=== PATIENT | female | born 2005 | race Caucasian/White ===

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

== ENCOUNTER 2023-03-14 16:24 | Emergency (ER) | payer OTHER ==
--- OUTSIDE RECORDS SUMMARY | 2023-03-14 16:28 | XMS REPORT | Continuity of Care Document ---
:2003 Author Organization [facility] t Address [address] [facility] [address] [place] [address] Care Team Providers Name Role Phone KARL ROMAN Primary Care Physician Unavailable Kelly Wakefield Attending Clinician Unavailable Susana Noel Attending Clinician Unavailable RADIOLOGY Attending Clinician Unavailable Radiology Attending Clinician Unavailable OLIVERIO ZAMRBANO Attending Clinician Unavailable Nurse, Adc Pob Immunization Attending Clinician Unavailable Oliverio Zambrano DO Attending Clinician Doctor Unassigned, [place] Attending Clinician Unavailable Pob1, Acute [facility] Attending Clinician Unavailable Karl Roman Attending Clinician Krystin France RN Attending Clinician Unavailable Caprice Santacruz Attending Clinician CAPRICE CURRY Attending Clinician Unavailable WEST, PATITO Admitting Clinician Unavailable Payers Payer Name Policy Type Policy Number Effective Date Expiration Date Rodrigue lockhart [place] [employer] [id number] 2023 STAR 00:00:00 [place] [id number] Common Sp martha HEALTH PLAN [facility] Problems Condition Condition Condition Status Onset Resolution Last Treating Co mments Source Name Details Category Date Date Treatment Clinician Date [id number] Problem Active [facility] No known No known Disease Unive rs active active ity of problems problems [facility] Allergies, Adverse Reactions, Alerts Allergy Allergy Status Severity Reaction(s) Onset Inactive Treating Comm ents Source Name Type Date Date Clinician NO KNOWN Drug Active Univers ALLERGIE Class ity of S [facility] Social History Social Habit Start Date Stop Date Quantity Comments Source Sexual orientation Univer sity [facility] Sex Assigned At Common Sp martha - [facility] History of Tobacco Common [facility] - Use [facility] Exposure to Not sure University SARS-CoV-2 (event) [facility] Gender identity Universit y [facility] Tobacco use and 2020-02-03 2020-02-03 Smokeless Universit y of exposure 00:00:00 00:00:00 tobacco non-user [facility] dical [place] History of Social 2020-02-03 2020-02-03 Univers ity of function 00:00:00 00:00:00 [facility] Smoking Status Start Date Stop Date Source Never Smoker [facility] Medications Ordered Filled Start Stop Current Ordering Indication Dosage Frequency Signature Comments Components Source Medication Medication Date Date Medication? Clinician (SIG) Name Name acetaminoph 2020- No [id number] 650mg Univers en 02-02 ity of (TYLENOL) 15:00: 14:05 [place] tablet 650 00 :00 Medical Branch acetaminoph 2019- No [id number] 650mg 650 mg, Univers en 02-02 Oral, ity of (TYLENOL) 15:00: 14:05 [place]CE, 1 [place] tablet 650 00 :00 dose, Tue Medi mary mg 02/03/20 at Branch 1000, Routine No known 2019- No Univers medications 02-02 ity of 09:18: [place] [address] Medical Branch maalox:diph 2019- 2020- No [id number] 10mL Take 10 mL Univers enhydrAMINE 02-02 by mouth ity of :lidocaine 00:00: 04:59 [place] needed [place] 2 % viscous 00 :00 (Swish and Me dical 1:1:1 spit) for Branch up to 5 days. maalox:diph 2020- No [id number] 10mL Take 10 mL Univers enhydrAMINE 02-02 by mouth ity of :lidocaine 00:00: 04:59 as needed [place] 2 % viscous 00 :00 (Swish and Me dical 1:1:1 spit) for Branch up to 5 days. maalox:diph 0 2020- No [id number] 10mL Take 10 mL Univers enhydrAMINE 02-02 by mouth ity of :lidocaine 00:00: 04:59 as needed [place] 2 % viscous 00 :00 (Swish and Me dical 1:1:1 spit) for Branch up to 5 days. Lessina Lessina Yes Susana 1 tablet Co mmon -17 [place] [facility] 00:00: - [facility] 00 [facility] Levonorgest Levonorgest Yes Susana TAKE 1 Common rel-Ethinyl rel-Ethinyl Mill[place] TABLET BY Spirit Estrad Estrad MOUTH - [facility] EVERY DAY [facility] No Known No Known No Common Medications Medications [facility] buPROPion buPROPion No 1{table QD HCl ER (SR) HCl ER (SR) t_in_th 150 MG 150 MG e_morni ng} Omeprazole Omeprazole No QD 20 MG 20 MG No known No Univers medications [facility] No known No Univers medications [facility] Vital Signs Vital Name Observation Time Observation Value Comments Source height 2021-07-11 13:00:00 64.5 [in_i] [facility] weight 2021-07-11 13:00:00 109 [lb_av] [facility] temperature 2021-07-11 13:00:00 98.0 [degF] [facility] bmi 2021-07-11 13:00:00 18.42 kg/m2 [facility] oximetry 2021-07-11 13:00:00 99 % [facility] respiratory rate 2021-07-11 13:00:00 18 /min Comm on [facility] blood pressure 2021-07-11 13:00:00 91 mm[Hg] [facility] blood pressure 2021-07-11 13:00:00 46 mm[Hg] Common [facility] - diastolic [facility] height 2020-07-08 13:20:00 64.5 [in_i] [facility] weight 2020-07-08 13:20:00 104.5 [lb_av] [facility] temperature 2020-07-08 13:20:00 97.9 [degF] Common [facility] bmi 2020-07-08 13:20:00 17.66 kg/m2 Common [facility] oximetry 2020-07-08 13:20:00 100 % [facility] respiratory rate 2020-07-08 13:20:00 18 /min Comm on [facility] blood pressure 2020-07-08 13:20:00 86 mm[Hg] Common [facility] - systolic [facility] blood pressure 2020-07-08 13:20:00 54 mm[Hg] Common [facility] - diastolic [facility] Systolic blood 2020-02-03 13:26:00 110 mm[Hg] Univer sity of [facility] Diastolic blood 2020-02-03 13:26:00 62 mm[Hg] Unive rsity of [facility] Heart rate 2020-02-03 13:26:00 109 /min [facility] Body temperature 2020-02-03 13:26:00 39.78 Melissa [facility] Respiratory rate 2020-02-03 13:26:00 18 /min [facility] Body height 2020-02-03 13:26:00 165 cm [facility] Body weight 2020-02-03 13:26:00 48.807 kg [facility] BMI 2020-02-03 13:26:00 17.93 kg/m2 [facility] Oxygen saturation in 2020-02-03 13:26:00 98 /min [facility] blood by [facility] Pulse oximetry Branch Procedures Procedure Date / Time Performing Clinician Source Performed CT ABDOMEN PELVIS WO 2023-02-20 13:41:00 Requisition, Paper Univ [facility] NO SHOW OR MISSED 2023-02-20 13:30:22 Doctor Unassigned, [facility] APPOINTMENT POLICY [place] [facility] ACKNOWLEDGEMENT [facility] PATIENT FINANCIAL 2023-02-20 13:30:06 Doctor Unassigned, [facility] POLICY [facility] NOTICE OF PRIVACY 2023-02-20 13:29:50 Doctor Unassigned, [facility] PRACTICES [facility] CONSENT/REFUSAL FOR 2023-02-20 13:29:33 Doctor Unassigned, [facility] DIAGNOSIS AND TREATMENT [facility] ASSIGNMENT OF BENEFITS 2023-02-20 13:29:18 [facility] SARS-COV-2 COVID-19 2021-02-23 16:40:59 Doctor Unassigned, [facility] VACCINE,0.3ML,IM (PFIZER) [place] VACCINATIONS - CONSENTS, 2021-02-02 05:01:00 Doctor Unadonavanigned, [facility] ELIGIBILITY, HISTORY [place] [facility] Encounters Start End Encounter Admission Attending Care Care Encounter Source Date/Time Date/Time Type Type Clinicians Facility Department ID 2022-07-11 Outpatient Gilbert, STLMLC [facility] [id number] Common 11:58:00 Kelly [facility] 2022-07-10 Outpatient Gilbert, STLMLC [facility] [id number] Common 08:08:00 Kelly [facility] 2021-07-20 Outpatient Gilbert, STLMLC [facility] [id number] Common 14:35:15 Kelly [facility] 2021-07-20 Outpatient Gilbert, STLMLC ST[facility] [id number] Common 12:21:17 Kelly [facility] 2021-07-20 Outpatient Gilbert, STLMLC STLC [id number] Common 12:20:10 Kelly [facility] 2021-07-20 Outpatient Millender, STLMLC [facility] [id number] Common 12:14:27 Susana Price17 [facility] 2021-07-20 Outpatient Millender, STLMLC [facility] [id number] Common 11:17:47 Susana 6[address] Spirit - [facility] 2023-02-20 2023-02-20 Outpatient R RADIOLOGY [facility] [id number] Univers 08:31:14 23:59:00 ity of [facility] 2023-02-20 2023-02-20 Hospital Radiology [facility] [id number] [id number] Univers 08:31:14 23:59:00 Encounter [place] [id number] ity [facility] [id number] [facility] [id number] [place] [address] Branch 2023-02-13 2023-02-13 Outpatient SFA SFA [id number] [place] 08:56:59 08:56:59 [id number] [place] 2023-02-05 2023-02-05 Outpatient SFA SFA [id number] Amol 14:45:10 14:45:10 [id number] [facility] 2022-11-30 2022-11-30 Outpatient SFA SFA [id number] Amol 17:40:38 17:40:38 [id number] [facility] 2022-09-13 2022-09-13 Outpatient SFA SFA Am[place] 10:01:30 10:01:30 [id number] [facility] 2022-09-08 2022-09-08 Outpatient SFA SFA [id number] [place] 08:31:55 08:31:55 [id number] [facility] 2022-08-30 2022-08-30 Outpatient SFA SFA [id number] Amol 08:02:19 08:02:19 [id number] [facility] 2022-08-10 2022-08-10 Outpatient SFA SFA [id number] Amol 11:56:47 11:56:47 [id number] [facility] 2022-03-31 2022-03-31 Outpatient SFA SFA [id number] Amol 14:57:16 14:57:16 [id number] [facility] 2021-07-11 2021-07-11 PREV VISIT STLMLC STLC [id number] Common 00:00:00 00:00:00 EST AGE Spirit 18-39 - [facility] 2021-02-23 2021-02-23 Outpatient Darnell ZAMBRANO [facility] [id number] Univers 11:50:00 11:50:00 OLIVERIO ity of [facility] 2021-02-23 2021-02-23 Imm/Inj Nurse, Adc Pob Immunization [facility] 1.2.840.114 [id number] Univers 11:38:41 11:39:24 Visit Oliverio Zambrano 350.1.13 .10 ity of [place]2.686 [place] Profess[place] [phone] Dc dical nal [address] Branch Building 2021-02-02 2021-02-02 Outpatient [facility] [id number] Univers 13:10:00 13:10:00 ity of [facility] 2021-02-02 2021-02-02 Orders Doctor RAMA 1.2.840.114 [id number] Univers 00:00:00 00:00:00 Only Unassigned, TRENA [id number] ity of [facility] 4.2.7.2.686 [place] as [id number] [facility] 009 Branch 2020-07-08 2020-07-08 PREV VISIT STLMLC STLMLC [id number] Common 00:00:00 00:00:00 EST AGE Spirit 12-17 - [facility] 2020-02-05 2020-02-05 Letter Pob1, Acute [facility] 1.2.840.114 [id number] Univers 00:00:00 00:00:00 (Out) [facility] [id number] ity of [place] 4.2.7.2.686 [place] as Professio [phone] Dc dical nal [address] Branch [address] One 2020-02-04 2020-02-04 Telephone RAMA Roman 1.2.840.114 [id number] Univers 00:00:00 00:00:00 Karl ALBRECHT [id number] it y of [facility] 4.2.7.2.686 [place] as [id number] [facility] 019 Branch 2020-02-04 2020-02-04 Letter RAMA [place] 1.2.840.114 [id number] Univers 00:00:00 00:00:00 (Out) Krystin ALBRECHT [id number] it y of [facility] 4.2.7.2.686 [place] as [phone] [facility] 019 Branch 2020-02-03 2020-02-03 Urgent Pob1, Acute Care Clinic [facility] 1. 2.840.114 [id number] Univers 08:16:19 08:36:19 Caprice Estrada [id number] ity [facility] [id number] [place] [phone] Dc dical [facility] 0[address] Branch [address] One 2020-02-03 2020-02-03 Outpatient Darnell CURRY [facility] [id number] Univers 08:00:00 08:00:00 CAPRICE rickey [facility] 2019-06-24 2019-06-24 Outpatient Maria L Guzman [id number] Common 11:00:00 11:00:00 [facility] [address] [facility] 2019-04-08 2019-04-08 Outpatient Maria L Guzman [id number] Common 10:20:00 10:20:00 [facility] [address] [facility] 2018-11-07 2018-11-07 Outpatient Maria L Lisat [id number] Common 15:20:00 15:20:00 [facility] [address] [facility] Results Test Description Test Time Test Comments Results Result Comments Source VITAMIN D, 25 OH 2023-02-06 07:56:44 Test Item Value Reference Range Interpretation Comme nts VITAMIN D, 25 OH (test 23 NG/ML SEE BELOW L E FFECTIVE 07/03/2022, PLEASE NOTE code = 4958) NEW METHODOLOGY IS ELECTROCHEMILUM INESCENCE BINDING ASSAY. NOTE: 25-HYDROX YVITAMIN D ASSAY INCLUDES 25-HYDROXYVITAM IN D2 AND D3. INTERPRETIVE RA NGES PEDIATRIC (<17 YEARS) . . . . . . . . . . . NG/ML 20-100ADULT: IN SUFFICIENT . . . . . . . . . . . . . . N G/ML <20 SUBOPTIMAL . . . . . . . . . . . . . . . NG/ML 20-29 OPTIMAL . . . . . . . . . . . . . . . . . NG/ML 30-100 TSH, THIRD [id number] 07:14:29 Test Item Value Reference Range Interpretation Comments TSH, THIRD GENERATION (test code 0.468 UIU/ML 0.400-4.100 = 2821) COMPREHENSIVE METABOLIC [id number] 03:52:33 Test Item Value Reference Range Interpretation Comments GLUCOSE (test code = 92 MG/DL 70-99 2216) BUN (test code = 12 MG/DL 6-20 2207) CREATININE (test 0.60 MG/DL 0.50-1.10 code = 2214) eGFR (2020 CKD-EPI) 133 >60 (test code = 34175) ML/MIN/1.73 CALC BUN/CREAT (test 20 RATIO 6-28 code = 2235) SODIUM (test code = 138 MEQ/L 722-423 4426) POTASSIUM (test code 3.9 MEQ/L 3.5-5.4 = 2227) CHLORIDE (test code 104 MEQ/L 95-107 = 2215) CARBON DIOXIDE (test 24 MEQ/L 19-31 code = 2206) CALCIUM (test code = 9.6 MG/DL 8.5-10.5 2208) PROTEIN, TOTAL (test 7.5 G/DL 6.1-8.3 code = 2229) ALBUMIN (test code = 5.0 G/DL 3.5-5.2 220) CALC GLOBULIN (test 2.5 G/DL 2.1-3.7 code = 2240) CALC A/G RATIO (test 2.0 RATIO 1.0-2.6 code = 2234) BILIRUBIN, TOTAL 0.6 MG/DL See_Comment [Automated message] (test code = 2207) The syste m which generated this result transmitted ref erence range: <=1.2. T he reference range was not used to int erpret this result as normal/abnormal . ALKALINE PHOSPHATASE 52 U/L 41-120 (test code = 2204) AST (test code = 12 U/L 9-40 2217) ALT (test code = 9 U/L 5-40 UNLESS OTH ERWISE 2218) INDICATED, ALL TESTING PERFORM ED AT CLINICAL PATH[facility] [employer] [place]. [address] [place] [address] LABORA NATALI DIRECTOR: Inocencio GOLDBERG MANAV NUMBER [id number] CAP ACCREDITATION N O. [id number] CBC W/AUTO DIFF WITH [id number] 03:31:33 Test Item Value Reference Range Interpretation Comments WBC (test code = 3.9 K/UL 3.5-11.0 1001) RBC (test code = 4.62 M/UL 3.80-5.40 1002) HEMOGLOBIN (test code 13.8 G/DL 11.5-15.5 = 1003) HEMATOCRIT (test code 40.3 % 34.0-45.0 = 1004) MCV (test code = 87.2 fL 80.0-99.0 1005) MCH (test code = 29.9 PG 25.0-33.0 1006) MCHC (test code = 34.2 G/DL 31.0-36.0 1007) RDW (test code = 12.4 % 11.5-15.0 1038) NEUTROPHILS (test 63.5 % code = 1008) LYMPHOCYTES (test 26.7 % code = 1010) MONOCYTES (test code 7.5 % = 1011) EOSINOPHILS (test 1.5 % code = 1012) BASOPHILS (test code 0.5 % = 1013) IMMATURE GRANULOCYTES 0.3 % (test code = 1036) NUCLEATED RBCS (test 0.0 /100 WBC'S See_Comment [Aut omated code = 1065) message] The sy stem which generated this result transmitted reference range : 0.0. The refere nce range was not u sed to interpret th is result as normal/abnormal . PLATELET COUNT (test 285 K/UL 130-400 code = 1015) ABSOLUTE NEUTROPHILS 2.47 K/UL 1.50-7.50 (test code = 1066) ABSOLUTE LYMPHOCYTES 1.04 K/UL 1.00-4.00 (test code = 1067) ABSOLUTE MONOCYTES 0.29 K/UL 0.20-1.00 (test code = 1068) ABSOLUTE EOSINOPHILS 0.06 K/UL 0.00-0.50 (test code = 1040) ABSOLUTE BASOPHILS 0.02 K/UL 0.00-0.20 (test code = 1069) ABS IMMATURE 0.01 K/UL 0.00-0.10 GRANULOCYTES (test code = 1020) ABS NUCLEATED RBCS 0.00 K/UL 0.00-0.11 (test code = 46348) CT/NG, NAAT, [id number] 00:06:35 Test Item Value Reference Range Interpretation Comments CHLAMYDIA, NAAT, NEGATIVE NEGATIVE Testing is performed with URINE (test code Manohar ROXANNE 6800/8800 = 15483) systems usingre al-time polymerase suzi n reaction (PCR) method. T esting is performed with Manohar ROXANNE 6800/8800 syste ms usingreal-time polymerase chain reaction (PCR) method. A negative resu lt does not exclude low lev el infection, specimensamplin g error, or collection erro r. GONORRHEA, NAAT, NEGATIVE NEGATIVE Testing is performed with URINE (test code Manohar ROXANNE 6800/8800 = 51594) systems usingre al-time polymerase suzi n reaction (PCR) method. T esting is performed with Manohar ROXANNE 6800/8800 syste ms usingreal-time polymerase chain reaction (PCR) method. A negative resu lt does not exclude low lev el infection, specimensamplin g error, or collection erro r. HIV 1/2 4TH GEN, RFLX [id number] 06:06:48 Test Item Value Reference Range Interpretation Comments HIV 1/2 4TH GEN, NON-REACTIVE NON-REACTIVE CPL hall s important RFLX CONF (test pathology st aff changes code = 3514) effective 08/23. New pathology s taff will provide uninter rupted, excellent patie nt care and clinical consultation. S ee URL: [email or web address]. UNLESS O THERWISE INDICATED, ALL TESTING PERFORMED AT [facility] [employer] [address] [place], [place] [address] [place] [address] DIRECTOR: Inocencio GOLDBERG MANAV NUMBER [id number] CAP ACCREDITATION N O. [id number] RPR REFLEX TO T. PALLIDUM - [id number] 05:38:25 Test Item Value Reference Range Interpretation Comments RPR (test code = 51275) NON-REACTIVE NON-REACTIVE RPR TITER (test code = 3500) NOT INDIC. TITER NOT INDIC. CULTURE, [id number] 15:48:21SPECIMEN NUMBER: [id number] CULTURE, URINE SPECIMEN NUMBER: [id number] SPECIMEN COMMENT: URINE SOURCE:URINE REPORT STATUS: FINAL ISOLATE NUMBER 1: ORGANISM: 04/01/2022 >100,000 CFU/ML GRAM NEGATIVE BA CILLI IDENTIFICATION: 04/02/2022 ESCHERICHIA COLI E. COLI AMOXICILLIN/CA SENSITIVE <=8/4AMPICILLIN SENSITIVE <=8CEFAZOLIN SENSITIVE <=2CEFTRIAXONE SENSITIVE <=1CIPROFLOXACIN SENSITIVE <=1LEVOFLOXACIN SENSITIVE <=2NITROFURANTOIN SENSITIVE <=32PIP/TAZOBAC SENSITIVE <=16TETRACYCLINE SENSITIVE <=4TOBRAMYCIN SENSITIVE <=4TRIMETH/SULFA SENSITIVE <=2/38 NOTE: NUMBERS DISPLAYED REPRESENT MINIMUM INHIBITORY CONCENTRATION (ARLETTE) WHICH IS EXPRESSED IN MCG/ML. UNLESS OTHERWISE INDICATED, ALL TESTING PERFORMED [facility] [address] [place] [address] CONTINUING EDUCATION DIRECTOR: REANNA DALLAS M.D. CLIA NUMBER [id number] [place]. [id number]/NG, NAAT, [id number] 16:51:08 Test Item Value Reference Range Interpretation Comments GONORRHEA, NAAT NEGATIVE NEGATIVE IMPORTA NT NOTICE: SEE (test code = [place] [address]) [email or web address] [employer] Note: Assay methodology is nucleic acid amplification b y electrician substation m ediated amplification ( TMA) utilizing the A ptima Combo 2 Assay. CHLAMYDIA, NAAT NEGATIVE NEGATIVE IMPORTA NT NOTICE: SEE (test code = [place] [address]) [email or web address] Note: Assay methodology is nucleic acid amplification b y electrician substation m ediated amplification ( TMA) utilizing the A ptima Combo 2 Assay. [id number] 04:44:32 Test Item Value Reference Range Interpretation Comments RPR RESULT (test code = NON-REACTIVE NON-REACTIVE 3501) RPR TITER (test code = 3500) NOT INDIC. TITER NOT INDIC. HIV 1/2 4TH GEN, RFLX [id number] 03:54:06 Test Item Value Reference Range Interpretation Comments HIV 1/2 4TH GEN, RFLX CONF (test NON-REACTIVE NON-REACTIVE code = 3514) HEPATITIS PANEL, [id number] 03:54:06 Test Item Value Reference Range Interpretation Comments HEPATITIS A IgM (test NON-REACTIVE NON-REACTIVE code = 82792) HEPATITIS B CORE IgM NON-REACTIVE NON-REACTIVE (test code = 4644) HEPATITIS B SURF AG NON-REACTIVE NON-REACTIVE (test code = 2739) HEPATITIS C ANTIBODY NON-REACTIVE NON-REACTIVE (test code = 4675) INTERPRETATION (NOTE) Hepatitis A HEPATITIS A: (test serology shows no code = 2552) evidence of acu te hepatitis A. INTERPRETATION (NOTE) Hepatitis B HEPATITIS B: (test serology shows no code = 50391) evidence of ac [place] hepatitis B and no indication of exposure to hepatitis B vir us in the previous si xto eight months. INTERPRETATION (NOTE) Hepatitis C HEPATITIS C: (test serology shows no code = 19610) evidence of ex posure to hepatitisC v irus at this time. I t can take up to 12 m onths after exposure tothe hepatitis C vir us for antibodies to become detectab le in the blood in ce rtain patients. UNLES S OTHERWISE INDIC ATED, ALL TESTING PERFORMED [facility], [facility]. [address] [place] [address] NATALI DIRECTOR: REANNA DALLAS M.D. CLIA NUMBER [id number] [place] [id number] SARS-CoV-2 (COVID-19), RT-PCR/[id number] 10:54:31 Test Item Value Reference Interpretation Comments Range SARS-CoV-2 NEGATIVE SEE NOTE SARS-CoV-2 RNA NOT INTERPRETATION DETECTEDNegat lorraine (test code = 94373) results do not preclude SARS-C oV-2 infection and s ankit taylorbe used as t he sole basis for patie nt management deci sions. Negativeresults must be combined wit h clinical observ ations, patient history ,and epidemiological information. Op timum specimen types and timingfor peak viral levels during infections caus ed by SARS-CoV-2 have chery zavala. Collection of m ultiple specimens or ty [...] (test code = [place]OP[place]: [place] [address]) Manohar Roxanne Keller l-Time RT-PCR. The exp ected result or [...] provided by met hod given in report:https:// www.[email or web address].com/clinic ians/cl ient-communicat ions/ Alternatively, see downloadable PD F fact sheet at:https://www. [employer]/COVID-19-R T-PCR UNLESS OTHERWIS E INDICATED, ALL TESTING PERFORMED [facility], [place]. [address] [place] [address] ALFREDA JIMÉNEZ DIRECTOR: REANNA DALLAS M.D. CLIA NUMBER [id number] CAP ACCREDITATION N O. [id number]
--- NOTE | 2023-03-14 17:59 | RAD REPORT ---
EXAM DESCRIPTION: CT - Head Brain Wo Cont - 03/14/2023 5:23 pm CLINICAL HISTORY: Dizziness;Headache;Syncope COMPARISON: No comparisons TECHNIQUE: Noncontrast head CT images were obtained without IV contrast. Multiplanar reformats were generated and reviewed. All CT scans are performed using dose optimization technique as appropriate and may include automated exposure control or mA/KV adjustment according to patient size. FINDINGS: No intracranial hemorrhage, mass, or edema. Midline structures are unremarkable. Normal ventricular caliber for age. Huber-white matter differentiation is preserved, without evidence of acute infarct. No abnormal extra- axial fluid collections. Mastoid air cells and visualized portions of the paranasal sinuses are clear. No acute bony findings. IMPRESSION: No evidence of an acute intracranial process.
[2023-03-14 19:38] LABS: Specific Gravity > 1.030 (1.005-1.030); Urine Bacteria <20 /HPF (<20); Urine Bilirubin NEGATIVE (Negative); Urine Blood Negative (Negative); Urine Clarity Extremely Turbid (Clear); Urine Color Yellow (Yellow); Urine Glucose NEGATIVE (Negative); Urine Mucus 1+ /HPF (None Seen); Urine Protein 1+ (Negative); Urine RBC <5 /HPF (None Seen); Urine Urobilinogen Normal (Normal); Urine pH 7.5 (5.0-7.0)
[2023-03-14] MEDS ORDERED: MECLIZINE HCL 12.5 MG TAB ONE (19:39)
[2023-03-14] MEDS ORDERED: NA CHLORIDE 0.9% 1,000 ML ONE (19:39)
[2023-03-14 19:50] LABS: Specific Gravity 1.032 (1.005-1.030)
[2023-03-14 19:51] LABS: Barbiturates NEGATIVE (NEGATIVE); Benzodiazepines NEGATIVE (NEGATIVE); Cocaine NEGATIVE (NEGATIVE); METHAMPHETAM NEGATIVE (NEGATIVE); Methadone NEGATIVE (NEGATIVE); Opiates NEGATIVE (NEGATIVE); Phencyclidine NEGATIVE (NEGATIVE); THC Cannibis POSITIVE (NEGATIVE)
[2023-03-14 20:17] LABS: Absolute Lymphocytes (CBC) 0.9 K/uL (0.7-4.9); Hematocrit 42.8 % (36.0-45.0); Lymphocytes % 7.1 % (15.3-44.8); MCV 87.1 fL (80-100); MPV 7.7 fL (7.6-11.3); Platelets 301 thou/uL (152-406); RBC Red Blood Cell Count 4.91 M/uL (3.86-4.86)
[2023-03-14 20:34] LABS: Protime INR 0.88
[2023-03-14 20:42] LABS: ALT/SGPT 27 U/L (13-56); AST/SGOT 13 U/L (15-37); Albumin 4.7 g/dL (3.4-5.0); Alkaline Phosphatase 55 U/L (45-117); BUN Blood Urea Nitrogen 11 mg/dL (7-18); Bicarbonate 26 mEq/L (21-32); Bilirubin Direct 0.2 mg/dL (0-0.2); Bilirubin Indirect, Calculated 0.4 mg/dL (0.2-0.8); Bilirubin Total 0.6 mg/dL (0.2-1.0); Glomerular Filtration Rate 135 ml/min (=/>90); Glucose Level 94 mg/dL (74-106); Magnesium 2.3 mg/dL (1.6-2.4); Potassium 3.7 mEq/L (3.5-5.1); Protein, Total 8.6 g/dL (6.4-8.2); Sodium Level 137 mEq/L (136-145)
[2023-03-14 20:43] LABS: Troponin High Sensitivity < 3.0 pg/mL (<58.9)
--- NOTE | 2023-03-14 20:52 | ER ---
Nurse's Notes [facility] L Name: Keira Hdez Age: 17 yrs Sex: Female : 2005 Arrival Date: 03/14/2023 Time: 16:24 Bed 8 Private MD: Diagnosis: Dizziness and giddiness;Nausea with vomiting, unspecified Presentation: 03/14 16:41 Chief complaint: Patient states: Became dizzy while at work and fell to ground, then ph had N/V, also reports headache, has had similar symptoms in the past. Coronavirus screen: Vaccine status: Patient reports being unvaccinated. Ebola Screen: No symptoms or risks identified at this time. Initial Sepsis Screen: Does the patient meet any 2 criteria? No. Patient's initial sepsis screen is negative. Does the patient have a suspected source of infection? No. Patient's initial sepsis screen is negative. Risk Assessment: Do you want to hurt yourself or someone else? Patient reports no desire to harm self or others. Onset of symptoms was March 14, 2023. 16:41 Method Of Arrival: Wheelchair 16:41 Acuity: JOVANY 3 ph Triage Assessment: 16:43 General: Appears in no apparent distress. uncomfortable, Behavior is calm, cooperative, ph appropriate for age. Pain: Complains of pain in headache. Neuro: Level of Consciousness is awake, alert, obeys commands, Oriented to person, place, time, situation, Reports dizziness, headache. GI: Reports nausea, vomiting. Historical: - Allergies: 16:43 No Known Allergies; ph - PMHx: 16:43 ADD/ADHD; ph - Immunization history:: Adult Immunizations unknown. - Social history:: Smoking status: Patient denies any tobacco usage or history of. Screenin:46 [facility] ED Fall Risk Assessment (Adult) History of falling in the last 3 months, rv including since admission No falls in past 3 months (0 pts) Confusion or Disorientation No (0 pts) Score/Fall Risk Level 3 or more points = High Risk Oriented to surroundings, Maintained a safe environment, Educated pt \T\ family on fall prevention, incl call for assistance when getting out of bed, Assessed \T\ reinforced patient's understanding of fall precautions, Provided non-skid footwear, Hourly rounding (assess needs \T\ fall precautionary measures) done, Used ambulatory aids as needed (educated on \T\ assisted with), Used gait belt as appropriate Implemented a Fall Risk Plan of Care, Apply high fall risk patient identification: yellow non skid footwear/ fall signage, Placed fall mat w/ non beveled edge next to bed, Activated bed/chair alarm, Remained w/in arm's length of patient and in sight while toileting, Offered frequent toileting (1:1 observation), Remained with patient while ambulating, Utilized family, sitter, or virtual hospitality manager as indicated. Abuse screen: Denies threats or abuse. Denies injuries from another. Nutritional screening: No deficits noted. Tuberculosis screening: No symptoms or risk factors identified. Assessment: 19:45 General: Appears comfortable, Behavior is calm, cooperative. Pain: Denies pain. Neuro: rv Level of Consciousness is awake, alert, obeys commands, Oriented to person, place, time, situation, Reports dizziness. Cardiovascular: Capillary refill < 3 seconds Patient's skin is warm and dry. Respiratory: Airway is patent Respiratory pattern is regular. GI: Abdomen is non-distended, Reports nausea, vomiting. : No signs and/or symptoms were reported regarding the genitourinary system. Derm: Skin is healthy with good turgor. Vital Signs: 16:41 BP 121 / 75; Pulse 109; Resp 18; Temp 97.8; Pulse Ox 100% on R/A; ph 20:04 BP 111 / 78; Pulse 73; Resp 19; Pulse Ox 100% on R/A; kd3 20:33 BP 118 / 66 Supine; Pulse 69; Resp 18; Pulse Ox 100% on R/A; kd3 20:33 BP 117 / 71 Sitting; Pulse 76; Resp 20; Pulse Ox 100% on R/A; kd3 20:33 BP 121 / 76 Standing; Pulse 89; Resp 21; Pulse Ox 100% on R/A; kd3 21:45 BP 110 / 75; Pulse 82; Resp 16; Pulse Ox 100% on R/A; kd3 ED Course: 16:27 Patient arrived in ED. im 16:28 [facility] kb 16:28 Belinda Luz is Attending Physician. kb 16:42 Triage completed. ph 16:43 Arm band placed on Patient placed in waiting room, Patient notified of wait time. EKG ph completed in triage. Results shown to MD. 17:24 CT Head Brain wo Cont In Process Unspecified. EDMS 19:20 Jacquelin Gore, RN is Primary Nurse. kd3 19:46 Patient has correct armband on for positive identification. Client placed on continuous rv cardiac and pulse oximetry monitoring. NIBP monitoring applied. 20:02 Basic Metabolic Panel Sent. kd3 20:02 CBC with Diff Sent. kd3 20:02 Hepatic Function Sent. kd3 20:02 Magnesium Sent. kd3 20:02 Protime (+inr) Sent. kd3 20:02 Ptt, Activated Sent. kd3 20:02 Troponin High Sensitivity Sent. kd3 20:02 Urine Culture Sent. kd3 20:09 Inserted saline lock: 20 gauge in left antecubital area, using aseptic technique. kd3 21:44 No provider procedures requiring assistance completed. IV discontinued, intact, kd3 bleeding controlled, No redness/swelling at site. Pressure dressing applied. 21:45 Provided Education on: . kd3 Administered Medications: 20:02 Drug: Meclizine PO 25 mg PO once Route: PO; kd3 21:45 Follow up: Response: No adverse reaction kd3 20:09 Drug: NS 0.9% IV 1000 ml IV at 1000 ml once Route: IV; Rate: 1000 ml; Site: left kd3 forearm; 21:46 Follow up: Response: No adverse reaction; IV Status: Completed infusion kd3 Medication: 19:46 VIS not applicable for this client. rv Outcome: 20:52 Discharge ordered by . kb 21:45 Discharged to home ambulatory, kd3 21:45 Condition: stable 21:45 Discharge instructions given to patient, family, Instructed on discharge instructions, follow up and referral plans. Demonstrated understanding of instructions, follow-up care, 21:46 Patient left the ED. kd3 Signatures: Dispatcher [employer] EDMS Lelia Weaver, FABRIC NORMALIZER-C FABRIC NORMALIZER-Kimberley Edouard, Karthik Bo RN, ph, RN RN Jacquelin Benoit, RN RN kd3 Jesusita Sifuentes
--- NOTE | 2023-03-14 20:52 | EDPHYS ---
Physician Documentation [facility] Name: Keira Hdez Age: 17 yrs Sex: Female : 2005 Arrival Date: 03/14/2023 Time: 16:24 Bed 8 Private MD: ED Physician Belinda Luz HPI: 03/14 16:53 This 17 yrs old Female presents to ER via Wheelchair with complaints of Dizziness, kb Vomiting. 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 Reports headache, dizziness, nausea, vomiting and near syncope. States she has had these symptoms intermittently for years, but now it is happening at least once a week. . 16:53 The patient presents with dizziness, feeling faint. Onset: The symptoms/episode kb began/occurred just prior to arrival. Context: occurred at work, occurred while the patient was working, just prior to the episode the patient experienced no apparent symptoms. Modifying factors: The symptoms are alleviated by nothing, the symptoms are aggravated by nothing. Associated signs and symptoms: Pertinent positives: headache, nausea, near-syncope, vomiting. Severity of symptoms: At their worst the symptoms were moderate in the emergency department the symptoms are unchanged. Patient's baseline: Neuro: alert and fully oriented, Motor: no deficits, Ambulation: walks without assistance, Speech: normal. The patient has experienced similar episodes in the past. The patient has not recently seen a physician. Historical: - Allergies: 16:43 No Known Allergies; ph - PMHx: 16:43 ADD/ADHD; ph - Immunization history:: Adult Immunizations unknown. - Social history:: Smoking status: Patient denies any tobacco usage or history of. ROS: 20:49 Constitutional: Negative for fever, chills, and weight loss, kb 20:49 Abdomen/GI: Positive for nausea, vomiting, 20:49 Neuro: Positive for dizziness, headache, 20:49 All other systems are negative, Exam: 20:49 Constitutional: This is a well developed, well nourished patient who is awake, alert, kb and in no acute distress. Head/Face: Normocephalic, atraumatic. Eyes: Pupils equal round and reactive to light, extra-ocular motions intact. Lids and lashes normal. Conjunctiva and sclera are non-icteric and not injected. Cornea within normal limits. Periorbital areas with no swelling, redness, or edema. ENT: Moist Mucous membranes Cardiovascular: Regular rate Respiratory: Respirations even and unlabored. No increased work of breathing. Talking in full sentences Abdomen/GI: Soft, non-tender. No distention Skin: Warm, dry with normal turgor. Normal color. MS/ Extremity: Pulses equal, no cyanosis. Neurovascular intact. Full, normal range of motion. Neuro: Awake and alert, GCS 15, oriented to person, place, time, and situation. Moves all extremities. Normal gait. 21:30 ECG was reviewed by the Attending Physician. kb Vital Signs: 16:41 BP 121 / 75; Pulse 109; Resp 18; Temp 97.8; Pulse Ox 100% on R/A; ph 20:04 BP 111 / 78; Pulse 73; Resp 19; Pulse Ox 100% on R/A; kd3 20:33 BP 118 / 66 Supine; Pulse 69; Resp 18; Pulse Ox 100% on R/A; kd3 20:33 BP 117 / 71 Sitting; Pulse 76; Resp 20; Pulse Ox 100% on R/A; kd3 20:33 BP 121 / 76 Standing; Pulse 89; Resp 21; Pulse Ox 100% on R/A; kd3 21:45 BP 110 / 75; Pulse 82; Resp 16; Pulse Ox 100% on R/A; kd3 MDM: 16:36 Patient medically screened. kb 20:49 Differential diagnosis: generalized weakness, hypovolemia, idiopathic dizziness, kb near-syncope, vertigo. Data reviewed: vital signs, nurses notes. Counseling: I had a detailed discussion with the patient and/or guardian regarding the historical points, exam findings, and any diagnostic results supporting the discharge/admit diagnosis, lab results, radiology results, the need for outpatient follow up, a family practitioner, to return to the emergency department if symptoms worsen or persist or if there are any questions or concerns that arise at home. 20:51 Response to treatment: the patient's symptoms have resolved after treatment. kb 03/14 16:43 Order name: Basic Metabolic Panel; Complete Time: 20:44 kb 03/14 16:43 Order name: CBC with Diff; Complete Time: 20:19 kb 03/14 16:43 Order name: Hepatic Function; Complete Time: 20:44 kb 03/14 16:43 Order name: Magnesium; Complete Time: 20:44 kb 03/14 16:43 Order name: Test, Urine; Complete Time: 19:50 kb 03/14 16:43 Order name: Protime (+inr); Complete Time: 20:44 kb 03/14 16:43 Order name: Ptt, Activated; Complete Time: 20:44 kb 03/14 16:43 Order name: Troponin High Sensitivity; Complete Time: 20:44 kb 03/14 16:43 Order name: UDS; Complete Time: 19:52 kb 03/14 16:43 Order name: Urinalysis w/ reflexes; Complete Time: 19:46 kb 03/14 19:48 Order name: Urine Culture EDMS 03/14 16:43 Order name: CT Head Brain wo Cont; Complete Time: 18:00 kb 03/14 16:43 Order name: EKG; Complete Time: 16:43 kb 03/14 16:43 Order name: Cardiac monitoring; Complete Time: 19:45 kb 03/14 16:43 Order name: EKG - Nurse/Tech; Complete Time: 19:45 kb 03/14 16:43 Order name: IV Saline Lock; Complete Time: 19:45 kb 03/14 16:43 Order name: Labs collected and sent; Complete Time: 19:45 kb 03/14 16:43 Order name: NPO; Complete Time: 19:45 kb 03/14 16:43 Order name: O2 Per Protocol; Complete Time: 19:45 kb 03/14 16:43 Order name: O2 Sat Monitoring; Complete Time: 19:45 kb 03/14 16:43 Order name: Orthostatics; Complete Time: 20:34 kb EC:30 Rate is 67 beats/min. Rhythm is regular. QRS [place] is Normal. LA interval is normal at kb 152 msec. QRS interval is normal at 86 msec. QT interval is normal at 424 msec. Administered Medications: 20:02 Drug: Meclizine PO 25 mg PO once Route: PO; kd3 21:45 Follow up: Response: No adverse reaction kd3 20:09 Drug: NS 0.9% IV 1000 ml IV at 1000 ml once Route: IV; Rate: 1000 ml; Site: left kd3 forearm; 21:46 Follow up: Response: No adverse reaction; IV Status: Completed infusion kd3 Disposition Summary: 03/14/23 20:52 Discharge Ordered Notes: Location: Home kb Condition: Stable kb Diagnosis - Dizziness and giddiness kb - Nausea with vomiting, unspecified kb Followup: kb - With: Emergency Department - When: As needed - Reason: Worsening of condition Followup: kb - With: Private Physician - When: 2 - 3 days - Reason: Recheck today's complaints, Continuance of care, Re-evaluation by your physician Discharge Instructions: - Discharge Summary Sheet kb - Nausea and Vomiting, Adult, [id number] kb - Dizziness, [id number] kb Forms: - Medication Reconciliation Form kb - Thank You Letter kb - Antibiotic Education kb - Prescription Opioid Use kb - Patient Portal Instructions kb - Leadership Thank You Letter kb Signatures: Dispatcher [employer] Lelia Orellana, BRYNN-C LAMINATION BUILDER-Kimberley Edouard, RN RN Jacquelin Juarez RN RN kd3
[2023-03-14 23:00] VITALS: O2SAT 100
[2023-03-14 23:01] VITALS: TEMP 97.8
[2023-03-14 23:06] VITALS: BP 110/75
== END 2023-03-14 21:46 | disposition home or self-care (01) ==
LOC: ER 16:24
DX: R42 Dizziness and giddiness (principal); R11.2 Nausea with vomiting, unspecified
CPT/HCPCS: 87088; 85025; 81001; 87086; 80048; 36415; 83735; 81025; 85610; 80076; 85730; 84484; 80307; 70450; J8597; J7030

== ENCOUNTER 2023-05-22 11:59 | Emergency (ER) | payer OTHER ==
--- OUTSIDE RECORDS SUMMARY | 2023-05-22 12:03 | XMS REPORT | Continuity of Care Document ---
:2005 Author Organization [facility] t Address [address] [place] [address] [address] [place] [address] Care Team Providers Name Role Phone Pcp, Patient Does Not Have A Primary Care Physician [id number] Kelly Wakefield Attending Clinician Unavailable Susana Noel Attending Clinician Unavailable CHRISTINE ACOSTA Attending Clinician Unavailable Christine Acosta MD Attending Clinician Lab, Ang - Db Attending Clinician Unavailable Radiology Attending Clinician Unavailable RADIOLOGY Attending Clinician Unavailable OLIVERIO ZAMBRANO Attending Clinician Unavailable Nurse, Adc Pob Immunization Attending Clinician Unavailable Oliverio Zambrano DO Attending Clinician Doctor Unassigned, [place] Attending Clinician Unavailable Pob1, Acute [facility] Attending Clinician Unavailable So oCvarrubias Attending Clinician Krystin France RN Attending Clinician Unavailable Caprice Santacruz Attending Clinician CAPRICE CURRY Attending Clinician Unavailable WEST, PATITO Admitting Clinician Unavailable Payers Payer Name Policy Type Policy Number Effective Date Expiration Date S [place]IL[place] [id number] 2023 STAR 00:00:00 [place] [address] [id number] [facility] Problems Condition Condition Condition Status Onset Resolution Last Treating Co mments Source Name Details Category Date Date Treatment Clinician Date Normal Normal Disease Active 2022-06 Univers 1-10 ity of in first in first 00:00: [place] trimester trimester 00 [facility] Nausea and Nausea and Disease Active 2022-06 U nivers vomiting vomiting 1-10 ity of during during 00:00: [place] 00 [facility] prior to prior to Branch 22 weeks 22 weeks gestation gestation No known No known Disease Unive rs active active ity of problems problems [facility] [id number] Problem Active [facility] Spirit [facility] Allergies, Adverse Reactions, Alerts Allergy Allergy Status Severity Reaction(s) Onset Inactive Treating Comm ents Source Name Type Date Date Clinician NO KNOWN Drug Active Univers ALLERGIE Class ity of [facility] Social History Social Habit Start Date Stop Date Quantity Comments Source ASSERTION 2023-03-16 University 00:00:00 [facility] Exposure to Not sure [facility] SARS-CoV-2 (event) [facility] Gender identity Universit y [facility] Sexual orientation Univer [facility] Sex Assigned [facility] martha - [facility] History of Tobacco Common [facility] - Use [facility] History of Social 2023-05-04 2023-05-04 Univers ity of function 00:00:00 00:00:00 [facility] Tobacco use and 2020-02-03 2020-02-03 Smokeless Universit y of exposure 00:00:00 00:00:00 tobacco non-user [facility] Smoking Status Start Date Stop Date Source Never smoked tobacco [facility] Medications Ordered Filled Start Stop Current Ordering Indication Dosage Frequency Signature Comments Components Source Medication Medication Date Date Medication? Clinician (SIG) Name Name PNV 2022-06 Yes Take by Univers no.95/koki 1-10 mouth. ity of us 14:48: [place] fum/folic 24 [facility] ( ORAL) PN 2022-06 Yes Take by Univers no.95/koki 1-10 mouth. ity of us 14:48: [place] fum/folic 24 Medical [facility] ( ORAL) PN 2022-06 Yes Take by Univers no.95/koki 1-10 mouth. ity of us 14:48: [place] fum/folic 24 Medical ac Branch ( ORAL) PNV 2022-06 Yes Take by Univers no.95/koki 1-10 mouth. ity of us 14:48: [place] fum/folic 24 Medical ac Branch ( ORAL) pyridoxine, 2022-06 Yes [id number] 25mg Take 1 Univers VITAMIN 1-10 tablet by ity of B-6, 00:00: mouth [place] (VITAMIN 00 every 6 Medical B-6) 25 mg (six) Branch tablet hours as needed for Nausea and Vomiting (N/V). doxylamine 2022-06 Yes [id number] 25mg Take 1 U nivers (UNISOM, 1-10 tablet by ity of [place] 25 mg 00 bedtime as Medica l tablet needed for Branch Nausea and Vomiting (N/V). pyridoxine, 2022-06 Yes [id number] 25mg Take 1 Univers VITAMIN 1-10 tablet by ity of B-6, 00:00: mouth [place] (VITAMIN 00 every 6 Medical B-6) 25 mg (six) Branch tablet hours as needed for Nausea and Vomiting (N/V). doxylamine 2022-06 Yes [id number] 25mg Take 1 U nivers (UNISOM, 1-10 tablet by ity of DOXYLAMINE, [place] 25 mg 00 bedtime as Medica l tablet needed for Branch Nausea and Vomiting (N/V). pyridoxine, 2022-06 Yes [id number] 25mg Take 1 Univers VITAMIN 1-10 tablet by ity of B-6, 00:00: mouth [place] (VITAMIN 00 every 6 Medical B-6) 25 mg (six) Branch tablet hours as needed for Nausea and Vomiting (N/V). doxylamine 2022-06 Yes [id number] 25mg Take 1 U nivers (UNISOM, 1-10 tablet by ity of DOXYLAMINE, [place] 25 mg 00 bedtime as Medica l tablet needed for Branch Nausea and Vomiting (N/V). pyridoxine, 2022-06 Yes [id number] 25mg Take 1 Univers VITAMIN 1-10 tablet by ity of B-6, 00:00: mouth [place] (VITAMIN 00 every 6 Medical B-6) 25 mg (six) Branch tablet hours as needed for Nausea and Vomiting (N/V). doxylamine 2022-06 Yes [id number] 25mg Take 1 U nivers (UNISOM, 1-10 tablet by ity of DOXYLAMINE, [place] 25 mg 00 bedtime as Medica l tablet needed for Branch Nausea and Vomiting (N/V). acetaminoph 2019- No [id number] 650mg Univers en 02-02 ity of (TYLENOL) 15:00: 14:05 [place] tablet 650 00 :00 Medical mg Branch acetaminoph 2020- No [id number] 650mg 650 mg, Univers en 02-02 Oral, ity of (TYLENOL) 15:00: 14:05 ONCE, 1 [place] 650 00 :00 dose, Tue Medi mary mg 02/03/20 at Branch 1000, Routine No known No Univers medications 02-02 ity of 09:18: [address] maalox:diph 2020- No [id number] 10mL Take 10 mL Univers enhydrAMINE 02-02 by mouth ity of :lidocaine 00:00: 04:59 [place] needed [place] 2 % viscous 00 :00 (Swish and Me dical 1:1:1 spit) for Branch up to 5 days. maalox:diph 2020- No [id number] 10mL Take 10 mL Univers enhydrAMINE 02-02 by mouth ity of :lidocaine 00:00: 04:59 [place] needed [place] 2 % viscous 00 :00 (Swish and Me dical 1:1:1 spit) for Branch up to 5 days. maalox:diph 2020- No [id number] 10mL Take 10 mL Univers enhydrAMINE 02-02 by mouth ity of :lidocaine 00:00: 04:59 [place] needed [place] 2 % viscous 00 :00 (Swish and Me dical 1:1:1 spit) for Branch up to 5 days. Almaz Muse Yes Susana 1 tablet Co mmon 5-17 Millender Spirit 00:00: - [facility] 00 [facility] No known No Univers medications ity of [facility] No known No [facility] Levonorgest Levonorgest Yes Susana TAKE 1 Common rel-Ethinyl rel-Ethinyl Millender TABLET BY Spirit Estrad Estrad MOUTH - CHI EVERY DAY [facility] No Known No Known No Common Medications Medications S pirit - CHI [facility] buPROPion buPROPion No 1{table QD HCl ER (SR) HCl ER (SR) t_in_th 150 MG 150 MG e_morni ng} Omeprazole Omeprazole No QD 20 MG 20 MG Immunizations Ordered Filled Date Status Comments Source Immunization Name Immunization Name Pfizer COVID-19 Pfizer COVID-19 2021-02-23 Completed Comm on Spirit - Vaccine Vaccine 13:21:00 [facility] SARS-COV-2 COVID-19 2021-02-23 Completed Unive rsity of PFIZER VACCINE 00:00:00 [facility] SARS-COV-2 COVID-19 2021-02-23 Completed Unive rsity of PFIZER VACCINE 00:00:00 [facility] Pfizer COVID-19 Pfizer COVID-19 2021-02-02 Completed Comm on Spirit - Vaccine Vaccine 13:20:00 [facility] SARS-COV-2 COVID-19 2021-02-02 Completed Unive rsity of PFIZER VACCINE 00:00:00 [facility] SARS-COV-2 COVID-19 2021-02-02 Completed Unive rsity of PFIZER VACCINE 00:00:00 [facility] SARS-COV-2 COVID-19 2021-02-02 Completed Unive rsity of PFIZER VACCINE 00:00:00 [facility] Depo-Provera Depo-Provera 2019-06-24 Completed Common Spi rit - (Medroxyprogesteron (Medroxyprogestero 11:27:00 [facility]) ne ac) [facility] Depo-Provera Depo-Provera 2019-04-08 Completed Common Spi rit - (Medroxyprogesteron (Medroxyprogestero 12:00:00 [facility] e ) ne ac) [facility] SARS-COV-2 COVID-19 Unknown Completed Unive rsity of PFIZER VACCINE [facility] SARS-COV-2 COVID-19 Unknown Completed Unive rsity of PFIZER VACCINE [facility] SARS-COV-2 COVID-19 Unknown Completed Unive rsity of PFIZER VACCINE [facility] SARS-COV-2 COVID-19 Unknown Completed Unive rsity of PFIZER VACCINE [facility] SARS-COV-2 COVID-19 Unknown Completed Unive rsity of PFIZER VACCINE [facility] SARS-COV-2 COVID-19 Unknown Completed Unive rsity of PFIZER VACCINE [facility] SARS-COV-2 COVID-19 Unknown Completed Unive rsity of PFIZER VACCINE [facility] SARS-COV-2 COVID-19 Unknown Completed Unive rsity of PFIZER VACCINE [facility] Vital Signs Vital Name Observation Time Observation Value Comments Source Systolic blood 2023-05-04 20:47:00 102 mm[Hg] Univer sity of [facility] Diastolic blood 2023-05-04 20:47:00 60 mm[Hg] Unive rsity of [facility] Heart rate 2023-05-04 20:47:00 102 /min [facility] Body temperature 2023-05-04 20:47:[address] [facility] Respiratory rate 2023-05-04 20:47:00 16 /min [facility] Body height 2023-05-04 20:47:00 167.6 cm [facility] Body weight 2023-05-04 20:47:00 53.207 kg [facility] BMI 2023-05-04 20:47:00 18.93 kg/m2 [facility] height 2021-07-11 13:00:00 64.5 [in_i] [facility] weight 2021-07-11 13:00:00 109 [lb_av] [facility] temperature 2021-07-11 13:00:00 98.0 [degF] [facility] bmi 2021-07-11 13:00:00 18.42 kg/m2 [facility] oximetry 2021-07-11 13:00:00 99 % [facility] respiratory rate 2021-07-11 13:00:00 18 /min Comm on [facility] blood pressure 2021-07-11 13:00:00 91 mm[Hg] Common [facility] - systolic [facility] blood pressure 2021-07-11 13:00:00 46 mm[Hg] Common [facility] - diastolic [facility] height 2020-07-08 13:20:00 64.5 [in_i] [facility] weight 2020-07-08 13:20:00 104.5 [lb_av] [facility] temperature 2020-07-08 13:20:00 97.9 [degF] [facility] bmi 2020-07-08 13:20:00 17.66 kg/m2 [facility] oximetry 2020-07-08 13:20:00 100 % [facility] respiratory rate 2020-07-08 13:20:00 18 /min Comm on [facility] blood pressure 2020-07-08 13:20:00 86 mm[Hg] Common [facility] - systolic [facility] blood pressure 2020-07-08 13:20:00 54 mm[Hg] Common [facility] diastolic [facility] Systolic blood 2020-02-03 13:26:00 110 mm[Hg] Univer sity of [facility] Diastolic blood 2020-02-03 13:26:00 62 mm[Hg] Unive rsity of pressure [facility] Heart rate 2020-02-03 13:26:00 109 /min [facility] Body temperature 2020-02-03 13:26:00 39.78 Melissa Univ [facility] Respiratory rate 2020-02-03 13:26:00 18 /min [facility] Body height 2020-02-03 13:26:00 165 cm [facility] Body weight 2020-02-03 13:26:00 48.807 kg [facility] BMI 2020-02-03 13:26:00 17.93 kg/m2 [facility] Oxygen saturation in 2020-02-03 13:26:00 98 /min University Arterial blood by [facility] Pulse oximetry Branch Procedures Procedure Date / Time Performing Clinician Source Performed US OB TRANSVAGINAL 2023-05-04 21:47:12 Christine Acosta [facility] [place] POCT TEST 2023-05-04 00:00:00 Christine Acosta [facility] Medical [place] POCT URINALYSIS W/O 2023-05-04 00:00:00 Christine Acosta [facility] SPECIFIC GRAVITY Medical Branch CT ABDOMEN PELVIS WO 2023-02-20 13:41:00 Requisition, Paper [facility] CONTRAST Medical Branch NO SHOW OR MISSED 2023-02-20 13:30:22 Doctor Unassigned, [facility] APPOINTMENT POLICY [place] [facility] h ACKNOWLEDGEMENT [facility] PATIENT FINANCIAL 2023-02-20 13:30:06 Doctor Unassigned, Un [facility] POLICY [place] [facility] NOTICE OF PRIVACY 2023-02-20 13:29:50 Doctor Unassigned, [facility] PRACTICES [place] [facility] CONSENT/REFUSAL FOR 2023-02-20 13:29:33 Doctor Unassigned, [facility] DIAGNOSIS AND TREATMENT [place] [facility] ASSIGNMENT OF BENEFITS 2023-02-20 13:29:18 Doctor Unassigned, [facility] [place] [facility] SARS-COV-2 COVID-19 2021-02-23 16:40:59 Doctor Unassigned, [facility] VACCINE,0.3ML,IM (PFIZER) [place] Medica l Branch VACCINATIONS - CONSENTS, 2021-02-02 05:01:00 Doctor Unassigned, [facility] ELIGIBILITY, HISTORY [place] [facility] Bra [facility] Encounters Start End Encounter Admission Attending Care Care Encounter Source Date/Time Date/Time Type Type Clinicians Facility Department ID 2022-07-11 Outpatient DAYTON [place] [facility] [id number] Common 11:58:00 Kelly Mcintosh17 [facility] 2022-07-10 Outpatient DAYTON [place] [facility] [id number] Common 08:08:00 Kelly Restrepo [facility] 2021-07-20 Outpatient DAYTON [place] [facility] [id number] Common 14:35:15 Kelly [facility] 2021-07-20 Outpatient Ashu, STSIMILC [facility] [id number] Common 12:21:17 Kelly [facility] 2021-07-20 Outpatient Ashu, STSIMILC ST[facility] [id number] Common 12:20:10 Kelly [facility] 2021-07-20 Outpatient Bert, STLAZARO [facility] [id number] Common 12:14:27 Susana [id number] [facility] 2021-07-20 Outpatient Bert, [facility]SIMIL[facility] [id number] 11:17:47 Susana [id number] [facility] 2023-06-01 2023-06-01 Outpatient R ACOSTA CHRISTINE [facility] [id number] Univers 12:45:00 12:45:00 ity of [facility] 2023-05-17 2023-05-17 Telephone Florentino [facility] [id number] Univers 00:00:00 00:00:00 Eduard АНДРЕЙ [id number] it y of [facility] [id number] [place] [id number] [address] 2023-05-11 2023-05-11 Outpatient R CHRISTINE ACOSTA [facility] [id number] Univers 11:15:00 13:15:00 ity of [facility] 2023-05-11 2023-05-11 [facility], Geovanny - [facility] 1.2.840.1 [id number] Univers 11:15:00 11:30:00 Visit FlorentinoChristine [facility] [id number] ity [facility] [id number] Lamberto as JR?BLEA [id number] [address] MEDICAL OFFICE BUILDING 2023-05-04 2023-05-04 Outpatient R CHRISTINE ACOSTA [facility] [id number] Univers 14:30:00 15:17:13 ity of [facility] 2023-05-04 2023-05-04 Initial Florentino [facility] [id number] Univers 14:30:00 15:17:13 Cam АНДРЕЙ [id number] i ty of Visit WOMEN'S [id number] [facility] [id number] [facility] 134 Branch 2023-02-20 2023-02-20 Hospital Radiology [facility] 1.2.840.114 [id number] Univers 08:31:14 23:59:00 Encounter MADELEINE [id number] ity of [place] [id number] [facility] [id number] [facility] 801 Branch 2023-02-20 2023-02-20 Outpatient R RADIOLOGY [facility] [id number] Univers 08:31:14 23:59:00 ity of [facility] 2023-02-13 2023-02-13 Outpatient SFA SFA [id number] Amol 08:56:59 08:56:59 [id number] [facility] 2023-02-05 2023-02-05 Outpatient SFA SFA [id number] Amol 14:45:10 14:45:10 [id number] [facility] 2022-11-30 2022-11-30 Outpatient SFA SFA [id number] Amol 17:40:38 17:40:38 [id number] [facility] 2022-09-13 2022-09-13 Outpatient SFA SFA [id number] Amol 10:01:30 10:01:30 [id number] [facility] 2022-09-08 2022-09-08 Outpatient SFA SFA [id number] Amol 08:31:55 08:31:55 [id number] [facility] 2022-08-30 2022-08-30 Outpatient SFA SFA [id number] Amol 08:02:19 08:02:19 [id number] [facility] 2022-08-10 2022-08-10 Outpatient SFA SFA [id number] Amol 11:56:47 11:56:47 [id number] [facility] 2022-03-31 2022-03-31 Outpatient SFA SFA [id number] Amol 14:57:16 14:57:16 [id number] [facility] 2021-07-11 2021-07-11 PREV VISIT STLMLC STLMLC [id number] Common 00:00:00 00:00:00 EST AGE Spirit 18-39 - [facility] 2021-02-23 2021-02-23 Outpatient R JUAN MANUEL [facility] [id number] Univers 11:50:00 11:50:00 OLIVERIO itrickey [facility] 2021-02-23 2021-02-23 Imm/Inj Nurse, Adc Pob Immunization [facility] 1.2.840.114 [id number] Univers 11:38:41 11:39:24 Visit Oliverio Zambrano 350.1.13 .10 ity [facility] [id number] [place] Profess[place] [id number] La dical nal [address] 2021-02-02 2021-02-02 Outpatient [facility] [id number] Univers 13:10:00 13:10:00 ity [facility] 2021-02-02 2021-02-02 Orders Doctor ONTIVEROS 1.2.840.114 [id number] Univers 00:00:00 00:00:00 Only Unassigned, TRENA [id number] ity of [place] [facility] [id number] Lamberto as [id number] [facility] 009 Branch 2020-07-08 2020-07-08 PREV VISIT STLMLC STLMLC [id number] Common 00:00:00 00:00:00 EST AGE Spirit 12-17 - [facility] 2020-02-05 2020-02-05 Letter Vub1, Acute [facility] 1.2.840.114 [id number] Univers 00:00:00 00:00:00 (Out) Care [facility] [id number] ity [facility] [id number] [place]to as Professio [id number] La dical nal [address] Office Building One 2020-02-04 2020-02-04 Telephone RAMA Covarrubias 1.2.840.114 [id number] Univers 00:00:00 00:00:00 Sreekar TRENA [id number] it y of [facility] [id number] Lamberto as [id number] [facility] mary 019 Branch 2020-02-04 2020-02-04 Letter RAMA [place] 1.2.840.114 [id number] Univers 00:00:00 00:00:00 (Out) Krystin ALBRECHT [id number] it y of [facility] [id number] Lamberto as [id number] [facility] 0[address] [place] 2020-02-03 2020-02-03 Urgent Pob1, Acute Care Clinic [facility] 1. 2.840.114 [id number] Univers 08:16:19 08:36:19 Darrel Estradaa [facility] [id number] ity [facility] [id number] [place] as [place] [phone] [facility] [address] [place] Office [address] One 2020-02-03 2020-02-03 Outpatient Darnell PATRICIO [facility] [id number] Univers 08:00:00 08:00:00 CAPRICE [facility] 2019-06-24 2019-06-24 Outpatient [facility] [id number] Common 11:00:00 11:00:00 [facility] 2019-04-08 2019-04-08 Outpatient [facility] [id number] Common 10:20:00 10:20:00 [facility] it [facility] 2018-11-07 2018-11-07 Outpatient [facility] [id number] Common 15:20:00 15:20:00 [facility] Results Test Description Test Time Test Comments Results Result Comments Source POCT URINALYSIS W/O SPECIFIC GRAVITY 2023-05-04 20:49:00 Test Item Value Reference Range Interpretation Comme nts POCT PH U (test code = 3254) n/a 5-8 POCT U LEUK EST (test code = 3263) n/a Negative - Negative POCT U NIT (test code = 3262) n/a Negative - Negative POCT U PROT (test code = 3259) negative Negative - Negative POCT U GLU (test code = 3256) negative Negative - Negative POCT U KETONE (test code = 3258) n/a Negative - Negative POCT U BLD (test code = 3257) n/a Negative - Negative [id number] 20:49:00 Test Item Value Reference Range Interpretation Comments POCT PREG (test code = 1605) Positive On board controls acceptable with C Yes Line (test code = 3574) POCT PREG LOT # (test code = 3575) POCT PREG TEST DATE (test code = 3576) [facility] 25 [id number] 07:56:44 Test Item Value Reference Range Interpretation Comments VITAMIN D, 25 23 NG/ML SEE BELOW L EFFECTIVE 07/03/2022, [place] (test code PLEASE NOTE NE W METHODOLOGY = 4958) IS ELECTROCH EMILUMINESCENCE BINDING ASSAY. NOTE: 25-HYDROXYVITAM IN D ASSAY INCLUDES 25-HYD ROXYVITAMIN D2 AND D3. I NTERPRETIVE RANGES PED IATRIC (<17 YEARS) . . . . . . . . . . . NG/ML 20-100ADU LT: INSUFFICIENT . . . . . . . . . . . . . . NG/ML <20 SUBOP TIMAL . . . . . . . . . . . . . . . NG/ML 20-29 OPTIMAL . . . . . . . . . . . . . . . . . NG/ML 30-100 TSH, THIRD [id number] 07:14:29 Test Item Value Reference Range Interpretation Comments TSH, THIRD GENERATION (test code 0.468 UIU/ML 0.400-4.100 = 2821) COMPREHENSIVE METABOLIC [id number] 03:52:33 Test Item Value Reference Range Interpretation Comments GLUCOSE (test code = 92 MG/DL 70-99 2216) BUN (test code = 12 MG/DL 12-12) CREATININE (test 0.60 MG/DL 0.50-1.10 code = 2214) eGFR (2020 CKD-EPI) 133 >60 (test code = 33065) ML/MIN/1.73 CALC BUN/CREAT (test 20 RATIO 6- code = 2235) SODIUM (test code = 138 MEQ/L 884-047 4213) POTASSIUM (test code 3.9 MEQ/L 3.5-5.4 = 2227) CHLORIDE (test code 104 MEQ/L 95-107 = 2215) CARBON DIOXIDE (test 24 MEQ/L 19-31 code = 2206) CALCIUM (test code = 9.6 MG/DL 8.5-10.5 220) PROTEIN, TOTAL (test 7.5 G/DL 6.1-8.3 code = 2229) ALBUMIN (test code = 5.0 G/DL 3.5-5.2 220) CALC GLOBULIN (test 2.5 G/DL 2.1-3.7 code = 2240) CALC A/G RATIO (test 2.0 RATIO 1.0-2.6 code = 2234) BILIRUBIN, TOTAL 0.6 MG/DL See_Comment [Automated message] (test code = 2207) The [employer] which generated this result transmitted ref erence range: <=1.2. T he reference range was not used to int erpret this result as normal/abnormal . ALKALINE PHOSPHATASE 52 U/L 41-120 (test code = 2204) AST (test code = 12 U/L 9-40 2217) ALT (test code = 9 U/L 5-40 UNLESS OTH ERWISE 2218) INDICATED, ALL TESTING PERFORM ED AT CLINICAL PATHOL [facility]. [address] [place] [id number] [place] [address] DIRECTOR: Inocencio GOLDBERG MANAV NUMBER [id number] CAP ACCREDITATION N O. [id number] CBC W/AUTO DIFF WITH [id number] 03:31:33 Test Item Value Reference Range Interpretation [...] RBCS 0.00 K/UL 0.00-0.11 (test code = 28669) CT/NG, NAAT, [id number] 00:06:35 Test Item Value Reference Range Interpretation Comments CHLAMYDIA, NAAT, NEGATIVE NEGATIVE Testing is performed with URINE (test code Manohar ROXANNE 6800/8800 = 76972) systems usingre al-time polymerase suzi n reaction (PCR) method. T esting is performed with Manohar ROXANNE 6800/8800 syste ms usingreal-time polymerase chain reaction (PCR) method. A negative resu lt does not exclude low lev el infection, specimensamplin g error, or collection erro r. GONORRHEA, NAAT, NEGATIVE NEGATIVE Testing is performed with URINE (test code Manohar ROXANNE 6800/8800 = 99650) systems usingre al-time polymerase suzi n reaction (PCR) method. T esting is performed with Manohar ROXANNE 6800/8800 syste ms usingreal-time polymerase chain reaction (PCR) method. A negative resu lt does not exclude low lev el infection, specimensamplin g error, or collection erro r. HIV 1/2 4TH GEN, RFLX [id number] 06:06:48 Test Item Value Reference Range Interpretation Comments HIV 1/2 4TH GEN, NON-REACTIVE NON-REACTIVE CPL hall s important RFLX CONF (test pathology st aff changes code = 3514) effective 08/23. New pathology s taff will provide uninter rupted, excellent patie nt care and clinical consultation. S ee URL: [email or web address]. UNLESS O THERWISE INDICATED, ALL TESTING PERFORMED AT [facility] [email or web address], [facility]. [address] [place] [address] [facility] DIRECTOR: Inocencio GOLDBERG MANAV NUMBER [id number] CAP ACCREDITATION N O. [id number] RPR REFLEX TO T. PALLIDUM - [id number] 05:38:25 Test Item Value Reference Range Interpretation Comments RPR (test code = 87037) NON-REACTIVE NON-REACTIVE RPR TITER (test code = 3500) NOT INDIC. TITER NOT INDIC. CULTURE, [id number] 15:48:21SPECIMEN NUMBER: [id number] CULTURE, URINE SPECIMEN NUMBER: [id number] SPECIMEN COMMENT: URINE SOURCE:URINE REPORT STATUS: FINAL ISOLATE NUMBER 1: ORGANISM: 04/01/2022 >100,000 CFU/ML GRAM NEGATIVE BA CILLI IDENTIFICATION: 04/02/2022 ESCHERICHIA COLI E. COLI AMOXICILLIN/CA SENSITIVE <=8/4AMPICILLIN SENSITIVE <=8CEFAZOLIN SENSITIVE <=2CEFTRIAXONE SENSITIVE <=1CIPROFLOXACIN SENSITIVE <=1LEVOFLOXACIN SENSITIVE <=2NITROFURANTOIN SENSITIVE <=32PIP/TAZOBAC SENSITIVE <=16TETRACYCLINE SENSITIVE <=4TOBRAMYCIN SENSITIVE <=4TRIMETH/SULFA SENSITIVE <=2/38 NOTE:NUMBERS DISPLAYED REPRESENT MINIMUM INHIBITORY CONCENTRATION (ARLETTE) WHICH IS EXPRESSED IN MCG/ML. UNLESS OTHERWISE INDICATED, ALL TESTING PERFORMED [facility] PATHOLOGY [employer] [address] [place] [address] [employer]PER[employer] DISTRIBUTION: REANNA DALLAS M.D. [place] NUMBER [id number] [facility] [id number]/NG, NAAT, [id number] 16:51:08 Test Item Value Reference Range Interpretation Comments GONORRHEA, NAAT NEGATIVE NEGATIVE IMPORTA NT NOTICE: SEE (test code = [place] [address]) [email or web address] Note: Assay methodology is nucleic acid amplification b y sponge maker m ediated amplification ( TMA) utilizing the A ptima Combo 2 Assay. CHLAMYDIA, NAAT NEGATIVE NEGATIVE IMPORTA NT NOTICE: SEE (test code = [place] [address]) [email or web address] Note: Assay methodology is nucleic acid amplification b y sponge maker m ediated amplification ( TMA) utilizing the A ptima Combo 2 Assay. [id number] 04:44:32 Test Item Value Reference Range Interpretation Comments RPR RESULT (test code = NON-REACTIVE NON-REACTIVE 3501) RPR TITER (test code = 3500) NOT INDIC. TITER NOT INDIC. HIV 1/2 4TH GEN, RFLX [id number] 03:54:06 Test Item Value Reference Range Interpretation Comments HIV 1/2 4TH GEN, RFLX CONF (test NON-REACTIVE NON-REACTIVE code = 3514) HEPATITIS PANEL, [id number] 03:54:06 Test Item Value Reference Range Interpretation Comments HEPATITIS A IgM (test NON-REACTIVE NON-REACTIVE code = 58424) HEPATITIS B CORE IgM NON-REACTIVE NON-REACTIVE (test code = 4644) HEPATITIS B SURF AG NON-REACTIVE NON-REACTIVE (test code = 2739) HEPATITIS C ANTIBODY NON-REACTIVE NON-REACTIVE (test code = 4675) INTERPRETATION (NOTE) Hepatitis A HEPATITIS A: (test serology shows no code = 2552) evidence of acu te hepatitis A. INTERPRETATION (NOTE) Hepatitis B HEPATITIS B: (test serology shows no code = 58565) evidence of ac [place] hepatitis B and no indication of exposure to hepatitis B vir us in the previous si xto eight months. INTERPRETATION (NOTE) Hepatitis C HEPATITIS C: (test serology shows no code = 18430) evidence of ex posure to hepatitisC v irus at this time. I t can take up to 12 m onths after exposure tothe hepatitis C vir us for antibodies to become detectab le in the blood in ce rtain patients. UNLES S OTHERWISE INDIC ATED, ALL TESTING PERFORMED [facility], [place]. [address] [facility] [address] ALFREDA HURST DIRECTOR: REANNA DALLAS M.D. CLIA NUMBER [id number] [place] [id number] SARS-CoV-2 (COVID-19), RT-PCR/[id number] 10:54:31 Test Item Value Reference Interpretation Comments Range SARS-CoV-2 NEGATIVE SEE NOTE SARS-CoV-2 RNA NOT INTERPRETATION DETECTEDNegat lorraine (test code = 31315) results do not preclude SARS-C oV-2 infection and s hould notbe used as t he sole basis [...] (test code = [place]: [place] [address]) Manohar Roxanne Chavies l-Time RT-PCR. The exp ected result or [...] provided by met hod given in report:https:// [email or web address]/[email or web address] ians/cl ient-communicat ions/ Alternatively, see downloadable PD F fact sheet at:https://www. [employer] .Intra-Cellular Therapies/COVID-19-R T-PCR UNLESS OTHERWIS E INDICATED, ALL TESTING PERFORMED [facility], [facility]. [address] [place] [address] [facility] NATALI DIRECTOR: REANNA DALLAS M.D. CLIA NUMBER [id number] CAP ACCREDITATION N O. [id number]
[2023-05-22 13:04] LABS: Absolute Lymphocytes (CBC) 1.3 K/uL (0.7-4.9); Hematocrit 36.9 % (36.0-45.0); Lymphocytes % 18.7 % (15.3-44.8); MCV 86.2 fL (80-100); MPV 7.4 fL (7.6-11.3); Platelets 236 thou/uL (152-406); RBC Red Blood Cell Count 4.29 M/uL (3.86-4.86)
--- NOTE | 2023-05-22 13:07 | RAD REPORT ---
EXAM DESCRIPTION: US - 1St Trimest Single 1St Fetus - 05/22/2023 12:44 pm CLINICAL HISTORY: ABD PAIN COMPARISON: <Comparisons> FINDINGS: A single gestational sac is seen within the uterus. The shape of the sac is within normal limits for gestational age. Within the sac is a single pole with crown-rump length of 4.3 cm, c orrelating to estimated gestational age of 11 weeks 1 day. Estimated date of delivery is 12/10/2023. Heart rate is 171 BPM. The placenta is not yet developed due to early gestational age. The maternal adnexa and ovaries are within normal limits. Normal Doppler blood flow was demonstrated to both ovaries. IMPRESSION: Single live early intrauterine gestation with estimated gestational age of 11 weeks 1 da y, BAN 12/10/2023. No unusual or unexpected finding.
[2023-05-22 13:31] LABS: Potassium 3.6 mEq/L (3.5-5.1)
[2023-05-22 13:51] LABS: Specific Gravity 1.014 (1.005-1.030); Urine Bilirubin NEGATIVE (Negative); Urine Blood Negative (Negative); Urine Clarity Clear (Clear); Urine Color Light-Yellow (Yellow); Urine Glucose NEGATIVE (Negative); Urine Protein NEGATIVE (Negative); Urine Urobilinogen Normal (Normal); Urine pH 6.5 (5.0-7.0)
--- NOTE | 2023-05-22 13:54 | EDPHYS ---
Physician Documentation [facility] Name: Keira Hdez Age: 18 yrs Sex: Female : 2005 Arrival Date: 05/22/2023 Time: 11:59 Bed Treatment Private MD: ED Physician Danny Johns HPI: 05/22 12:38 This 18 yrs old Female presents to ER via Ambulatory with complaints of Abdominal Pain, kb 11 Weeks . 12:38 Patient is a 18-year-old female who presents for suprapubic pain that started this kb morning. States she is , LMP 03/02/23, 1 para 0. Denies vaginal bleeding. OB at [facility] with Dr. Good. 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 - Social history:: Smoking status: Patient denies any tobacco usage or history of. ROS: 12:38 Constitutional: Negative for fever, chills, and weight loss, kb 12:38 Abdomen/GI: Positive for abdominal pain, 12:38 All other systems are negative, Exam: 12:38 Constitutional: This is a well developed, well nourished patient who is awake, alert, kb and in no acute distress. Head/Face: Normocephalic, atraumatic. ENT: Moist Mucous membranes Cardiovascular: Regular rate Respiratory: Respirations even and unlabored. No increased work of breathing. Talking in full sentences Skin: Warm, dry with normal turgor. Normal color. MS/ Extremity: Pulses equal, no cyanosis. Neurovascular intact. Full, normal range of motion. Neuro: Awake and alert, GCS 15, oriented to person, place, time, and situation. Moves all extremities. Normal gait. 12:38 Abdomen/GI: Inspection: abdomen appears normal, Bowel sounds: normal, Palpation: soft, in all quadrants, mild abdominal tenderness, in the suprapubic area, Vital Signs: 12:20 BP 132 / 68; Pulse 80; Resp 16 S; Temp 98.2(TE); Pulse Ox 100% on R/A; Weight 54.43 kg aa5 (R); Height 5 ft. 6 in. (R); 14:23 BP 135 / 83; Pulse 72; Resp 16; Pulse Ox 100% on R/A; me1 12:20 Body Mass Index 19.37 (54.43 kg, 167.64 cm) aa5 MDM: 12:02 Patient medically screened. kb 12:38 Differential diagnosis: threatened , abd pain in , uti, spontaneous kb . Data reviewed: vital signs, nurses notes. 13:52 Counseling: I had a detailed discussion with the patient and/or guardian regarding the kb historical points, exam findings, and any diagnostic results supporting the discharge/admit diagnosis, lab results, radiology results, the need for outpatient follow up, an OB/Gyne specialist, to return to the emergency department if symptoms worsen or persist or if there are any questions or concerns that arise at home. 05/22 12:02 Order name: Abo/rh Typing; Complete Time: 13:25 kb 05/22 12:02 Order name: Basic Metabolic Panel; Complete Time: 13:34 kb 05/22 12:02 Order name: CBC with Diff; Complete Time: 13:14 kb 05/22 12:02 Order name: Test, Urine; Complete Time: 13:53 kb 05/22 12:02 Order name: Quantitative Hcg; Complete Time: 13:34 kb 05/22 12:02 Order name: Urinalysis w/ reflexes; Complete Time: 13:52 kb 05/22 12:45 Order name: 1St Trimest Single 1St Fetus; Complete Time: 13:10 EDMS 05/22 12:02 Order name: IV Saline Lock; Complete Time: 12:55 kb 05/22 12:02 Order name: Labs collected and sent; Complete Time: 12:55 kb 05/22 12:02 Order name: NPO; Complete Time: 14:27 kb Administered Medications: No medications were administered Disposition: 15:30 I was immediately available on-site in the Emergency Department for consultation in the ms3 care of the patient. Disposition Summary: 05/22/23 13:53 Discharge Ordered Notes: Location: Home kb Condition: Stable kb Diagnosis - 11 weeks gestation of kb Followup: kb - With: Emergency Department - When: As needed - Reason: Worsening of condition Followup: kb - With: Private Physician - When: 2 - 3 days - Reason: Recheck today's complaints, Continuance of care, Re-evaluation by your physician Discharge Instructions: - Discharge Summary Sheet kb - Abdominal Pain During kb Forms: - Medication Reconciliation Form kb - Thank You Letter kb - Antibiotic Education kb - Prescription Opioid Use kb - Patient Portal Instructions kb - Leadership Thank You Letter kb Signatures: Dispatcher [employer] EDLelia Arias, CHAYO SWAIN-Kate Marie, RN RN aa5 Danny Johns DO DO ms3 Corrections: (The following items were deleted from the chart) 12:45 12:03 Transvaginal Ob+US.RAD.BRZ ordered. EDMS EDMS
--- NOTE | 2023-05-22 13:54 | ER ---
Nurse's Notes [facility] Name: Keira Hdez Age: 18 yrs Sex: Female : 2005 Arrival Date: 05/22/2023 Time: 11:59 Bed Treatment Private MD: Diagnosis: 11 weeks gestation of Presentation: 05/22 12:20 Chief complaint: Patient states: suprapubic pain started this morning, no vaginal me1 bleeding, reports being 11 weeks . 12:20 Coronavirus screen: At this time, the client does not indicate any symptoms associated aa5 with coronavirus-19. Ebola Screen: Patient denies travel to an Ebola-affected area in the 21 days before illness onset. Risk Assessment: Do you want to hurt yourself or someone else? Patient reports no desire to harm self or others. 12:20 Acuity: JOVANY 3 aa5 12:20 Method Of Arrival: Ambulatory aa5 12:20 Onset of symptoms was May 22, 2023. aa5 12:20 Initial Sepsis Screen: Does the patient meet any 2 criteria? No. Patient's initial aa5 sepsis screen is negative. Does the patient have a suspected source of infection? No. Patient's initial sepsis screen is negative. Triage Assessment: 14:25 General: Appears comfortable, Behavior is calm, cooperative, appropriate for age. Pain: me1 Complains of pain in suprapubic area Pain does not radiate. Pain at worst was 6 out of 10 on a pain scale. Quality of pain is described as crampy, Pain began gradually, Is continuous. Neuro: Level of Consciousness is awake, alert, obeys commands, Oriented to person, place, time, situation, Appropriate for age. Cardiovascular: Capillary refill < 3 seconds Patient's skin is warm and dry. Respiratory: Airway is patent Respiratory effort is even, unlabored, Respiratory pattern is regular, symmetrical. GI: Reports lower abdominal pain. 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 - Social history:: Smoking status: Patient denies any tobacco usage or history of. Screenin:23 [facility] ED Fall Risk Assessment (Adult) History of falling in the last 3 months, me1 including since admission Yes- physiologic fall (2 pts) Confusion or Disorientation No (0 pts) Intoxicated or Sedated No (0 pts) Impaired Gait No (0 pts) Mobility Assist Device Used No (0 pt) Altered Elimination No (0 pt) Score/Fall Risk Level 0 - 2 = Low Risk Maintained a safe environment, Provided non-skid footwear, Hourly rounding (assess needs \T\ fall precautionary measures) done. Abuse screen: Denies threats or abuse. Nutritional screening: No deficits noted. Tuberculosis screening: No symptoms or risk factors identified. Assessment: 12:55 Reassessment: Patient is alert, oriented x 3, equal unlabored respirations, skin aa5 warm/dry/pink. US completed . 14:26 GI: Bowel sounds present X 4 quads. Abd is soft and non tender X 4 quads. me1 Vital Signs: 12:20 BP 132 / 68; Pulse 80; Resp 16 S; Temp 98.2(TE); Pulse Ox 100% on R/A; Weight 54.43 kg aa5 (R); Height 5 ft. 6 in. (R); 14:23 BP 135 / 83; Pulse 72; Resp 16; Pulse Ox 100% on R/A; me1 12:20 Body Mass Index 19.37 (54.43 kg, 167.64 cm) aa5 ED Course: 12:00 Patient arrived in ED. rg4 12:02 L[facility] Weaver [facility]-C [facility] kb 12:02 Danny Johns DO is Attending Physician. kb 12:20 Arm band placed on. aa5 12:24 Triage completed. aa5 12:45 1St Trimest Single 1St Fetus In Process Unspecified. EDMS 12:50 Initial lab(s) drawn, by ED staff, sent to lab. Inserted saline lock: 20 gauge in right aa5 antecubital area, using aseptic technique. Blood collected. 13:31 Abby Burgess, RN is Primary Nurse. me1 13:42 Urine collected: clean catch specimen, clear. tm3 14:23 Patient has correct armband on for positive identification. Bed in low position. Call me1 light in reach. Side rails up X 1. Provided Education on: POC. Verbalized understanding. . 14:23 No provider procedures requiring assistance completed. IV discontinued, intact, me1 bleeding controlled, No redness/swelling at site. Pressure dressing applied. Administered Medications: No medications were administered Medication: 14:23 VIS not applicable for this client. me1 Outcome: 13:53 Discharge ordered by MD. draper 14:26 Discharged to home ambulatory, me1 14: Condition: stable 14:26 Condition: stable 14:26 Discharge instructions given to patient, Instructed on discharge instructions, follow up and referral plans. Demonstrated understanding of instructions, follow-up care, 14:27 Patient left the ED. me1 Signatures: Dispatcher [employer] EDMS Lelia Weaver, HEAT TREAT SUPERVISOR-C HEAT TREAT SUPERVISOR-CkJose E Gamez 3 Kate Benito, RN RN aa5 Adalgisa Lu rg4 Abby Burgess, RN RN me1 Corrections: (The following items were deleted from the chart) 14:23 12:20 Chief complaint: Patient states: suprapubic pain started this morning, no vaginal me1 bleeding, reports being 11 weeks . aa5
[2023-05-22 14:35] VITALS: TEMP 98.2; O2SAT 100
[2023-05-22 14:37] VITALS: BP 135/83
== END 2023-05-22 14:27 | disposition home or self-care (01) ==
LOC: ER 11:59
DX: O26.891 Other specified pregnancy related conditions, first trimester (principal); Z3A.11 11 weeks gestation of pregnancy
CPT/HCPCS: 36415; 76801; 80048; 81003; 81025; 84702; 85025; 86900; 86901; 99283

== ENCOUNTER 2024-06-12 17:59 | Emergency (ER) | payer OTHER ==
--- OUTSIDE RECORDS SUMMARY | 2024-06-12 18:05 | XMS REPORT | Continuity of Care Document ---
Author Name Unknown Address [address] [facility] [address] [place] [address] [facility] thconnect Address [address] [facility] [address] [place] [address] Care Team Providers Care Appraisal Specialist Name Role Phone PCP, PATIENT DOES NOT HAVE A Primary Care Physic cheyanne Unavailable Kelly Wakefield Attending Clinician Unavailable Susana Noel Attending Clinician Unavailable CHRISTINE ACOSTA Attending Clinician Unavailable CHRISTINE ACOSTA Attending Clinician Unavailable WOODY HOOD Attending Clinician Unavailable Christine Acosta MD Attending Clinician Tomasa Alvarez RN Attending Clinician UnavailAZRA Hilario Attending Clinician Unavailable AZRA DSOUZA Attending Clinician Unavailable Nurse, [facility] Attending Clinician Un available Alka Koby HENRIQUEZ Attending Clinician [phone] Doctor Unassigned, [place] Attending Clinician U Sukhwinder Chavez DO Attending Clinician [phone] Javier Morales MD Attending Clinician Nurse, Lkj [facility] Attending Clinician Unavailable Pcp, Patient Does Not Have A Attending Clinician Geovanny Schulte Attending Clinician Unavailable WILD HICKMAN Attending Clinician Unavailable Tegan KENNY, Wild Attending Clinician [phone] MAINE GODINEZ Attending Clinician MAINE Young Attending Clinician Davion Wood Attending Clinician [phone] SEAN CARSON Attending Clinician Unav ailable Ultrasound, Reid Attending Clinician Unavailyola Carson MD, Sean Molina Attending Clinician + Nava RN, Ruchi Mancini Attending Clinician Unavailable RADIOLOGY Attending Clinician Unavailable Radiology Attending Clinician Unavailable OLIVERIO ZAMBRANO Attending Clinician Unavail able Nurse, Adc Pob Immunization Attending Clinician Unavailable Oliverio Zambrano DO Attending Clinician [phone] Pob[facility], [facility] Attending Clinician Unav ailSo Stephens Attending Clinician [phone] Edilma BOWDEN, Krystin Attending Clinician Unavailable Ron Santacruz Attending Clinician [phone] RON PRITHCARD Attending Clinician Unavailable MAINE GODINEZ Admitting Clinician CHRISTINE Grace Admitting Clinician Unavailable AZRA DSOUZA Admitting Clinician Unavailable WEST, PATITO Admitting Clinician Unavailable Payers Payer Name Policy Type Policy Number Effective Date Expirati on Date Source [place] [employer] [id number] 2023 00:00:00 [facility] STAR [id number] 2024 00:00:00 [facility] Elza/ NEGRITA ANDERSON [id number] 2023 00:00:00 2023 00:00:00 [facility] [employer] [facility] [id number] [facility] Problems Condition Name Condition Details Condition Category Status Onset Date Resolution Date Last Treatment Date Treating Clinician Comments Source Normal in first trimester Normal in first trimester Disease Active 2023-06 00:00: 00 [facility] Nausea and vomiting during prior to 22 weeks gestation Nausea and vomiting during prior to 22 weeks gestation Disease Active 2023-06 2- 00:00: 00 [facility] History of anxiety History of anxiety Disease Active 12-19 00:00: 00 [facility] History of depression History of depression Disease Active 12-19 00:00: 00 [facility] 30 weeks gestation of 30 weeks gestation of Disease Active 0 4-08 00:00: 00 [facility] Normal in third trimester Normal in third trimester Disease Active 2022-06 00:00: 00 [facility] Short interval between pregnancie s complicati ng , antepartum Short interval between pregnancie s complicati ng , antepartum Disease Active 2022-06 00:00: 00 [facility] Nausea and vomiting during prior to 22 weeks gestation Nausea and vomiting during prior to 22 weeks gestation Disease Active 2022-06 00:00: 00 [facility] [id number] Problem Active [facility] No known active problems No known active problems Disease [facility] Nexplanon in place Nexplanon in place Disease Resolve d 0 6- 00:00: 00 2024-06-04 00:00:00 2024-06-04 17:33:30 [facility] Anemia, antepartum , third trimester Anemia, antepartum , third trimester Disease Resolve d 2023-0 5-24 00:00: 00 2024-06-04 00:00:00 2024-06-04 17:33:24 [facility] Liveborn , of vidal , born in hospital by vaginal delivery Liveborn , of vidal , born in hospital by vaginal delivery Disease Resolve d 2023-0 5-25 00:00: 00 2023-12-20 00:00:00 2023-12-20 11:46:24 [facility] Right flank pain Right flank pain Disease Resolve d 2023-0 4-08 00:00: 00 2023-12-20 00:00:00 2023-12-20 11:46:22 [facility] 37 weeks gestation of 37 weeks gestation of Disease Resolve d 2023- 4-08 00:00: 00 2023-12-20 00:00:00 2023-12-20 11:46:23 [facility] High-risk in third trimester High-risk in third trimester Disease Resolve d 2022-06 1- 00:00: 00 2023-12-20 00:00:00 2023-12-20 11:46:18 [facility] Gestationa l hypertensi on, third trimester Gestationa l hypertensi on, third trimester Disease Resolve d 2022-06- 00:00: 00 2023-12-20 00:00:00 2023-12-20 11:46:21 [facility] Allergies, Adverse Reactions, Alerts Allergy Name Allergy Type Status Severity Reaction(s) Onset Date Inactive Date Treating Clinician Comments Source NO KNOWN ALLERGIE S Drug Class Active [facility] Social History Social Habit Start Date Stop Date Quantity Comments Source ASSERTION 2024-04-19 00:00:00 [facility] Sex Assigned At [facility] History of Tobacco Use [facility] Exposure to SARS-CoV-2 (event) Not sure [facility] Gender identity [facility] of Social function 2024-06-02 00:00:00 2024-06-02 00:00:00 [facility] Tobacco use and exposure 2020-02-03 00:00:00 2020-02-03 00:00:00 Smokeless tobacco non-user [facility] Smoking Status Start Date Stop Date Source Never smoked tobacco [facility] Medications Ordered Medication Name Filled Medication Name Start Date Stop Date Current Medication? Ordering Clinician Indication Dosage Frequency Signature (SIG) Comments Components Source metoclopram deejay HCl 10 mg tablet 2023-06 00:00: 00 Yes [id number] 10mg Take 1 tablet by mouth every 6 (six) hours as needed for Nausea and Vomiting (N/V). 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 [facility] furosemide (LASIX) tablet 20 mg 11-17 18:00: 00 11-17 18:05 :00 No 20mg 20 mg, Oral, ONCE, 1 dose, On Sun11/18/23 at 1300, Routine [facility] vitamin w/FA tablet 11-17 00:00: 00 Yes [id number] 102 1{tbl} Take 1 tablet by mouth in the morning. [facility] docusate 100 mg capsule 11-17 00:00: 00 06-03 00:00 :00 No [id number] 102 200mg Take 2 capsules by mouth once daily as needed for Constipati on. [facility] ferrous sulfate 325 mg (65 mg iron) tablet 11-17 00:00: 00 06-03 00:00 :00 No [id number] 102 325mg Take 1 tablet by mouth in the morning. [facility] ibuprofen 800 mg tablet 11-17 00:00: 00 06-03 00:00 :00 No [id number] 102 800mg Take 1 tablet by mouth every 8 (eight) hours as needed (pain). Take with food or milk. [facility] witch Nabor (TUCKS) 50 % topical pad 11-16 11:05: 07 Yes [facility] rho(D) immune globulin (HYPERRHO/R HOGAM) syringe 300 mcg 11-16 05:58: 50 Yes 300ug [facility] HYDROcodone -acetaminop hen (NORCO 5) 5-325 mg tablet 1 tablet 11-16 05:58: 47 Yes 1{tbl} 1 tablet, Oral, Q6HPRN, Starting on 11/17/23 at 57, Until Discontinu ed, Routine, Pain (scale 7-10) [facility] ibuprofen (IBU) tablet 600 mg 11-16 05:58: 47 Yes 600mg 600 mg, Oral, Q6HPRN, Starting on 11/17/23 at 57, Until Discontinu ed, Routine, Pain (scale 4-6) [facility] acetaminoph en (TYLENOL) tablet 650 mg 11-16 05:58: 47 Yes 650mg 650 mg, Oral, Q6HPRN, Starting on 11/17/23 at 57, Until Discontinu ed, Routine, Pain (scale 1-3) [facility] diphenhydrA MINE (BENADRYL) tablet 25 mg 11-16 05:58: 47 Yes 25mg [facility] ondansetron (ZOFRAN (PF)) injection 4 mg 11-16 05:58: 47 Yes 4mg [facility] simethicone (GAS RELIEF (SIMETHICON E)) chewable tablet 160 mg 11-16 05:58: 47 Yes 160mg [facility] docusate (COLACE) capsule 200 mg 11-16 05:58: 47 Yes 200mg 200 mg, Oral, QDAILYPRN, Starting on 11/17/23 at 005, Until Discontinu ed, Routine, Constipati on [facility] magnesium hydroxide (MILK OF MAGNESIA) 400 mg/5 mL suspension 30 mL 11-16 05:58: 47 Yes 30mL [facility] benzocaine- menthol (DERMOPLAST ) 20-0.5 % topical spray 11-16 05:58: 47 Yes Topical, PRN, Starting on 11/17/23 at 57, Until Discontinu ed, Routine, Perineum discomfort [facility] gentamicin 300 mg in NaCl 0.9% (NS) 250 mL IV infusion 11-16 03:30: 00 11-16 05:02 :00 No 5mg/kg 300 mg (rounded from 296.5 mg = 5 mg/kg ?59.3 kg [place] weight), IV Infusion, ONCE, 1 dose, On Sun11/16/23 at 2230, Administer over 60 Minutes, 250 mL, Reason for Anti-Infec tive: Empiric Therapy for Suspected Infection, Empiric Therapy Site: Other, Other site: suspected chorioamni onitis, Duration of therapy: Once (ED) [facility] ampicillin (POLYCILLIN -N) 2,000 mg in NaCl 0.9% (NS) 100 mL MINI-BAG 11-16 03:15: 00 11-16 11:05 :07 No 2g 2,000 mg (2 g), IV Piggyback, Q6H ABX, First dose on Sun11/16/23 at 2215, Until Discontinu ed, Administer over 30 Minutes, 100 mL, Reason for Anti-Infec tive: Empiric Therapy for Suspected Infection, Empiric Therapy Site: Other, Other site: suspected chorioamni onitis, Duration of therapy: 72 hours [facility] oxytocin (PITOCIN) 30 units in NS 500 mL IV infusion 11-15 22:09: 31 11-16 11:05 :07 No 2mU/min at 2-40 mL/hr, IV Infusion, TITRATE, Starting on Sun11/16/23 at 1709, Until 11/17/23 at 0605, JOANIE [facility] fentaNYL-ro pivacaine 2 mcg/mL-0.1 % (PF) in NS 200 mL epidural infusion RTU 11-15 19:35: 00 11-16 09:28 :40 No Intra-op [facility] lidocaine-e pinephrine (XYLOCAINE W/EPINEPHRI NE) 1.5 %-1:200,000 injection 11-15 19:30: 00 11-16 09:28 :40 No Epidural, ONCE INTRA PROCEDURE, Starting on Sun11/16/23 at 1430, Until 11/17/23 at 0428, Routine, Intra-op [facility] misoprostol (CYTOTEC) quarter-tab let 25 mcg 11-15 05:15: 34 11-16 11:05 :07 No 25ug 25 mcg, Vaginal, Q4H ABX, First dose on Sun11/16/23 at 0030, Until Discontinu ed, Routine [facility] FENTanyl PF (SUBLIMAZE (PF)) injection 50 mcg 11-15 05:15: 34 11-16 11:05 :07 No 50ug 50 mcg, Slow IV Push, Q2HPRN, Starting on Sun11/16/23 at 0015, Until 11/17/23 at 0605, Routine, contractio n pain without an epidural and SVE < 8 cm and Cat I strip [facility] misoprostol (CYTOTEC) quarter-tab let 25 mcg 11-15 05:00: 00 11-15 05:36 :00 No 25ug 25 mcg, Oral, ONCE, 1 dose, On Sun11/16/23 at 0000, Routine [facility] D5W-LR IV infusion 1,000 mL 11-15 04:55: 35 11-18 12:03 :57 No 1000mL at 1-125 mL/hr, IV Infusion, TITRATE, Starting on Patito 11/15/23 at 2355, Until 11/19/23 at 0703, Routine [facility] FENTanyl PF (SUBLIMAZE (PF)) injection 50 mcg 11-10 06:08: 18 Yes 50ug 50 mcg, Intramuscu lar, PRN, Starting on 11/11/23 at 0108, Until Discontinu ed, Routine, Pain (scale 7-10) [facility] proMETHazin e (PHENERGAN) injection 25 mg 11-10 06:03: 41 11-11 04:59 :00 No 25mg 25 mg, Intramuscu lar, ONCE PRN, 1 dose, Starting on 11/11/23 at 0103, Until 11/11/23 at 2359, Routine, Nausea and Vomiting (N/V), Does the patient have PO or IV access? No [facility] metroNIDAZO LE (FLAGYL) tablet 500 mg 11-06 21:45: 00 11-06 21:10 :00 No 500mg 500 mg, Oral, ONCE, 1 dose, On 11/07/23 at 1645, Routine, Reason for Anti-Infec tive: Documented Infection, Documented Infection Site: Other, Other site: BV, Duration of Therapy: Once (ED) [facility] metroNIDAZO LE 500 mg tablet 11-06 00:00: 00 11-17 00:00 :00 No [id number] 500mg Take 1 tablet by mouth every 12 (twelve) hours. [facility] amoxicillin 875 mg tablet 11-06 00:00: 00 11-08 00:00 :00 No [id number] 875mg Take 1 tablet by mouth in the morning and 1 tablet in the evening. Do all this for 7 days. [facility] buPROPion SR 150 mg SR tablet 11-01 08:04: 03 11-17 00:00 :00 No 1 tablet in the morning Orally Once a day [facility] omeprazole 20 mg capsule 11-01 08:04: 03 11-17 00:00 :00 No 1 capsule 30 minutes before morning meal Orally Once a day for 30 day(s) [facility] acetaminoph en (TYLENOL) tablet 650 mg 4-08 01:00: 00 09-30 00:57 :00 No 650mg 650 mg, Oral, ONCE, 1 dose, On 09/30/23 at 2000, JOANIE [facility] PNV no.95/koki us fum/folic ac ( ORAL) 3-29 12:04: 08 Yes Take by mouth. [facility] PNV no.95/koki us fum/folic ac ( ORAL) 3- 11:56: 12 Yes Take by mouth. [facility] PNV no.95/koki us fum/folic ac ( ORAL) 07-27 11:55: 51 Yes Take by mouth. [facility] PNV no.95/koki us fum/folic ac ( ORAL) 2022-06 14:48: 24 11-17 00:00 :00 No Take by mouth. [facility] pyridoxine, VITAMIN B-6, (VITAMIN B-6) 25 mg tablet 2022-06 00:00: 00 11-08 00:00 :00 No [id number] 25mg Take 1 tablet by mouth every 6 (six) hours as needed for Nausea and Vomiting (N/V). [facility] doxylamine (UNISOM, DOXYLAMINE, ) 25 mg tablet 2022-06 00:00: 00 11-08 00:00 :00 No [id number] 25mg Take 1 tablet by mouth at bedtime as needed for Nausea and Vomiting (N/V). [facility] acetaminoph en (TYLENOL) tablet 650 mg 02-02 15:00: 00 02-02 14:05 :00 No [id number] 650mg Univer [facility] No known medications 02-02 09:18: 40 No [facility] maalox:diph enhydrAMINE :lidocaine 2 % viscous 1:1:1 02-02 00:00: 00 02-08 04:59 :00 No [id number] 10mL Take 10 mL by mouth as needed (Swish and spit) for up to 5 days. [facility] Lessina Lessina 11-08 00:00: 00 Yes Susana Millender 1 tablet [facility] Levonorgest rel-Ethinyl Estrad Levonorgest rel-Ethinyl Estrad Yes Susana Millender TAKE 1 TABLET BY MOUTH EVERY DAY [facility] No Known Medications No Known Medications No [facility] No known medications No Un hetal [facility] No known medications No Un hetal [facility] Immunizations Ordered Immunization Name Filled Immunization Name Date Status Comments Source Flu Injectable MDCK Pres-Free (FLUCELVAX) 2024-06-02 00:00:00 Completed TDAP 2023-09-21 00:00:00 Completed [facility] Influenza Virus Vaccine Quad IM, Preserv and ABX Free 6 MO-64 YRS (FLUCELVAX) 2023-06-01 00:00:00 Completed [facility] Pfizer COVID-19 Vaccine Pfizer COVID-19 Vaccine 2021-02-23 13:21:00 Completed [facility] SARS-COV-2 COVID-19 PFIZER VACCINE 2021-02-23 00:00:00 Completed [facility] SARS-COV-2 COVID-19 PFIZER VACCINE 2021-02-23 00:00:00 Completed [facility] SARS-COV-2 COVID-19 PFIZER VACCINE 2021-02-23 00:00:00 Completed [facility] Pfizer COVID-19 Vaccine Pfizer COVID-19 Vaccine 2021-02-02 13:20:00 Completed [facility] SARS-COV-2 COVID-19 PFIZER VACCINE 2021-02-02 00:00:00 Completed [facility] SARS-COV-2 COVID-19 PFIZER VACCINE 2021-02-02 00:00:00 Completed [facility] SARS-COV-2 COVID-19 PFIZER VACCINE 2021-02-02 00:00:00 Completed [facility] SARS-COV-2 COVID-19 PFIZER VACCINE 2021-02-02 00:00:00 Completed [facility] Depo-Provera (Medroxyprogesteron e ac) Depo-Provera (Medroxyprogestero ne ac) 2019-06-24 11:27:00 Completed [facility] Depo-Provera (Medroxyprogesteron e ac) Depo-Provera (Medroxyprogestero ne ac) 2019-04-08 12:00:00 Completed [facility] Influenza Virus Vaccine Quad IM, Preserv and ABX Free 6 MO-64 YRS (FLUCELVAX) Unknown Completed [facility] TDAP Unknown Completed [facility] SARS-COV-2 COVID-19 PFIZER VACCINE Unknown Completed [facility] Influenza Virus Vaccine Quad IM, Preserv and ABX Free 6 MO-64 YRS (FLUCELVAX) Unknown Completed [facility] TDAP Unknown Completed [facility] SARS-COV-2 COVID-19 PFIZER VACCINE Unknown Completed [facility] Influenza Virus Vaccine Quad IM, Preserv and ABX Free 6 MO-64 YRS (FLUCELVAX) Unknown Completed [facility] TDAP Unknown Completed [facility] SARS-COV-2 COVID-19 PFIZER VACCINE Unknown Completed [facility] Influenza Virus Vaccine Quad IM, Preserv and ABX Free 6 MO-64 YRS (FLUCELVAX) Unknown Completed [facility] TDAP Unknown Completed [facility] SARS-COV-2 COVID-19 PFIZER VACCINE Unknown Completed [facility] Influenza Virus Vaccine Quad IM, Preserv and ABX Free 6 MO-64 YRS (FLUCELVAX) Unknown Completed [facility] TDAP Unknown Completed [facility] SARS-COV-2 COVID-19 PFIZER VACCINE Unknown Completed [facility] Influenza Virus Vaccine Quad IM, Preserv and ABX Free 6 MO-64 YRS (FLUCELVAX) Unknown Completed [facility] TDAP Unknown Completed [facility] SARS-COV-2 COVID-19 PFIZER VACCINE Unknown Completed [facility] Influenza Virus Vaccine Quad IM, Preserv and ABX Free 6 MO-64 YRS (FLUCELVAX) Unknown Completed [facility] TDAP Unknown Completed [facility] Influenza Virus Vaccine Quad IM, Preserv and ABX Free 6 MO-64 YRS (FLUCELVAX) Unknown Completed [facility] TDAP Unknown Completed [facility] SARS-COV-2 COVID-19 PFIZER VACCINE Unknown Completed [facility] SARS-COV-2 COVID-19 PFIZER VACCINE Unknown Completed [facility] Influenza Virus Vaccine Quad IM, Preserv and ABX Free 6 MO-64 YRS (FLUCELVAX) Unknown Completed [facility] TDAP Unknown Completed [facility] SARS-COV-2 COVID-19 PFIZER VACCINE Unknown Completed [facility] Influenza Virus Vaccine Quad IM, Preserv and ABX Free 6 MO-64 YRS (FLUCELVAX) Unknown Completed [facility] TDAP Unknown Completed [facility] SARS-COV-2 COVID-19 PFIZER VACCINE Unknown Completed [facility] Influenza Virus Vaccine Quad IM, Preserv and ABX Free 6 MO-64 YRS (FLUCELVAX) Unknown Completed [facility] TDAP Unknown Completed [facility] SARS-COV-2 COVID-19 PFIZER VACCINE Unknown Completed [facility] Influenza Virus Vaccine Quad IM, Preserv and ABX Free 6 MO-64 YRS (FLUCELVAX) Unknown Completed [facility] TDAP Unknown Completed [facility] SARS-COV-2 COVID-19 PFIZER VACCINE Unknown Completed [facility] Influenza Virus Vaccine Quad IM, Preserv and ABX Free 6 MO-64 YRS (FLUCELVAX) Unknown Completed [facility] TDAP Unknown Completed [facility] Influenza Virus Vaccine Quad IM, Preserv and ABX Free 6 MO-64 YRS (FLUCELVAX) Unknown Completed [facility] TDAP Unknown Completed [facility] SARS-COV-2 COVID-19 PFIZER VACCINE Unknown Completed [facility] SARS-COV-2 COVID-19 PFIZER VACCINE Unknown Completed [facility] Influenza Virus Vaccine Quad IM, Preserv and ABX Free 6 MO-64 YRS (FLUCELVAX) Unknown Completed [facility] TDAP Unknown Completed [facility] SARS-COV-2 COVID-19 PFIZER VACCINE Unknown Completed [facility] Influenza Virus Vaccine Quad IM, Preserv and ABX Free 6 MO-64 YRS (FLUCELVAX) Unknown Completed [facility] TDAP Unknown Completed [facility] SARS-COV-2 COVID-19 PFIZER VACCINE Unknown Completed [facility] Influenza Virus Vaccine Quad IM, Preserv and ABX Free 6 MO-64 YRS (FLUCELVAX) Unknown Completed [facility] TDAP Unknown Completed [facility] SARS-COV-2 COVID-19 PFIZER VACCINE Unknown Completed [facility] Influenza Virus Vaccine Quad IM, Preserv and ABX Free 6 MO-64 YRS (FLUCELVAX) Unknown Completed [facility] TDAP Unknown Completed [facility] SARS-COV-2 COVID-19 PFIZER VACCINE Unknown Completed [facility] Influenza Virus Vaccine Quad IM, Preserv and ABX Free 6 MO-64 YRS (FLUCELVAX) Unknown Completed [facility] TDAP Unknown Completed [facility] SARS-COV-2 COVID-19 PFIZER VACCINE Unknown Completed [facility] Influenza Virus Vaccine Quad IM, Preserv and ABX Free 6 MO-64 YRS (FLUCELVAX) Unknown Completed [facility] TDAP Unknown Completed [facility] SARS-COV-2 COVID-19 PFIZER VACCINE Unknown Completed [facility] Influenza Virus Vaccine Quad IM, Preserv and ABX Free 6 MO-64 YRS (FLUCELVAX) Unknown Completed [facility] TDAP Unknown Completed [facility] SARS-COV-2 COVID-19 PFIZER VACCINE Unknown Completed [facility] SARS-COV-2 COVID-19 PFIZER VACCINE Unknown Completed [facility] SARS-COV-2 COVID-19 PFIZER VACCINE Unknown Completed [facility] SARS-COV-2 COVID-19 PFIZER VACCINE Unknown Completed [facility] SARS-COV-2 COVID-19 PFIZER VACCINE Unknown Completed [facility] Influenza Virus Vaccine Quad IM, Preserv and ABX Free 6 MO-64 YRS (FLUCELVAX) Unknown Completed [facility] SARS-COV-2 COVID-19 PFIZER VACCINE Unknown Completed [facility] SARS-COV-2 COVID-19 PFIZER VACCINE Unknown Completed [facility] SARS-COV-2 COVID-19 PFIZER VACCINE Unknown Completed [facility] Influenza Virus Vaccine Quad IM, Preserv and ABX Free 6 MO-64 YRS (FLUCELVAX) Unknown Completed [facility] SARS-COV-2 COVID-19 PFIZER VACCINE Unknown Completed [facility] Influenza Virus Vaccine Quad IM, Preserv and ABX Free 6 MO-64 YRS (FLUCELVAX) Unknown Completed [facility] SARS-COV-2 COVID-19 PFIZER VACCINE Unknown Completed [facility] Influenza Virus Vaccine Quad IM, Preserv and ABX Free 6 MO-64 YRS (FLUCELVAX) Unknown Completed [facility] SARS-COV-2 COVID-19 PFIZER VACCINE Unknown Completed [facility] Influenza Virus Vaccine Quad IM, Preserv and ABX Free 6 MO-64 YRS (FLUCELVAX) Unknown Completed [facility] SARS-COV-2 COVID-19 PFIZER VACCINE Unknown Completed [facility] Influenza Virus Vaccine Quad IM, Preserv and ABX Free 6 MO-64 YRS (FLUCELVAX) Unknown Completed [facility] SARS-COV-2 COVID-19 PFIZER VACCINE Unknown Completed [facility] Influenza Virus Vaccine Quad IM, Preserv and ABX Free 6 MO-64 YRS (FLUCELVAX) Unknown Completed [facility] SARS-COV-2 COVID-19 PFIZER VACCINE Unknown Com[facility] [facility] Influenza Virus Vaccine Quad IM, Preserv and ABX Free 6 MO-64 YRS (FLUCELVAX) Unknown Completed [facility] SARS-COV-2 COVID-19 PFIZER VACCINE Unknown Completed [facility] Influenza Virus Vaccine Quad IM, Preserv and ABX Free 6 MO-64 YRS (FLUCELVAX) Unknown Completed [facility] Influenza Virus Vaccine Quad IM, Preserv and ABX Free 6 MO-64 YRS (FLUCELVAX) Unknown Completed [facility] SARS-COV-2 COVID-19 PFIZER VACCINE Unknown Completed [facility] Influenza Virus Vaccine Quad IM, Preserv and ABX Free 6 MO-64 YRS (FLUCELVAX) Unknown Completed [facility] TDAP Unknown Completed [facility] SARS-COV-2 COVID-19 PFIZER VACCINE Unknown Completed [facility] SARS-COV-2 COVID-19 PFIZER VACCINE Unknown Completed [facility] Influenza Virus Vaccine Quad IM, Preserv and ABX Free 6 MO-64 YRS (FLUCELVAX) Unknown Completed [facility] TDAP Unknown Completed [facility] SARS-COV-2 COVID-19 PFIZER VACCINE Unknown Completed [facility] Influenza Virus Vaccine Quad IM, Preserv and ABX Free 6 MO-64 YRS (FLUCELVAX) Unknown Completed [facility] TDAP Unknown Completed [facility] SARS-COV-2 COVID-19 PFIZER VACCINE Unknown Completed [facility] Influenza Virus Vaccine Quad IM, Preserv and ABX Free 6 MO-64 YRS (FLUCELVAX) Unknown Completed [facility] TDAP Unknown Completed [facility] SARS-COV-2 COVID-19 PFIZER VACCINE Unknown Completed [facility] Influenza Virus Vaccine Quad IM, Preserv and ABX Free 6 MO-64 YRS (FLUCELVAX) Unknown Completed [facility] TDAP Unknown Completed [facility] SARS-COV-2 COVID-19 PFIZER VACCINE Unknown Completed [facility] Influenza Virus Vaccine Quad IM, Preserv and ABX Free 6 MO-64 YRS (FLUCELVAX) Unknown Completed [facility] TDAP Unknown Completed [facility] Influenza Virus Vaccine Quad IM, Preserv and ABX Free 6 MO-64 YRS (FLUCELVAX) Unknown Completed [facility] TDAP Unknown Completed [facility] SARS-COV-2 COVID-19 PFIZER VACCINE Unknown Completed [facility] SARS-COV-2 COVID-19 PFIZER VACCINE Unknown Completed [facility] Influenza Virus Vaccine Quad IM, Preserv and ABX Free 6 MO-64 YRS (FLUCELVAX) Unknown Completed [facility] TDAP Unknown Completed [facility] SARS-COV-2 COVID-19 PFIZER VACCINE Unknown Completed [facility] Vital Signs Vital Name Observation Time Observation Value Comments S ource Systolic blood pressure 2024-06-02 20:52:00 116 mm[Hg] [facility] Diastolic blood pressure 2024-06-02 20:52:00 71 mm[Hg] [facility] Heart rate 2024-06-02 20:52:00 90 /min [facility] Body temperature 2024-06-02 20:52:00 36.67 Melissa [facility] Respiratory rate 2024-06-02 20:52:00 18 /min [facility] Body height 2024-06-02 20:52:00 165.1 cm [facility] Body weight 2024-06-02 20:52:00 62.506 kg [facility] BMI 2024-06-02 20:52:00 22.93 kg/m2 [facility] Systolic blood pressure 2023-12-20 16:50:00 124 mm[Hg] [facility] Diastolic blood pressure 2023-12-20 16:50:00 86 mm[Hg] [facility] Heart rate 2023-12-20 16:50:00 74 /min [facility] Body temperature 2023-12-20 16:50:00 36.28 Melissa [facility] Body height 2023-12-20 16:50:00 167.6 cm [facility] Body weight 2023-12-20 16:50:00 63.504 kg [facility] BMI 2023-12-20 16:50:00 22.60 kg/m2 [facility] Systolic blood pressure 2023-11-21 14:04:00 144 mm[Hg] [facility] Diastolic blood pressure 2023-11-21 14:04:00 101 mm[Hg] [facility] Heart rate 2023-11-21 14:00:00 89 /min [facility] Respiratory rate 2023-11-21 14:00:00 18 /min [facility] Body height 2023-11-21 14:00:00 167.6 cm [facility] Body weight 2023-11-21 14:00:00 68.493 kg [facility] BMI 2023-11-21 14:00:00 24.37 kg/m2 [facility] Systolic blood pressure 2023-11-19 12:00:00 147 mm[Hg] [facility] Diastolic blood pressure 2023-11-19 12:00:00 85 mm[Hg] [facility] Heart rate 2023-11-19 12:00:00 91 /min [facility] Body temperature 2023-11-19 12:00:00 37.11 Melissa [facility] Respiratory rate 2023-11-19 12:00:00 18 /min [facility] Oxygen saturation in Arterial blood by Pulse oximetry 2023-11-19 12:00:00 100 /min [facility] Body height 2023-11-16 06:22:00 167.6 cm [facility] Body weight 2023-11-16 06:22:00 76.114 kg [facility] BMI 2023-11-16 06:22:00 27.08 kg/m2 [facility] Systolic blood pressure 2023-11-15 14:18:00 118 mm[Hg] [facility] Diastolic blood pressure 2023-11-15 14:18:00 72 mm[Hg] [facility] Heart rate 2023-11-15 14:17:00 122 /min [facility] Body temperature 2023-11-15 14:17:00 36.44 Melissa [facility] Body height 2023-11-15 14:17:00 165.1 cm [facility] 2023-11-15 14:17:00 74.844 kg [facility] BMI 2023-11-15 14:17:00 27.46 kg/m2 [facility] Systolic blood pressure 2023-11-13 18:00:00 121 mm[Hg] [facility] Diastolic blood pressure 2023-11-13 18:00:00 68 mm[Hg] [facility] Heart rate 2023-11-13 18:00:00 78 /min [facility] Oxygen saturation in Arterial blood by Pulse oximetry 2023-11-13 18:00:00 100 /min [facility] Body temperature 2023-11-13 15:07:00 36.56 Melissa [facility] Respiratory rate 2023-11-13 15:07:00 16 /min [facility] Body height 2023-11-13 15:07:00 165.1 cm [facility] Body weight 2023-11-13 15:07:00 74.844 kg [facility] BMI 2023-11-13 15:07:00 27.46 kg/m2 [facility] Systolic blood pressure 2023-11-13 13:40:00 141 mm[Hg] [facility] Diastolic blood pressure 2023-11-13 13:40:00 93 mm[Hg] [facility] Heart rate 2023-11-13 13:36:00 83 /min [facility] Body temperature 2023-11-13 13:36:00 36.67 Melissa [facility] Respiratory rate 2023-11-13 13:36:00 16 /min [facility] Body height 2023-11-13 13:36:00 165.1 cm [facility] Body weight 2023-11-13 13:36:00 74.98 kg [facility] BMI 2023-11-13 13:36:00 27.51 kg/m2 [facility] Systolic blood pressure 2023-11-11 06:30:00 100 mm[Hg] [facility] Diastolic blood pressure 2023-11-11 06:30:00 52 mm[Hg] [facility] Oxygen saturation in Arterial blood by Pulse oximetry 2023-11-11 06:00:00 99 /min [facility] Heart rate 2023-11-11 04:23:00 72 /min [facility] Body temperature 2023-11-11 04:23:00 36.67 Melissa [facility] Respiratory rate 2023-11-11 04:23:00 16 /min [facility] Body height 2023-11-11 04:23:00 165.1 cm [facility] Body weight 2023-11-11 04:23:00 73.301 kg [facility] BMI 2023-11-11 04:23:00 26.89 kg/m2 [facility] Systolic blood pressure 2023-11-09 16:45:00 128 mm[Hg] [facility] Diastolic blood pressure 2023-11-09 16:45:00 83 mm[Hg] [facility] Heart rate 2023-11-09 16:42:00 101 /min [facility] Respiratory rate 2023-11-09 16:42:00 18 /min [facility] Body height 2023-11-09 16:42:00 165.1 cm [facility] Body weight 2023-11-09 16:42:00 73.029 kg [facility] BMI 2023-11-09 16:42:00 26.79 kg/m2 [facility] Systolic blood pressure 2023-11-07 19:51:00 117 mm[Hg] [facility] Diastolic blood pressure 2023-11-07 19:51:00 64 mm[Hg] [facility] Heart rate 2023-11-07 19:51:00 86 /min [facility] Body temperature 2023-11-07 19:51:00 36.67 Melissa [facility] Respiratory rate 2023-11-07 19:51:00 18 /min [facility] Oxygen saturation in Arterial blood by Pulse oximetry 2023-11-07 18:06:00 99 /min [facility] Body height 2023-11-07 17:40:00 165.1 cm [facility] Body weight 2023-11-07 17:40:00 73.029 kg [facility] BMI 2023-11-07 17:40:00 26.79 kg/m2 [facility] Systolic blood pressure 2023-11-02 13:12:00 130 mm[Hg] [facility] Diastolic blood pressure 2023-11-02 13:12:00 73 mm[Hg] [facility] Heart rate 2023-11-02 13:12:00 103 /min [facility] Body temperature 2023-11-02 13:12:00 36.89 Melissa [facility] Respiratory rate 2023-11-02 13:12:00 16 /min [facility] Body height 2023-11-02 13:12:00 165.1 cm [facility] Body weight 2023-11-02 13:12:00 73.029 kg [facility] BMI 2023-11-02 13:12:00 26.79 kg/m2 [facility] Oxygen saturation in Arterial blood by Pulse oximetry 2023-11-02 13:12:00 97 /min [facility] Systolic blood pressure 2023-10-19 13:11:00 128 mm[Hg] [facility] Diastolic blood pressure 2023-10-19 13:11:00 78 mm[Hg] [facility] Heart rate 2023-10-19 13:09:00 96 /min [facility] 2023-10-19 13:09:00 18 /min [facility] Body height 2023-10-19 13:09:00 165.1 cm [facility] Body weight 2023-10-19 13:09:00 71.215 kg [facility] BMI 2023-10-19 13:09:00 26.13 kg[facility]m2 [facility] Sy[facility] blood [facility] 2023-10-13 02:30:00 128 mm[Hg] [facility] Diastolic blood pressure 2023-10-13 02:30:00 68 mm[Hg] [facility] Heart rate 2023-10-13 02:30:00 84 /min [facility] Oxygen saturation in Arterial blood by Pulse oximetry 2023-10-13 02:30:00 100 /min [facility] Body temperature 2023-10-13 02:00:00 36.5 Melissa [facility] Respiratory rate 2023-10-13 02:00:00 17 /min [facility] Body height 2023-10-13 02:00:00 165.1 cm [facility] Body weight 2023-10-13 02:00:00 69.945 kg [facility] BMI 2023-10-13 02:00:00 25.66 kg/m2 [facility] Systolic blood pressure 2023-10-09 21:06:00 130 mm[Hg] [facility] Diastolic blood pressure 2023-10-09 21:06:00 77 mm[Hg] [facility] Heart rate 2023-10-09 21:06:00 102 /min [facility] Body temperature 2023-10-09 21:06:00 36.72 Melissa [facility] Body height 2023-10-09 21:06:00 165.1 cm [facility] Body weight 2023-10-09 21:06:00 69.854 kg [facility] BMI 2023-10-09 21:06:00 25.63 kg/m2 [facility] Systolic blood pressure 2023-10-08 21:11:00 127 mm[Hg] [facility] Diastolic blood pressure 2023-10-08 21:11:00 73 mm[Hg] [facility] Heart rate 2023-10-08 21:11:00 73 /min [facility] Respiratory rate 2023-10-08 21:11:00 18 /min [facility] Body height 2023-10-08 21:11:00 165.1 cm [facility] Body weight 2023-10-08 21:11:00 69.4 kg [facility] BMI 2023-10-08 21:11:00 25.46 kg/m2 [facility] Systolic blood pressure 2023-10-01 12:15:00 125 mm[Hg] [facility] Diastolic blood pressure 2023-10-01 12:15:00 61 mm[Hg] [facility] Heart rate 2023-10-01 12:15:00 98 /min [facility] Body temperature 2023-10-01 12:15:00 36.78 Melissa [facility] Respiratory rate 2023-10-01 12:15:00 18 /min [facility] Oxygen saturation in Arterial blood by Pulse oximetry 2023-10-01 12:15:00 99 /min [facility] Body height 2023-10-01 00:24:00 167.6 cm [facility] Body weight 2023-10-01 00:24:00 66.679 kg [facility] BMI 2023-10-01 00:24:00 23.73 kg/m2 [facility] Systolic blood pressure 2023-09-21 17:03:00 133 mm[Hg] [facility] Diastolic blood pressure 2023-09-21 17:03:00 77 mm[Hg] [facility] Heart rate 2023-09-21 17:01:00 83 /min [facility] 2023-09-21 17:01:00 18 /min [facility] Body height 2023-09-21 17:01:00 167.6 cm [facility] Body weight 2023-09-21 17:01:00 68.04 kg [facility] BMI 2023-09-21 17:01:00 24.21 kg/m2 [facility] Systolic blood pressure 2023-08-24 17:55:00 122 mm[Hg] [facility] Diastolic blood pressure 2023-08-24 17:55:00 82 mm[Hg] [facility] Heart rate 2023-08-24 17:55:00 106 /min [facility] Respiratory rate 2023-08-24 17:55:00 18 /min [facility] Body height 2023-08-24 17:55:00 165.1 cm [facility] Body weight 2023-08-24 17:55:00 63.05 kg [facility] BMI 2023-08-24 17:55:00 23.13 kg/m2 [facility] Systolic blood pressure 2023-07-27 17:56:00 131 mm[Hg] [facility] Diastolic blood pressure 2023-07-27 17:56:00 78 mm[Hg] [facility] Heart rate 2023-07-27 17:56:00 101 /min [facility] Respiratory rate 2023-07-27 17:56:00 18 /min [facility] Body height 2023-07-27 17:56:00 167.6 cm [facility] Body weight 2023-07-27 17:56:00 58.968 kg [facility] BMI 2023-07-27 17:56:00 20.98 kg/m2 [facility] Systolic blood pressure 2023-06-29 19:34:00 101 mm[Hg] [facility] Diastolic blood pressure 2023-06-29 19:34:00 65 mm[Hg] [facility] Heart rate 2023-06-29 19:34:00 93 /min [facility] Body temperature 2023-06-29 19:34:00 36.78 Melissa [facility] Respiratory rate 2023-06-29 19:34:00 16 /min [facility] Body height 2023-06-29 19:34:00 167.6 cm [facility] Body weight 2023-06-29 19:34:00 57.153 kg [facility] BMI 2023-06-29 19:34:00 20.34 kg/m2 [facility] Systolic blood pressure 2023-06-01 18:26:00 114 mm[Hg] [facility] Diastolic blood pressure 2023-06-01 18:26:00 75 mm[Hg] [facility] Heart rate 2023-06-01 18:26:00 91 /min [facility] Body temperature 2023-06-01 18:26:00 36.67 Melissa [facility] Respiratory rate 2023-06-01 18:26:00 16 /min [facility] Body height 2023-06-01 18:26:00 167.6 cm [facility] Body weight 2023-06-01 18:26:00 55.43 kg [facility] BMI 2023-06-01 18:26:00 19.72 kg/m2 [facility] Systolic blood pressure 2023-05-04 20:47:00 102 mm[Hg] [facility] Diastolic blood pressure 2023-05-04 20:47:00 60 mm[Hg] [facility] Heart rate 2023-05-04 20:47:00 102 /min [facility] Body temperature 2023-05-04 20:47:00 36.72 Melissa [facility] Respiratory rate 2023-05-04 20:47:00 16 /min [facility] Body height 2023-05-04 20:47:00 167.6 cm [facility] Body weight 2023-05-04 20:47:00 53.207 kg [facility] BMI 2023-05-04 20:47:00 18.93 kg/m2 [facility] height 2021-07-11 13:00:00 64.5 [in_i] [facility] weight 2021-07-11 13:00:00 109 [lb_av] [facility] temperature 2021-07-11 13:00:00 98.0 [degF] Com mon [facility] bmi 2021-07-11 13:00:00 18.42 kg/m2 [facility] oximetry 2021-07-11 13:00:00 99 % Commo n [facility] respiratory rate 2021-07-11 13:00:00 18 /min [facility] blood pressure systolic 2021-07-11 13:00:00 91 mm[Hg] [facility] blood pressure diastolic 2021-07-11 13:00:00 46 mm[Hg] [facility] height 2020-07-08 13:20:00 64.5 [in_i] Comm on [facility] weight 2020-07-08 13:20:00 104.5 [lb_av] Co mmon [facility] temperature 2020-07-08 13:20:00 97.9 [degF] Com mon [facility] bmi 2020-07-08 13:20:00 17.66 kg/m2 [facility] on [facility] oximetry 2020-07-08 13:20:00 100 % Commo n [facility] respiratory rate 2020-07-08 13:20:00 18 /min [facility] blood pressure systolic 2020-07-08 13:20:00 86 mm[Hg] [facility] blood pressure diastolic 2020-07-08 13:20:00 54 mm[Hg] [facility] Systolic blood pressure 2020-02-03 13:26:00 110 mm[Hg] [facility] Diastolic blood pressure 2020-02-03 13:26:00 62 mm[Hg] [facility] Heart rate 2020-02-03 13:26:00 109 /min [facility] Body temperature 2020-02-03 13:26:00 39.78 Melissa [facility] Respiratory rate 2020-02-03 13:26:00 18 /min [facility] Body height 2020-02-03 13:26:00 165 cm [facility] Body weight 2020-02-03 13:26:00 48.807 kg [facility] BMI 2020-02-03 13:26:00 17.93 kg/m2 [facility] Oxygen saturation in Arterial blood by Pulse oximetry 2020-02-03 13:26:00 98 /min [facility] Procedures Procedure Date / Time Performed Performing Clinician Source US OB TRANSVAGINAL 2024-06-04 23:29:56 Karla Christine Eduard [facility] FLU VACC ([id number]), 6 MO-64 YRS, .5ML, IM, TIV (FLUCELVAX) 2024-06-02 21:21:42 Christine Acosta [facility] URINE DRUG (IMMUNOASSAY) - COMPREHENSIVE DRUG SCREEN 2024-06-02 21:13:00 Christine Acosta [facility] GC & CHLAMYDIA AMPLIFIED ASSAY 2024-06-02 21:13:00 Christine Acosta [facility] TRICHOMONAS AMPLIFIED ASSAY 2024-06-02 21:13:00 Christine Acosta [facility] POCT TEST 2024-06-02 20:55:00 Christine Acosta [facility] POCT URINALYSIS W/O SPECIFIC GRAVITY 2024-06-02 20:55:00 Karla Christine [facility] POCT TEST 2023-12-20 00:00:00 Christine Acosta [facility] CBC WITH DIFF 2023-11-18 08:49:00 Christine Acosta [facility] CENTRAL NEURAXIAL BLOCK 2023-11-16 19:08:00 Kirby Junior [facility] CREATININE 2023-11-16 05:26:00 Christine Acosta [facility] CBC WITH DIFF 2023-11-16 05:26:00 Christine Acosta [facility] HEPATITIS B SURFACE ANTIGEN 2023-11-16 05:26:00 Chrsitine Acosta [facility] HB INDIRECT ANTIGLOBULIN TEST 2023-11-16 05:26:00 Christine Acosta [facility] RHO (D) IMMUNE GLOBULIN 2023-11-16 05:26:00 Karla Christine [facility] ADC OR LIBAN ONLY - RPR 2023-11-16 05:26:00 Gilbert Acosat [facility] HIV 1/2 AG-AB WITH REFLEX 2023-11-16 05:26:00 Gilbert Acosta [facility] POCT URINALYSIS W/O SPECIFIC GRAVITY 2023-11-15 00:00:00 Christine Acosta [facility] SGOT (ASPARTATE AMINO TRANSFER) 2023-11-13 16:56:00 Christine Acosta [facility] CREATININE 2023-11-13 16:56:00 Christine Acosta [facility] ALANINE AMINO TRANSFERASE(SGPT 2023-11-13 16:56:00 Christine Acosta [facility] LACTATE DEHYDROGENASE 2023-11-13 16:56:00 Christine Acosta Selene mancini [facility] URIC ACID 2023-11-13 16:56:00 Christine Acosta [facility] CBC WITH DIFF 2023-11-13 16:56:00 Christine Acosta [facility] PROTEIN CREAT RATIO URINE RANDOM 2023-11-13 16:56:00 Christine Acosta [facility] US PELVIS > 14 WEEKS 2023-11-13 16:39:14 Christine Acosta [facility] >14 WEEKS US LIMITED 2023-11-09 17:46:15 Christine Acosta [facility] POCT URINALYSIS W/O SPECIFIC GRAVITY 2023-11-09 00:00:00 Christine Acosta [facility] URINALYSIS 2023-11-07 18:36:00 Karla Christine [facility] ADC ONLY - FERN TEST 2023-11-07 18:36:00 Christine Acosta [facility] POCT URINALYSIS W/O SPECIFIC GRAVITY 2023-11-02 00:00:00 Christine Acosta [facility] POCT URINALYSIS W/O SPECIFIC GRAVITY 2023-10-19 00:00:00 Christine Acosta [facility] POCT URINALYSIS AUTO 2023-10-09 21:26:00 Andrey Hickman [facility] POCT URINALYSIS W/O SPECIFIC GRAVITY 2023-10-08 00:00:00 Woody Hood [facility] NON-STRESS TEST 2023-10-01 12:49:34 Christine Acosta [facility] COMP. METABOLIC PANEL ([id number]) 2023-10-01 03:57:00 [facility] CBC WITH DIFF 2023-10-01 03:57:00 Davion Meza [facility] US RETROPERITONEAL LIMITED 2023-10-01 01:54:45 Davion Meza [facility] URINALYSIS 2023-10-01 00:52:00 Davion Meza [facility] TDAP VACCINE, >11 YRS, IM 2023-09-21 17:13:50 Gilbert Acosta [facility] POCT URINALYSIS W/O SPECIFIC GRAVITY 2023-09-21 00:00:00 Christine Acosta [facility] POCT URINALYSIS W/O SPECIFIC GRAVITY 2023-08-24 00:00:00 Christine Acosta [facility] POCT URINALYSIS W/O SPECIFIC GRAVITY 2023-07-27 00:00:00 Christine Acosta [facility] SECOND AND THIRD TRIMESTER ULTRASOUND 2023-07-23 18:07:00 Christine Acosta [facility] POCT URINALYSIS W/O SPECIFIC GRAVITY 2023-06-29 00:00:00 Christine Acosta [facility] FLU VACC (), 6 MO-64 YRS, .5ML, IM, QUAD (FLUCELVAX) 2023-06-01 18:32:05 Christine Acosta [facility] POCT URINALYSIS W/O SPECIFIC GRAVITY 2023-06-01 00:00:00 Christine Acosta [facility] SCANNED LAB RESULTS 2023-05-11 06:01:00 Doctor U nassigned, [place] [facility] OB TRANSVAGINAL 2023-05-04 21:47:12 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 CLINIC ULTRASOUND 2023-05-04 06:01:00 Doc tor Unassigned, [place] [facility] POCT TEST 2023-05-04 00:00:00 Christine [facility]osta [facility] [facility] PO[facility] URINALYSIS W/O SPECIFIC GRAVITY 2023-05-04 00:00:00 Christine Acosta [facility] CT ABDOMEN PELVIS WO CONTRAST 2023-02-20 13:41:00 Requisition, Paper [facility] NO SHOW OR MISSED APPOINTMENT POLICY ACKNOWLEDGEMENT 2023-02-20 13:30:22 Doctor Unassigned, [place] [facility] PATIENT FINANCIAL POLICY 2023-02-20 13:30:06 Doctor Unassigned, [place] [facility] NOTICE OF PRIVACY PRACTICES 2023-02-20 13:29:50 Doctor Unassigned, [place] [facility] CONSENT/REFUSAL FOR DIAGNOSIS AND TREATMENT 2023-02-20 13:29:33 Doctor Unassigned, [place] [facility] ASSIGNMENT OF BENEFITS 2023-02-20 13:29:18 Docto r Unassigned, [place] [facility] SARS-COV-2 COVID-19 VACCINE,0.3ML,IM (PFIZER) 2021-02-23 16:40:59 Doctor Unassigned, [place] [facility] VACCINATIONS - CONSENTS, ELIGIBILITY, HISTORY 2021-02-02 05:01:00 Doctor Unassigned, [place] [facility] Encounters Start Date/Time End Date/Time Encounter Type Admission Type Attending Clinicians Care Facility Care Department Encounter ID Source 2023-10-01 08:46:05 Outpatient X [facility] NINA [id number] [facility] 2022-07-11 11:58:00 [facility] [id number] [facility] 2022-07-10 08:08:00 [facility] [id number] [facility] 2021-07-20 14:35:15 [facility] [id number] [facility] 2021-07-20 12:21:17 [facility] [id number] [facility] 2021-07-20 12:20:10 [facility] [id number] [facility] 2021-07-20 12:14:27 Outpatient Susana Noel [facility] [id number] [facility] 2021-07-20 11:17:47 Outpatient Susana Noel [facility] [id number] [facility] 2024-07-28 13:15:00 2024-07-28 13:15:00 Outpatient R ACOSTAGARYCHRISTINE CASILLAS [facility] [id number] [facility] 2024-07-01 15:00:00 2024-07-01 15:00:00 Outpatient R WOODY HOOD [facility] [id number] [facility] 2024-06-16 10:45:00 2024-06-16 10:45:00 Outpatient R [facility] [id number] [facility] 2024-06-02 14:30:00 2024-06-02 15:22:25 Outpatient R ACOSTAGARYCHRISTINE CASILLAS [facility] [id number] [facility] 2024-06-02 14:30:00 2024-06-02 15:22:25 Initial Visit Karla Christine [facility] 1..840.114 350.1.13.10 4.2.7.2.686 [id number] 134 [id number] [facility] 2024-05-20 00:00:00 2024-05-20 18:00:22 Nurse Triage Tomasa Alvarez Nina R [facility] 1.840.114 350.1.13.10 4.2.7.2.686 [id number] [facility] 2024-05-17 00:00:00 2024-05-20 14:54:10 Telephone Christine Acosta [facility] 1..840.114 350.1.13.10 4.2.7.2.686 [id number] [facility] 2024-05-14 13:30:00 2024-05-14 13:30:00 Outpatient R CHRISTINE ACOSTA VIEN [facility] [id number] [facility] 2024-01-29 10:30:00 2024-01-29 10:30:00 Outpatient R CHRISTINE ACOSTA VIEN [facility] [id number] [facility] 2024-01-04 14:30:00 2024-01-04 14:30:00 Outpatient R ADUM, AZRA ADLUPILLOISATUAZRA [facility] [id number] [facility] 2023-12-30 00:00:00 2024-01-01 16:40:37 Refill AcostaGaryen [facility] 1.2.840.114 350.1.13.10 4.2.7.2.686 [id number] 134 [id number] [facility] 2023-12-20 11:15:00 2023-12-20 12:24:00 Outpatient R GARY ACOSTAEN KARLA [facility] [id number] [facility] 2023-12-20 11:15:00 2023-12-20 11:30:00 Routine Visit AcostaChristine [facility] BUILDING 1.2.840.114 350.1.13.10 4.2.7.2.686 [id number] [facility] 2023-11-27 14:00:00 2023-11-27 14:00:00 Outpatient R [facility] [id number] [facility] 2023-11-23 00:00:00 2023-11-23 16:07:54 Telephone AcostaChristine [facility] BUILDING 1.2.840.114 350.1.13.10 4.2.7.2.686 [id number] [facility] 2023-11-21 09:00:00 2023-11-21 09:39:39 Outpatient R CHRISTINE ACOSTAGARYEN [facility] [id number] [facility] 2023-11-21 09:00:00 2023-11-21 09:39:39 Nurse Visit Nurse, [facility] Christine Acosta [facility] PROFESSIO [facility] BUILDING 1.0.114 350.1.13.10 4.2.7.2.686 [id number] 134 [id number] [facility] 2023-11-15 22:45:00 2023-11-19 10:20:00 Inpatient P CHRISTINE ACOSTA CHRISTINE [facility] NINA [id number] [facility] 2023-11-15 22:45:00 2023-11-19 10:20:00 Hospital Encounter Christine Acosta [facility] 1..114 350.1.13.10 4.2.7.2.686 [id number] [facility] 2023-11-17 20:01:53 2023-11-17 20:01:53 Anesthesia Event Koby Rucker [facility] 1.0.114 350.1.13.10 4.2.7.2.686 [id number] [facility] 2023-10-11 00:00:00 2023-11-17 18:12:45 Patient Secure Msg Doctor Unassigned, [place] [facility] 1.0.114 350.1.13.10 4.2.7.2.686 [id number] [facility] 2023-11-16 14:11:00 2023-11-17 02:57:00 Anesthesia Event Sukhwinder Junior David K [facility] 1..114 350.1.13.10 4.2.7.2.686 [id number] [facility] 2023-11-16 11:15:00 2023-11-16 11:15:00 Outpatient R CHRISTINE ACOSTA [facility] [id number] [facility] 2023-11-15 09:15:00 2023-11-15 09:50:30 Outpatient R CHRISTINE ACOSTA [facility] [id number] [facility] 2023-11-15 09:15:00 2023-11-15 09:50:30 [facility]ine [facility] 1..840.114 350.1.13.10 4.2.7.2.686 [id number] 134 [id number] [facility] 2023-11-13 09:50:00 2023-11-13 14:00:00 Outpatient P CHRISTINE ACOSTA VIEN [facility] NINA [id number] [facility] 2023-11-13 09:50:00 2023-11-13 14:00:00 Emergency Christine Acosta [facility] 1..840.114 350.1.13.10 4.2.7.2.686 [id number] [facility] 2023-11-13 08:30:00 2023-11-13 08:48:06 Outpatient R CHRISTINE ACOSTA VIEN [facility] [id number] [facility] 2023-11-13 08:30:00 2023-11-13 08:48:06 Nurse Visit Nurse, Jaleesa [facility] Christine Acosta [facility] 1..840.114 350.1.13.10 4.2.7.2.686 [id number] 134 [id number] [facility] 2023-11-10 23:11:00 2023-11-11 01:50:00 Outpatient X CHRISTINE ACOSTA [facility] NINA [id number] [facility] 2023-11-10 23:11:00 2023-11-11 01:50:00 Emergency AcostaChristine Eduard [facility] 1.2.840.114 350.1.13.10 4.2.7.2.686 [id number] [id number] [facility] 2023-11-09 00:00:00 2023-11-09 17:25:51 Telephone KarlaChristine Eduard [facility] PROFESSIO NAL BUILDING 1.2.840.114 350.1.13.10 4.2.7.2.686 [id number] 134 [id number] [facility] 2023-11-09 00:00:00 2023-11-09 15:45:45 Telephone Pcp, Patient Does Not Have A [facility] MEDICAL OFF[facility] BUILDING 1.2.840.114 350.1.13.10 4.2.7.2.686 [id number] [id number] [facility] 2023-11-09 13:30:00 2023-11-09 14:26:50 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, Ang - Db AcostaChristine [facility] MEDICAL OFF[facility] BUILDING 1.2840.114 350.1.13.10 4.2.7.2.686 [id number] [facility] 2023-11-09 11:30:00 2023-11-09 12:01:21 Outpatient R CHRISTINE ACOSTA VIEN [facility] [id number] [facility] 2023-11-09 11:30:00 2023-11-09 12:01:21 Routine Visit Christine Acosta [facility] 1.2.840.114 350.1.13.10 4.2.7.2.686 [id number] 134 [id number] [facility] 2023-11-07 12:54:00 2023-11-07 16:15:00 Outpatient P CHRISTINE ACOSTA [facility] NINA [id number] [facility] 2023-11-07 12:54:00 2023-11-07 16:15:00 Hospital Encounter Christine Acosta [facility] 1.2.840.114 350.1.13.10 4.2.7.2.686 [id number] [facility] 2023-11-07 00:00:00 2023-11-07 14:25:03 Telephone Christine Acosta [facility] 1.2.840.114 350.1.13.10 4.2.7.2.686 [id number] 134 [id number] [facility] 2023-11-06 11:30:00 2023-11-06 11:30:00 [facility] [id number] [facility] 2023-11-02 00:00:00 2023-11-02 13:00:47 Telephone Maxwelldavid [facility] 1.2840.114 350.1.13.10 4.2.7.2.686 [id number] [facility] 2023-11-02 08:00:00 2023-11-02 08:35:16 Outpatient R CHRISTINE ACOSTA [facility] [id number] [facility] 2023-11-02 08:00:00 2023-11-02 08:35:16 Routine Visit Christine Acosta [facility] 1.2.840.114 350.1.13.10 4.2.7.2.686 [id number] 134 [id number] [facility] 2023-10-19 08:00:00 2023-10-19 08:20:55 Outpatient R CHRISTINE ACOSTA [facility] [id number] [facility] 2023-10-19 08:00:00 2023-10-19 08:20:55 Routine Visit Christine Acosta [facility] 1.2.840.114 350.1.13.10 4.2.7.2.686 [id number] 134 [id number] [facility] 2023-10-12 21:03:00 2023-10-12 22:25:00 Outpatient X AZRA DSOUZA VIVIAN [facility] NINA [id number] [facility] 2023-10-12 21:03:00 2023-10-12 22:25:00 Emergency Azra Dsouza [facility] 1.2.840.114 350.1.13.10 4.2.7.2.686 [id number] [facility] 2023-10-09 16:00:00 2023-10-09 16:30:00 Office Visit Tegan Wild [facility] 1.2.840.114 350.1.13.10 4.2.7.2.686 [id number] [facility] 2023-10-09 16:00:00 2023-10-09 16:00:00 [facility] [id number] [facility] 2023-10-08 16:00:00 2023-10-08 16:26:41 Outpatient R МАРИНАNEGRITOANDI WOODY [facility] [id number] [facility] 2023-10-08 16:00:00 2023-10-08 16:26:41 Routine Visit Woody Hood [facility] 1.2.840.114 350.1.13.10 4.2.7.2.686 [id number] 134 [id number] [facility] 2023-10-08 10:15:00 2023-10-08 10:15:00 Outpatient R ERWIN WOODY [facility] [id number] [facility] 2023-09-30 19:27:00 2023-10-01 08:10:00 Outpatient X ALAN S, MAINE Husain, [facility] NINA [id number] [facility] 2023-09-30 19:27:00 2023-10-01 08:10:00 Emergency VincDavion coatesGhassan bill, [place] [facility] 1.2.840.114 350.1.13.10 4.2.7.2.686 [id number] [facility] 2023-10-01 00:00:00 2023-10-01 00:00:00 Case Management Christine Acosta [facility] ED PROFESSIO [facility] 1.20.114 350.1.13.10 4.2.7.2.686 [id number] 134 [id number] [facility] 2023-09-23 00:00:00 2023-09-23 00:00:00 Patient Secure Msg Doctor Unassigned, [place] [facility] 1.2840.114 350.1.13.10 4.2.7.2.686 [id number] [facility] 2023-09-21 12:15:00 2023-09-21 12:19:16 Outpatient R CHRISTINE ACOSTA [facility] [id number] [facility] 2023-09-21 12:15:00 2023-09-21 12:19:16 Routine Visit Christine Acosta [facility] 1.2840.114 350.1.13.10 4.2.7.2.686 [id number] 134 [id number] [facility] 2023-09-21 00:00:00 2023-09-21 00:00:00 Telephone Christine Acosta [facility] 1.2840.114 350.1.13.10 4.2.7.2.686 [id number] 134 [id number] [facility] 2023-08-27 10:00:00 2023-08-27 12:51:15 Outpatient R CHRISTINE ACOSTA [facility] [id number] [facility] 2023-08-27 10:00:00 2023-08-27 10:15:00 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, Ge[facility]anny [facility] 1.2.840.114 350.1.13.10 4.2.7.2.686 [id number] [facility] 2023-08-24 12:45:00 2023-08-24 13:00:00 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, Geovanny Acosta [facility] MEDICAL OFFICE BUILDING 1.2.840.114 350.1.13.10 4.2.7.2.686 [id number] [facility] 2023-08-24 12:45:00 2023-08-24 12:45:00 Outpatient Darnell CHRISTINE ACOSTA [facility] [id number] [facility] 2023-08-24 12:15:00 2023-08-24 12:15:00 [facility] 1.2.840.114 350.1.13.10 4.2.7.2.686 [id number] 134 [id number] [facility] 2023-07-27 12:15:00 2023-07-27 12:15:00 Routine Visit Christine Acosta [facility] 1.2840.114 350.1.13.10 4.2.7.2.686 [id number] 134 [id number] [facility] 2023-07-27 12:15:00 2023-07-27 12:04:00 Outpatient R CHRISTINE ACOSTA [facility] [id number] [facility] 2023-07-23 11:00:00 2023-07-23 11:51:15 Outpatient SEAN PHILLIPS [facility] [id number] [facility] 2023-07-23 11:00:00 2023-07-23 11:51:15 Experimental Plastics Fabricator Visit Ultrasound, Sean Ward [facility] 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 [facility] 1.2.840.114 350.1.13.10 4.2.7.2.686 [id number] [facility] 2023-07-13 00:00:00 2023-07-13 00:00:00 Telephone [facility] 1.2840.114 350.1.13.10 4.2.7.2.686 [id number] 134 [id number] [facility] 2023-06-29 13:45:00 2023-06-29 13:45:00 Routine Visit Christine Acosta [facility] 1.2840.114 350.1.13.10 4.2.7.2.686 [id number] 134 [id number] [facility] 2023-06-29 13:45:00 2023-06-29 13:41:17 Outpatient R CHRISTINE ACOSTA [facility] [id number] [facility] 2023-06-29 11:45:00 2023-06-29 12:29:23 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, Geovanny Acosta [facility] JR?[facility] 1.20.114 350.1.13.10 4.2.7.2.686 [id number] [facility] 2023-06-23 00:00:00 2023-06-23 00:00:00 Nurse Triage Ruchi Vick [facility] 1.2.840.114 350.1.13.10 4.2.7.2.686 [id number] [facility] 2023-06-22 11:00:00 2023-06-22 11:00:00 Outpatient R [facility] [id number] [facility] 2023-06-14 10:30:00 2023-06-14 10:30:00 Outpatient R [facility] [id number] [facility] 2023-06-01 12:45:00 2023-06-01 12:45:00 Routine Visit Christine Acosta [facility] 1..114 350.1.13.10 4.2.7.2.686 [id number] 134 [id number] [facility] 2023-06-01 12:45:00 2023-06-01 12:35:21 Outpatient R KARLA [facility] [id number] [facility] 2023-05-17 00:00:00 2023-05-17 00:00:00 Telephone Christine Acosta [facility] 1..114 350.1.13.10 4.2.7.2.686 [id number] 134 [id number] [facility] 2023-05-11 11:15:00 2023-05-11 13:15:00 Outpatient R KARLA [facility] [id number] [facility] 2023-05-11 11:15:00 2023-05-11 11:30:00 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, Ang - Db [facility] MEDICAL OFF[facility] BUILDING 1.84.114 350.1.13.10 4.2.7.2.686 [id number] [facility] 2023-05-11 00:00:00 2023-05-11 00:00:00 Orders Only Doctor Unassigned, [place] [facility] 1..114 350.1.13.10 4.2.7.2.686 [id number] [facility] 2023-05-04 14:30:00 2023-05-04 15:17:13 Outpatient R KARLA [facility] [id number] [facility] 2023-05-04 14:30:00 2023-05-04 15:17:13 Initial Visit Gary Acostaen Eduard [facility] 1.2.840.114 350.1.13.10 4.2.7.2.686 [id number] 134 [id number] [facility] 2023-05-04 00:00:00 2023-05-04 00:00:00 Orders Only Doctor Unassigned, [place] [facility] 1.2.840.114 350.1.13.10 4.2.7.2.686 [id number] [facility] 2023-05-04 00:00:00 2023-05-04 00:00:00 Patient Secure Msg Doctor Unassigned, [place] [facility] 1.2.840.114 350.1.13.10 4.2.7.2.686 [id number] 134 [id number] [facility] 2023-02-20 08:31:14 2023-02-20 23:59:00 Outpatient R RADIOLOGY [facility] [id number] [facility] 2023-02-20 08:31:14 2023-02-20 23:59:00 Hospital Encounter [facility] 1.2.840.114 350.1.13.10 4.2.7.2.686 [id number] [facility] 2023-02-13 08:56:59 2023-02-13 08:56:59 Outpatient SFA SFA [id number] Amol Britton Albert 2023-02-05 14:45:10 2023-02-05 14:45:10 Outpatient SFA SFA [id number] Amol Britton Albert 2022-11-30 17:40:38 2022-11-30 17:40:38 Outpatient SFA SFA [id number] Amol Britton Albert 2022-09-13 10:01:30 2022-09-13 10:01:30 Outpatient SFA SFA [id number] Amol Price 2022-09-08 08:31:55 2022-09-08 08:31:55 Outpatient SFA [id number] Amol Price 2022-08-30 08:02:19 2022-08-30 08:02:19 Outpatient SFA [id number] Amol Price 2022-08-10 11:56:47 2022-08-10 11:56:47 Outpatient [facility] [id number] Amol Price 2022-03-31 14:57:16 2022-03-31 14:57:16 Outpatient [facility] [id number] Amol Price 2021-07-11 00:00:00 2021-07-11 00:00:00 PREV VISIT EST AGE 18-39 STLMLC STLMLC [id number] [facility] 2021-02-23 11:50:00 2021-02-23 11:50:00 Outpatient OLIVERIO LI [facility] [id number] [facility] 2021-02-23 11:38:41 2021-02-23 11:39:24 Imm/Inj Visit Nurse, Angie Pob Immunizatio Oliverio Gardner [facility] 1..840.114 350.1.13.10 4.2.7.2.686 [id number] [facility] 2021-02-02 13:10:00 2021-02-02 13:10:00 Outpatient [facility] [id number] [facility] 2021-02-02 00:00:00 2021-02-02 00:00:00 Orders Only Doctor Unassigned, [place] [facility] 1..840.114 350.1.13.10 4.2.7.2.686 [id number] [facility] 2020-07-08 00:00:00 2020-07-08 00:00:00 PREV VISIT EST AGE 12-17 STLMLC STLMLC [id number] [facility] 2020-02-05 00:00:00 2020-02-05 00:00:00 Letter (Out) Pob1, Acute Care [facility] Office Building [facility] 1.2.840.114 350.1.13.10 4.2.7.2.686 [id number] [facility] 2020-02-04 00:00:00 2020-02-04 00:00:00 Telephone So Covarrubias [facility] 1.2.840.114 350.1.13.10 4.2.7.2.686 [id number] [facility] 2020-02-04 00:00:00 2020-02-04 00:00:00 Letter (Out) Krystin France [facility] 1.2.840.114 350.1.13.10 4.2.7.2.686 [id number] [facility] 2020-02-03 08:16:19 2020-02-03 08:36:19 Urgent Care Pob1, Acute Care Clinic Rossi Pritchardthia [facility] Office [facility] 1.2.840.114 350.1.13.10 4.2.7.2.686 [id number] [facility] 2020-02-03 08:00:00 2020-02-03 08:00:00 Outpatient R RON PRITCHARD [facility] [id number] [facility] 2019-06-24 11:00:00 2019-06-24 11:00:00 [facility]patient [facility] [id number] [facility] 2019-04-08 10:20:00 2019-04-08 10:20:00 [facility] [id number] [facility] 2018-11-07 15:20:00 2018-11-07 15:20:00 Outpatient [facility] [id number] [facility] Results Test Description Test Time Test Comments Results Result Co [id number]:55:00* Test Item Value Reference Range Interpretation Comme nts POCT PREG (test code = 1605) Positive On board controls acceptable with C Line (test code = 3574) Yes POCT PREG LOT # (test code = 3575) POCT PREG TEST DATE ( test code = 3576) [facility] [id number] 16:57:00* Test Item Value Reference Range Interpretation Comme nts POCT PREG (test code = 1605) Negative On board controls acceptable with C Line (test code = 3574) Yes POCT PREG LOT # (test code = 3575) POCT PREG TEST DATE ( test code = 3576) [facility] with [id number] 09:16:33* Test Item Value Reference Range Interpretation Comme nts WBC (test code = 6690-2) 13.54 4.30-11.10 H RBC (test code = 789-8) 3.40 3.93-5.25 L HGB (test code = 718-7) 9.9 g/dL 11.6-15.0 L HCT (test code = 4544-3) 28.8 % 35.7-45.2 L MCV (test code = 787-2) 84.7 fL 80.6-95.5 MCH (test code = 785-6) 29.1 pg 25.9-32.8 MCHC (test code = 786-4) 34.4 g/dL 31.6-35.1 RDW-SD (test code = 35611-2) 38.6 fL 39.0-49.9 L RDW-CV (test code = 788-0) 12.7 % 12.0-15.5 PLT (test code = 777-3) 173 166-358 MPV (test code = 84510-3) 10.3 fL 9.5-12.9 NRBC/100 WBC (test code = 4352779778) 0.0 0.0-10.0 NRBC x10^3 (test code = 5688020498) See_Comment [Automated message] The system which generated this result transmitted reference range: 10*3/?L. The reference range was not used to interpret this result as normal/abnormal. GRAN MAT (NEUT) % (test code = 770-8) 76.2 % IMM GRAN % (test code = 9092972158) 0.70 % LYMPH % (test code = 736-9) 13.8 % MONO % (test code = 5905-5) 7.5 % EOS % (test code = 713-8) 1.4 % BASO % (test code = 706-2) 0.4 % GRAN MAT x10^3(ANC) (test code = 0263728701) 10.31 10*3/uL 1.88-7.09 H IMM GRAN x10^3 (test code = 8791772030) 0.10 10*3/uL 0.00-0.06 H LYMPH x10^3 (test code = 731-0) 1.87 10*3/uL 1.32-3.29 MONO x10^3 (test code = 742-7) 1.02 10*3/uL 0.33-0.92 H EOS x10^3 (test code = 711-2) 0.19 10*3/uL 0.03-0.39 BASO x10^3 (test code = 704-7) 0.05 10*3/uL 0.01-0.07 Lab Interpretation (test code = 50314-2) [facility] IMMUNE [id number] 16:09:53* Test Item Value Reference Range Interpretation Comme nts RHIG CANDIDATE? (test code = 5188) No- see comment Patient is not a candidate for RhIg- Patient is Rh Positive.Performed at [facility] Laboratory Services - [facility] Blood [address] [place] [id number] Free: [phone] No. [id number] [facility]AN CASTRO - [id number] 06:49:38* Test Item Value Reference Range Interpretation Comme nts RPR (Qualitative) (test code = 22782-3) Nonreactive Nonreactive Lab Interpretation (test cod e = 92246-4) Normal [facility] 05:14:57* Test Item Value Reference Range Interpretation Comme nts CREATININE (test code = 2160-0) 0.43 mg/dL 0.50-1.04 L eGFR (test code = 45383-1) 143.0 mL/min/1.73m2 CKD-EPI eGFR (2020). Assuming creatinine has been stable day-to-day for at least three months, the eGFR indicates Category G1 (>= 90 mL/min/1.73 m2) Lab Interpretation (test code = 10446-9) [facility]normal [facility] [id number] 19:08:00 Sukhwinder Junior, DO ? ? 11/16/2023 ?2:49 PM Central Neuraxial Block Date/Time: 11/16/2023 2:08 PM Performed by: Sukhwinder Junior, Authorized by: Sukhwinder Junior, DO ?Patient Location: OBReason for Block: Labor analgesia and OB requestStaff: ? ?Performed by: anesthesiologistPreanesthetic Checklist: patient identified, IV checked, risks and benefits explained, monitors and equipment checked, timeout performed, pre-op evaluation, surgical consent, site marked, ob/surgical consent approval, ob/surgical consent verified and anesthesia consentProcedure: ?Type of Neuraxial: Epidural ?Epidural Description: 1st attempt ? Sterility Prep cap, drape, gloves, hand hygiene and mask ? ?Sedation Levelno sedation ?Patient Position: sitting ?Prep: Betadine ? ?Monitoring: heart rate / toco, heart rate and NIBP ?Location: lumbar (1-5) ?Lumbar: L4-L5 ?Approach: midline ? ?Technique: WILI saline ?Guidance with: landmark technique}Epidural/Spinal [place] and/or Catheter: ?Needle Insertion Depth: 6 ?Catheter Type: multiport ? ?Catheter Size: 19 G ? ?Catheter at Skin Depth: 12 ?Number of Attempts: 1 ?Test Dose: lidocaine 1.5% with epinephrine 1-to-200,000 and negative ? ?Dose: 3 cc ? ?Catheter Securement Method: clear occlusive dressing, stabilization device and surgical tapeAssessment: ?Block Outcome: pain improved, patient comfortable, patient satisfied and patient tolerated procedure well ? ?Procedure Assessment: patient tolerated procedure well with no complicationsNotes: ? + scoliosis. No H/C/P. Smooth cath adv. No H/C/P. [facility] [id number] 19:08:00 Sukhwinder Junior, DO ? ? 11/16/2023 ?2:49 PM Central Neuraxial Block Date/Time: 11/16/2023 2:08 PM Performed by: Sukhwinder Junior DOAuthorized by: Sukhwinder Junior, DO ?Patient Location: OBReason for Block: Labor analgesia and OB requestStaff: ? ?Performed by: anesthesiologistPreanesthetic Checklist: patient identified, IV checked, risks and benefits explained, monitors and equipment checked, timeout performed, pre-op evaluation, surgical consent, site marked, ob/surgical consent approval, ob/surgical consent verified and anesthesia consentProcedure: ?Type of Neuraxial: Epidural ?Epidural Description: 1st attempt ? Sterility Prep cap, drape, gloves, hand hygiene and mask ? ?Sedation Levelno sedation ?Patient Position: sitting ?Prep: Betadine ? ?Monitoring: heart rate / toco, heart rate and NIBP ?Location: lumbar (1-5) ?Lumbar: L4-L5 ?Approach: midline ? ?Technique: WILI saline ?Guidance with: landmark technique}Epidural/Spinal [place] and/or Catheter: ?Needle Insertion Depth: 6 ?Catheter Type: multiport ? ?Catheter Size: 19 G ? ?Catheter at Skin Depth: 12 ?Number of Attempts: 1 ?Test Dose: lidocaine 1.5% with epinephrine 1-to-200,000 and negative ? ?Dose: 3 cc ? ?Catheter Securement Method: clear occlusive dressing, stabilization device and surgical tapeAssessment: ?Block Outcome: pain improved, patient comfortable, patient satisfied and patient tolerated procedure well ? ?Procedure Assessment: patient tolerated procedure well with no complicationsNotes: ? + scoliosis. No H/C/P. Smooth cath adv. No H/C/P. [facility] CenterHepatitis B Surface [id number] 16:12:58 * Test Item Value Reference Range Interpretation Comme nts HBsAg Semi-Quantitative (maykel t code = 5195-3) 0.09 Negative [facility] CenterHIV [facility]/2 Ag-Ab with [id number] 11:59:15* Test Item Value Reference Range Interpretation Comme nts HIV Semi-quantitative (test code = 43380-0) 0.09 Negative MARK (test code = MARK) Non-reactive for HIV-1 antigen and HIV-1/HIV-2 antibodies. ?No laboratory evidence of HIV infection. ?Repeat in 2-4 weeks if acute HIV infection is suspected. [facility] with Umajohbqntym6546-38-19 08:06:29* Test Item Value Reference Range Interpretation Comme nts WBC (test code = 6690-2) 9.45 4.30-11.10 RBC (test code = 789-8) 3.70 3.93-5.25 L HGB (test code = 718-7) 10.7 g/dL 11.6-15.0 L HCT (test code = 4544-3) 31.6 % 35.7-45.2 L MCV (test code = 787-2) 85.4 fL 80.6-95.5 MCH (test code = 785-6) 28.9 pg 25.9-32.8 MCHC (test code = 786-4) 33.9 g/dL 31.6-35.1 RDW-SD (test code = 16706-6) 38.5 fL 39.0-49.9 L RDW-CV (test code = 788-0) 12.7 % 12.0-15.5 PLT (test code = 777-3) 177 166-358 MPV (test code = 03188-5) 11.2 fL 9.5-12.9 NRBC/100 WBC (test code = 0150987541) 0.0 0.0-10.0 NRBC x10^3 (test code = 9947771050) See_Comment [Automated messa ge] The system which generated this result transmitted reference range: 10*3/?L. The reference range was not used to interpret this result as normal/abnormal. GRAN MAT (NEUT) % (test code = 770-8) 69.8 % IMM GRAN % (test code = 0952342031) 0.60 % LYMPH % (test code = 736-9) 17.1 % MONO % (test code = 5905-5) 11.3 % EOS % (test code = 713-8) 1.0 % BASO % (test code = 706-2) 0.2 % GRAN MAT x10^3(ANC) (test code = 3310179400) 6.59 10*3/uL 1.88-7.09 IMM GRAN x10^3 (test code = 2110743099) 0.06 10*3/uL 0.00-0.06 LYMPH x10^3 (test code = 731-0) 1.62 10*3/uL 1.32-3.29 MONO x10^3 (test code = 742-7) 1.07 10*3/uL 0.33-0.92 H EOS x10^3 (test code = 711-2) 0.09 10*3/uL 0.03-0.39 BASO x10^3 (test code = 704-7) 0.01-0.07 Lab Interpretation (test code = 80208-5) Abnormal [facility] CenterType and Screen - ONCE [id number] 08:03:00 * Test Item Value Reference Range Interpretation Comme nts ABO & RH (test code = 20) AB POSITIVE IAT (test code = 1185) Negative [facility] CenterPOCT Urinalysis w/o Specific Ttypscs8964-64-03 14:31:00* Test Item Value Reference Range Interpretation Comme nts POCT PH U (test code = 3254) n/a 5-8 POCT U LEUK EST (test code = 3263) n/a Negative - Negative POCT U NIT (test code = 3262) n/a Negative - Negati ve POCT U PROT (test code = 3259) Negative Negative - Negat lorraine POCT U GLU (test code = 3256) Normal Negative - Negati ve POCT U KETONE (test code = 3258) n/a Negative - Neg ative POCT U BLD (test code = 3257) n/a Negative - Negati ve [facility] CenterUric Acid Rgbps0352-73-44 18:01:15* Test Item Value Reference Range Interpretation Comme nts URIC ACID (test code = 7286325368) 3.2 mg/dL 2.9-6.0 Lab Interpretation (test cod e = 78990-1) Normal [facility] CenterAlanine Amino Transferase (SGPT)2023-11-13 17:46:54* Test Item Value Reference Range Interpretation Comme nts ALTv (test code = 1742-6) 14 U/L 5-35 Lab Interpretation (test cod e = 56681-3) Normal [facility] CenterCreatinine Mavuk9479-52-85 17:46:33* Test Item Value Reference Range Interpretation Comme nts CREATININE (test code = 2160-0) 0.35 mg/dL 0.50-1.04 L eGFR (test code = 79966-8) 150.3 mL/min/1.73m2 CKD-EPI eGFR (2020). Assuming creatinine has been stable day-to-day for at least three months, the eGFR indicates Category G1 (>= 90 mL/min/1.73 m2) Lab Interpretation (test code = 05056-5) Abnormal [facility] CenterSGOT (Asparate Amino Transfer)2023-11-13 17:46:33* Test Item Value Reference Range Interpretation Comme [facility] AST(SGOT) (test code = 4120984432) 22 U/L 13-40 Lab Interpretation (test cod e = 99039-1) Normal [facility] CenterLactate Xxdrvyyaqtxsv8332-01-81 17:45:56* Test Item Value Reference Range Interpretation Comme nts LDH (test code = 3722850447) 168 U/L 120-246 Lab Interpretation (test cod e = 54252-4) Normal [facility] CenterCBC with Tmszulrqyexs1617-26-27 17:41:29* Test Item Value Reference Range Interpretation Comme nts WBC (test code = 6690-2) 8.01 4.30-11.10 RBC (test code = 789-8) 3.53 3.93-5.25 L HGB (test code = 718-7) 10.4 g/dL 11.6-15.0 L HCT (test code = 4544-3) 30.1 % 35.7-45.2 L MCV (test code = 787-2) 85.3 fL 80.6-95.5 MCH (test code = 785-6) 29.5 pg 25.9-32.8 MCHC (test code = 786-4) 34.6 g/dL 31.6-35.1 RDW-SD (test code = 01946-6) 38.3 fL 39.0-49.9 L RDW-CV (test code = 788-0) 12.6 % 12.0-15.5 PLT (test code = 777-3) 185 166-358 MPV (test code = 07614-6) 10.6 fL 9.5-12.9 NRBC/100 WBC (test code = 0680730671) 0.0 0.0-10.0 NRBC x10^3 (test code = 9385227311) See_Comment [Automated [place] ge] The system which generated this result transmitted reference range: 10*3/?L. The reference range was not used to interpret this result as normal/abnormal. GRAN MAT (NEUT) % (test code = 770-8) 73.5 % IMM GRAN % (test code = 2554212660) 0.60 % LYMPH % (test code = 736-9) 15.1 % MONO % (test code = 5905-5) 9.7 % EOS % (test code = 713-8) 0.9 % BASO % (test code = 706-2) 0.2 % GRAN MAT x10^3(ANC) (test code = 8749203688) 5.88 10*3/uL 1.88-7.09 IMM GRAN x10^3 (test code = 3130250835) 0.05 10*3/uL 0.00-0.06 LYMPH x10^3 (test code = 731-0) 1.21 10*3/uL 1.32-3.29 L MONO x10^3 (test code = 742-7) 0.78 10*3/uL 0.33-0.92 EOS x10^3 (test code = 711-2) 0.07 10*3/uL 0.03-0.39 BASO x10^3 (test code = 704-7) 0.01-0.07 Lab Interpretation (test code = 10446-1) Abnormal [facility] CenterUS PELVIS > 14 [id number] 16:59:34ORDERING PHYSICIAN: ?CHRISTINE ACOSTA HISTORY: elevated bps Scan for Growth and MYCHAL. COMPARISON: None. ? TECHNIQUE: Multiple transverse and longitudinal obstetrical ultrasoundimages were obtained transabdominally. ? FINDINGS: Single intrauterine gestation is identified, in ?cephalic presentation. Fetalheart rate is ?129 beats/min. Placenta is posterior in location. There is no evidence of placentaabruption. The cervix was not imaged. Amniotic fluid volume is within normal limits. ?MYCHAL measures 17.3 ?cm. Biparietal Diameter ?8.62 cm consistent with gestational age of 34 weeksand 6 days.Head Circumference ?31.53 cm consistent with gestational age of 35 weeksand 3 days.Abdominal Circumference ?31.87 cm consistent with gestational age of 35weeks and 6 days.Femur Length ?7.26 cm consistent with gestational age of 37 weeks and 2days. Estimated gestational age based on sonographic criteria is 35 weeks and 6days with estimated weight of 2821 g. ?Estimated gestational agebased on last menstr ual period is 36 weeks and 4 days. Bilateral ovaries are not visualized. [facility] Urinalysis w/o Specific Snftgsy8126-67-87 16:54:00* Test Item Value Reference Range Interpretation Comme nts POCT PH U (test code = 3254) N/A 5-8 POCT U LEUK EST (test code = 3263) N/A Negative - Negative POCT U NIT (test code = 3262) N/A Negative - Negati ve POCT U PROT (test code = 3259) Negative Negative - Negat [place] POCT U GLU (test code = 3256) Negative Negative - Negati ve POCT U KETONE (test code = 3258) N/A Negative - Neg ative POCT U BLD (test code = 3257) N/A Negative - Negati ve [facility] Urinalysis w/o Specific Rymoxyc5560-30-37 13:53:00* Test Item Value Reference Range Interpretation Comme nts POCT PH U (test code = 3254) n/a 5-8 POCT U LEUK EST (test code = 3263) n/a Negative - Negative POCT U NIT (test code = 3262) n/a Negative - Negati ve POCT U PROT (test code = 3259) negative Negative - Negat [place] POCT U GLU (test code = 3256) negative Negative - Negati ve POCT U KETONE (test code = 3258) n/a Negative - Neg ative POCT U BLD (test code = 3257) n/a Negative - Negati ve [facility] Urinalysis w/o Specific Zcpakez8173-64-76 13:59:00* Test Item Value Reference Range Interpretation Comme nts POCT PH U (test code = 3254) na 5-8 POCT U LEUK EST (test code = 3263) na Negative - N egative POCT U NIT (test code = 3262) na Negative - Negati ve POCT U PROT (test code = 3259) neg Negative - Negat [place] POCT U GLU (test code = 3256) neg Negative - Negati ve POCT U KETONE (test code = 3258) na Negative - Neg ative POCT U BLD (test code = 3257) na Negative - Negati ve [facility], Qznjveuzln2483-46-08 21:27:00 * Test Item Value Reference Range Interpretation Comme nts POCT U SP GRAV (test code = 3255) 1.020 mg/dl 1.005-1.025 POCT PH U (test code = 3254) 7.0 mg/dl 5-8 POCT U LE[place] EST (test code = 3263) negative Negative - Negative POCT U NIT (test code = 3262) negative Negative - Negati ve POCT U PROT (test code = 3259) negative Negative - Negative POCT U GLU (test code = 3256) negative Negative - Negati ve POCT U KETONE (test code = 3258) negative Negative - Negative POCT U UROBILI (test code = 3260) 1.0 mg/dl 0.2-1 POCT U BILI (test code = 3261) negative Negative - Negative POCT U BLD (test code = 3257) negative Negative - Negati ve POCT U COLOR (test code = 3266) yellow POCT U APPEAR (test code = 3267) clear [facility], Bsoxkvtzgx7037-78-12 21:27:00 * Test Item Value Reference Range Interpretation Comme nts POCT U SP GRAV (test code = 3255) 1.020 mg/dl 1.005-1.025 POCT PH U (test code = 3254) 7.0 mg/dl 5-8 POCT U LE[place] EST (test code = 3263) negative Negative - Negative POCT U NIT (test code = 3262) negative Negative - Negati ve POCT U PROT (test code = 3259) negative Negative - Negative POCT U GLU (test code = 3256) negative Negative - Negati ve POCT U KETONE (test code = 3258) negative Negative - Negative POCT U UROBILI (test code = 3260) 1.0 mg/dl 0.2-1 POCT U BILI (test code = 3261) negative Negative - Negative POCT U BLD (test code = 3257) negative Negative - Negati ve POCT U COLOR (test code = 3266) yellow POCT U APPEAR (test code = 3267) clear [facility] Urinal[facility] w/o Specific Vgtfknr2646-11-22 21:11:00* Test Item Value Reference Range Interpretation Comme nts POCT PH U (test code = 3254) N/A 5-8 POCT U LE[place] EST (test code = 3263) N/A Negative - Negative POCT U NIT (test code = 3262) N/A Negative - Negati ve POCT U PROT (test code = 3259) Negative Negative - Negat [place] POCT U GLU (test code = 3256) Negative Negative - Negati ve POCT U KETONE (test code = 3258) N/A Negative - Neg ative POCT U BLD (test code = 3257) N/A Negative - Negati ve [facility]. Metabolic Panel (41059)2023-10-01 04:34:48* Test Item Value Reference Range Interpretation Comme nts NA (test code = 0438808911) 136 mmol/L 135-145 K (test code = 3326181702) 3.7 mmol/L 3.5-5.0 CL (test code = 6410892381) 105 mmol/L 98-108 CO2 TOTAL (test code = 7368157796) 22 mmol/L 23-31 L AGAP (test code = 8297800840) 9 2-16 BUN (test code = 9664967528) 6 mg/dL 7-23 L GLUCOSE (test code = 0574149938) 90 mg/dL 70-110 CREATININE (test code = 2160-0) 0.38 mg/dL 0.50-1.04 L TOTAL BILI (test code = 2660778762) 0.3 mg/dL 0.1-1.1 CALCIUM (test code = 6902885244) 9.0 mg/dL 8.6-10.6 T PROTEIN (test code = 9543786898) 7.4 g/dL 6.3-8.2 ALBUMIN (test code = 2406306974) 3.8 g/dL 3.5-5.0 ALK PHOS (test code = 7920504338) 84 U/L 34-122 ALTv (test code = 1742-6) 17 U/L 5-35 AST(SGOT) (test code = 7904329333) 24 U/L 13-40 eGFR (test code = 99114-7) 147.3 mL/min/1.73m2 CKD-EPI eGFR (2020). Assuming creatinine has been stable day-to-day for at least three months, the eGFR indicates Category G1 (>= 90 mL/min/1.73 m2) Lab Interpretation (test code = 16262-2) Abnormal [facility] with Nckx7935-60-86 04:17:04* Test Item Value Reference Range Interpretation Comme nts WBC (test code = 6690-2) 9.75 4.30-11.10 RBC (test code = 789-8) 3.93 3.93-5.25 HGB (test code = 718-7) 11.9 g/dL 11.6-15.0 HCT (test code = 4544-3) 34.9 % 35.7-45.2 L MCV (test code = 787-2) 88.8 fL 80.6-95.5 MCH (test code = 785-6) 30.3 pg 25.9-32.8 MCHC (test code = 786-4) 34.1 g/dL 31.6-35.1 RDW-SD (test code = 30288-8) 40.6 fL 39.0-49.9 RDW-CV (test code = 788-0) 12.5 % 12.0-15.5 PLT (test code = 777-3) 224 166-358 MPV (test code = 32811-3) 9.6 fL 9.5-12.9 NRBC/100 WBC (test code = 5921983687) 0.0 0.0-10.0 NRBC x10^3 (test code = 7073146640) See_Comment [Automated messa ge] The system which generated this result transmitted reference range: 10*3/?L. The reference range was not used to interpret this result as normal/abnormal. GRAN MAT (NEUT) % (test code = 770-8) 69.2 % IMM GRAN % (test code = 4043999387) 1.20 % LYMPH % (test code = 736-9) 17.6 % MONO % (test code = 5905-5) 10.1 % EOS % (test code = 713-8) 1.6 % BASO % (test code = 706-2) 0.3 % GRAN MAT x10^3(ANC) (test code = 5591699499) 6.74 10*3/uL 1.88-7.09 IMM GRAN x10^3 (test code = 4081618348) 0.12 10*3/uL 0.00-0.06 H LYMPH x10^3 (test code = 731-0) 1.72 10*3/uL 1.32-3.29 MONO x10^3 (test code = 742-7) 0.98 10*3/uL 0.33-0.92 H EOS x10^3 (test code = 711-2) 0.16 10*3/uL 0.03-0.39 BASO x10^3 (test code = 704-7) 0.03 10*3/uL 0.01-0.07 Lab Interpretation (test code = 50284-9) Abnormal [facility] RETROPERITONEAL [id number] 04:16:40 Exam: Retroperitoneal ultrasound. INDICATION: right flank pain, 30 weeks , r/o renalstone/hydronephrosis COMPARISON:CT of the abdomen and pelvis from 02/20/2023 TECHNIQUE: Multiple longitudinal and transverse grayscale and selectedcolor Doppler ultrasonographic images were obtained of the kidneys andbladder. Roller Operator images were obtained for the record. FINDINGS: RIGHT KIDNEY:Size: The right kidney is normal in size and measures approximately 11.3cm, remeasured.Parenchyma: The renal parenchyma exhibits normal cortical echogenicity andthickness. No solid or cystic lesion is detected.Collecting System: Moderate to severe hydronephrosis is seen. LEFT KIDNEY:Size: The left kidney is normal in size and measures approximately 11.1 cm,remeasured.Parenchyma: The renal parenchyma exhibits normal cortical echogenicity andthickness. No solid or cystic lesion is detected.Collecting Syst em: No hydronephrosis is seen. BLADDER:Mild bladder wall thickening may be secondary to degree of underdistention.[facility] Urinalysis w/o Specific Cvekfjv8368-73-85 17:11:00* Test Item Value Reference Range Interpretation Comme nts POCT PH U (test code = 3254) 6 mg/dl 5-8 POCT U LEUK EST (test code = 3263) Negative Negative - Negative POCT U NIT (test code = 3262) Negative Negative - Negati ve POCT U PROT (test code = 3259) Negative Negative - Negat [place] POCT U GLU (test code = 3256) Negative Negative - Negati ve POCT U KETONE (test code = 3258) Negative Negative - Neg ative POCT U BLD (test code = 3257) Negative Negative - Negati ve [facility] Urinalysis w/o Specific Tswgevq1761-57-28 17:11:00* Test Item Value Reference Range Interpretation Comme nts POCT PH U (test code = 3254) 6 mg/dl 5-8 POCT U LEUK EST (test code = 3263) Negative Negative - Negative POCT U NIT (test code = 3262) Negative Negative - Negati ve POCT U PROT (test code = 3259) Negative Negative - Negat [place] POCT U GLU (test code = 3256) Negative Negative - Negati ve POCT U KETONE (test code = 3258) Negative Negative - Neg ative POCT U BLD (test code = 3257) Negative Negative - Negati ve [facility] Urinalysis w/o Specific Uczhmbu0195-27-30 17:58:00* Test Item Value Reference Range Interpretation Comme nts POCT PH U (test code = 3254) N/A 5-8 POCT U LEUK EST (test code = 3263) N/A Negative - Negative POCT U NIT (test code = 3262) N/A Negative - Negati ve POCT U PROT (test code = 3259) Negative Negative - Negat [place] POCT U GLU (test code = 3256) Negative Negative - Negati ve POCT U KETONE (test code = 3258) N/A Negative - Neg ative POCT U BLD (test code = 3257) N/A Negative - Negati ve [facility] Urinalysis w/o Specific Kinyntc7536-09-93 17:56:00* Test Item Value Reference Range Interpretation Comme nts POCT PH U (test code = 3254) N/A 5-8 POCT U LEUK EST (test code = 3263) N/A Negative - Negative POCT U NIT (test code = 3262) N/A Negative - Negati ve POCT U PROT (test code = 3259) Negative Negative - Negat [place] POCT U GLU (test code = 3256) Negative Negative - Negati ve POCT U KETONE (test code = 3258) N/A Negative - Neg ative POCT U BLD (test code = 3257) N/A Negative - Negati ve [facility] Urinalysis w/o Specific Cskfohw0559-50-68 19:33:00* Test Item Value Reference Range Interpretation Comme nts POCT PH U (test code = 3254) n/a 5-8 POCT U LEUK EST (test code = 3263) n/a Negative - Negative POCT U NIT (test code = 3262) n/a Negative - Negati ve POCT U PROT (test code = 3259) negative Negative - Negat [place] POCT U GLU (test code = 3256) negative Negative - Negati ve POCT U KETONE (test code = 3258) n/a Negative - Neg ative POCT U BLD (test code = 3257) n/a Negative - Negati ve [facility] URINALYSIS W/O SPECIFIC [id number] 18:23:00* Test Item Value Reference Range Interpretation Comme nts POCT PH U (test code = 3254) n/a 5-8 POCT U LEUK EST (test code = 3263) n/a Negative - Negative POCT U NIT (test code = 3262) n/a Negative - Negati ve POCT U PROT (test code = 3259) negative Negative - Negat [place] POCT U GLU (test code = 3256) negative Negative - Negati ve POCT U KETONE (test code = 3258) n/a Negative - Neg ative POCT U BLD (test code = 3257) n/a Negative - Negati ve [facility] W/O SPECIFIC [id number] 18:23:00* Test Item Value Reference Range Interpretation Comme nts POCT PH U (test code = 3254) n/a 5-8 POCT U LEUK EST (test code = 3263) n/a Negative - Negative POCT U NIT (test code = 3262) n/a Negative - Negati ve POCT U PROT (test code = 3259) negative Negative - Negat [place] POCT U GLU (test code = 3256) negative Negative - Negati ve POCT U KETONE (test code = 3258) n/a Negative - Neg ative POCT U BLD (test code = 3257) n/a Negative - Negati ve [facility] URINALYSIS W/O SPECIFIC [id number] 20:49:00* Test Item Value Reference Range Interpretation Comme nts POCT PH U (test code = 3254) n/a 5-8 POCT U LEUK EST (test code = 3263) n/a Negative - Negative POCT U NIT (test code = 3262) n/a Negative - Negati ve POCT U PROT (test code = 3259) negative Negative - Negat [place] POCT U GLU (test code = 3256) negative Negative - Negati ve POCT U KETONE (test code = 3258) n/a Negative - Neg ative POCT U BLD (test code = 3257) n/a Negative - Negati ve [facility]PO[facility] [id number] 20:49:00* Test Item Value Reference Range Interpretation Comme nts POCT PREG (test code = 1605) Positive On board controls acceptable with C Line (test code = 3574) Yes POCT PREG LOT # (test code = 3575) POCT PREG TEST DATE ( test code = 3576) [facility] 25 [id number] 07:56:44* Test Item Value Reference Range Interpretation Comme nts VITAMIN D, 25 OH (test code = 4958) 23 NG/ML SEE BELOW L EFFECTIVE 02/2023, PLEASE NOTE NEW METHODOLOGY IS ELECTROCHEMILUMINESCENCE BINDING ASSAY. NOTE: 25-HYDROXYVITAMIN D ASSAY INCLUDES 25-HYDROXYVITAMIN D2 AND D3. INTERPRETIVE RANGES PEDIATRIC (<17 YEARS) . . . . . . . . . . . NG/ML 20-100ADULT: INSUFFICIENT . . . . . . . . . . . . . . NG/ML <20 SUBOPTIMAL . . . . . . . . . . . . . . . NG/ML 20-29 OPTIMAL . . . . . . . . . . . . . . . . . NG/ML 30-100 TSH, THIRD [id number] 07:14:29* Test Item Value Reference Range Interpretation Comme nts TSH, THIRD GENERATION (test code = 2821) 0.468 UIU/ML 0.400-4.100 COMPREHENSIVE METABOLIC [id number] 03:52:33* Test Item Value Reference Range Interpretation Comme nts GLUCOSE (test code = 2216) 92 MG/DL 70-99 BUN (test code = 2207) 12 MG/DL 6-20 CREATININE (test code = 2214) 0.60 MG/DL 0.50-1.10 eGFR (2020 CKD-EPI) (test code = 55285) 133 ML/MIN/1.73 >60 CALC BUN/CREAT (test code = 2235) 20 RATIO 6-28 SODIUM (test code = 2231) 138 MEQ/L 133-146 POTASSIUM (test code = 2228) 3.9 MEQ/L 3.5-5.4 CHLORIDE (test code = 2215) 104 MEQ/L 95-107 CARBON DIOXIDE (test code = 2206) 24 MEQ/L 19-31 CALCIUM (test code = 2209) 9.6 MG/DL 8.5-10.5 PROTEIN, TOTAL (test code = 2228) 7.5 G/DL 6.1-8.3 ALBUMIN (test code = 1) 5.0 G/DL 3.5-5.2 CALC GLOBULIN (test code = 2240) 2.5 G/DL 2.1-3.7 CALC A/G RATIO (test code = 2234) 2.0 RATIO 1.0-2.6 BILIRUBIN, TOTAL (test code = 2206) 0.6 MG/DL See_Comment [Automated me ssage] The system which generated this result transmitted reference range: <=1.2. The reference range was not used to interpret this result as normal/abnormal. ALKALINE PHOSPHATASE (test code = 2204) 52 U/L 41-120 AST (test code = 2218) 12 U/L 9-40 ALT (test code = 2219) 9 U/L 5-40 UNLESS OTHERWISE INDICATED, ALL TESTING PERFORMED AT [facility] [address] [place] [address] PRINTED CIRCUIT LAYOUT TAPER: JOHN JONES M.D. CLIA NUMBER [id number] [facility] [place]. [id number] CBC W/AUTO DIFF WITH [id number] 03:31:33* Test Item Value Reference Range Interpretation Comme nts WBC (test code = 1001) 3.9 K/UL 3.5-11.0 RBC (test code = 1002) 4.62 M/UL 3.80-5.40 HEMOGLOBIN (test code = 1003) 13.8 G/DL 11.5-15.5 HEMATOCRIT (test code = 1004) 40.3 % 34.0-45.0 MCV (test code = 1005) 87.2 fL 80.0-99.0 MCH (test code = 1006) 29.9 PG 25.0-33.0 MCHC (test code = 1007) 34.2 G/DL 31.0-36.0 RDW (test code = 1038) 12.4 % 11.5-15.0 NEUTROPHILS (test code = 1008) 63.5 % LYMPHOCYTES (test code = 1010) 26.7 % MONOCYTES (test code = 1011) 7.5 % EOSINOPHILS (test code = 1012) 1.5 % BASOPHILS (test code = 1013) 0.5 % IMMATURE GRANULOCYTES (test code = 1036) 0.3 % NUCLEATED RBCS (test code = 1065) 0.0 /100 WBC'S See_Comment [Automated messa ge] The system which generated this result transmitted reference range: 0.0. The reference range was not used to interpret this result as normal/abnormal. PLATELET COUNT (test code = 1015) 285 K/UL 130-400 ABSOLUTE NEUTROPHILS (test code = 1066) 2.47 K/UL 1.50-7.50 ABSOLUTE LYMPHOCYTES (test code = 1067) 1.04 K/UL 1.00-4.00 ABSOLUTE MONOCYTES (test code = 1068) 0.29 K/UL 0.20-1.00 ABSOLUTE EOSINOPHILS (test code = 1040) 0.06 K/UL 0.00-0.50 ABSOLUTE BASOPHILS (test code = 1069) 0.02 K/UL 0.00-0.20 ABS IMMATURE GRANULOCYTES (test code = 1020) 0.01 K/UL 0.00-0.10 ABS NUCLEATED RBCS (test code = 04898) 0.00 K/UL 0.00-0.11 CT/NG, NAAT, [id number] 00:06:35* Test Item Value Reference Range Interpretation Comme nts CHLAMYDIA, NAAT, URINE (test code = 91347) NEGATIVE NEGATIVE Testing is perfo rmed with Manohar LUIS 6800/8800 systems usingreal-time polymerase chain reaction (PCR) method. Testing is performed with Manohar LUIS 6800/8800 systems usingreal-time polymerase chain reaction (PCR) method. A negative result does not exclude low level infection, specimensampling error, or collection error. GONORRHEA, NAAT, URINE (test code = 87727) NEGATIVE NEGATIVE Testing is perfo rmed with Manohar LUIS 6800/8800 systems usingreal-time polymerase chain reaction (PCR) method. Testing is performed with Manohar LUIS 6800/8800 systems usingreal-time polymerase chain reaction (PCR) method. A negative result does not exclude low level infection, specimensampling error, or collection error. HIV 1/2 4TH GEN, RFLX [id number] 06:06:48* Test Item Value Reference Range Interpretation Comme nts HIV 1/2 4TH GEN, RFLX CONF (test code = 3514) NON-REACTIVE NON-REACTIVE [facility] has impo rtant pathology staff changes effective 08/23/2022. New pathology staff will provide uninterrupted, excellent patient care and clinical consultation. See URL: [email or web address]. UNLESS OTHERWISE INDICATED, ALL TESTING PERFORMED AT [facility] [address] [place] [id number] PRINTED CIRCUIT LAYOUT TAPER: JOHN JONES M.D. CLIA NUMBER [id number] [facility] [place] [place]. [id number] RPR REFLEX TO T. PALLIDUM - [id number] 05:38:25* Test Item Value Reference Range Interpretation Comme nts RPR (test code = 74395) NON-REACTIVE NON-REACTIVE RPR TITER (test code = 3500) NOT INDIC. TITER NOT INDIC. CULTURE, [id number] 15:48:21SPECIMEN NUMBER: [id number] CULTURE, URINE SPECIMEN NUMBER: [id number] SPECIMEN COMMENT: URINE SOURCE: URINE REPORT STATUS: FINAL ISOLATE NUMBER 1: ORGANISM: 04/01/2022 >100,000 CFU/ML GRAM NEGATIVE BACILLI IDENTIFICATION: 04/02/2022 ESCHERICHIA COLI E. COLI AMOXICILLIN/CA SENSITIVE <=8/4AMPICILLIN SENSITIVE <=8CEFAZOLIN SENSITIVE <=2CEFTRIAXONE SENSITIVE <=1CIPROFLOXACIN SENSITIVE <=1LEVOFLOXACIN SENSITIVE <=2NITROFURANTOIN SENSITIVE <=32PIP/TAZOBAC SENSITIVE <=16TETRACYCLINE SENSITIVE <=4TOBRAMYCIN SENSITIVE <=4TRIMETH/SULFA SENSITIVE <=2/38 NOTE: NUMBERS DISPLAYED REPRESENT MINIMUM INHIBITORY CONCENTRATION (ARLETTE) WHICH IS EXPRESSED IN MCG/ML. UNLESS OTHERWISE INDICATED, ALL TESTING PERFORMED [facility] [address] [place] [address] PRINTED CIRCUIT LAYOUT TAPER: REANNA DALLAS M.D. [place] NUMBER [id number] [place]. [id number]/NG, NAAT, [id number] 16:51:08* Test Item Value Reference Range Interpretation Comme nts GONORRHEA, NAAT (test code = 98340) NEGATIVE NEGATIVE IMPORTANT NO NADER: SEE ANNOUNCEMENT AT [email or web address] Note: Assay methodology is nucleic acid amplification by denial resolution specialist mediated amplification (TMA) utilizing the Aptima Combo 2 Assay. CHLAMYDIA, NAAT (test code = 43846) NEGATIVE NEGATIVE IMPORTANT NO NADER: SEE ANNOUNCEMENT AT [email or web address] Note: Assay methodology is nucleic acid amplification by denial resolution specialist mediated amplification (TMA) utilizing the Aptima Combo 2 Assay. [id number] 04:44:32* Test Item Value Reference Range Interpretation Comme nts RPR RESULT (test code = 3501) NON-REACTIVE NON-REACTIVE RPR TITER (test code = 3500) NOT INDIC. TITER NOT INDIC. HIV 1/2 4TH GEN, RFLX [id number] 03:54:06* Test Item Value Reference Range Interpretation Comme nts HIV 1/2 4TH GEN, RFLX CONF ( test code = 3514) NON-REACTIVE NON-REACTIVE HEPATITIS PANEL, [id number] 03:54:06* Test Item Value Reference Range Interpretation Comme nts HEPATITIS A IgM (test code = 26105) NON-REACTIVE NON-REACTIVE HEPATITIS B CORE IgM (test code = 4644) NON-REACTIVE NON-REACTIVE HEPATITIS B SURF AG (test code = 2739) NON-REACTIVE NON-REACTIVE HEPATITIS C ANTIBODY (test code = 4675) NON-REACTIVE NON-REACTIVE INTERPRETATION HEPATITIS A: (test code = 2552) (NOTE) Hepatitis A sero logy shows no evidence of acute hepatitis A. INTERPRETATION HEPATITIS B: (test code = 01313) (NOTE) Hepatitis B sero logy shows no evidence of acute hepatitis B andno indication of exposure to hepatitis B virus in the previous daryl eight months. INTERPRETATION HEPATITIS C: (test code = 92203) (NOTE) Hepatitis C sero logy shows no evidence of exposure to hepatitisC virus at this time. It can take up to 12 months after exposure tothe hepatitis C virus for antibodies to become detectable in the blood in certain patients. UNLESS OTHERWISE INDICATED, ALL TESTING PERFORMED [facility] [address] [place] [address] PRINTED CIRCUIT LAYOUT TAPER: REANNA DALLAS M.D. CLIA NUMBER [id number] [facility] [place]. [id number] SARS-CoV-2 (COVID-19), RT-PCR/[id number] 10:54:31* Test Item Value Reference Range Interpretation Comments SARS-CoV-2 INTERPRETATION (test code = 39117) NEGATIVE SEE NOTE SARS-CoV-2 R NA NOT DETECTEDNegative results do not preclude SARS-CoV-2 infection and should notbe used as the sole basis for patient management decisions. Negativeresults must be combined with clinical observations, patient history,and epidemiological information. Optimum specimen types and timingfor peak viral levels during infections caused by SARS-CoV-2 have notbeen determined. Collection of multiple specimens or types ofspecimens may be necessary to detect virus. Improper specimencollection and handling, sequence variability under primers/probes,or organism present below the limit of detection may lead to falsenegative results. Positive and negative predictive values oftesting are highly dependent on prevalence. False negative testresults are more likely when prevalence is high. SOURCE (test code = 65275) NASOPHARYNGEAL Note: Methodolog y is Manohar Luis Real-Time RT-PCR. The expected result or reference range is NEGATIVE (Not Detected). For more information regarding COVID-19 testing to include clinicalinformation, methodology detail, intended use, FDA authorization andrecommended fact sheets for patients or healthcare providers, see [employer] / hellofood Announcement: SARS-CoV-2 (COVID-19) by NAAT at URL below (note,fact sheets are provided by method given in report:[email or web address] Alternatively, see downloadable PDF fact sheet at:[email or web address] UNLESS OTHERWISE INDICATED, ALL TESTING PERFORMED [facility] [address] [place] [address] PRINTED CIRCUIT LAYOUT TAPER: REANNA DALLAS M.D. IA NUMBER [id number] [facility] [place]. [id number] History and Physical Notes Date/Time Note Provider Source 2023-11-16 08:13:23 TRIAGE HISTORY & PHYSICAL IDENTIFYING DATA Yadira Urbina is 18 year old, /White, 37w0d, female with BAN 12/07/2023, by Last Menstrual Period. : 2003 Primary Care Physician: PATIENT DOES NOT HAVE A PCP CHIEF COMPLAINT Induction at 37 weeks due to gestational hypertension HISTORY OF PRESENT ILLNESS Yadira Urbina is a 18 year old female @ 37w0d admitted for induction due to gestational hypertension. +FM. No VB, LOF. + CTX. No pre-eclampsia sx or other complaints. PAST OBSTETRIC HISTORY OB History Para Term AB Living 1 SAB IAB Ectopic Multiple Live Births # Outcome Date GA Lbr Chase/2nd Weight Sex Delivery Anes PTL Lv 1 Current PAST MEDICAL HISTORY Problem list: Patient Active Problem List Diagnosis Date Noted Right flank pain 10/01/2023 37 weeks gestation of 10/01/2023 High-risk in third trimester 05/04/2023 Gestational hypertension, third trimester 05/04/2023 Operations: No past surgical history on file. Past Medical History: Diagnosis Date Anxiety Depression Known health problems: none CURRENT HEALTH STATUS Medications: Current Facility-Administered Medications Medication Dose Route Frequency Last Rate Last Admin FENTanyl PF (SUBLIMAZE (PF)) injection 50 mcg 50 mcg Slow IV Push Q2HPRN 50 mcg at 11/16/23 0707 misoprostol (CYTOTEC) quarter-tablet 25 mcg 25 mcg Vaginal Q4H ABX 25 mcg at 11/16/23 0442 proMETHazine (PHENERGAN) 25 mg in NS 50 mL IV piggyback (CNR) 25 mg IV Piggyback Q4HPRN terbutaline (BRETHINE) injection 0.25 mg 0.25 mg Subcutaneous PRN carboprost (HEMABATE) injection 250 mcg 250 mcg Intramuscular Q2HPRN D5W-LR IV infusion 1,000 mL 1,000 mL IV Infusion TITRATE 125 mL/hr at 11/16/23 0025 1,000 mL at 11/16/23 0025 lactated ringers IV infusion 500 mL 500 mL IV Infusion ONCE lactated ringers IV infusion 500 mL 500 mL IV Infusion PRN - SEE INSTRUCTIONS lactated ringers IV infusion 500 mL 500 mL IV Infusion PRN - SEE INSTRUCTIONS lidocaine 1% (PF) (XYLOCAINE) injection 0.3 mL 0.3 mL Infiltration PRN - SEE INSTRUCTIONS methylergonovine (METHERGINE) injection 0.2 mg 0.2 mg Intramuscular Q4HPRN miSOPROStoL (CYTOTEC) tablet 200 mcg 200 mcg Rectal PRN oxytocin (PITOCIN) 30 units in NS 500 mL IV infusion 600 mL/hr IV Infusion PRN sodium citrate-citric acid (BICITRA) 500-334 mg/5 mL solution 30 mL 30 mL Oral PRE-PROCEDURE ONCE sodium citrate-citric acid (BICITRA) 500-334 mg/5 mL solution 30 mL 30 mL Oral PRE-PROCEDURE ONCE tranexamic acid (CYKLOKAPRON) 1,000 mg in NaCl 0.9% (NS) 250 mL piggyback 1,000 mg IV Piggyback PRN Allergies and drug reactions: Patient has no known allergies. HOME MEDICATIONS Medications Prior to Admission Medication Sig Dispense Refill Last Dose metroNIDAZOLE 500 mg tablet Take 1 tablet by mouth every 12 (twelve) hours. 13 tablet 0 Not Taking buPROPion SR 150 mg SR tablet 1 tablet in the morning Orally Once a day Not Taking omeprazole 20 mg capsule 1 capsule 30 minutes before morning meal Orally Once a day for 30 day(s) Not Taking PNV no.95/ferrous fum/folic ac ( ORAL) Take by mouth. Taking SOCIAL HISTORY Tobacco History: Social History Tobacco Use Smoking Status Never Smokeless Tobacco Never Drug History: Social History Substance and Sexual Activity Drug Use Not on file Alcohol History: Social History Substance and Sexual Activity Alcohol Use None FAMILY HISTORY No family history on file. REVIEW OF SYSTEMS General: negative Constitutional: negative Eyes: negative ENT/Mouth: negative Cardiovascular: negative Respiratory: negative Gastrointestinal:negative Genitourinary: negative Musculoskeletal: negative Skin/breast: negative Neurological: negative Psychiatric: negative Endocrine: negative Hemat/Lymph: negative Allergic/Immuno:none VITAL SIGNS BP: (111-149)/(57-95) Temp: [36.4 ?C (97.6 ?F)-36.7 ?C (98 ?F)] Temp source: Oral (11/15 0010) Pulse: [77-122] Resp: -- SpO2: [96 %-100 %] Height: [165.1 cm (5' 5")-167.6 cm (5' 6")] Weight: [74.8 kg (165 lb)-76.1 kg (167 lb 12.8 oz)] BMI (calculated): [0-27.46] PHYSICAL EXAMINATIONS Gen: alert and oriented, well appearing, no distress CV: RRR, normal S1/S2, no m/r/g Resp: normal work of breathing, lungs CTAB Abd: gravid, soft, NTTP Ext: no calf tenderness or edema : SVE closed/thick/high REVIEW OF LABORATORY, PATHOLOGY, AND RADIOLOGY DATA Lab results: Type & Screen HIV Hep B Syphilis Chlamydia ABO & RH Date Value Ref Range Status 11/16/2023 AB POSITIVE Final No results found for: "HIVMULTIPLEX" No components found for: "HBSHBSAG" No results found for: "SYPIGG" C. trachomatis Nucleic Acid Date Value Ref Range Status 11/07/2023 Negative Negative Final IAT Date Value Ref Range Status 11/16/2023 Negative Final Varicella Rubella Glucose Group B Strep CBC VZV IgG antibody Date Value Ref Range Status 05/11/2023 Negative Negative Final Rubella screen IgG Date Value Ref Range Status 05/11/2023 Positive Negative Final GLUC 1 HR Date Value Ref Range Status 08/27/2023 93 (L) 120 - 170 mg/dL Final No results found for: "CGBS" HGB Date Value Ref Range Status 11/16/2023 10.7 (L) 11.6 - 15.0 g/dL Final HCT Date Value Ref Range Status 11/16/2023 31.6 (L) 35.7 - 45.2 % Final PLT Date Value Ref Range Status 11/16/2023 177 166 - 358 10*3/?L Final Active Hospital Problems Diagnosis Date Noted 37 weeks gestation of 10/01/2023 Gestational hypertension, third trimester 05/04/2023 High-risk in third trimester 05/04/2023 Resolved Hospital Problems No resolved problems to display. Present on Admission: Gestational hypertension, third trimester High-risk in third trimester 37 weeks gestation of Placenta Accreta Screening Prior ? : No Prior Uterine Surgery?: No Placenta low lying/previa in current ? : No Screening outcome: A positive screening outcome indicates a history of prior delivery or prior uterine surgery, AND the presence of either a placenta low lying/previa or ultrasound suspicion of PASD in the current . Negative screening. ASSESSMENT AND PLAN Yadira Urbina is a 18 year old female @ 37w0d here for an induction due to gestational hypertension. Induction - FB in placed. Misoprostol for cervical ripening - Cephalic presentation confirmed - GBS negative -EFW 2821 g on 11/13/2023 Gestational hypertension -BP normal to mild range -Denies PIH symptoms -Tox labs within normal limits 11/13/2023. Protein/creatinine ratio 0.2. -Continue to monitor Anemia -Hemoglobin 10.[address] on admission PVT of Dr. Acosta, please see OB Summary for more details Christine Acosta MD 11/16/2023 8:15 AM [facility] [place] [employer] 2023-10-01 07:44:52 TRIAGE HISTORY & PHYSICAL IDENTIFYING DATA Yadira Urbina is 18 year old, /White, 30w3d, female with BAN 12/07/2023, by Last Menstrual Period. : 2003 Primary Care Physician: PATIENT DOES NOT HAVE A PCP CHIEF COMPLAINT Right flank pain HISTORY OF PRESENT ILLNESS Yadira Urbina is a 18 year old female @ 30w3d presented for right flank pain. States that her pain has improved. Took only Tylenol last night. No other concerns. Drinking about 6 bottles of water a day. Denies hematuria or UTI symptoms. +FM. No VB, LOF, or CTX. No pre-eclampsia sx or other complaints. PAST OBSTETRIC HISTORY OB History Para Term AB Living 1 SAB IAB Ectopic Multiple Live Births # Outcome Date GA Lbr [place]/2nd Weight Sex Delivery Anes PTL Lv 1 Current PAST MEDICAL HISTORY Problem list: Patient Active Problem List Diagnosis Date Noted Right flank pain 10/01/2023 30 weeks gestation of 10/01/2023 Normal in third trimester 05/04/2023 Nausea and vomiting during prior to 22 weeks gestation 05/04/2023 Operations: History reviewed. No pertinent surgical history. Past Medical History: Diagnosis Date Anxiety Depression Known health problems: none CURRENT HEALTH STATUS Medications: No current facility-administered medications for this encounter. Allergies and drug reactions: Patient has no known allergies. HOME MEDICATIONS Medications Prior to Admission Medication Sig Dispense Refill Last Dose doxylamine (UNISOM, DOXYLAMINE,) 25 mg tablet Take 1 tablet by mouth at bedtime as needed for Nausea and Vomiting (N/V). 30 tablet 1 Not Taking PNV no.95/ferrous fum/folic ac ( ORAL) Take by mouth. Taking pyridoxine, VITAMIN B-6, (VITAMIN B-6) 25 mg tablet Take 1 tablet by mouth every 6 (six) hours as needed for Nausea and Vomiting (N/V). 120 tablet 1 Not Taking SOCIAL HISTORY Tobacco History: Social History Tobacco Use Smoking Status Never Smokeless Tobacco Never Drug History: Social History Substance and Sexual Activity Drug Use Not on file Alcohol History: Social History Substance and Sexual Activity Alcohol Use None FAMILY HISTORY No family history on file. REVIEW OF SYSTEMS General: negative Constitutional: negative Eyes: negative ENT/Mouth: negative Cardiovascular: negative Respiratory: negative Gastrointestinal:negative Genitourinary: negative Musculoskeletal: negative Skin/breast: negative Neurological: negative Psychiatric: negative Endocrine: negative Hemat/Lymph: negative Allergic/Immuno:none VITAL SIGNS BP: (116-138)/(50-77) Temp: [36.5 ?C (97.7 ?F)-37.3 ?C (99.1 ?F)] Temp source: Axillary (09/30 714) Pulse: [85-99] Resp: [15-18] SpO2: [98 %-100 %] Height: [167.6 cm (5' 6")] Weight: [66.7 kg (147 lb)] BMI (calculated): [23.73] PHYSICAL EXAMINATIONS Gen: alert and oriented, well appearing, no distress CV: RRR, normal S1/S2, no m/r/g Resp: normal work of breathing, lungs CTAB Abd: gravid, soft, NTTP, negative CVAT Ext: no calf tenderness or edema : Deferred REVIEW OF LABORATORY, PATHOLOGY, AND RADIOLOGY DATA Lab results: Type & Screen HIV Hep B Syphilis Chlamydia ABO & RH Date Value Ref Range Status 08/27/2023 AB POSITIVE Final No results found for: "HIVMULTIPLEX" No components found for: "HBSHBSAG" No results found for: "SYPIGG" C. trachomatis Nucleic Acid Date Value Ref Range Status 09/21/2023 Negative Negative Final IAT Date Value Ref Range Status 08/27/2023 Negative Final Varicella Rubella Glucose Group B Strep CBC VZV IgG antibody Date Value Ref Range Status 05/11/2023 Negative Negative Final Rubella screen IgG Date Value Ref Range Status 05/11/2023 Positive Negative Final GLUC 1 HR Date Value Ref Range Status 08/27/2023 93 (L) 120 - 170 mg/dL Final No results found for: "CGBS" HGB Date Value Ref Range Status 09/30/2023 11.9 11.6 - 15.0 g/dL Final HCT Date Value Ref Range Status 09/30/2023 34.9 (L) 35.7 - 45.2 % Final PLT Date Value Ref Range Status 09/30/2023 224 166 - 358 10*3/?L Final Active Hospital Problems Diagnosis Date Noted Right flank pain 10/01/2023 30 weeks gestation of 10/01/2023 Resolved Hospital Problems No resolved problems to display. Present on Admission: None Placenta Accreta Screening Prior ? : No Prior Uterine Surgery?: No Placenta low lying/previa in current ? : No Screening outcome: A positive screening outcome indicates a history of prior delivery or prior uterine surgery, AND the presence of either a placenta low lying/previa or ultrasound suspicion of PASD in the current . Negative screening. Exam: Retroperitoneal ultrasound. INDICATION: right flank pain, 30 weeks , r/o renal stone/hydronephrosis COMPARISON:CT of the abdomen and pelvis from 02/20/2023 TECHNIQUE: Multiple longitudinal and transverse grayscale and selected color Doppler ultrasonographic images were obtained of the kidneys and bladder. Roller Operator images were obtained for the record. FINDINGS: RIGHT KIDNEY: Size: The right kidney is normal in size and measures approximately 11.3 cm, remeasured. Parenchyma: The renal parenchyma exhibits normal cortical echogenicity and thickness. No solid or cystic lesion is detected. Collecting System: Moderate to severe hydronephrosis is seen. LEFT KIDNEY: Size: The left kidney is normal in size and measures approximately 11.1 cm, remeasured. Parenchyma: The renal parenchyma exhibits normal cortical echogenicity and thickness. No solid or cystic lesion is detected. Collecting System: No hydronephrosis is seen. BLADDER: Mild bladder wall thickening may be secondary to degree of underdistention. IMPRESSION Right sided moderate to severe hydronephrosis. No nephrolithiasis is identified in the intrarenal collecting system. Normal sonographic appearance of the left kidney. No hydronephrosis on the left. The findings of this study, including right moderate to severe hydronephrosis, have been discussed with and acknowledged by Ms Derrick MARTIN over the phone on 09/30/2023 at 10:50 PM with readback. Preliminary Report Dictated by Resident: Laurence Hickman I, Gasper Moise MD., have reviewed this study and agree with the above report. ASSESSMENT AND PLAN Yadira Urbina is a 18 year old at 30w3d who presents with right flank pain. Right flank pain - improved - will consult urology outpatient for right moderate to severe hydronephrosis - stable for discharge home PVT of Dr. Acosta, please see OB Summary for more details Christine Acosta MD [facility] Procedure Notes Date/Time Note Provider Source 2023-11-16 14:46:20 Associated Order(s): Central Neuraxial Block Central Neuraxial Block Date/Time: 11/16/2023 2:08 PM Performed by: Sukhwinder Junior DO Authorized by: Sukhwinder Junior DO Patient Location: OB Reason for Block: Labor analgesia and OB request Staff: Performed by: anesthesiologist Preanesthetic Checklist: patient identified, IV checked, risks and benefits explained, monitors and equipment checked, timeout performed, pre-op evaluation, surgical consent, site marked, ob/surgical consent approval, ob/surgical consent verified and anesthesia consent Procedure: Type of Neuraxial: Epidural Epidural Description: 1st attempt Sterility Prep cap, drape, gloves, hand hygiene and mask Sedation Level no sedation Patient Position: sitting Prep: Betadine Monitoring: heart rate / toco, heart rate and NIBP Location: lumbar (1-5) Lumbar: L4-L5 Approach: midline Technique: WILI saline Guidance with: landmark technique} Epidural/Spinal [place] and/or Catheter: Needle Insertion Depth: 6 Catheter Type: multiport Catheter Size: 19 G Catheter at Skin Depth: 12 Number of Attempts: 1 Test Dose: lidocaine 1.5% with epinephrine 1-to-200,000 and negative Dose: 3 cc Catheter Securement Method: clear occlusive dressing, stabilization device and surgical tape Assessment: Block Outcome: pain improved, patient comfortable, patient satisfied and patient tolerated procedure well Procedure Assessment: patient tolerated procedure well with no complications Notes: + scoliosis. No H/C/P. Smooth cath adv. No H/C/P. AN-ANESTHESIOLOGY ANESTHESIOLOGIST [facility] 2023-11-16 08:18:01 Procedure(s): INSERT CERVICAL DILATOR Pre-Procedure Diagnose(s): 37 weeks gestation of ; Gestational hypertension, third trimester Post-Procedure Diagnose(s): 37 weeks gestation of ; Gestational hypertension, third trimester Hirsch bulb inserted in a sterile manner and inflated with 60 cc of normal saline without complications. Patient tolerated the procedure well. Christine Acosta MD #[id number] 11/16/2023 8:18 AM [facility]
[2024-06-12] MEDS ORDERED: NA CHLORIDE 0.9% 1,000 ML ONE (18:28)
[2024-06-12] MEDS ORDERED: ONDANSETRON 4 MG/2 ML VIAL ONE (18:28)
[2024-06-12 18:42] LABS: Absolute Lymphocytes (CBC) 1.7 K/uL (0.7-4.9); Absolute Monocytes 1.1 K/uL (0.1-1.3); Basophils % 0.3 % (0-1.3); Eosinophils % 0.3 % (0-4.4); Hematocrit 38.1 % (36.0-45.0); Hemoglobin 13.1 g/dL (12.0-15.0); Lymphocytes % 13.3 % (15.3-44.8); MCH 28.6 pg (27.0-35.0); MCHC 34.5 g/dL (32.0-36.0); MCV 82.9 fL (80-100); MPV 7.2 fL (7.6-11.3); Monocytes % 8.2 % (3.3-12.3); Neutrophils % 77.9 % (41.7-73.7); Nucleated Red Blood Cells % 0.1 % (0-0); Platelets 365 thou/uL (152-406); RBC Red Blood Cell Count 4.59 M/uL (3.86-4.86); Red Cell Distribution Width 13.5 % (12.1-15.2)
[2024-06-12 18:50] LABS: Specific Gravity 1.028 (1.005-1.030); Urine Bacteria <20 /HPF (<20); Urine Bilirubin NEGATIVE (Negative); Urine Blood Negative (Negative); Urine Clarity Extremely Turbid (Clear); Urine Color Yellow (Yellow); Urine Culture Reflex Order NOT NEEDED; Urine Glucose NEGATIVE (Negative); Urine Ketones 1+ (Negative); Urine Microscopic Reflex YN ORDER UMIC; Urine Mucus 4+ /HPF (None Seen); Urine Nitrite NEGATIVE (Negative); Urine Protein 1+ (Negative); Urine RBC <5 /HPF (None Seen); Urine Urobilinogen 1+ (Normal); Urine WBC <5 /HPF (<5)
[2024-06-12 19:06] LABS: Albumin 3.7 g/dL (3.4-5.0); Albumin/Globulin Ratio 0.9 (1.1-1.8); Anion Gap 9.5 mEq/L (5.0-15.0); Bilirubin Total 0.7 mg/dL (0.2-1.0); Globulin 4.3 g/dL (2.3-3.5); Potassium 3.5 mEq/L (3.5-5.1)
--- NOTE | 2024-06-12 19:25 | EDPHYS ---
Physician Documentation [facility] Name: Keira Hdez Age: 19 yrs Sex: Female : 2005 Arrival Date: 06/12/2024 Time: 17:59 Bed 2 Private MD: ED Physician Janis Licona HPI: 06/12 18:52 This 19 yrs old Female presents to ER via Ambulatory with complaints of 9 weeks sp3 , Dehydration. 18:54 19-year-old female G2, at 9 weeks presents with nausea, vomiting and dehydration sp3 type symptoms. She denies any fever, abdominal pain, back pain, CLERICAL AIDE TEACHER symptoms or any other signs or symptoms on ROS at this time.. 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 - Infectious Disease History:: Denies. - Social history:: Smoking status: Patient denies any tobacco usage or history of. ROS: 18:55 Constitutional: Negative for fever, chills, and weight loss, Eyes: Negative for injury, sp3 pain, redness, and discharge, ENT: Negative for injury, pain, and discharge, Neck: Negative for injury, pain, and swelling, Cardiovascular: Negative for chest pain, palpitations, and edema, Respiratory: Negative for shortness of breath, cough, wheezing, and pleuritic chest pain, Back: Negative for injury and pain, : Negative for injury, bleeding, discharge, and swelling, MS/Extremity: Negative for injury and deformity, Skin: Negative for injury, rash, and discoloration, Neuro: Negative for headache, weakness, numbness, tingling, and seizure, Psych: Negative for depression, anxiety, suicide ideation, homicidal ideation, and hallucinations, Allergy/Immunology: Negative for hives, rash, and allergies, Endocrine: Negative for neck swelling, polydipsia, polyuria, polyphagia, and marked weight changes, Hematologic/Lymphatic: Negative for swollen nodes, abnormal bleeding, and unusual bruising, 18:55 All other systems are negative, Exam: 18:56 Constitutional: This is a well developed, well nourished patient who is awake, alert, sp3 and in no acute distress. Head/Face: Normocephalic, atraumatic. Eyes: Pupils equal round and reactive to light, extra-ocular motions intact. Lids and lashes normal. Conjunctiva and sclera are non-icteric and not injected. Cornea within normal limits. Periorbital areas with no swelling, redness, or edema. Neck: Trachea midline, no thyromegaly or masses palpated, and no cervical lymphadenopathy. Supple, full range of motion without nuchal rigidity, or vertebral point tenderness. No Meningismus. Chest/axilla: Normal chest wall appearance and motion. Nontender with no deformity. No lesions are appreciated. Cardiovascular: Regular rate and rhythm with a normal S1 and S2. No gallops, murmurs, or rubs. Normal PMI, no JVD. No pulse deficits. Respiratory: Lungs have equal breath sounds bilaterally, clear to auscultation and percussion. No rales, rhonchi or wheezes noted. No increased work of breathing, no retractions or nasal flaring. Abdomen/GI: Soft, non-tender, with normal bowel sounds. No distension or tympany. No guarding or rebound. No evidence of tenderness throughout. Back: No spinal tenderness. No costovertebral tenderness. Full range of motion. Skin: Warm, dry with normal turgor. Normal color with no rashes, no lesions, and no evidence of cellulitis. MS/ Extremity: Pulses equal, no cyanosis. Neurovascular intact. Full, normal range of motion. Neuro: Awake and alert, GCS 15, oriented to person, place, time, and situation. Cranial nerves II-XII grossly intact. Motor strength 5/5 in all extremities. Sensory grossly intact. Cerebellar exam normal. Normal gait. Psych: Awake, alert, with orientation to person, place and time. Behavior, mood, and affect are within normal limits. Vital Signs: 18:08 BP 136 / 72; Pulse 99; Resp 16; Temp 98.7; Pulse Ox 99% ; Weight 62.14 kg; Height 5 ft. db 5 in. ; 19:54 BP 128 / 65; Pulse 93; Resp 16; Pulse Ox 100% on R/A; al5 18:08 Body Mass Index 22.80 (62.14 kg, 165.1 cm) db MDM: 18:16 Medical Screening Exam initiated sp3 18:56 Data reviewed: vital signs, nurses notes, lab test result(s). ED course: 19-year-old sp3 female with nausea and vomiting at 9 weeks . Differential diagnosis includes hyperemesis gravidarum versus viral illness versus foodborne. Hyperemesis is the probable diagnosis. Vital signs are normal. Will treat with normal saline, check electrolytes and administer ondansetron IV. Disposition probable discharge pending workup and patient course.. 19:11 ED course: Labs within normal limits and patient feeling better. 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 06/12 18:22 Order name: CBC with Diff; Complete Time: 19:10 sp3 06/12 18:22 Order name: CMP; Complete Time: 19:10 sp3 06/12 18:22 Order name: Lipase; Complete Time: 19:10 sp3 06/12 18:22 Order name: Urinalysis w/ reflexes; Complete Time: 19:10 sp3 06/12 18:22 Order name: IV Saline Lock; Complete Time: 18:23 sp3 06/12 18:22 Order name: Labs collected and sent; Complete Time: 18:23 sp3 Administered Medications: 18:45 Drug: Ondansetron IVP 4 mg IVP once; over 2 minutes Route: IVP; Site: right antecubital;ll1 19:56 Follow up: Response: No adverse reaction; Nausea is decreased al5 19:04 Drug: NS 0.9% IV 1000 ml IV at 1 bolus Per protocol; to be given as a bolus over 60 ll1 minutes Route: IV; Rate: 1 bolus; Site: right antecubital; 19:56 Follow up: Response: No adverse reaction; IV Status: Completed infusion; IV Intake: al5 1000ml Disposition Summary: 06/12/24 19:25 Discharge Ordered Notes: Location: Home sp3 Condition: Stable sp3 Diagnosis - Mild hyperemesis gravidarum sp3 Followup: sp3 - With: Private Physician - When: Upon discharge from the Emergency Department - Reason: Continuance of care Discharge Instructions: - Discharge Summary Sheet sp3 - Morning Sickness, [id number] sp3 Forms: - Medication Reconciliation Form sp3 - Antibiotic Education sp3 - Prescription Opioid Use sp3 - Patient Portal Instructions sp3 - Leadership Thank You Letter sp3 Prescriptions: - Zofran 4 mg Oral tablet - take 1 tablet ORAL route every 12 hours As needed DISP ODT; 20 tablet; Refills: sp3 0, Product Selection Permitted Signatures: Dispatcher [employer] Delvis Enriquez RN RN ll1 Janis Licona MD MD sp3 Freya Mills RN RN db Nidia Lira RN al5
--- NOTE | 2024-06-12 19:25 | ER ---
Nurse's Notes [facility] Name: Keira Hdez Age: 19 yrs Sex: Female : 2005 Arrival Date: 06/12/2024 Time: 17:59 Bed 2 Private MD: Diagnosis: Mild hyperemesis gravidarum Presentation: 06/12 18:08 Chief complaint: Patient states: PATIENT STATES NOT EATING OR DRINKING DUE TO NAUSEA X db 4 DAYS. STATES OB TOLD TO COME TO ER DUE TO DEHYDRATION. NOTED MOUTH IS MOIST. Coronavirus screen: Client denies travel out of the [place] in the last 14 days. At this time, the client does not indicate any symptoms associated with coronavirus-19. Ebola Screen: Patient negative for fever greater than or equal to 101.5 degrees Fahrenheit, and additional compatible Ebola Virus Disease symptoms Patient denies exposure to infectious person. Patient denies travel to an Ebola-affected area in the 21 days before illness onset. No symptoms or risks identified at this time. Initial Sepsis Screen: Does the patient meet any 2 criteria? No. Patient's initial sepsis screen is negative. Does the patient have a suspected source of infection? No. Patient's initial sepsis screen is negative. Risk Assessment: Do you want to hurt yourself or someone else? Patient reports no desire to harm self or others. Onset of symptoms was June 08, 2024. 18:08 Method Of Arrival: Ambulatory db 18:08 Acuity: JOVANY 3 db Triage Assessment: 18:11 General: Appears in no apparent distress. comfortable, Behavior is calm, cooperative. db Pain: Denies pain. EENT: Oral mucosa is moist. Neuro: Level of Consciousness is awake, alert, obeys commands, Oriented to person, place, time, situation. Respiratory: Airway is patent Respiratory effort is even, unlabored, Respiratory pattern is regular, symmetrical. GI: Abdomen is flat, non-distended, Reports nausea, vomiting. 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 - Infectious Disease History:: Denies. - Social history:: Smoking status: Patient denies any tobacco usage or history of. Screenin:38 [facility] ED Fall Risk Assessment (Adult) History of falling in the last 3 months, ll1 including since admission No falls in past 3 months (0 pts) Confusion or Disorientation No (0 pts) Intoxicated or Sedated No (0 pts) Impaired Gait No (0 pts) Mobility Assist Device Used No (0 pt) Altered Elimination No (0 pt) Score/Fall Risk Level 0 - 2 = Low Risk Maintained a safe environment, Hourly rounding (assess needs \T\ fall precautionary measures) done. Abuse screen: Denies threats or abuse. Nutritional screening: No deficits noted. Tuberculosis screening: No symptoms or risk factors identified. Assessment: 18:38 General: Appears in no apparent distress. Behavior is calm, cooperative, appropriate ll1 for age. Pain: Denies pain. GI: Reports nausea, vomiting. 19:54 General: Appears in no apparent distress. comfortable, Behavior is calm, cooperative. al5 Pain: Denies pain. Neuro: Level of Consciousness is awake, alert, obeys commands, Oriented to person, place, time, situation. Cardiovascular: Capillary refill < 3 seconds Patient's skin is warm and dry. Respiratory: Airway is patent Respiratory effort is even, unlabored, Respiratory pattern is regular, symmetrical. GI: Abdomen is non-distended, patient 9 weeks . : No signs and/or symptoms were reported regarding the genitourinary system. EENT: No signs and/or symptoms were reported regarding the EENT system. Derm: Skin is intact, is healthy with good turgor, Skin is pink, warm \T\ dry. normal. Musculoskeletal: No signs and/or symptoms reported regarding the musculoskeletal system. Vital Signs: 18:08 BP 136 / 72; Pulse 99; Resp 16; Temp 98.7; Pulse Ox 99% ; Weight 62.14 kg; Height 5 ft. db 5 in. ; 19:54 BP 128 / 65; Pulse 93; Resp 16; Pulse Ox 100% on R/A; al5 18:08 Body Mass Index 22.80 (62.14 kg, 165.1 cm) db ED Course: 18:03 Patient arrived in ED. im 18:06 Janis Licona MD is Attending Physician. sp3 18:11 Triage completed. db 18:11 Arm band placed on Patient placed in an exam room. db 18:14 Delvis Pulliam, RN is Primary Nurse. ll1 18:35 Initial lab(s) drawn, by me, sent to lab. Missed attempt(s): 22 gauge in left ll1 antecubital area. Bleeding controlled, band aid applied, catheter tip intact. 18:37 Urinalysis w/ reflexes Sent. ll1 18:38 Patient has correct armband on for positive identification. Call light in reach. Side ll1 rails up X 1. Provided Education on: ER procedures and process. 18:43 Inserted saline lock: 22 gauge in right antecubital area, using aseptic technique. nh2 Flushed with 10 mL NS. 19:55 No provider procedures requiring assistance completed. IV discontinued, intact, al5 bleeding controlled, No redness/swelling at site. Pressure dressing applied. Administered Medications: 18:45 Drug: Ondansetron IVP 4 mg IVP once; over 2 minutes Route: IVP; Site: right antecubital;ll1 19:56 Follow up: Response: No adverse reaction; Nausea is decreased al5 19:04 Drug: NS 0.9% IV 1000 ml IV at 1 bolus Per protocol; to be given as a bolus over 60 ll1 minutes Route: IV; Rate: 1 bolus; Site: right antecubital; 19:56 Follow up: Response: No adverse reaction; IV Status: Completed infusion; IV Intake: al5 1000ml Medication: 18:39 VIS not applicable for this client. ll1 Intake: 19:56 IV: 1000ml; Total: 1000ml. al5 Outcome: 19:25 Discharge ordered by . sp3 19:55 Discharged to home ambulatory, al5 19:55 Condition: good 19:55 Discharge instructions given to patient, Instructed on discharge instructions, follow up and referral plans. medication usage, Demonstrated understanding of instructions, follow-up care, medications, Prescriptions given X 1, 19:55 Patient left the ED. al5 Signatures: Delvis Pulliam, RN RN ll1 Janis Licona MD MD sp3 Freya Mills RN RN db Jesusita Sifuentes Amanda, RN RN al5 Demond Flood, Ramos nh2
[2024-06-12 20:47] VITALS: TEMP 98.7
[2024-06-12 20:52] VITALS: BP 128/65; O2SAT 100
== END 2024-06-12 19:55 | disposition home or self-care (01) ==
LOC: ER 17:59
DX: O21.1 Hyperemesis gravidarum with metabolic disturbance (principal); Z3A.09 9 weeks gestation of pregnancy
CPT/HCPCS: 96361; 85025; 81001; 36415; 83690; 80053; 96374; 99284; J2405; J7030

== ENCOUNTER 2024-06-19 10:21 | Emergency (ER) | payer OTHER ==
--- OUTSIDE RECORDS SUMMARY | 2024-06-19 10:27 | XMS REPORT | Continuity of Care Document ---
Author Name Unknown Address [address] [place] [address] [facility] thconnect Address 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 Role Phone Pcp, Patient Does Not Have A Primary Care Physic cheyanne Kelly [place] Attending Clinician Unavailable Susana Noel Attending Clinician Unavailable CHRISTINE ACOSTA Attending Clinician Unavailable CHRISTINE ACOSTA Attending Clinician Unavailable WOODY HOOD Attending Clinician Unavailable Christine Acosta MD Attending Clinician [phone] Doctor Unassigned, [place] Attending Clinician U renzo 2, Angie Lab Attending Clinician Unavailable Tomasa Alvarez RN Attending Clinician UnavailAZRA Hilario Attending Clinician Unavailable AZRA DSOUZA Attending Clinician Unavailable Nurse, [facility] Attending Clinician Un available Alka Koby HENRIQUEZ Attending Clinician [phone] Doctor Unassigned, [place] Attending Clinician U Sukhwinder Chavez DO Attending Clinician [phone] Carmen KENNY, Javier Jacobson Attending Clinician [phone] Nurse, Jaleesa [facility] Attending Clinician Unavailable Pcp, Patient Does Not Have A Attending Clinician Geovanny Schulte Attending Clinician Unavailable WILD HICKMAN Attending Clinician Unavailable Marylou KENNY, Wild Attending Clinician [phone] MAINE GODINEZ Attending Clinician MAINE Young Attending Clinician Davion Wood Attending Clinician [phone] SEAN CARSON Attending Clinician Unajuliet meyers Ultrasound, Reid Attending Clinician Unavailyola Carson MD, Sean Molina Attending Clinician + Nava RN, Ruchi Queen Attending Clinician Unavailable RADIOLOGY Attending Clinician Unavailable Radiology Attending Clinician Unavailable OLIVERIO ZAMBRANO Attending Clinician Unavail able Nurse, [facility] Pob Immunization Attending Clinician Unavailable Oliverio Zambrano DO Attending Clinician [phone] Pob1, [facility] Attending Clinician Unajuliet ailSo Stephens Attending Clinician [phone] Edilma BOWDEN, Krystin Attending Clinician Unavailable Ron Santacruz Attending Clinician [phone] RON CURRY Attending Clinician Unavailable MAINE GODINEZ Admitting Clinician CHRISTINE Grace Admitting Clinician Unavailable AZRA DSOUZA Admitting Clinician Unavailable PATITO WEST Admitting Clinician Unavailable Payers Payer Name Policy Type Policy Number Effective Date Expirati on Date Source [place] [employer] [id number] 2023 [id number]24 [facility] Krystyna ANDERSON [id number] 2023 00:00:00 2023 00:00:00 [place] [id number] [facility] Problems Condition Name Condition Details Condition Category Status Onset Date Resolution Date Last Treatment Date Treating Clinician Comments Source Normal in first trimester Normal in first trimester Disease Active 2023-06 2-11 00:00: 00 [facility] Nausea and vomiting during prior to 22 weeks gestation Nausea and vomiting during prior to 22 weeks gestation Disease Active 2023-06 2-11 00:00: 00 [facility] History of anxiety History of anxiety Disease Active 0 6 00:00: 00 [facility] History of depression History of depression Disease Active 12-19 00:00: 00 [facility] 30 weeks gestation of 30 weeks gestation of Disease Active 408 00:00: 00 [facility] Normal in third trimester Normal in third trimester Disease Active 2022-06 00:00: 00 [facility] Short interval between pregnancie s complicati ng , antepartum Short interval between pregnancie s complicati ng , antepartum Disease Active 2022-06 00:00: 00 [facility] Nausea and vomiting during prior to 22 weeks gestation Nausea and vomiting during prior to 22 weeks gestation Disease Active 2022-06 00:00: 00 [facility] [id number] Problem Active [facility] No known active problems No known active problems Disease [facility] Nexplanon in place Nexplanon in place Disease Resolve d 2023-0 6-27 00:00: 00 2024-06-04 00:00:00 2024-06-04 17:33:30 [facility] Anemia, antepartum , third trimester Anemia, antepartum , third trimester Disease Resolve d 4-0 5-24 00:00: 00 2024-06-04 00:00:00 2024-06-04 17:33:24 [facility] Liveborn , of vidal , born in hospital by vaginal delivery Liveborn infant, of vidal , born in hospital by vaginal delivery Disease Resolve d 2023-0 5-25 00:00: 00 2023-12-20 00:00:00 2023-12-20 11:46:24 [facility] Right flank pain Right flank pain Disease Resolve d 4-08 00:00: 00 2023-12-20 00:00:00 2023-12-20 11:46:22 [facility] 37 weeks gestation of 37 weeks gestation of Disease Resolve d 4-08 00:00: 00 2023-12-20 00:00:00 2023-12-20 11:46:23 [facility] High-risk in third trimester High-risk in third trimester Disease Resolve d 2022-06 1- 00:00: 00 2023-12-20 00:00:00 2023-12-20 11:46:18 [facility] Gestationa l hypertensi on, third trimester Gestationa l hypertensi on, third trimester Disease Resolve d 2022-06 1- 00:00: 00 2023-12-20 00:00:00 2023-12-20 11:46:21 [facility] Allergies, Adverse Reactions, Alerts Allergy Name Allergy Type Status Severity Reaction(s) Onset Date Inactive Date Treating Clinician Comments Source NO KNOWN ALLERGIE S Drug Class Active [facility] Social History Social Habit Start Date Stop Date Quantity Comments Source ASSERTION 2024-04-19 00:00:00 [facility] Sex Assigned At [facility] History of Tobacco Use [facility] Exposure to SARS-CoV-2 (event) Not sure [facility] Gender identity [facility] of Social function 2024-06-02 00:00:00 2024-06-02 00:00:00 [facility] Tobacco use and exposure 2020-02-03 00:00:00 2020-02-03 00:00:00 Smokeless tobacco non-user [facility] Smoking Status Start Date Stop Date Source Never smoked tobacco [facility] Medications Ordered Medication Name Filled Medication Name Start Date Stop Date Current Medication? Ordering Clinician Indication Dosage Frequency Signature (SIG) Comments Components Source amoxicillin 875 mg tablet 2023-06 00:00: 00 06-27 05:59 :00 Yes [id number] 875mg Take 1 tablet by mouth in the morning and 1 tablet in the evening. Do all this for 7 days. [facility] metoclopram deejay HCl 10 mg tablet 2023-06 00:00: 00 Yes [id number] 10mg Take 1 tablet by mouth every 6 (six) hours as needed for Nausea and Vomiting (N/V). [facility] etonogestre L (NEXPLANON) implant 68 mg 12-19 18:00: 00 12-19 17:15 :00 No [id number] 68mg 68 mg, Subdermal, ONCE NOW, 1 dose, On [place] 12/20/23 at 1300, Routine, Use approved by: FRONT OFFICE SPECIALIST [facility] hydroCHLORO thiazide 25 mg tablet 11-20 00:00: 00 06-03 00:00 :00 No 25mg Take 1 tablet by mouth in the morning. [facility] furosemide (LASIX) tablet 20 mg 11-17 18:00: 00 11-17 18:05 :00 No 20mg 20 mg, Oral, ONCE, 1 dose, On [place] 11/18/23 at 1300, Routine [facility] vitamin w/FA tablet 11-17 00:00: 00 Yes [id number] 102 1{tbl} Take 1 tablet by mouth in the morning. [facility] docusate 100 mg capsule 11-17 00:00: 00 06-03 00:00 :00 No [id number] 102 200mg Take 2 capsules by mouth once daily as needed for Constipati on. [facility] ferrous sulfate 325 mg (65 mg iron) tablet 11-17 00:00: 00 06-03 00:00 :00 No [id number] 102 325mg Take 1 tablet by mouth in the morning. [facility] ibuprofen 800 mg tablet 11-17 00:00: 00 06-03 00:00 :00 No [id number] 102 800mg Take 1 tablet by mouth every 8 (eight) hours as needed (pain). Take with food or milk. [facility] witch Nabor (TUCKS) 50 % topical pad 11-16 11:05: 07 Yes [facility] r[facility](D[facility] immune globulin (HYPERRHO/R HOGAM) syringe 300 mcg 11-16 05:58: 50 Yes 300ug [facility] ity [facility] HYDROcodone -acetaminop hen (NORCO 5) 5-325 mg tablet 1 tablet 11-16 05:58: 47 Yes 1{tbl} 1 tablet, Oral, Q6HPRN, Starting on 11/17/23 at 0058, Until Discontinu ed, Routine, Pain (scale 7-10) [facility] ibuprofen (IBU) tablet 600 mg 11-16 05:58: 47 Yes 600mg 600 mg, Oral, Q6HPRN, Starting on 11/17/23 at 0058, Until Discontinu ed, Routine, Pain (scale 4-6) [facility] acetaminoph en (TYLENOL) tablet 650 mg 11-16 05:58: 47 Yes 650mg 650 mg, Oral, Q6HPRN, Starting on 11/17/23 at 0058, Until Discontinu ed, Routine, Pain (scale 1-3) [facility] diphenhydrA MINE (BENADRYL) tablet 25 mg 11-16 05:58: 47 Yes 25mg [facility] ondansetron (ZOFRAN (PF)) injection 4 mg 11-16 05:58: 47 Yes 4mg [facility] simethicone (GAS RELIEF (SIMETHICON E)) chewable tablet 160 mg 11-16 05:58: 47 Yes 160mg [facility] docusate (COLACE) capsule 200 mg 11-16 05:58: 47 Yes 200mg 200 mg, Oral, QDAILYPRN, Starting on 11/17/23 at 0058, Until Discontinu ed, Routine, Constipati on [facility] magnesium hydroxide (MILK OF MAGNESIA) 400 mg/5 mL suspension 30 mL 11-16 05:58: 47 Yes 30mL [facility] benzocaine- menthol (DERMOPLAST ) 20-0.5 % topical spray 11-16 05:58: 47 Yes Topical, PRN, Starting on Sun11/17/23 at 0058, Until Discontinu ed, Routine, Perineum discomfort [facility] gentamicin 300 mg in NaCl 0.9% (NS) 250 mL IV infusion 11-16 03:30: 00 11-16 05:02 :00 No 5mg/kg 300 mg (rounded from 296.5 mg = 5 mg/kg ?59.3 kg Carter weight), IV Infusion, ONCE, 1 dose, On Sun11/16/23 at 2230, Administer over 60 Minutes, 250 mL, Reason for Anti-Infec tive: Empiric Therapy for Suspected Infection, Empiric Therapy Site: Other, Other site: suspected chorioamni onitis, Duration of therapy: Once (ED) [facility] ampicillin (POLYCILLIN -N) 2,000 mg in NaCl [...] chorioamni onitis, Duration of therapy: 72 hours [facility] oxytocin (PITOCIN) 30 units in NS 500 mL IV infusion 11-15 22:09: 31 11-16 11:05 :07 No 2mU/min at 2-40 mL/hr, IV Infusion, TITRATE, Starting on Sun11/16/23 at 1709, Until 11/17/23 at 0605, JOANIE [facility] fentaNYL-ro pivacaine 2 mcg/mL-0.1 % (PF) in NS 200 mL epidural infusion RTU 11-15 19:35: 00 11-16 09:28 :40 No Intra-op [facility] lidocaine-e pinephrine (XYLOCAINE W/EPINEPHRI NE) 1.5 %-1:200,000 injection 11-15 19:30: 00 11-16 09:28 :40 No Epidural, ONCE INTRA PROCEDURE, Starting on Sun11/16/23 at 1430, Until 11/17/23 at 0428, Routine, Intra-op [facility] misoprostol (CYTOTEC) quarter-tab let 25 mcg 11-15 05:15: 34 11-16 11:05 :07 No 25ug 25 mcg, Vaginal, Q4H ABX, First dose on Sun11/16/23 at 0030, Until Discontinu ed, Routine [facility] FENTanyl PF (SUBLIMAZE (PF)) injection 50 mcg 11-15 05:15: 34 11-16 11:05 :07 No 50ug 50 mcg, Slow IV Push, Q2HPRN, Starting on Sun11/16/23 at 0015, Until 11/17/23 at 0605, Routine, contractio n pain without an epidural and SVE < 8 cm and Cat I strip [facility] misoprostol (CYTOTEC) quarter-tab let 25 mcg 11-15 05:00: 00 11-15 05:36 :00 No 25ug 25 mcg, Oral, ONCE, 1 dose, On Sun11/16/23 at 0000, Routine [facility] D5W-LR IV infusion 1,000 mL 11-15 04:55: 35 11-18 12:03 :57 No 1000mL at 1-125 mL/hr, IV Infusion, TITRATE, Starting on [place] 11/15/23 at 2355, Until 11/19/23 at 0703, Routine [facility] FENTanyl PF (SUBLIMAZE (PF)) injection 50 mcg 11-10 06:08: 18 Yes 50ug 50 mcg, Intramuscu lar, PRN, Starting on 11/11/23 at 0108, Until Discontinu ed, Routine, Pain (scale 7-10) [facility] proMETHazin e (PHENERGAN) injection 25 mg 11-10 06:03: 41 11-11 04:59 :00 No 25mg 25 mg, Intramuscu lar, ONCE PRN, 1 dose, Starting on 11/11/23 at 0103, Until 11/11/23 at 2359, Routine, Nausea and Vomiting (N/V), Does the patient have PO or IV access? No [facility] metroNIDAZO LE (FLAGYL) tablet 500 mg 11-06 21:45: 00 11-06 21:10 :00 No 500mg 500 mg, Oral, ONCE, 1 dose, On 11/07/23 at 1645, Routine, Reason for Anti-Infec tive: Documented Infection, Documented Infection Site: Other, Other site: BV, Duration of Therapy: Once (ED) [facility] metroNIDAZO LE 500 mg tablet 11-06 00:00: 00 11-17 00:00 :00 No [id number] 500mg Take 1 tablet by mouth every 12 (twelve) hours. [facility] amoxicillin 875 mg tablet 11-06 00:00: 00 11-08 00:00 :00 No [id number] 875mg Take 1 tablet by mouth in the morning and 1 tablet in the evening. Do all this for 7 days. [facility] buPROPion SR 150 mg SR tablet 11-01 08:04: 03 11-17 00:00 :00 No 1 tablet in the morning Orally Once a day [facility] omeprazole 20 mg capsule 11-01 08:04: 03 11-17 00:00 :00 No 1 capsule 30 minutes before morning meal Orally Once a day for 30 day(s) [facility] acetaminoph en (TYLENOL) tablet 650 mg 08 01:00: 00 09-30 00:57 :00 No 650mg 650 mg, Oral, ONCE, 1 dose, On 09/30/23 at 2000, JOANIE [facility] PNV no.95/koki us fum/folic ac ( ORAL) 09-20 12:04: 08 Yes Take by mouth. [facility] PNV no.95/koki us fum/folic ac ( ORAL) 3 11:56: 12 Yes Take by mouth. [facility] PNV no.95/koki us fum/folic ac ( ORAL) 07-27 11:55: 51 Yes Take by mouth. [facility] PNV no.95/koki us fum/folic ac ( ORAL) 2022-06 14:48: 24 11-17 00:00 :00 No Take by mouth. [facility] pyridoxine, VITAMIN B-6, (VITAMIN B-6) 25 mg tablet 2022-06 00:00: 00 11-08 00:00 :00 No [id number] 25mg Take 1 tablet by mouth every 6 (six) hours as needed for Nausea and Vomiting (N/V). [facility] doxylamine (UNISOM, DOXYLAMINE, ) 25 mg tablet 2022-06 00:00: 00 11-08 00:00 :00 No [id number] 25mg Take 1 tablet by mouth at bedtime as needed for Nausea and Vomiting (N/V). [facility] acetaminoph en (TYLENOL) tablet 650 mg 02-02 15:00: 00 02-02 14:05 :00 No [id number] 650mg [facility] No known medications 02-02 09:18: 40 No [facility] maalox:diph enhydrAMINE :lidocaine 2 % viscous 1:1:1 02-02 00:00: 00 02-08 04:59 :00 No [id number] 10mL Take 10 mL by mouth as needed (Swish and spit) for up to 5 days. [facility] Lessina Lessina 11-08 00:00: 00 Yes Susana Millender 1 tablet [facility] Levonorgest rel-Ethinyl Estrad Levonorgest rel-Ethinyl Estrad Yes Susana Noel TAKE 1 TABLET BY MOUTH EVERY DAY [facility] No Known Medications No Known Medications No [facility] No known medications No [facility] No known medications No [facility] Immunizations Ordered Immunization Name Filled Immunization Name Date Status Comments Source Flu Injectable MDCK Pres-Free (FLUCELVAX) 2024-06-02 00:00:00 Completed [facility] TDAP 2023-09-21 00:00:00 Completed [facility] Influenza Virus Vaccine Quad IM, Preserv and ABX Free 6 MO-64 YRS (FLUCELVAX) 2023-06-01 00:00:00 Completed [facility] Pfizer COVID-19 Vaccine Pfizer COVID-19 Vaccine 2021-02-23 13:21:00 Completed [facility] SARS-COV-2 COVID-19 PFIZER VACCINE 2021-02-23 00:00:00 Completed [facility] SARS-COV-2 COVID-19 PFIZER VACCINE 2021-02-23 00:00:00 Completed [facility] SARS-COV-2 COVID-19 PFIZER VACCINE 2021-02-23 00:00:00 Completed [facility] Pfizer COVID-19 Vaccine Pfizer COVID-19 Vaccine 2021-02-02 13:20:00 Completed [facility] SARS-COV-2 COVID-19 PFIZER VACCINE 2021-02-02 00:00:00 Completed [facility] SARS-COV-2 COVID-19 PFIZER VACCINE 2021-02-02 00:00:00 Completed [facility] SARS-COV-2 COVID-19 PFIZER VACCINE 2021-02-02 00:00:00 Completed [facility] SARS-COV-2 COVID-19 PFIZER VACCINE 2021-02-02 00:00:00 Completed [facility] Depo-Provera (Medroxyprogesteron e ac) Depo-Provera (Medroxyprogestero ne ac) 2019-06-24 11:27:00 Completed [facility] Depo-Provera (Medroxyprogesteron e ac) Depo-Provera (Medroxyprogestero ne ac) 2019-04-08 12:00:00 Completed [facility] Influenza Virus Vaccine Quad IM, Preserv and ABX Free 6 MO-64 YRS (FLUCELVAX) Unknown Completed [facility] TDAP Unknown Completed [facility] Influenza Virus Vaccine Quad IM, Preserv and ABX Free 6 MO-64 YRS (FLUCELVAX) Unknown Completed [facility] TDAP Unknown Completed [facility] SARS-COV-2 COVID-19 PFIZER VACCINE Unknown Completed [facility] SARS-COV-2 COVID-19 PFIZER VACCINE Unknown Completed [facility] Influenza Virus Vaccine Quad IM, Preserv and ABX Free 6 MO-64 YRS (FLUCELVAX) Unknown Completed [facility] TDAP Unknown Completed [facility] SARS-COV-2 COVID-19 PFIZER VACCINE Unknown Completed [facility] Influenza Virus Vaccine Quad IM, Preserv and ABX Free 6 MO-64 YRS (FLUCELVAX) Unknown Completed [facility] TDAP Unknown Completed [facility] SARS-COV-2 COVID-19 PFIZER VACCINE Unknown Completed [facility] Influenza Virus Vaccine Quad IM, Preserv and ABX Free 6 MO-64 YRS (FLUCELVAX) Unknown Completed [facility] TDAP Unknown Completed [facility] SARS-COV-2 COVID-19 PFIZER VACCINE Unknown Completed [facility] Influenza Virus Vaccine Quad IM, Preserv and ABX Free 6 MO-64 YRS (FLUCELVAX) Unknown Completed [facility] TDAP Unknown Completed [facility] SARS-COV-2 COVID-19 PFIZER VACCINE Unknown Completed [facility] Influenza Virus Vaccine Quad IM, Preserv and ABX Free 6 MO-64 YRS (FLUCELVAX) Unknown Completed [facility] TDAP Unknown Completed [facility] SARS-COV-2 COVID-19 PFIZER VACCINE Unknown Completed [facility] Influenza Virus Vaccine Quad IM, Preserv and ABX Free 6 MO-64 YRS (FLUCELVAX) Unknown Completed [facility] TDAP Unknown Completed [facility] SARS-COV-2 COVID-19 PFIZER VACCINE Unknown Completed [facility] Influenza Virus Vaccine Quad IM, Preserv and ABX Free 6 MO-64 YRS (FLUCELVAX) Unknown Completed [facility] TDAP Unknown Completed [facility] SARS-COV-2 COVID-19 PFIZER VACCINE Unknown Completed [facility] Influenza Virus Vaccine Quad IM, Preserv and ABX Free 6 MO-64 YRS (FLUCELVAX) Unknown Completed [facility] TDAP Unknown Completed [facility] Influenza Virus Vaccine Quad IM, Preserv and ABX Free 6 MO-64 YRS (FLUCELVAX) Unknown Completed [facility] TDAP Unknown Completed [facility] SARS-COV-2 COVID-19 PFIZER VACCINE Unknown Completed [facility] SARS-COV-2 COVID-19 PFIZER VACCINE Unknown Completed [facility] Influenza Virus Vaccine Quad IM, Preserv and ABX Free 6 MO-64 YRS (FLUCELVAX) Unknown Completed [facility] TDAP Unknown Completed [facility] SARS-COV-2 COVID-19 PFIZER VACCINE Unknown Completed [facility] Influenza Virus Vaccine Quad IM, Preserv and ABX Free 6 MO-64 YRS (FLUCELVAX) Unknown Completed [facility] TDAP Unknown Completed [facility] SARS-COV-2 COVID-19 PFIZER VACCINE Unknown Completed [facility] Influenza Virus Vaccine Quad IM, Preserv and ABX Free 6 MO-64 YRS (FLUCELVAX) Unknown Completed [facility] TDAP Unknown Completed [facility] SARS-COV-2 COVID-19 PFIZER VACCINE Unknown Completed [facility] Influenza Virus Vaccine Quad IM, Preserv and ABX Free 6 MO-64 YRS (FLUCELVAX) Unknown Completed [facility] TDAP Unknown Completed [facility] SARS-COV-2 COVID-19 PFIZER VACCINE Unknown Completed [facility] Influenza Virus Vaccine Quad IM, Preserv and ABX Free 6 MO-64 YRS (FLUCELVAX) Unknown Completed [facility] TDAP Unknown Completed [facility] Influenza Virus Vaccine Quad IM, Preserv and ABX Free 6 MO-64 YRS (FLUCELVAX) Unknown Completed [facility] TDAP Unknown Completed [facility] SARS-COV-2 COVID-19 PFIZER VACCINE Unknown Completed [facility] SARS-COV-2 COVID-19 PFIZER VACCINE Unknown Completed [facility] Influenza Virus Vaccine Quad IM, Preserv and ABX Free 6 MO-64 YRS (FLUCELVAX) Unknown Completed [facility] TDAP Unknown Completed [facility] SARS-COV-2 COVID-19 PFIZER VACCINE Unknown Completed [facility] Influenza Virus Vaccine Quad IM, Preserv and ABX Free 6 MO-64 YRS (FLUCELVAX) Unknown Completed [facility] TDAP Unknown Completed [facility] SARS-COV-2 COVID-19 PFIZER VACCINE Unknown Completed [facility] Influenza Virus Vaccine Quad IM, Preserv and ABX Free 6 MO-64 YRS (FLUCELVAX) Unknown Completed [facility] TDAP Unknown Completed [facility] SARS-COV-2 COVID-19 PFIZER VACCINE Unknown Completed [facility] Influenza Virus Vaccine Quad IM, Preserv and ABX Free 6 MO-64 YRS (FLUCELVAX) Unknown Completed [facility] TDAP Unknown Completed [facility] SARS-COV-2 COVID-19 PFIZER VACCINE Unknown Completed [facility] Influenza Virus Vaccine Quad IM, Preserv and ABX Free 6 MO-64 YRS (FLUCELVAX) Unknown Completed [facility] TDAP Unknown Completed [facility] SARS-COV-2 COVID-19 PFIZER VACCINE Unknown Completed [facility] Influenza Virus Vaccine Quad IM, Preserv and ABX Free 6 MO-64 YRS (FLUCELVAX) Unknown Completed [facility] TDAP Unknown Completed [facility] [facility] SARS-COV-2 COVID-19 PFIZER VACCINE Unknown Completed [facility] Influenza Virus Vaccine Quad IM, Preserv and ABX Free 6 MO-64 YRS (FLUCELVAX) Unknown Completed [facility] TDAP Unknown Completed [facility] SARS-COV-2 COVID-19 PFIZER VACCINE Unknown Completed [facility] SARS-COV-2 COVID-19 PFIZER VACCINE Unknown Completed [facility] SARS-COV-2 COVID-19 PFIZER VACCINE Unknown Completed [facility] SARS-COV-2 COVID-19 PFIZER VACCINE Unknown Completed [facility] SARS-COV-2 COVID-19 PFIZER VACCINE Unknown Completed [facility] Influenza Virus Vaccine Quad IM, Preserv and ABX Free 6 MO-64 YRS (FLUCELVAX) Unknown Completed [facility] SARS-COV-2 COVID-19 PFIZER VACCINE Unknown Completed [facility] SARS-COV-2 COVID-19 PFIZER VACCINE Unknown Completed [facility] SARS-COV-2 COVID-19 PFIZER VACCINE Unknown Completed [facility] Influenza Virus Vaccine Quad IM, Preserv and ABX Free 6 MO-64 YRS (FLUCELVAX) Unknown Completed [facility] SARS-COV-2 COVID-19 PFIZER VACCINE Unknown Completed [facility] Influenza Virus Vaccine Quad IM, Preserv and ABX Free 6 MO-64 YRS (FLUCELVAX) Unknown Completed [facility] SARS-COV-2 COVID-19 PFIZER VACCINE Unknown Completed [facility] Influenza Virus Vaccine Quad IM, Preserv and ABX Free 6 MO-64 YRS (FLUCELVAX) Unknown Completed [facility] SARS-COV-2 COVID-19 PFIZER VACCINE Unknown Completed [facility] Influenza Virus Vaccine Quad IM, Preserv and ABX Free 6 MO-64 YRS (FLUCELVAX) Unknown Completed [facility] SARS-COV-2 COVID-19 PFIZER VACCINE Unknown Completed [facility] Influenza Virus Vaccine Quad IM, Preserv and ABX Free 6 MO-64 YRS (FLUCELVAX) Unknown Completed [facility] SARS-COV-2 COVID-19 PFIZER VACCINE Unknown Completed [facility] Influenza Virus Vaccine Quad IM, Preserv and ABX Free 6 MO-64 YRS (FLUCELVAX) Unknown Completed [facility] SARS-COV-2 COVID-19 PFIZER VACCINE Unknown Completed [facility] Influenza Virus Vaccine Quad IM, Preserv and ABX Free 6 MO-64 YRS (FLUCELVAX) Unknown Completed [facility] SARS-COV-2 COVID-19 PFIZER VACCINE Unknown Completed [facility] Influenza Virus Vaccine Quad IM, Preserv and ABX Free 6 MO-64 YRS (FLUCELVAX) Unknown Completed [facility] Influenza Virus Vaccine Quad IM, Preserv and ABX Free 6 MO-64 YRS (FLUCELVAX) Unknown Completed [facility] SARS-COV-2 COVID-19 PFIZER VACCINE Unknown Completed [facility] Influenza Virus Vaccine Quad IM, Preserv and ABX Free 6 MO-64 YRS (FLUCELVAX) Unknown Completed [facility] TDAP Unknown Completed [facility] SARS-COV-2 COVID-19 PFIZER VACCINE Unknown Completed [facility] SARS-COV-2 COVID-19 PFIZER VACCINE Unknown Completed [facility] Influenza Virus Vaccine Quad IM, Preserv and ABX Free 6 MO-64 YRS (FLUCELVAX) Unknown Completed [facility] TDAP Unknown Completed [facility] SARS-COV-2 COVID-19 PFIZER VACCINE Unknown Completed [facility] Influenza Virus Vaccine Quad IM, Preserv and ABX Free 6 MO-64 YRS (FLUCELVAX) Unknown Completed [facility] TDAP Unknown Completed [facility] SARS-COV-2 COVID-19 PFIZER VACCINE Unknown Completed [facility] Influenza Virus Vaccine Quad IM, Preserv and ABX Free 6 MO-64 YRS (FLUCELVAX) Unknown Completed [facility] TDAP Unknown Completed [facility] SARS-COV-2 COVID-19 PFIZER VACCINE Unknown Completed [facility] Influenza Virus Vaccine Quad IM, Preserv and ABX Free 6 MO-64 YRS (FLUCELVAX) Unknown Completed [facility] TDAP Unknown Completed [facility] SARS-COV-2 COVID-19 PFIZER VACCINE Unknown Completed [facility] Vital Signs Vital Name Observation Time Observation Value Comments S ource Systolic blood pressure 2024-06-02 20:52:00 116 mm[Hg] [facility] Diastolic blood pressure 2024-06-02 20:52:00 71 mm[Hg] [facility] Heart rate 2024-06-02 20:52:00 90 /min [facility] Body temperature 2024-06-02 20:52:00 36.67 Melissa [facility] Respiratory rate 2024-06-02 20:52:00 18 /min [facility] Body height 2024-06-02 20:52:00 165.1 cm [facility] Body weight 2024-06-02 20:52:00 62.506 kg [facility] BMI 2024-06-02 20:52:00 22.93 kg/m2 [facility] Systolic blood pressure 2023-12-20 16:50:00 124 mm[Hg] [facility] Diastolic blood pressure 2023-12-20 16:50:00 86 mm[Hg] [facility] Heart rate 2023-12-20 16:50:00 74 /min [facility] Body temperature 2023-12-20 16:50:00 36.28 Melissa [facility] Body height 2023-12-20 16:50:00 167.6 cm [facility] Body weight 2023-12-20 16:50:00 63.504 kg [facility] BMI 2023-12-20 16:50:00 22.60 kg/m2 [facility] Systolic blood pressure 2023-11-21 14:04:00 144 mm[Hg] [facility] Diastolic blood pressure 2023-11-21 14:04:00 101 mm[Hg] [facility] Heart rate 2023-11-21 14:00:00 89 /min [facility] Respiratory rate 2023-11-21 14:00:00 18 /min [facility] Body height 2023-11-21 14:00:00 167.6 cm [facility] Body weight 2023-11-21 14:00:00 68.493 kg [facility] BMI 2023-11-21 14:00:00 24.37 kg/m2 [facility] Systolic blood pressure 2023-11-19 12:00:00 147 mm[Hg] [facility] Diastolic blood pressure 2023-11-19 12:00:00 85 mm[Hg] [facility] Heart rate 2023-11-19 12:00:00 91 /min [facility] Body temperature 2023-11-19 12:00:00 37.11 Melissa [facility] Respiratory rate 2023-11-19 12:00:00 18 /min [facility] Oxygen saturation in Arterial blood by Pulse oximetry 2023-11-19 12:00:00 100 /min [facility] Body height 2023-11-16 06:22:00 167.6 cm [facility] Body weight 2023-11-16 06:22:00 76.114 kg [facility] BMI 2023-11-16 06:22:00 27.08 kg/m2 [facility] Systolic blood pressure 2023-11-15 14:18:00 118 mm[Hg] [facility] Diastolic blood pressure 2023-11-15 14:18:00 72 mm[Hg] [facility] Heart rate 2023-11-15 14:17:00 122 /min [facility] Body temperature 2023-11-15 14:17:00 36.44 Melissa [facility] Body height 2023-11-15 14:17:00 165.1 cm [facility] Body weight 2023-11-15 14:17:00 74.844 kg [facility] BMI 2023-11-15 14:17:00 27.46 kg/m2 [facility] Systolic blood pressure 2023-11-13 18:00:00 121 mm[Hg] [facility] Diastolic blood pressure 2023-11-13 18:00:00 68 mm[Hg] [facility] Heart rate 2023-11-13 18:00:00 78 /min [facility] Oxygen saturation in Arterial blood by Pulse oximetry 2023-11-13 18:00:00 100 /min [facility] Body temperature 2023-11-13 15:07:00 36.56 Melissa [facility] Respiratory rate 2023-11-13 15:07:00 16 /min [facility] Body height 2023-11-13 15:07:00 165.1 cm [facility] Body weight 2023-11-13 15:07:00 74.844 kg [facility] BMI 2023-11-13 15:07:00 27.46 kg/m2 [facility] Systolic blood pressure 2023-11-13 13:40:00 141 mm[Hg] [facility] Diastolic blood pressure 2023-11-13 13:40:00 93 mm[Hg] [facility] Heart rate 2023-11-13 13:36:00 83 /min [facility] Body temperature 2023-11-13 13:36:00 36.67 Melissa [facility] Respiratory rate 2023-11-13 13:36:00 16 /min [facility] Body height 2023-11-13 13:36:00 165.1 cm [facility] Body weight 2023-11-13 13:36:00 74.98 kg [facility] BMI 2023-11-13 13:36:00 27.51 kg/m2 [facility] Systolic blood pressure 2023-11-11 06:30:00 100 mm[Hg] [facility] Diastolic blood pressure 2023-11-11 06:30:00 52 mm[Hg] [facility] Oxygen saturation in Arterial blood by Pulse oximetry 2023-11-11 06:00:00 99 /min [facility] Heart rate 2023-11-11 04:23:00 72 /min [facility] Body temperature 2023-11-11 04:23:00 36.67 Melissa [facility] Respiratory rate 2023-11-11 04:23:00 16 /min [facility] Body height 2023-11-11 04:23:00 165.1 cm [facility] Body weight 2023-11-11 04:23:00 73.301 kg [facility] BMI 2023-11-11 04:23:00 26.89 kg/m2 [facility] Systolic blood pressure 2023-11-09 16:45:00 128 mm[Hg] [facility] Diastolic blood pressure 2023-11-09 16:45:00 83 mm[Hg] [facility] Heart rate 2023-11-09 16:42:00 101 /min [facility] Respiratory rate 2023-11-09 16:42:00 18 /min [facility] Body height 2023-11-09 16:42:00 165.1 cm [facility] Body weight 2023-11-09 16:42:00 73.029 kg [facility] BMI 2023-11-09 16:42:00 26.79 kg/m2 [facility] Systolic blood pressure 2023-11-07 19:51:00 117 mm[Hg] [facility] Diastolic blood pressure 2023-11-07 19:51:00 64 mm[Hg] [facility] Heart rate 2023-11-07 19:51:00 86 /min [facility] Body temperature 2023-11-07 19:51:00 36.67 Melissa [facility] Respiratory rate 2023-11-07 19:51:00 18 /min [facility] Oxygen saturation in Arterial blood by Pulse oximetry 2023-11-07 18:06:00 99 /min [facility] Body height 2023-11-07 17:40:00 165.1 cm [facility] Body weight 2023-11-07 17:40:00 73.029 kg [facility] BMI 2023-11-07 17:40:00 26.79 kg/m2 [facility] Systolic blood pressure 2023-11-02 13:12:00 130 mm[Hg] [facility] Diastolic blood pressure 2023-11-02 13:12:00 73 mm[Hg] [facility] Heart rate 2023-11-02 13:12:00 103 /min [facility] Body temperature 2023-11-02 13:12:00 36.89 Melissa [facility] Respiratory rate 2023-11-02 13:12:00 16 /min [facility] Body height 2023-11-02 13:12:00 165.1 cm [facility] Body weight 2023-11-02 13:12:00 73.029 kg [facility] BMI 2023-11-02 13:12:00 26.79 kg/m2 [facility] Oxygen saturation in Arterial blood by Pulse oximetry 2023-11-02 13:12:00 97 /min [facility] Systolic blood pressure 2023-10-19 13:11:00 128 mm[Hg] [facility] Diastolic blood pressure 2023-10-19 13:11:00 78 mm[Hg] [facility] Heart rate 2023-10-19 13:09:00 96 /min [facility] Respiratory rate 2023-10-19 13:09:00 18 /min [facility] Body height 2023-10-19 13:09:00 165.1 cm [facility] Body weight 2023-10-19 13:09:00 71.215 kg [facility] BMI 2023-10-19 13:09:00 26.13 kg/m2 [facility] Systolic blood pressure 2023-10-13 02:30:00 128 mm[Hg] [facility] Diastolic blood pressure 2023-10-13 02:30:00 68 mm[Hg] [facility] Heart rate 2023-10-13 02:30:00 84 /min [facility] Oxygen saturation in Arterial blood by Pulse oximetry 2023-10-13 02:30:00 100 /min [facility] Body temperature 2023-10-13 02:00:00 36.5 Melissa [facility] Respiratory rate 2023-10-13 02:00:00 17 /min [facility] Body height 2023-10-13 02:00:00 165.1 cm [facility] Body weight 2023-10-13 02:00:00 69.945 kg [facility] BMI 2023-10-13 02:00:00 25.66 kg/m2 [facility] Systolic blood pressure 2023-10-09 21:06:00 130 mm[Hg] [facility] Diastolic blood pressure 2023-10-09 21:06:00 77 mm[Hg] [facility] Heart rate 2023-10-09 21:06:00 102 /min [facility] Body temperature 2023-10-09 21:06:00 36.72 Melissa [facility] Body height 2023-10-09 21:06:00 165.1 cm [facility] Body weight 2023-10-09 21:06:00 69.854 kg [facility] BMI 2023-10-09 21:06:00 25.63 kg/m2 [facility] Systolic blood pressure 2023-10-08 21:11:00 127 mm[Hg] [facility] Diastolic blood pressure 2023-10-08 21:11:00 73 mm[Hg] [facility] Heart rate 2023-10-08 21:11:00 73 /min [facility] Respiratory rate 2023-10-08 21:11:00 18 /min [facility] Body height 2023-10-08 21:11:00 165.1 cm [facility] Body weight 2023-10-08 21:11:00 69.4 kg [facility] BMI 2023-10-08 21:11:00 25.46 kg/m2 [facility] Systolic blood pressure 2023-10-01 12:15:00 125 mm[Hg] [facility] Diastolic blood pressure 2023-10-01 12:15:00 61 mm[Hg] [facility] Heart rate 2023-10-01 12:15:00 98 /min [facility] Body temperature 2023-10-01 12:15:00 36.78 Melissa [facility] Respiratory rate 2023-10-01 12:15:00 18 /min [facility] Oxygen saturation in Arterial blood by Pulse oximetry 2023-10-01 12:15:00 99 /min [facility] Body height 2023-10-01 00:24:00 167.6 cm [facility] Body weight 2023-10-01 00:24:00 66.679 kg [facility] BMI 2023-10-01 00:24:00 23.73 kg/m2 [facility] Systolic blood pressure 2023-09-21 17:03:00 133 mm[Hg] [facility] Diastolic blood pressure 2023-09-21 17:03:00 77 mm[Hg] [facility] Heart rate 2023-09-21 17:01:00 83 /min [facility] Respiratory rate 2023-09-21 17:01:00 18 /min [facility] Body height 2023-09-21 17:01:00 167.6 cm [facility] Body weight 2023-09-21 17:01:00 68.04 kg [facility] BMI 2023-09-21 17:01:00 24.21 kg/m2 [facility] Systolic blood pressure 2023-08-24 17:55:00 122 mm[Hg] [place] [facility] Diastolic blood pressure 2023-08-24 17:55:00 82 mm[Hg] [facility] Heart rate 2023-08-24 17:55:00 106 /min [facility] Respiratory rate 2023-08-24 17:55:00 18 /min [facility] Body height 2023-08-24 17:55:00 165.1 cm [facility] Body weight 2023-08-24 17:55:00 63.05 kg [facility] BMI 2023-08-24 17:55:00 23.13 kg/m2 [facility] Systolic blood pressure 2023-07-27 17:56:00 131 mm[Hg] [facility] Diastolic blood pressure 2023-07-27 17:56:00 78 mm[Hg] [facility] Heart rate 2023-07-27 17:56:00 101 /min [facility] Respiratory rate 2023-07-27 17:56:00 18 /min [facility] Body height 2023-07-27 17:56:00 167.6 cm [facility] Body weight 2023-07-27 17:56:00 58.968 kg [facility] BMI 2023-07-27 17:56:00 20.98 kg/m2 [facility] Systolic blood pressure 2023-06-29 19:34:00 101 mm[Hg] [facility] Diastolic blood pressure 2023-06-29 19:34:00 65 mm[Hg] [facility] Heart rate 2023-06-29 19:34:00 93 /min [facility] Body temperature 2023-06-29 19:34:00 36.78 Melissa [facility] Respiratory rate 2023-06-29 19:34:00 16 /min [facility] Body height 2023-06-29 19:34:00 167.6 cm [facility] Body weight 2023-06-29 19:34:00 57.153 kg [facility] BMI 2023-06-29 19:34:00 20.34 kg/m2 [facility] Systolic blood pressure 2023-06-01 18:26:00 114 mm[Hg] [facility] Diastolic blood pressure 2023-06-01 18:26:00 75 mm[Hg] [facility] Heart rate 2023-06-01 18:26:00 91 /min [facility] Body temperature 2023-06-01 18:26:00 36.67 Melissa [facility] Respiratory rate 2023-06-01 18:26:00 16 /min [facility] Body height 2023-06-01 18:26:00 167.6 cm [facility] Body weight 2023-06-01 18:26:00 55.43 kg [facility] BMI 2023-06-01 18:26:00 19.72 kg/m2 [facility] Systolic blood pressure 2023-05-04 20:47:00 102 mm[Hg] [facility] Diastolic blood pressure 2023-05-04 20:47:00 60 mm[Hg] [facility] Heart rate 2023-05-04 20:47:00 102 /min [facility] Body temperature 2023-05-04 20:47:00 36.72 Melissa [facility] Respiratory rate 2023-05-04 20:47:00 16 /min [facility] Body height 2023-05-04 20:47:00 167.6 cm [facility] Body weight 2023-05-04 20:47:00 53.207 kg [facility] BMI 2023-05-04 20:47:00 18.93 kg/m2 [facility] height 2021-07-11 13:00:00 64.5 [in_i] Comm on [facility] weight 2021-07-11 13:00:00 109 [lb_av] Comm on [facility] temperature 2021-07-11 13:00:00 98.0 [degF] Com mon [facility] bmi 2021-07-11 13:00:00 18.42 kg/m2 Comm on [facility] oximetry 2021-07-11 13:00:00 99 % Commo n [facility] respiratory rate 2021-07-11 13:00:00 18 /min [facility] blood pressure systolic 2021-07-11 13:00:00 91 mm[Hg] Common [facility] blood pressure diastolic 2021-07-11 13:00:00 46 mm[Hg] [facility] height 2020-07-08 13:20:00 64.5 [in_i] Comm on [facility] weight 2020-07-08 13:20:00 104.5 [lb_av] Co mmon [facility] temperature 2020-07-08 13:20:00 97.9 [degF] Com mon [facility] bmi 2020-07-08 13:20:00 17.66 kg/m2 Comm on [facility] oximetry 2020-07-08 13:20:00 100 % Commo n [facility] respiratory rate 2020-07-08 13:20:00 18 /min [facility] blood pressure systolic 2020-07-08 13:20:00 86 mm[Hg] [facility] blood pressure diastolic 2020-07-08 13:20:00 54 mm[Hg] [facility] Systolic blood pressure 2020-02-03 13:26:00 110 mm[Hg] [facility] Diastolic blood pressure 2020-02-03 13:26:00 62 mm[Hg] [facility] Heart rate 2020-02-03 13:26:00 109 /min [facility] 2020-02-03 13:26:00 39.78 Melissa [facility] Respiratory rate 2020-02-03 13:26:00 18 /min [facility] Body height 2020-02-03 13:26:00 165 cm [facility] Body weight 2020-02-03 13:26:00 48.807 kg [facility] BMI 2020-02-03 13:26:00 17.93 kg/m2 [facility] Oxygen saturation in Arterial blood by Pulse oximetry 2020-02-03 13:26:00 98 /min [place] [facility] Procedures Procedure Date / Time Performed Performing Clinician Source US OB TRANSVAGINAL 2024-06-04 23:29:56 Christine Acosta [facility] FLU VACC ([id number]), 6 MO-64 YRS, .5ML, IM, TIV (FLUCELVAX) 2024-06-02 21:21:42 Christine Acosta [facility] URINE DRUG (IMMUNOASSAY) - COMPREHENSIVE DRUG SCREEN 2024-06-02 21:13:00 Christine Acosta [facility] GC & CHLAMYDIA AMPLIFIED ASSAY 2024-06-02 21:13[facility] 2024-06-02 21:13:00 Christine Acosta [facility] POCT TEST 2024-06-02 20:55:00 Christine Acosta [facility] POCT URINALYSIS W/O SPECIFIC GRAVITY 2024-06-02 20:55:00 Christine Acosta [facility] POCT TEST 2023-12-20 00:00:00 Christine Acosta [facility] CBC WITH DIFF 2023-11-18 08:49:[address] [facility] CENTRAL NEURAXIAL BLOCK 2023-11-16 19:08:00 Kirby uJnior [facility] CREATININE 2023-11-16 05:26:00 Christine Acosta [facility] CBC WITH DIFF 2023-11-16 05:26:[address] [facility] HEPATITIS B SURFACE ANTIGEN 2023-11-16 05:26:00 Christine Acosta [facility] HB INDIRECT ANTIGLOBULIN TEST 2023-11-16 05:26:00 Christine Acosta [facility] RHO (D) IMMUNE GLOBULIN 2023-11-16 05:26:00 AcostaChristine [facility] ADC OR LIBAN ONLY - RPR 2023-11-16 05:26:00 Gilbert Acosta [facility] HIV 1/2 AG-AB WITH REFLEX 2023-11-16 05:26:00 Gilbert Acosta [facility] POCT URINALYSIS W/O SPECIFIC GRAVITY 2023-11-15 00:00:00 AcostaChristine [facility] SGOT (ASPARTATE AMINO TRANSFER) 2023-11-13 16:56:00 KarlaChristine [facility] CREATININE 2023-11-13 16:56:00 KarlaChristine Eduard [facility] ALANINE AMINO TRANSFERASE(SGPT 2023-11-13 16:56:00 AcostaChristine [facility] LACTATE DEHYDROGENASE 2023-11-13 16:56:00 AcostaChristine Sel[facility] URIC ACID 2023-11-13 16:56:00 AcostaChristine Eduard [facility] CBC WITH DIFF 2023-11-13 16:56:[address] [facility] PROTEIN CREAT RATIO URINE RANDOM 2023-11-13 16:56:00 KarlaChristine [facility] US PELVIS > 14 WEEKS 2023-11-13 16:39:14 AcostaChristine [facility] >14 WEEKS US LIMITED 2023-11-09 17:46:15 KarlaChristine [facility] POCT URINALYSIS W/O SPECIFIC GRAVITY 2023-11-09 00:00:00 Karla Christine [facility] URINALYSIS 2023-11-07 18:36:00 KarlaChristine Eduard [facility] ADC ONLY - FERN TEST 2023-11-07 18:36:00 Karla Christine [facility] POCT URINALYSIS W/O SPECIFIC GRAVITY 2023-11-02 00:00:00 Karla Christine [facility] POCT URINALYSIS W/O SPECIFIC GRAVITY 2023-10-19 00:00:00 Christine Acosta [facility] POCT URINALYSIS AUTO 2023-10-09 21:26:00 Andrey Hickman [facility] POCT URINALYSIS W/O SPECIFIC GRAVITY 2023-10-08 00:00:00 Woody Hood [facility] NON-STRESS TEST 2023-10-01 12:49:34 Christine Acosta [facility] COMP. METABOLIC PANEL (15316) 2023-10-01 03:57:00 Derrick [facility] CBC WITH DIFF 2023-10-01 03:57:[address] [facility] US RETROPERITONEAL LIMITED 2023-10-01 01:54:45 Derrick [facility] URINALYSIS 2023-10-01 00:52:00 [facility] TDAP VACCINE, >11 YRS, IM 2023-09-21 17:13:50 Gilbert Acosta [facility] POCT URINALYSIS W/O SPECIFIC GRAVITY 2023-09-21 00:00:00 Christine Acosta [facility] POCT URINALYSIS W/O SPECIFIC GRAVITY 2023-08-24 00:00:00 Christine Acosta [facility] POCT URINALYSIS W/O SPECIFIC GRAVITY 2023-07-27 00:00:00 Christine Acosta [facility] SECOND AND THIRD TRIMESTER ULTRASOUND 2023-07-23 18:07:00 Christine Acosta [facility] POCT URINALYSIS W/O SPECIFIC GRAVITY 2023-06-29 00:00:00 Christine Acosta [facility] FLU VACC ([id number]), 6 MO-64 YRS, .5ML, IM, QUAD (FLUCELVAX) 2023-06-01 18:32:05 Christine Acosta [facility] POCT URINALYSIS W/O SPECIFIC GRAVITY 2023-06-01 00:00:00 Christine Acosta [facility] SCANNED LAB RESULTS 2023-05-11 06:01:00 Doctor U nassigned, [place] [facility] US OB TRANSVAGINAL 2023-05-04 21:47:12 Christine Acosta [facility] FRONT OFFICE SPECIALIST CLINIC ULTRASOUND 2023-05-04 06:01:00 Chris chavez Unassigned, [place] [facility] POCT TEST 2023-05-04 00:00:00 Christine Acosta [facility] POCT URINALYSIS W/O SPECIFIC GRAVITY 2023-05-04 00:00:00 Christine Acosta [facility] CT ABDOMEN PELVIS WO CONTRAST 2023-02-20 13:41:00 Requisition, Paper [facility] NO SHOW OR MISSED APPOINTMENT POLICY ACKNOWLEDGEMENT 2023-02-20 13:30:22 Doctor Unassigned, [place] [facility] PATIENT FINANCIAL POLICY 2023-02-20 13:30:06 Doctor Unassigned, [place] [facility] NOTICE OF PRIVACY PRACTICES 2023-02-20 13:29:50 Doctor Unassigned, [place] [facility] CONSENT/REFUSAL FOR DIAGNOSIS AND TREATMENT 2023-02-20 13:29:33 Doctor Unassigned, [place] [facility] ASSIGNMENT OF BENEFITS 2023-02-20 13:29:18 Tone r Unassigned, [place] [facility] SARS-COV-2 COVID-19 VACCINE,0.3ML,IM (PFIZER) 2021-02-23 16:40:59 Doctor Unassigned, [place] [facility] VACCINATIONS - CONSENTS, ELIGIBILITY, HISTORY 2021-02-02 05:01:00 Doctor Unassigned, [place] [facility] Plan of Care Planned Activity Planned Date Details Comments Source Encounters Start Date/Time End Date/Time Encounter Type Admission Type Attending Clinicians Care Facility Care Department Encounter ID Source 2023-10-01 08:46:05 Outpatient X [facility] [id number] [facility] 2022-07-11 11:58:00 Outpatient Ashu Kelly [facility] [id number] [facility] 2022-07-10 08:08:00 Outpatient Kelly Wakefield [facility] [id number] [facility] 2021-07-20 14:35:15 Outpatient Kelly WakefieldKO [facility] [id number] [facility] 2021-07-20 12:21:17 Outpatient Kelly Wakefield [facility] [id number] [facility] 2021-07-20 12:20:10 Outpatient Kelly Wakefield [facility] [id number] [facility] 2021-07-20 12:14:27 Outpatient Susana Noel [facility] [id number] [facility] 2021-07-20 11:17:47 Outpatient Susana Noel [facility] [id number] [facility] 2024-07-28 13:15:00 2024-07-28 13:15:00 Outpatient CHRISTINE OCHOA VIEN [facility] [id number] [facility] 2024-07-01 15:00:00 2024-07-01 15:00:00 Outpatient WOODY GLEZ [facility] [id number] [facility] 2024-06-19 00:00:00 2024-06-19 07:42:40 Case Management Christine Acosta [place] [id number] 350.1.13.10 4.2.7.2.686 [id number] 134 [id number] [facility] 2024-06-15 00:00:00 2024-06-16 11:56:04 Patient Secure Msg Doctor Unassigned, [place] Doctor Unassigned, [place] [facility] 12.840.114 350.1.13.10 4.2.7.2.686 [id number] 134 [id number] [facility] 2024-06-16 10:45:00 2024-06-16 11:00:00 End Finder Forming Department Visit 2, Adc Lab Christine Acosta 2, Adc Lab [facility] 1.2.840.114 350.1.13.10 4.2.7.2.686 [id number] [facility] 2024-06-16 10:45:00 2024-06-16 10:45:00 Outpatient R CHRISTINE ACOSTA VIEN [facility] [id number] [facility] 2024-06-02 14:30:00 2024-06-02 15:22:25 Outpatient R CHRISTINE ACOSTA VIEN [facility] [id number] [facility] 2024-06-02 14:30:00 2024-06-02 15:22:25 [facility] 1.2.840.114 350.1.13.10 4.2.7.2.686 [id number] 134 [id number] [facility] 2024-05-20 00:00:00 2024-05-20 18:00:22 Nurse Triage Tomasa Alvarez Nina R [facility] 1.2.840.114 350.1.13.10 4.2.7.2.686 [id number] [facility] 2024-05-17 00:00:00 2024-05-20 14:54:10 Telephone [facility]Christ[facility] 1.2.840.114 350.1.13.10 4.2.7.2.686 [id number] [facility] 2024-05-14 13:30:00 2024-05-14 13:30:00 Outpatient R CHRISTINE ACOSTA VIEN [facility] [id number] [facility] 2024-01-29 10:30:00 2024-01-29 10:30:00 Outpatient R CHRISTINE ACOSTA VIEN [facility] [id number] [facility] 2024-01-04 14:30:00 2024-01-04 14:30:00 Outpatient R ADUM, AZRA ADUM, AZRA [facility] [id number] [facility] 2023-12-30 00:00:00 2024-01-01 16:40:37 Refill Christine Acosta [facility] 1.2.840.114 350.1.13.10 4.2.7.2.686 [id number] [facility] 2023-12-20 11:15:00 2023-12-20 12:24:00 Outpatient R GARY ACOSTALIZZETH ACOSTAGARYEN [facility] [id number] [facility] 2023-12-20 11:15:00 2023-12-20 11:30:00 Routine Visit AcostaChristine [facility] 1.2.840.114 350.1.13.10 4.2.7.2.686 [id number] [facility] 2023-11-27 14:00:00 2023-11-27 14:00:00 Outpatient R [facility] [id number] [facility] 2023-11-23 00:00:00 2023-11-23 16:07:54 Telephone Christine Acosta [facility] 1.2.840.114 350.1.13.10 4.2.7.2.686 [id number] [facility] 2023-11-21 09:00:00 2023-11-21 09:39:39 Outpatient R GARY ACOTSALIZZETH ACOSTA CHRISTINE [facility] [id number] [facility] 2023-11-21 09:00:00 2023-11-21 09:39:39 Nurse Visit Nurse, [facility] Christine Acosta [facility] 1.2.840.114 350.1.13.10 4.2.7.2.686 [id number] [facility] 2023-11-15 22:45:00 2023-11-19 10:20:00 Inpatient P CHRISTINE ACOSTA CHRISTINE ACOSTA [facility] [id number] [facility] 2023-11-15 22:45:00 2023-11-19 10:20:00 Hospital Encounter Karla Christine Chapa [facility] 1.2.840.114 350.1.13.10 4.2.7.2.686 [id number] [facility] 2023-11-17 20:01:53 2023-11-17 20:01:53 Anesthesia Event Koby Rucker [facility] 1.2.840.114 350.1.13.10 4.2.7.2.686 [id number] [facility] 2023-10-11 00:00:00 2023-11-17 18:12:45 Patient Secure Msg Doctor Unassigned, [place] [facility] 1.2.840.114 350.1.13.10 4.2.7.2.686 [id number] [facility] 2023-11-16 14:11:00 2023-11-17 02:57:00 Anesthesia Event Sukhwinder Junior David K [facility] 1.2840.114 350.1.13.10 4.2.7.2.686 [id number] [facility] 2023-11-16 11:15:00 2023-11-16 11:15:00 Outpatient R CHRISTINE ACOSTA [facility] [id number] [facility] 2023-11-15 09:15:00 2023-11-15 09:50:30 Outpatient R CHRISTINE ACOSTA [facility] [id number] [facility] 2023-11-15 09:15:00 2023-11-15 09:50:30 Routine Visit Christine Acosta [facility] 1.2840.114 350.1.13.10 4.2.7.2.686 [id number] [facility] 2023-11-13 09:50:00 2023-11-13 14:00:00 Outpatient P CHRISTINE ACOSTA VIEN [facility] N[facility] [id number] [facility] 2023-11-13 09:50:00 2023-11-13 14:00:00 Emergency Christine Acosta [facility] 1.2840.114 350.1.13.10 4.2.7.2.686 [id number] [facility] 2023-11-13 08:30:00 2023-11-13 08:48:06 Outpatient R [facility] [id number] 2023-11-13 08:30:00 2023-11-13 08:48:06 Nurse Visit Nurse, Lkj [facility] Christine Acosta [facility] 1.840.114 350.1.13.10 4.2.7.2.686 [id number] [facility] 2023-11-10 23:11:00 2023-11-11 01:50:00 Outpatient X CHRISTINE ACOSTA VIEN [facility] NINA [id number] [facility] 2023-11-10 23:11:00 2023-11-11 01:50:00 Emergency Christine Acosta [facility] 1.2840.114 350.1.13.10 4.2.7.2.686 [id number] [facility] 2023-11-09 00:00:00 2023-11-09 17:25:51 Telephone Christine Acosta [facility] NAL [facility]ILD[facility] 1.2840.114 350.1.13.10 4.2.7.2.686 [id number] [facility] 2023-11-09 00:00:00 2023-11-09 15:45:45 Telephone Pcp, Patient Does Not Have A [facility] MED[facility] OFFICE BUILD[facility] 1.20.114 350.1.13.10 4.2.7.2.686 [id number] [facility] 2023-11-09 13:30:00 2023-11-09 14:26:50 End Finder Forming Department Visit Lab, Ang - Db Karla Christine [facility] MED[facility] OFF[facility] BUILD[facility] 1..114 350.1.13.10 4.2.7.2.686 [id number] [facility] 2023-11-09 11:30:00 2023-11-09 12:01:21 Outpatient R CHRISTINE ACOSTA VIEN [facility] [id number] [facility] 2023-11-09 11:30:00 2023-11-09 12:01:21 Routine Visit Christine Acosta [facility] PRIMARY [facility] SPECIALTY CARE 1..114 350.1.13.10 4.2.7.2.686 [id number] [facility] 2023-11-07 12:54:00 2023-11-07 16:15:00 Outpatient P CHRISTINE ACOSTA [facility] NINA [id number] [facility] 2023-11-07 12:54:00 2023-11-07 16:15:00 Hospital Encounter Christine Acosta [facility] 1..114 350.1.13.10 4.2.7.2.686 [id number] [facility] 2023-11-07 00:00:00 2023-11-07 14:25:03 Telephone Christine Acosta [facility] SPECIALTY C[facility] 1.2.114 350.1.13.10 4.2.7.2.686 [id number] 134 [id number] [facility] 2023-11-06 11:30:00 2023-11-06 11:30:00 [facility] [id number] [facility] 2023-11-02 00:00:00 2023-11-02 13:00:47 Telephone Veronakaleb [facility] 1..840.114 350.1.13.10 4.2.7.2.686 [id number] [facility] 2023-11-02 08:00:00 2023-11-02 08:35:16 Outpatient R CHRISTINE ACOSTA CHRISTINE [facility] [id number] [facility] 2023-11-02 08:00:00 2023-11-02 08:35:16 Routine Visit Christine Acosta [facility] 1..840.114 350.1.13.10 4.2.7.2.686 [id number] [facility] 2023-10-19 08:00:00 2023-10-19 08:20:55 Outpatient R CHRISITNE ACOSTA [facility] [id number] [facility] 2023-10-19 08:00:00 2023-10-19 08:20:55 Routine Visit Christine Acosta [facility]TY [facility] 1..840.114 350.1.13.10 4.2.7.2.686 [id number] [facility] 2023-10-12 21:03:00 2023-10-12 22:25:00 Outpatient X AZRA DSOUZA VIVIAN [facility] NINA [id number] [facility] 2023-10-12 21:03:00 2023-10-12 22:25:00 Emergency Azra Dsouza [facility] 1.2840.114 350.1.13.10 4.2.7.2.686 [id number] [facility] 2023-10-09 16:00:00 2023-10-09 16:30:00 Office Visit Wild Hickman [facility] 1.2.840.114 350.1.13.10 4.2.7.2.686 [id number] [facility] 2023-10-09 16:00:00 2023-10-09 16:00:00 Outpatient R WILD HICKMAN [facility] [id number] [facility] 2023-10-08 16:00:00 2023-10-08 16:26:41 Outpatient R WOODY HOOD [facility] [id number] [facility] 2023-10-08 16:00:00 2023-10-08 16:26:41 Routine Visit GersonkiadanielWoody [facility] 1.840.114 350.1.13.10 4.2.7.2.686 [id number] [facility] 2023-10-08 10:15:00 2023-10-08 10:15:00 Outpatient R GERSONWOODY DUFF [facility] [id number] [facility] 2023-09-30 19:27:00 2023-10-01 08:10:00 Outpatient X ALAN Husain, MAINE ANJELICA-ARIADNE SJESUSMAINE [facility] NINA [id number] [facility] 2023-09-30 19:27:00 2023-10-01 08:10:00 Emergency VincDavion coates Marisol [facility] 1.2.840.114 350.1.13.10 4.2.7.2.686 [id number] [facility] 2023-10-01 00:00:00 2023-10-01 00:00:00 Case [facility] 1.114 350.1.13.10 4.2.7.2.686 [id number] 134 [id number] [facility] 2023-09-23 00:00:00 2023-09-23 00:00:00 Patient Secure Msg Doctor Unassigned, [place] [facility] 1.114 350.1.13.10 4.2.7.2.686 [id number] [facility] 2023-09-21 12:15:00 2023-09-21 12:19:16 Outpatient R CHRISTINE ACOSTA [facility] [id number] [facility] 2023-09-21 12:15:00 2023-09-21 12:19:16 [facility] 1..114 350.1.13.10 4.2.7.2.686 [id number] [facility] 2023-09-21 00:00:00 2023-09-21 00:00:00 Telephone KarlaChristine [facility] PRIMARY [facility] SPECIALTY CARE 1.2.114 350.1.13.10 4.2.7.2.686 [id number] [facility] 2023-08-27 10:00:00 2023-08-27 12:51:15 Outpatient R CHRISTINE ACOSTA [facility] [id number] [facility] 2023-08-27 10:00:00 2023-08-27 10:15:00 End Finder Forming Department Visit Lab, Geovanny Acosta [facility] JR?[facility] 1.84.114 350.1.13.10 4.2.7.2.686 [id number] [facility] 2023-08-24 12:45:00 2023-08-24 13:00:00 End Finder Forming Department Visit Lab, Geovanny - Db KarlaChristine [facility]O [facility] MED[facility] OFF[facility]ILDING 1.840.114 350.1.13.10 4.2.7.2.686 [id number] [facility] 2023-08-24 12:45:00 2023-08-24 12:45:00 Outpatient R ACOSTACHRISTINE [facility] [id number] [facility] 2023-08-24 12:15:00 2023-08-24 12:15:00 Routine Visit AcostaChristine [facility] SPECIALTY CARE 1.840.114 350.1.13.10 4.2.7.2.686 [id number] [facility] 2023-07-27 12:15:00 2023-07-27 12:15:00 Routine Visit AcostaChristine [facility] 1.840.114 350.1.13.10 4.2.7.2.686 [id number] 134 [id number] [facility] 2023-07-27 12:15:00 2023-07-27 12:04:00 Outpatient R CHRISTINE ACOSTA [facility] [id number] [facility] 2023-07-23 11:00:00 2023-07-23 11:51:15 Outpatient P SEAN CARSON [facility] [id number] [facility] 2023-07-23 11:00:00 2023-07-23 11:51:15 End Finder Forming Department Visit Ultrasound, Sean Ward [facility] FRONT OFFICE SPECIALIST [facility] 1..840.114 350.1.13.10 4.2.7.2.686 [id number] [facility] 2023-07-13 00:00:00 2023-07-13 00:00:00 [facility] 1.840.114 350.1.13.10 4.2.7.2.686 [id number] [facility] 2023-06-29 13:45:00 2023-06-29 13:45:00 [facility] 1.2840.114 350.1.13.10 4.2.7.2.686 [id number] [facility] 2023-06-29 13:45:00 2023-06-29 13:41:[address] [facility] [id number] [facility] 2023-06-29 11:45:00 2023-06-29 12:29:23 End Finder Forming Department Visit Lab, Ang [facility] 1.0.114 350.1.13.10 4.2.7.2.686 [id number] [facility] 2023-06-23 00:00:00 2023-06-23 00:00:00 Nurse Triage Ruchi Vick [facility] 1.2840.114 350.1.13.10 4.2.7.2.686 [id number] [facility] 2023-06-22 11:00:00 2023-06-22 11:00:00 Outpatient R [facility] [id number] [facility] 2023-06-14 10:30:00 2023-06-14 10:30:00 Outpatient R [facility] [id number] [facility] 2023-06-01 12:45:00 2023-06-01 12:45:00 Routine Visit Karla [facility] 1.20.114 350.1.13.10 4.2.7.2.686 [id number] [facility] 2023-06-01 12:45:00 2023-06-01 12:35:[address] [facility] [id number] [facility] 2023-05-17 00:00:00 2023-05-17 00:00:00 Telephone Karla [facility] 1..114 350.1.13.10 4.2.7.2.686 [id number] [facility] 2023-05-11 11:15:00 2023-05-11 13:15:[address] [facility] [id number] [facility] 2023-05-11 11:15:00 2023-05-11 11:30:00 End Finder Forming Department Visit Lab, Ang - Db Karla [facility] MEDICAL OFFICE BUILDING 1.84.114 350.1.13.10 4.2.7.2.686 [id number] [facility] 2023-05-11 00:00:00 2023-05-11 00:00:00 Orders Only Doctor Unassigned, [place] [facility] 1.2.114 350.1.13.10 4.2.7.2.686 [id number] [facility] 2023-05-04 14:30:00 2023-05-04 15:17:[address] [facility] [id number] [facility] 2023-05-04 14:30:00 2023-05-04 15:17:13 Initial Visit Karla [facility] 1.114 350.1.13.10 4.2.7.2.686 [id number] [facility] 2023-05-04 00:00:00 2023-05-04 00:00:00 Orders Only Doctor Unassigned, [place] [facility] 1.2.840.114 350.1.13.10 4.2.7.2.686 [id number] [facility] 2023-05-04 00:00:00 2023-05-04 00:00:00 Patient Secure Msg Doctor Unassigned, [place] [facility] 1.2.840.114 350.1.13.10 4.2.7.2.686 [id number] [facility] 2023-02-20 08:31:14 2023-02-20 23:59:00 Outpatient R RADIOLOGY [facility] [id number] [facility] 2023-02-20 08:31:14 2023-02-20 23:59:00 Hospital Encounter Radiology [facility] 1.2.840.114 350.1.13.10 4.2.7.2.686 [id number] [facility] 2023-02-13 08:56:59 2023-02-13 08:56:59 Outpatient SFA SFA [id number] Amol Price 2023-02-05 14:45:10 2023-02-05 14:45:10 Outpatient SFA SFA [id number] Amol Price 2022-11-30 17:40:38 2022-11-30 17:40:38 Outpatient SFA SFA [id number] Amol Price 2022-09-13 10:01:30 2022-09-13 10:01:30 Outpatient SFA SFA [id number] Amol Price 2022-09-08 08:31:55 2022-09-08 08:31:55 Outpatient SFA SFA [id number] Amol Price 2022-08-30 08:02:19 2022-08-30 08:02:19 Outpatient SFA SFA [id number] Amol Price 2022-08-10 11:56:47 2022-08-10 11:56:47 Outpatient SFA SFA [id number] Amol Price 2022-03-31 14:57:16 2022-03-31 14:57:[address] [facility] [id number] Amol Price 2021-07-11 00:00:00 2021-07-11 00:00:00 PREV VISIT EST AGE 18-39 STLMLC STLMLC [id number] [facility] 2021-02-23 11:50:00 2021-02-23 11:50:00 Outpatient OLIVERIO LI [facility] [id number] [facility] 2021-02-23 11:38:41 2021-02-23 11:39:24 Imm/Inj Visit Nurse, Angie Valdez Immunizatio Oliverio Gardner [facility] 1.840.114 350.1.13.10 4.2.7.2.686 [id number] [facility] 2021-02-02 13:10:00 2021-02-02 13:10:00 Outpatient [facility] [id number] [facility] 2021-02-02 00:00:00 2021-02-02 00:00:00 Orders Only Doctor Unassigned, [place] [facility] 1.840.114 350.1.13.10 4.2.7.2.686 [id number] [facility] 2020-07-08 00:00:00 2020-07-08 00:00:00 PREV VISIT EST AGE 12-17 STLMLC STLMLC [id number] [facility] 2020-02-05 00:00:00 2020-02-05 00:00:00 Letter (Out) Pob1, Acute Care Clinic [facility] Office [facility] .840.114 350.1.13.10 4.2.7.2.686 [id number] [facility] 2020-02-04 00:00:00 2020-02-04 00:00:00 Telephone So Covarrubias [facility] 1..114 350.1.13.10 4.2.7.2.686 [id number] [facility] 2020-02-04 00:00:00 2020-02-04 00:00:00 Letter (Out) Krystin France [facility] 1.2.840.114 350.1.13.10 4.2.7.2.686 [id number] [facility] 2020-02-03 08:16:19 2020-02-03 08:36:19 Urgent Care Pob1, [facility] 1..840.114 350.1.13.10 4.2.7.2.686 [id number] [facility] 2020-02-03 08:00:00 2020-02-03 08:00:00 Outpatient [facility] [id number] [facility] 2019-06-24 11:00:00 2019-06-24 11:00:00 Outpatient [facility] [id number] [facility] 2019-04-08 10:20:00 2019-04-08 10:20:00 Outpatient [facility] [id number] [facility] 2018-11-07 15:20:00 2018-11-07 15:20:00 Outpatient [facility] [id number] [facility] Results Test Description Test Time Test Comments Results Result Co mments Source [facility] [id number] 20:55:00* Test Item Value Reference Range Interpretation Comme nts POCT PREG (test code = 1605) Positive On board controls acceptable with C Line (test code = 3574) Yes POCT PREG LOT # (test code = 3575) POCT PREG TEST DATE ( test code = 3576) [facility] [id number] 16:57:00* Test Item Value Reference Range Interpretation Comme nts POCT PREG (test code = 1605) Negative On board controls acceptable with C Line (test code = 3574) Yes POCT PREG LOT # (test code = 3575) POCT PREG TEST DATE ( test code = 3576) [facility] with Nuoddttishkc6358-88-69 09:16:33* Test Item Value Reference Range Interpretation [...] 34.4 g/dL 31.6-35.1 RDW-SD (test code = 07281-2) 38.6 fL 39.0-49.9 L RDW-CV (test code = 788-0) 12.7 % 12.0-15.5 PLT (test code = 777-3) 173 166-358 MPV (test code = 00352-4) 10.3 fL 9.5-12.9 NRBC/100 WBC (test code = 8506798461) 0.0 0.0-10.0 NRBC x10^3 (test code = 9573945296) See_Comment [Automated message] The system which generated this result transmitted reference range: 10*3/?L. The reference range was not used to interpret this result as normal/abnormal. GRAN MAT (NEUT) % (test code = 770-8) 76.2 % IMM GRAN % (test code = 2330271537) 0.70 % LYMPH % (test code = 736-9) 13.8 % MONO % (test code = 5905-5) 7.5 % EOS % (test code = 713-8) 1.4 % BASO % (test code = 706-2) 0.4 % GRAN MAT x10^3(ANC) (test code = 5910734951) 10.31 10*3/uL 1.88-7.09 H IMM GRAN x10^3 (test code = 9810159464) 0.10 10*3/uL 0.00-0.06 H LYMPH x10^3 (test code = 731-0) 1.87 10*3/uL 1.32-3.29 MONO x10^3 (test code = 742-7) 1.02 10*3/uL 0.33-0.92 H EOS x10^3 (test code = 711-2) 0.19 10*3/uL 0.03-0.39 BASO x10^3 (test code = 704-7) 0.05 10*3/uL 0.01-0.07 Lab Interpretation (test code = 26456-7) Abnormal [facility] IMMUNE BGDGTFYX5805-60-07 16:09:53* Test Item Value Reference Range Interpretation Comme nts RHIG CANDIDATE? (test code = 5188) No- see comment Patient is not a candidate for RhIg- Patient is Rh Positive.Performed at [facility] Laboratory Services - [facility] Blood [address] [place] [phone] Free: [phone] No. [id number] [facility] OR LIBAN CASTRO - QTN9431-08-76 06:49:38* Test Item Value Reference Range Interpretation Comme nts RPR (Qualitative) (test code = 57705-9) Nonreactive Nonreactive Lab Interpretation (test cod e = 29205-2) Normal [facility] HospitalCreatinine2024-05-25 05:14:57* Test Item Value Reference Range Interpretation Comme nts CREATININE (test code = 2160-0) 0.43 mg/dL 0.50-1.04 L eGFR (test code = 28944-8) 143.0 mL/min/1.73m2 CKD-EPI eGFR (2020). Assuming creatinine has been stable day-to-day for at least three months, the eGFR indicates Category G1 (>= 90 mL/min/1.73 m2) Lab Interpretation (test code = 52987-6) Abnormal [facility] [id number] 19:08:00 Sukhwinder Junior, ? ? 11/16/2023 ?2:49 PM Central Neuraxial Block Date/Time: 11/16/2023 2:08 PM Performed by: Sukhwinder Junior DOAuthorized by: Sukhwinder Junior DO ?Patient Location: OBReason for Block: Labor [...] ?Technique: WILI saline ?Guidance with: landmark technique}Epidural/Spinal [place] and/or Catheter: ?Needle Insertion Depth: 6 ?Catheter Type: multiport ? ?Catheter Size: 19 G ? ?Catheter at Skin Depth: 12 ?Number of Attempts: 1 ?Test Dose: lidocaine 1.5% with epinephrine 1-to-200,000 and negative ? ?Dose: 3 cc ? ?CatheterSecurement Method: clear occlusive dressing, stabilization device and surgical tapeAssessment: ?Block Outcome: pain improved, patient comfortable, patient satisfied and patient tolerated procedure well ? ?Procedure Assessment: patient tolerated procedure well with no complicationsNotes: ? + scoliosis. No H/C/P. Smooth cath adv. No H/C/P. [facility] Wayaw3209-92-48 19:08:00 Sukhwinder Junior DO ? ? 11/16/2023 ?2:49 PM Central Neuraxial Block Date/Time: 11/16/2023 2:08 PM Performed by: Sukhwinder Juinor DOAuthorized by: Sukhwinder Junior DO ?Patient Location: OBReason for Block: Labor [...] ?Technique: WILI saline ?Guidance with: landmark technique}Epidural/Spinal [place] and/or Catheter: ?Needle Insertion Depth: 6 ?Catheter [...] No H/C/P. Smooth cath adv. No H/C/P. [facility] HospitalHepatitis B Surface Qoftpjd8885-19-40 16:12:58 * Test Item Value Reference Range Interpretation Comme nts HBsAg Semi-Quantitative (maykel t code = 5195-3) 0.09 Negative [facility] HospitalHIV 1/2 Ag-Ab with Rfiyyq9030-60-81 11:59:15* Test Item Value Reference Range Interpretation Comme nts HIV Semi-quantitative (test code = 94002-1) 0.09 Negative MARK (test code = MARK) Non-reactive for HIV-1 antigen and HIV-1/HIV-2 antibodies. ?No laboratory evidence of HIV infection. ?Repeat in 2-4 weeks if acute HIV infection is suspected. [facility] HospitalCBC with Lycdxdhhalzv4550-08-06 08:06:29* Test Item Value Reference Range Interpretation [...] 33.9 g/dL 31.6-35.1 RDW-SD (test code = 24521-7) 38.5 fL 39.0-49.9 L RDW-CV (test code = 788-0) 12.7 % 12.0-15.5 PLT (test code = 777-3) 177 166-358 MPV (test code = 93012-7) 11.2 fL 9.5-12.9 NRBC/100 WBC (test code = 4255539648) 0.0 0.0-10.0 NRBC x10^3 (test code = 7619664889) See_Comment [Automated messa ge] The system which generated this result transmitted reference range: 10*3/?L. The reference range was not used to interpret this result as normal/abnormal. GRAN MAT (NEUT) % (test code = 770-8) 69.8 % IMM GRAN % (test code = 8865622843) 0.60 % LYMPH % (test code = 736-9) 17.1 % MONO % (test code = 5905-5) 11.3 % EOS % (test code = 713-8) 1.0 % BASO % (test code = 706-2) 0.2 % GRAN MAT x10^3(ANC) (test code = 1314296415) 6.59 10*3/uL 1.88-7.09 IMM GRAN x10^3 (test code = 4477464041) 0.06 10*3/uL 0.00-0.06 LYMPH x10^3 (test code = 731-0) 1.62 10*3/uL 1.32-3.29 MONO x10^3 (test code = 742-7) 1.07 10*3/uL 0.33-0.92 H EOS x10^3 (test code = 711-2) 0.09 10*3/uL 0.03-0.39 BASO x10^3 (test code = 704-7) 0.01-0.07 Lab Interpretation (test code = 27959-4) Abnormal [facility] HospitalType and Screen - ONCE [id number] 08:03:00 * Test Item Value Reference Range Interpretation Comme nts ABO & RH (test code = 20) AB POSITIVE IAT (test code = 1185) Negative [facility] HospitalPOCT Urinalysis w/o Specific Hzvuzbv8960-75-50 14:31:00* Test Item Value Reference Range Interpretation [...] = 3257) n/a Negative - Negati ve [facility] HospitalUric Acid Tderl5260-66-75 18:01:15* Test Item Value Reference Range Interpretation Comme [facility] URIC ACID (test code = 8830875661) 3.2 mg/dL 2.9-6.0 Lab Interpretation (test cod e = 00225-9) Normal [facility] HospitalAlanine Amino Transferase (SGPT)2023-11-13 17:46:54* Test Item Value Reference Range Interpretation Comme nts ALTv (test code = 1742-6) 14 U/L 5-35 Lab Interpretation (test cod e = 92743-7) Normal [facility] HospitalCreatinine Ixugt7229-21-24 17:46:33* Test Item Value Reference Range Interpretation Comme nts CREATININE (test code = 2160-0) 0.35 mg/dL 0.50-1.04 L eGFR (test code = 75801-6) 150.3 mL/min/1.73m2 CKD-EPI eGFR (2020). Assuming creatinine has been stable day-to-day for at least three months, the eGFR indicates Category G1 (>= 90 mL/min/1.73 m2) Lab Interpretation (test code = 53760-0) Abnormal [facility] HospitalSGOT (Asparate Amino Transfer)2023-11-13 17:46:33* Test Item Value Reference Range Interpretation Comme nts AST(SGOT) (test code = 5482525622) 22 U/L 13-40 Lab Interpretation (test cod e = 07041-2) Normal [facility] HospitalLactate Dsjsrrlxctzek7797-64-76 17:45:56* Test Item Value Reference Range Interpretation Comme nts LDH (test code = 2788848697) 168 U/L 120-246 Lab Interpretation (test cod e = 35708-9) Normal [facility] HospitalCBC with Ggikdzprqtvh8923-56-37 17:41:29* Test Item Value Reference Range Interpretation [...] 34.6 g/dL 31.6-35.1 RDW-SD (test code = 61098-3) 38.3 fL 39.0-49.9 L RDW-CV (test code = 788-0) 12.6 % 12.0-15.5 PLT (test code = 777-3) 185 166-358 MPV (test code = 88709-7) 10.6 fL 9.5-12.9 NRBC/100 WBC (test code = 8604232669) 0.0 0.0-10.0 NRBC x10^3 (test code = 2481466572) See_Comment [Automated messa ge] The system which generated this result transmitted reference range: 10*3/?L. The reference range was not used to interpret this result as normal/abnormal. GRAN MAT (NEUT) % (test code = 770-8) 73.5 % IMM GRAN % (test code = 5001213813) 0.60 % LYMPH % (test code = 736-9) 15.1 % MONO % (test code = 5905-5) 9.7 % EOS % (test code = 713-8) 0.9 % BASO % (test code = 706-2) 0.2 % GRAN MAT x10^3(ANC) (test code = 8672997460) 5.88 10*3/uL 1.88-7.09 IMM GRAN x10^3 (test code = 3559715645) 0.05 10*3/uL 0.00-0.06 LYMPH x10^3 (test code = 731-0) 1.21 10*3/uL 1.32-3.29 L MONO x10^3 (test code = 742-7) 0.78 10*3/uL 0.33-0.92 EOS x10^3 (test code = 711-2) 0.07 10*3/uL 0.03-0.39 BASO x10^3 (test code = 704-7) 0.01-0.07 Lab Interpretation (test code = 18637-6) Abnormal [facility] HospitalUS PELVIS > 14 GUQVG1488-32-76 16:59:34ORDERING PHYSICIAN: HARSHAL ACOSTA HISTORY: elevated bps Scan for Growth [...] 4 days. Bilateral ovaries are not visualized. [facility] Urinalysis w/o Specific Kiwjktx9600-72-42 16:54:00* Test Item Value Reference Range Interpretation [...] = 3257) N/A Negative - Negati ve [facility] Urinalysis w/o Specific Vgvgewu2144-76-48 13:53:00* Test Item Value Reference Range Interpretation [...] = 3257) n/a Negative - Negati ve [facility] Urinalysis w/o Specific Feryvji3506-56-18 13:59:00* Test Item Value Reference Range Interpretation [...] = 3257) na Negative - Negati ve [facility] Urinalysis, Jncoymhdyt2780-11-43 21:27:00 * Test Item Value Reference Range [...] U APPEAR (test code = 3267) clear [facility] Urinalysis, Wjwkpmxzlc0403-26-55 21:27:00 * Test Item Value Reference Range [...] U APPEAR (test code = 3267) clear [facility] HospitalPOCT Urinalysis w/o Specific Fomxruu4388-93-75 21:11:00* Test Item Value Reference Range Interpretation [...] = 3257) N/A Negative - Negati ve [facility]. Metabolic Panel (53522)2023-10-01 04:34:48* Test Item Value Reference Range Interpretation Comme nts NA (test code = 0591682373) 136 mmol/L 135-145 K (test code = 8389854600) 3.7 mmol/L 3.5-5.0 CL (test code = 6385716596) 105 mmol/L 98-108 CO2 TOTAL (test code = 8065576662) 22 mmol/L 23-31 L AGAP (test code = 5947361514) 9 2-16 BUN (test code = 3636071836) 6 mg/dL 7-23 L GLUCOSE (test code = 3321674491) 90 mg/dL 70-110 CREATININE (test code = 2160-0) 0.38 mg/dL 0.50-1.04 L TOTAL BILI (test code = 0335180649) 0.3 mg/dL 0.1-1.1 CALCIUM (test code = 3752763997) 9.0 mg/dL 8.6-10.6 T PROTEIN (test code = 5965561230) 7.4 g/dL 6.3-8.2 ALBUMIN (test code = 6786242072) 3.8 g/dL 3.5-5.0 ALK PHOS (test code = 6493147307) 84 U/L 34-122 ALTv (test code = 1742-6) 17 U/L 5-35 AST(SGOT) (test code = 6668834978) 24 U/L 13-40 eGFR (test code = 97778-1) 147.3 mL/min/1.73m2 CKD-EPI eGFR (2020). Assuming creatinine has been stable day-to-day for at least three months, the eGFR indicates Category G1 (>= 90 mL/min/1.73 m2) Lab Interpretation (test code = 44012-9) Abnormal [facility] with Orqy3033-08-71 04:17:04* Test Item Value Reference Range Interpretation [...] 34.1 g/dL 31.6-35.1 RDW-SD (test code = 11249-8) 40.6 fL 39.0-49.9 RDW-CV (test code = 788-0) 12.5 % 12.0-15.5 PLT (test code = 777-3) 224 166-358 MPV (test code = 50016-3) 9.6 fL 9.5-12.9 NRBC/100 WBC (test code = 0505540776) 0.0 0.0-10.0 NRBC x10^3 (test code = 5593880530) See_Comment [Automated messa ge] The system which generated this result transmitted reference range: 10*3/?L. The reference range was not used to interpret this result as normal/abnormal. GRAN MAT (NEUT) % (test code = 770-8) 69.2 % IMM GRAN % (test code = 7167715436) 1.20 % LYMPH % (test code = 736-9) 17.6 % MONO % (test code = 5905-5) 10.1 % EOS % (test code = 713-8) 1.6 % BASO % (test code = 706-2) 0.3 % GRAN MAT x10^3(ANC) (test code = 6632781746) 6.74 10*3/uL 1.88-7.09 IMM GRAN x10^3 (test code = 1030853238) 0.12 10*3/uL 0.00-0.06 H LYMPH x10^3 (test code = 731-0) 1.72 10*3/uL 1.32-3.29 MONO x10^3 (test code = 742-7) 0.98 10*3/uL 0.33-0.92 H EOS x10^3 (test code = 711-2) 0.16 10*3/uL 0.03-0.39 BASO x10^3 (test code = 704-7) 0.03 10*3/uL 0.01-0.07 Lab Interpretation (test code = 34687-0) Abnormal [facility] RETROPERITONEAL PUYFMBT5368-69-54 04:16:40 Exam: Retroperitoneal ultrasound. INDICATION: right flank pain, 30 weeks , r/o renalstone/hydronephrosis COMPARISON:CT of the abdomen and pelvis from 02/20/2023 TECHNIQUE: Multiple longitudinal and transverse grayscale and selectedcolor Doppler ultrasonographic images were obtained of the kidneys andbladder. [employer] images were obtained for the record. FINDINGS: [...] thickening may be secondary to degree of underdistention.[facility] Urinalysis w/o Specific Tslgyhp5552-54-63 17:11:00* Test Item Value Reference Range Interpretation [...] = 3257) Negative Negative - Negati ve [facility] Urinalysis w/o Specific Yxgmmoa2599-76-63 17:11:00* Test Item Value Reference Range Interpretation [...] = 3257) Negative Negative - Negati ve [facility] Urinalysis w/o Specific Ktvjvsg9996-45-28 17:58:00* Test Item Value Reference Range Interpretation [...] = 3257) N/A Negative - Negati ve [facility] Urinalysis w/o Specific Csoqokq8119-70-70 17:56:00* Test Item Value Reference Range Interpretation [...] = 3257) N/A Negative - Negati ve [facility] Urinalysis w/o Specific Jfczacg5808-22-80 19:33:00* Test Item Value Reference Range Interpretation [...] = 3257) n/a Negative - Negati ve [facility] URINALYSIS W/O SPECIFIC HZNCEYI0890-59-83 18:23:00* Test Item Value Reference Range Interpretation [...] = 3257) n/a Negative - Negati ve [facility] URINALYSIS W/O SPECIFIC YTZITVT9050-36-40 18:23:00* Test Item Value Reference Range Interpretation [...] = 3257) n/a Negative - Negati ve [facility] URINAL[facility] W/O SPECIFIC AWONMMH6335-12-66 20:49:00* Test Item Value Reference Range Interpretation [...] = 3257) n/a Negative - Negati ve [facility]PO[facility] XZEK8711-39-90 20:49:00* Test Item Value Reference Range Interpretation Comme nts POCT PREG (test code = 1605) Positive On board controls acceptable with C Line (test code = 3574) Yes POCT PREG LOT # (test code = 3575) POCT PREG TEST DATE ( test code = 3576) [facility] HospitalVIT[facility]IN D, 25 IQ2631-13-46 07:56:44* Test Item Value Reference Range Interpretation Comme [facility] VITAMIN D, 25 OH (test code = [...] . . . NG/ML 30-100 TSH, THIRD NAOKRPTZAN2341-22-17 07:14:29* Test Item Value Reference Range Interpretation Comme nts TSH, THIRD GENERATION (test code = 2821) 0.468 UIU/ML 0.400-4.100 COMPREHENSIVE METABOLIC OKOUP7895-08-00 03:52:33* Test Item Value Reference Range Interpretation Comme nts GLUCOSE (test code = 2216) 92 MG/DL 70-99 BUN (test code = 2207) 12 MG/DL 6-20 CREATININE (test code = 2213) 0.60 MG/DL 0.50-1.10 eGFR (2020 CKD-EPI) (test code = 87098) 133 ML/MIN/1.73 >60 CALC BUN/CREAT (test code = 5) 20 RATIO 6-28 SODIUM (test code = 223) 138 MEQ/L 133-146 POTASSIUM (test code = 2228) 3.9 MEQ/L 3.5-5.4 CHLORIDE (test code = 2214) 104 MEQ/L 95-107 CARBON DIOXIDE (test code = 6) 24 MEQ/L 19-31 CALCIUM (test code = 2209) 9.6 MG/DL 8.5-10.5 PROTEIN, TOTAL (test code = 222) 7.5 G/DL 6.1-8.3 ALBUMIN (test code = 1) 5.0 G/DL 3.5-5.2 CALC GLOBULIN (test code = 2240) 2.5 G/DL 2.1-3.7 CALC A/G RATIO (test code = 2233) 2.0 RATIO 1.0-2.6 BILIRUBIN, TOTAL (test code = 2206) 0.6 MG/DL See_Comment [Automated me ssage] The system which generated this result transmitted reference range: <=1.2. The reference range was not used to interpret this result as normal/abnormal. ALKALINE PHOSPHATASE (test code = 4) 52 U/L 41-120 AST (test code = 2218) 12 U/L 9-40 ALT (test code = 2219) 9 U/L 5-40 UNLESS OTHERWISE INDICATED, ALL TESTING PERFORMED AT [facility] [address] [place] [address] R[employer] CUTTER LATHE OPERATOR: JOHN JONES M.D. CLIA NUMBER [id number] [facility] [place]. [id number] CBC W/AUTO DIFF WITH [id number] 03:31:33* Test Item Value Reference Range Interpretation [...] 0.00-0.10 ABS NUCLEATED RBCS (test code = 79628) 0.00 K/UL 0.00-0.11 CULTURE, [id number] 15:48:21SPECIMEN NUMBER: [id number] CULTURE, URINE SPECIMEN NUMBER: [id number] SPECIMEN COMMENT: URINE SOURCE: URINE REPORT STATUS: [...] MCG/ML. UNLESS OTHERWISE INDICATED, ALL TESTING PERFORMED [facility]. [address] [place] [address] RING CUTTER LATHE OPERATOR: REANNA DALLAS M.D. CLIA NUMBER [id number] [place]. [id number]/NG, NAAT, [id number] 16:51:08* Test Item Value Reference Range Interpretation Comme nts GONORRHEA, NAAT (test code = 77056) NEGATIVE NEGATIVE IMPORTANT NO NADER: SEE ANNOUNCEMENT AT [email or web address] Note: Assay methodology is nucleic acid amplification by fnp mediated amplification (TMA) utilizing the Aptima Combo 2 Assay. CHLAMYDIA, NAAT (test code = 80707) NEGATIVE NEGATIVE IMPORTANT NO NADER: SEE ANNOUNCEMENT AT [email or web address] Note: Assay methodology is nucleic acid amplification by fnp mediated amplification (TMA) utilizing the Aptima Combo 2 Assay. [id number] 04:44:32* Test Item Value Reference Range Interpretation Comme nts RPR RESULT (test code = 3501) NON-REACTIVE NON-REACTIVE RPR TITER (test code = 3500) NOT INDIC. TITER NOT INDIC. HIV 1/2 4TH GEN, RFLX [id number] 03:54:06* Test Item Value Reference Range Interpretation Comme nts HIV 1/2 4TH GEN, RFLX CONF ( test code = 3514) NON-REACTIVE NON-REACTIVE HEPATITIS PANEL, [id number] 03:54:06* Test Item Value Reference Range Interpretation Comme nts HEPATITIS A IgM (test code = 46501) NON-REACTIVE NON-REACTIVE HEPATITIS B CORE IgM (test code = 4644) NON-REACTIVE NON-REACTIVE HEPATITIS B SURF AG (test code = 2739) NON-REACTIVE NON-REACTIVE HEPATITIS C ANTIBODY (test code = 4675) NON-REACTIVE NON-REACTIVE INTERPRETATION HEPATITIS A: (test code = 2552) (NOTE) Hepatitis A sero logy shows no evidence of acute hepatitis A. INTERPRETATION HEPATITIS B: (test code = 19564) (NOTE) Hepatitis B sero logy shows no evidence of acute hepatitis B andno indication of exposure to hepatitis B virus in the previous daryl eight months. INTERPRETATION HEPATITIS C: (test code = 07883) (NOTE) Hepatitis C sero logy shows no evidence of exposure to hepatitisC virus at this time. It can take up to 12 months after exposure tothe hepatitis C virus for antibodies to become detectable in the blood in certain patients. UNLESS OTHERWISE INDICATED, ALL TESTING PERFORMED [facility] [address] [place] [address] RING CUTTER LATHE OPERATOR: REANNA DALLAS M.D. CLIA NUMBER [id number] [facility] [place]. [id number] SARS-CoV-2 (COVID-19), RT-PCR/[id number] 10:54:31* Test Item Value Reference Range Interpretation Comments SARS-CoV-2 INTERPRETATION (test code = 12563) NEGATIVE SEE NOTE SARS-CoV-2 R NA NOT [...] prevalence is high. SOURCE (test code = 49887) NASOPHARYNGEAL Note: Methodolog y is Manohar Roxanne Real-Time RT-PCR. The expected result or reference range is NEGATIVE (Not Detected). For more information regarding COVID-19 testing to include clinicalinformation, methodology detail, intended use, FDA authorization andrecommended fact sheets for patients or healthcare providers, see NewTest Announcement: SARS-CoV-2 (COVID-19) by NAAT at URL below (note,fact sheets are provided by method given in report:[email or web address] Alternatively, see downloadable PDF fact sheet at:[email or web address]-[place]-PCR UNLESS OTHERWISE INDICATED, ALL TESTING PERFORMED [facility] [employer] [address] [place] [address] RING CUTTER LATHE OPERATOR: REANNA DALLAS M.D. [place] NUMBER [id number] [facility] [place]. [id number] History and Physical Notes Date/Time Note Provider [...] details Christine Acosta MD 11/16/2023 8:15 AM [facility] [employer] 2023-10-01 07:44:52 TRIAGE HISTORY & PHYSICAL IDENTIFYING [...] ?C (99.1 ?F)] Temp source: Axillary (09/30 07) Pulse: [85-99] Resp: [15-18] SpO2: [98 %-100 [...] were obtained of the kidneys and bladder. [employer] images were obtained for the record. FINDINGS: [...] Summary for more details Christine Acosta MD [facility] Procedure Notes Date/Time Note Provider [...] WILI saline Guidance with: landmark technique} Epidural/Spinal [place] and/or Catheter: Needle Insertion Depth: 6 Catheter [...] Smooth cath adv. No H/C/P. AN-ANESTHESIOLOGY ANESTHESIOLOGIST [facility] 2023-11-16 08:18:01 Procedure(s): INSERT CERVICAL DILATOR Pre-Procedure Diagnose(s): 37 weeks gestation of ; Gestational hypertension, third trimester Post-Procedure Diagnose(s): 37 weeks gestation of ; Gestational hypertension, third trimester Hirsch bulb inserted in a sterile manner and inflated with 60 cc of normal saline without complications. Patient tolerated the procedure well. Christine Acosta MD #[id number] 11/16/2023 8:18 AM [facility]
--- NOTE | 2024-06-19 10:55 | ER ---
Nurse's Notes [facility] Maria Lt Name: Keira Hdez Age: 19 yrs Sex: Female : 2005 Arrival Date: 06/19/2024 Time: 10:21 Bed 15 Private MD: Diagnosis: Unspecified hemorrhoids Presentation: 06/19 10:38 Chief complaint: Patient states: no BM in 2 days, feels like something is stuck, feels iw like she has a hemorrhoid. Coronavirus screen: At this time, the client does not indicate any symptoms associated with coronavirus-19. Ebola Screen: No symptoms or risks identified at this time. Initial Sepsis Screen: Does the patient meet any 2 criteria? No. Patient's initial sepsis screen is negative. Does the patient have a suspected source of infection? No. Patient's initial sepsis screen is negative. Risk Assessment: Do you want to hurt yourself or someone else? Patient reports no desire to harm self or others. Onset of symptoms was June 17, 2024. 10:38 Method Of Arrival: Ambulatory iw 10:38 Acuity: JOVANY 3 iw [facility] CONSULTANT: 10:39 LMP 04/05/2024, unknown iw Historical: - Allergies: 10:39 No Known Allergies; iw - Home Meds: 10:39 None [Active]; iw - PMHx: 10:39 ADD/ADHD; iw - PSHx: 10:39 None; iw - Immunization history:: Adult Immunizations up to date. - Infectious Disease History:: Denies. - Social history:: Smoking status: . Screenin:25 [facility] ED Fall Risk Assessment (Adult) History of falling in the last 3 months, ph including since admission No falls in past 3 months (0 pts) Confusion or Disorientation No (0 pts) Intoxicated or Sedated No (0 pts) Impaired Gait No (0 pts) Mobility Assist Device Used No (0 pt) Altered Elimination No (0 pt) Score/Fall Risk Level 0 - 2 = Low Risk Oriented to surroundings, Maintained a safe environment, Hourly rounding (assess needs \T\ fall precautionary measures) done. Abuse screen: Denies threats or abuse. Denies injuries from another. Nutritional screening: No deficits noted. Tuberculosis screening: No symptoms or risk factors identified. Assessment: 11:24 General: Appears in no apparent distress. well groomed, Behavior is calm, cooperative. ph Pain: Complains of pain in buttocks. Neuro: Level of Consciousness is awake, alert, obeys commands, Oriented to person, place, time, situation. Cardiovascular: Capillary refill < 3 seconds in bilateral fingers Patient's skin is warm and dry. Respiratory: Airway is patent Respiratory effort is even, unlabored, Respiratory pattern is regular, symmetrical. GI: Abdomen is non-distended, Bowel sounds present X 4 quads. Abd is soft and non tender X 4 quads. Reports constipation, hemorrhoids. Derm: Skin is pink, warm \T\ dry. Vital Signs: 10:38 BP 135 / 80; Pulse 95; Resp 16; Temp 98.1; Pulse Ox 99% on R/A; Weight 61.69 kg; Height iw 5 ft. 5 in. ; Pain 8/10; 10:38 Body Mass Index 22.63 (61.69 kg, 165.1 cm) iw 10:38 Pain Scale: Adult ED Course: 10:23 Patient arrived in ED. ra3 10:24 Uche Angeles MD is Attending Physician. ec2 10:39 Triage completed. iw 10:39 Arm band placed on. iw 10:40 Kimberley Garcia, RN is Primary Nurse. 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 ph 11:29 Patient has correct armband on for positive identification. Bed in low position. Call ph light in reach. Side rails up X 1. 11:29 Patient did not have IV access during this emergency room visit. ph Administered Medications: No medications were administered Medication: 11:28 VIS not applicable for this client. ph Outcome: 10:55 Discharge ordered by . ec2 11:29 Discharged to home ambulatory, ph 11:29 Condition: good 11:29 Discharge instructions given to patient, Instructed on discharge instructions, follow up and referral plans. medication usage, Demonstrated understanding of instructions, follow-up care, medications, Prescriptions given X 2, 11:29 Patient left the ED. ph Signatures: Mary Chance, KAL RN Kimberley Garcia RN RN ph Uche Angeles MD MD ec2 Susie Mcdonald ra3 Corrections: (The following items were deleted from the chart) 10:39 10:39 Allergies: Aspirin; iw iw
--- NOTE | 2024-06-19 10:56 | EDPHYS ---
Physician Documentation [facility] Maria L Name: Keira Hdez Age: 19 yrs Sex: Female : 2005 Arrival Date: 06/19/2024 Time: 10:21 Bed 15 Private MD: ED Physician Uche Angeles HPI: 06/19 10:55 This 19 yrs old Female presents to ER via Ambulatory with complaints of ec2 Constipation - 10 wks preg. 10:55 Patient arrives today due to feeling masses on her rectum. Also with constipation and ec2 pain with defecation. No significant abdominal pain, no nausea or vomiting. Is 10 weeks otherwise has no concerns.. 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 - Infectious Disease History:: Denies. - Social history:: Smoking status: . ROS: 10:55 Constitutional: as per hpi ec2 Exam: 10:55 Constitutional: GEN: NAD Head: atraumatic Eyes: EOMI Ears: External ears are ec2 normal. CV: regular rate LUNGS: no respiratory distress ABD: non-distended. : Performed under nurse supervision, MARLENE RN, superficial nonthrombosed hemorrhoids x 2 noted. No bleeding SKIN: no evidence of rashes MSK: no evidence of trauma Vital Signs: 10:38 BP 135 / 80; Pulse 95; Resp 16; Temp 98.1; Pulse Ox 99% on R/A; Weight 61.69 kg; Height iw 5 ft. 5 in. ; Pain 8/10; 10:38 Body Mass Index 22.63 (61.69 kg, 165.1 cm) iw 10:38 Pain Scale: Adult iw MDM: 10:27 Medical Screening Exam initiated ec2 10:55 Data reviewed: vital signs, nurses notes. ED course: Patient arrives today for ec2 constipation and rectal masses. Examination yields hemorrhoids. Will prescribe the patient Anusol, instructed on fiber and MiraLAX. Will discharge home. Return precautions given.. Administered Medications: No medications were administered Disposition Summary: 06/19/24 10:55 Discharge Ordered Notes: Location: Home ec2 Condition: Stable ec2 Diagnosis - Unspecified hemorrhoids ec2 Followup: ec2 - With: Private Physician - When: - Reason: Re-evaluation by your physician Discharge Instructions: - Discharge Summary Sheet ec2 - Hemorrhoids, [id number] ec2 Forms: - Medication Reconciliation Form ec2 - Antibiotic Education ec2 - Prescription Opioid Use ec2 - Patient Portal Instructions ec2 - Leadership Thank You Letter ec2 Prescriptions: - polyethylene glycol 3350 17 gram/dose Oral powder - take 17 gram ORAL route daily; 238 gram; Refills: 0, Product Selection Permittedec2 - Anusol-HC 25 mg Rectal Suppository - insert 1 suppository RECTAL route every 12 hours As needed; 20 suppository; ec2 Refills: 0, Product Selection Permitted Signatures: Mary Chance RN RN iw Uche Angeles MD MD ec2 Corrections: (The following items were deleted from the chart) 10:39 10:39 Allergies: Aspirin; iw iw
[2024-06-19 11:34] VITALS: BP 135/80; TEMP 98.1; O2SAT 99
== END 2024-06-19 11:29 | disposition home or self-care (01) ==
LOC: ER 10:21
DX: O22.41 Hemorrhoids in pregnancy, first trimester (principal); Z3A.10 10 weeks gestation of pregnancy
CPT/HCPCS: 99283

== ENCOUNTER 2024-08-10 11:43 | Emergency (ER) | payer OTHER, SELFPAY ==
--- OUTSIDE RECORDS SUMMARY | 2024-08-10 11:49 | XMS REPORT | Continuity of Care Document ---
Author Name Unknown Address [address] [facility] [address] [place] [address] [facility] thconnect Address [address] [facility] [place] [address] Care Team Providers Care Library Technician Name Role Phone Pcp, Patient Does Not Have A Primary Care Physic cheyanne Kelly [place] Attending Clinician Unavailable Susana Noel Attending Clinician Unavailable CHRISTINE ACOSTA Attending Clinician Unavailable CHRISTINE ACOSTA Attending Clinician Unavailable WOODY HOOD Attending Clinician Unavailable Doctor Unassigned, [place] Attending Clinician [place] [id number], [facility] Attending Clinician Unavailable Christine Acosta MD Attending Clinician [phone] Woody Hood DNP Attending Clinician [phone] Nallely Gamble RN Attending Clinician Unavailevon Alvarez RN, Tomasa Patrick Attending Clinician UnavailAZRA Hilario Attending Clinician Unavailable AZRA DSOUZA Attending Clinician Unavailable Nurse, [facility] Attending Clinician Un available Alka Koby HENRIQUEZ Attending Clinician [phone] Doctor Unassigned, [place] Attending Clinician U navailable Sukhwinder Junior DO Attending Clinician [phone]- [phone] Javier Morales MD Attending Clinician [phone]- [phone] Nurse, Jaleesa [facility] Attending Clinician Unavailable Pcp, Patient Does Not Have A Attending Clinician Lab, Geovanny Pfeiffer Attending Clinician Unavailable WILD JAVED Attending Clinician Unavailable Wild Javed MD Attending Clinician [phone] MAINE GODINEZ Attending Clinician MAINE Young Attending Clinician Alexus Wood Attending Clinician [phone] SEAN CARSON Attending Clinician Unav ailable Ultrasound, Rodrilive Attending Clinician UnavailSean Porter MD Attending Clinician + Nava BOWDEN, Ruchi Mancini Attending Clinician Unavailable RADIOLOGY Attending Clinician Unavailable Radiology Attending Clinician Unavailable OLIVERIO ALY Attending Clinician Unavail able Nurse, [facility] Immunization Attending Clinician Unavailable Oliverio Aly DO Attending Clinician [phone] [facility], [facility] Attending Clinician Unav ailable So Covarrubias Attending Clinician [phone] Edilma BOWDEN, Krystin Attending Clinician Unavailable Ron Santacruz Attending Clinician [phone] RON PRITCHARD Attending Clinician Unavailable MAINE GODINEZ Admitting Clinician CHRISTINE Grace Admitting Clinician Unavailable AZRA DSOUZA Admitting Clinician Unavailable WEST, PATITO Admitting Clinician Unavailable Payers Payer Name Policy Type Policy Number Effective Date Expirati on Date Source [place] [employer] [id number] 2023 00:00:00 KEVEN BATEMAN [id number] 2024 00:00:00 [facility] Elza/ NEGRITA ANDERSON [id number] 2023 00:00:00 2023 00:00:00 [place] [id number] [facility] Problems Condition Name Condition Details Condition Category Status Onset Date Resolution Date Last Treatment Date Treating Clinician Comments Source Normal in second trimester Normal in second trimester Disease Active 2023-06 00:00: 00 [facility] Nausea and vomiting during prior to 22 weeks gestation Nausea and vomiting during prior to 22 weeks gestation Disease Active 2023-06 00:00: 00 [facility] History of anxiety History of anxiety Disease Active 12-19 00:00: 00 [facility] History of depression History of depression Disease Active 12-19 00:00: 00 [facility] 30 weeks gestation of 30 weeks gestation of Disease Active 08 00:00: 00 [facility] Normal in third trimester Normal in third trimester Disease Active 2022-06 00:00: 00 [facility] Short interval between pregnancie s complicati ng , antepartum Short interval between pregnancie s complicati ng , antepartum Disease Active 2022-06 00:00: 00 [facility] Nausea and vomiting during prior to 22 weeks gestation Nausea and vomiting during prior to 22 weeks gestation Disease Active 2022-06 00:00: 00 [facility] [id number] Problem Active [facility] No known active problems No known active problems Disease [facility] Nexplanon in place Nexplanon in place Disease Resolve d 2023-0 6-27 00:00: 00 2024-06-04 00:00:00 2024-06-04 17:33:30 [facility] Anemia, antepartum , third trimester Anemia, antepartum , third trimester Disease Resolve d 2023-0 5-24 00:00: 00 2024-06-04 00:00:00 2024-06-04 17:33:24 [facility] Liveborn infant, of vidal , born in hospital by vaginal delivery Liveborn , of vidal , born in hospital by vaginal delivery Disease Resolve d 2023-0 5-25 00:00: 00 2023-12-20 00:00:00 2023-12-20 11:46:24 [facility] Right flank pain Right flank pain Disease Resolve d 4-08 00:00: 00 2023-12-20 00:00:00 2023-12-20 11:46:22 [facility] 37 weeks gestation of 37 weeks gestation of Disease Resolve d 4-08 00:00: 00 2023-12-20 00:00:00 2023-12-20 11:46:23 [facility] High-risk in third trimester High-risk in third trimester Disease Resolve d 2022-06 1-10 00:00: 00 2023-12-20 00:00:00 2023-12-20 11:46:18 [facility] Gestationa l hypertensi on, third trimester Gestationa l hypertensi on, third trimester Disease Resolve d 2022-06 1-10 00:00: 2023-12-20 00:00:00 2023-12-20 11:46:21 [facility] Allergies, Adverse Reactions, Alerts Allergy Name Allergy Type Status Severity Reaction(s) Onset Date Inactive Date Treating Clinician Comments Source NO KNOWN ALLERGIE S Drug Class Active [facility] Social History Social Habit Start Date Stop Date Quantity Comments Source ASSERTION 2024-04-19 00:00:00 [facility] Exposure to SARS-CoV-2 (event) Not sure [facility] Gender identity [facility] History of Tobacco Use [facility] Alcoholic beverage intake 2024-07-28 00:00:00 2024-07-28 00:00:00 Ex-drinker (finding) [facility] History of Social function 2024-07-28 00:00:00 2024-07-28 00:00:00 [facility] Tobacco use and exposure 2020-02-03 00:00:00 2020-02-03 00:00:00 Smokeless tobacco non-user [facility] Smoking Status Start Date Stop Date Source Never smoked tobacco [facility] Medications Ordered Medication Name Filled Medication Name Start Date Stop Date Current Medication? Ordering Clinician Indication Dosage Frequency Signature (SIG) Comments Components Source amoxicillin 875 mg tablet 2023-06 00:00: 00 06-27 05:59 :00 Yes [id number] 875mg Take 1 tablet by mouth in the morning and 1 tablet in the evening. Do all this for 7 days. [facility] metoclopram deejay HCl 10 mg tablet 2023-06 00:00: 00 Yes [id number] 10mg Take 1 tablet by mouth every 6 (six) hours as needed for Nausea and Vomiting (N/V). [facility] etonogestre L (NEXPLANON) implant 68 mg 12-19 18:00: 00 12-19 17:15 :00 No [id number] 68mg 68 mg, Subdermal, ONCE NOW, 1 dose, On Patito 12/20/23 at 1300, Routine, Use approved by: [employer] [facility] hydroCHLORO thiazide 25 mg tablet 11-20 00:00: 00 06-03 00:00 :00 No 25mg Take 1 tablet by mouth in the morning. [facility] furosemide (LASIX) tablet 20 mg 11-17 18:00: 00 11-17 18:05 :00 No 20mg 20 mg, Oral, ONCE, 1 dose, On Beyer 11/18/23 at 1300, Routine [facility] vitamin w/FA tablet 11-17 00:00: 00 Yes [id number] 102 1{tbl} Take 1 tablet by mouth in the morning. [facility] docusate 100 mg capsule 11-17 00:00: 00 06-03 00:00 :00 No [id number] 102 200mg Take 2 capsules by mouth once daily as needed for Constipati on. [facility] ferrous sulfate 325 mg (65 mg iron) tablet 11-17 00:00: 00 06-03 00:00 :00 No [id number] 102 325mg Take 1 tablet by mouth in the morning. [facility] ibuprofen 800 mg tablet 11-17 00:00: 00 06-03 00:00 :00 No [id number] 102 800mg Take 1 tablet by mouth every 8 (eight) hours as needed (pain). Take with food or milk. [facility] witch Nabor (TUCKS) 50 % topical pad 11-16 11:05: 07 Yes [facility] rho(D) immune globulin (HYPERRHO/R HOGAM) syringe 300 mcg 11-16 05:58: 50 Yes 300ug [facility] HYDROcodone -acetaminop hen (NORCO 5) 5-325 mg tablet 1 tablet 11-16 05:58: 47 Yes 1{tbl} 1 tablet, Oral, Q6HPRN, Starting on 11/17/23 at 0058, Until Discontinu ed, Routine, Pain (scale 7-10) [facility] ibuprofen (IBU) tablet 600 mg 11-16 05:58: 47 Yes 600mg 600 mg, Oral, Q6HPRN, Starting on 11/17/23 at 0058, Until Discontinu ed, Routine, Pain (scale 4-6) [facility] acetaminoph en (TYLENOL) tablet 650 mg 11-16 05:58: 47 Yes 650mg 650 mg, Oral, Q6HPRN, Starting on 11/17/23 at 0058, Until Discontinu ed, Routine, Pain (scale 1-3) [facility] diphenhydrA MINE (BENADRYL) tablet 25 mg 11-16 05:58: 47 Yes 25mg [facility] ondansetron (ZOFRAN (PF)) injection 4 mg 11-16 05:58: 47 Yes 4mg [facility] simethicone (GAS RELIEF (SIMETHICON E)) chewable tablet 160 mg 11-16 05:58: 47 Yes 160mg [facility] docusate (COLACE) capsule 200 mg 11-16 05:58: 47 Yes 200mg 200 mg, Oral, QDAILYPRN, Starting on Sun11/17/23 at 0058, Until Discontinu ed, Routine, Constipati on [facility] magnesium hydroxide (MILK OF MAGNESIA) 400 mg/5 mL suspension 30 mL 11-16 05:58: 47 Yes 30mL [facility] benzocaine- menthol (DERMOPLAST ) 20-0.5 % topical spray 11-16 05:58: 47 Yes Topical, PRN, Starting on Sun11/17/23 at 0058, Until Discontinu ed, Routine, Perineum discomfort [facility] gentamicin 300 mg in NaCl 0.9% (NS) 250 mL IV infusion 11-16 03:30: 00 11-16 05:02 :00 No 5mg/kg 300 mg (rounded from 296.5 mg = 5 mg/kg ?59.3 kg Dike weight), IV Infusion, ONCE, 1 dose, On Sun11/16/23 at 2230, Administer over 60 Minutes, 250 mL, Reason for Anti-Infec tive: Empiric Therapy for Suspected Infection, Empiric Therapy Site: Other, Other site: suspected chorioamni onitis, Duration of therapy: Once (ED) [facility] ampicillin (POLYCILLIN -N) 2,000 mg in [...] chorioamni onitis, Duration of therapy: 72 hours [facility] oxytocin (PITOCIN) 30 units in NS 500 mL IV infusion 11-15 22:09: 31 11-16 11:05 :07 No 2mU/min at 2-40 mL/hr, IV Infusion, TITRATE, Starting on Sun11/16/23 at 1709, Until Sun11/17/23 at 0605, JOANIE [facility] fentaNYL-ro pivacaine 2 mcg/mL-0.1 % (PF) in NS 200 mL epidural infusion RTU 11-15 19:35: 00 11-16 09:28 :40 No Intra-op [facility] lidocaine-e pinephrine (XYLOCAINE W/EPINEPHRI NE) 1.5 %-1:200,000 injection 11-15 19:30: 00 11-16 09:28 :40 No Epidural, ONCE INTRA PROCEDURE, Starting on Sun11/16/23 at 1430, Until 11/17/23 at 0428, Routine, Intra-op [facility] misoprostol (CYTOTEC) quarter-tab let 25 mcg 11-15 05:15: 34 11-16 11:05 :07 No 25ug 25 mcg, Vaginal, Q4H ABX, First dose on Sun11/16/23 at 0030, Until Discontinu ed, Routine [facility] FENTanyl PF (SUBLIMAZE (PF)) injection 50 mcg 11-15 05:15: 34 11-16 11:05 :07 No 50ug 50 mcg, Slow IV Push, Q2HPRN, Starting on Sun11/16/23 at 0015, Until 11/17/23 at 0605, Routine, contractio n pain without an epidural and SVE < 8 cm and Cat I strip [facility] misoprostol (CYTOTEC) quarter-tab let 25 mcg 11-15 05:00: 00 11-15 05:36 :00 No 25ug 25 mcg, Oral, ONCE, 1 dose, On Sun11/16/23 at 0000, Routine [facility] D5W-LR IV infusion 1,000 mL 11-15 04:55: 35 11-18 12:03 :57 No 1000mL at 1-125 mL/hr, IV Infusion, TITRATE, Starting on Patito 11/15/23 at 2355, Until 11/19/23 at 0703, Routine [facility] FENTanyl PF (SUBLIMAZE (PF)) injection 50 mcg 11-10 06:08: 18 Yes 50ug 50 mcg, Intramuscu lar, PRN, Starting on Sun11/11/23 at 0108, Until Discontinu ed, Routine, Pain (scale 7-10) [facility] proMETHazin e (PHENERGAN) injection 25 mg 11-10 06:03: 41 11-11 04:59 :00 No 25mg 25 mg, Intramuscu lar, ONCE PRN, 1 dose, Starting on Sun11/11/23 at 0103, Until Sun11/11/23 at 2359, Routine, Nausea and Vomiting (N/V), Does the patient have PO or IV access? No [facility] metroNIDAZO LE (FLAGYL) tablet 500 mg 11-06 21:45: 00 11-06 21:10 :00 No 500mg 500 mg, Oral, ONCE, 1 dose, On Sun11/07/23 at 1645, Routine, Reason for Anti-Infec tive: Documented Infection, Documented Infection Site: Other, Other site: BV, Duration of Therapy: Once (ED) [facility] metroNIDAZO LE 500 mg tablet 11-06 00:00: 00 11-17 00:00 :00 No [id number] 500mg Take 1 tablet by mouth every 12 (twelve) hours. [facility] amoxicillin 875 mg tablet 11-06 00:00: 00 11-08 00:00 :00 No [id number] 875mg Take 1 tablet by mouth in the morning and 1 tablet in the evening. Do all this for 7 days. [facility] buPROPion SR 150 mg SR tablet 11-01 08:04: 03 11-17 00:00 :00 No 1 tablet in the morning Orally Once a day [facility] omeprazole 20 mg capsule 11-01 08:04: 03 11-17 00:00 :00 No 1 capsule 30 minutes before morning meal Orally Once a day for 30 day(s) [facility] acetaminoph en (TYLENOL) tablet 650 mg 09-30 01:00: 00 09-30 00:57 :00 No 650mg 650 mg, Oral, ONCE, 1 dose, On 09/30/23 at 2000, JOANIE [facility] PNV no.95/okki us fum/folic ac ( ORAL) 3 12:04: 08 Yes Take by mouth. [facility] PNV no.95/koki us fum/folic ac ( ORAL) 3- 11:56: 12 Yes Take by mouth. [facility] PNV no.95/koki us fum/folic ac ( ORAL) 07-27 11:55: 51 Yes Take by mouth. [facility] PNV no.95/koki us fum/folic ac ( ORAL) 2022-06 14:48: 24 11-17 00:00 :00 No Take by mouth. [facility] pyridoxine, VITAMIN B-6, (VITAMIN B-6) 25 mg tablet 2022-06 00:00: 00 11-08 00:00 :00 No [id number] 25mg Take 1 tablet by mouth every 6 (six) hours as needed for Nausea and Vomiting (N/V). [facility] doxylamine (UNISOM, DOXYLAMINE, ) 25 mg tablet 2022-06 00:00: 00 11-08 00:00 :00 No [id number] 25mg Take 1 tablet by mouth at bedtime as needed for Nausea and Vomiting (N/V). [facility] acetaminoph en (TYLENOL) tablet 650 mg 02-02 15:00: 00 02-02 14:05 :00 No [id number] 650mg [facility] No known medications 02-02 09:18: 40 No [facility] maalox:diph enhydrAMINE :lidocaine 2 % viscous 1:1:1 02-02 00:00: 00 02-08 04:59 :00 No [id number] 10mL Take 10 mL by mouth as needed (Swish and spit) for up to 5 days. [facility] Lessmukesh Lessina 2019-0 5-17 00:00: 00 Yes Susana Noel 1 tablet [facility] Levonorgest rel-Ethinyl Estrad Levonorgest rel-Ethinyl Estrad Yes Susana Noel TAKE 1 TABLET BY MOUTH EVERY DAY [facility] No Known Medications No Known Medications No [facility] No known medications No Un hetal [facility] No known medications No Un hetal [facility] Immunizations Ordered Immunization Name Filled Immunization Name Date Status Comments Source Flu Injectable MDCK Pres-Free (FLUCELVAX) 2024-06-02 00:00:00 Completed [facility] TDAP 2023-09-21 00:00:00 Completed [facility] Influenza Virus Vaccine Quad IM, Preserv and ABX Free 6 MO-64 YRS (FLUCELVAX) 2023-06-01 00:00:00 Completed [facility] Pfizer COVID-19 Vaccine Pfizer COVID-19 Vaccine 2021-02-23 13:21:00 Completed [facility] SARS-COV-2 COVID-19 PFIZER VACCINE 2021-02-23 00:00:00 Completed [facility] SARS-COV-2 COVID-19 PFIZER VACCINE 2021-02-23 00:00:00 Completed [facility] SARS-COV-2 COVID-19 PFIZER VACCINE 2021-02-23 00:00:00 Completed [facility] Pfizer COVID-19 Vaccine Pfizer COVID-19 Vaccine 2021-02-02 13:20:00 Completed [facility] SARS-COV-2 COVID-19 PFIZER VACCINE 2021-02-02 00:00:00 Completed [facility] SARS-COV-2 COVID-19 PFIZER VACCINE 2021-02-02 00:00:00 Completed [facility] SARS-COV-2 COVID-19 PFIZER VACCINE 2021-02-02 00:00:00 Completed [facility] SARS-COV-2 COVID-19 PFIZER VACCINE 2021-02-02 00:00:00 Completed [facility] Depo-Provera (Medroxyprogesteron e ac) Depo-Provera (Medroxyprogestero ne ac) 2019-06-24 11:27:00 Completed [facility] Depo-Provera (Medroxyprogesteron e ac) Depo-Provera (Medroxyprogestero ne ac) 2019-04-08 12:00:00 Completed [facility] SARS-COV-2 COVID-19 PFIZER VACCINE Unknown Completed [facility] Influenza Virus Vaccine Quad IM, Preserv and ABX Free 6 MO-64 YRS (FLUCELVAX) Unknown Completed [facility] TDAP Unknown Completed [facility] SARS-COV-2 COVID-19 PFIZER VACCINE Unknown Completed [facility] Influenza Virus Vaccine Quad IM, Preserv and ABX Free 6 MO-64 YRS (FLUCELVAX) Unknown Completed [facility] TDAP Unknown Completed [facility] SARS-COV-2 COVID-19 PFIZER VACCINE Unknown Completed [facility] Influenza Virus Vaccine Quad IM, Preserv and ABX Free 6 MO-64 YRS (FLUCELVAX) Unknown Completed [facility] TDAP Unknown Completed [facility] SARS-COV-2 COVID-19 PFIZER VACCINE Unknown Completed [facility] Influenza Virus Vaccine Quad IM, Preserv and ABX Free 6 MO-64 YRS (FLUCELVAX) Unknown Completed [facility] TDAP Unknown Completed [facility] SARS-COV-2 COVID-19 PFIZER VACCINE Unknown Completed [facility] SARS-COV-2 COVID-19 PFIZER VACCINE Unknown Completed [facility] SARS-COV-2 COVID-19 PFIZER VACCINE Unknown Completed [facility] SARS-COV-2 COVID-19 PFIZER VACCINE Unknown Completed [facility] SARS-COV-2 COVID-19 PFIZER VACCINE Unknown Completed [facility] Influenza Virus Vaccine Quad IM, Preserv and ABX Free 6 MO-64 YRS (FLUCELVAX) Unknown Completed [facility] SARS-COV-2 COVID-19 PFIZER VACCINE Unknown Completed [facility] SARS-COV-2 COVID-19 PFIZER VACCINE Unknown Completed [facility] SARS-COV-2 COVID-19 PFIZER VACCINE Unknown Completed [facility] Influenza Virus Vaccine Quad IM, Preserv and ABX Free 6 MO-64 YRS (FLUCELVAX) Unknown Completed [facility] SARS-COV-2 COVID-19 PFIZER VACCINE Unknown Completed [facility] Influenza Virus Vaccine Quad IM, Preserv and ABX Free 6 MO-64 YRS (FLUCELVAX) Unknown Completed [facility] SARS-COV-2 COVID-19 PFIZER VACCINE Unknown Completed [facility] Influenza Virus Vaccine Quad IM, Preserv and ABX Free 6 MO-64 YRS (FLUCELVAX) Unknown Completed [facility] SARS-COV-2 COVID-19 PFIZER VACCINE Unknown Completed [facility] Influenza Virus Vaccine Quad IM, Preserv and ABX Free 6 MO-64 YRS (FLUCELVAX) Unknown Completed [facility] SARS-COV-2 COVID-19 PFIZER VACCINE Unknown Completed [facility] Influenza Virus Vaccine Quad IM, Preserv and ABX Free 6 MO-64 YRS (FLUCELVAX) Unknown Completed [facility] SARS-COV-2 COVID-19 PFIZER VACCINE Unknown Completed [facility] Influenza Virus Vaccine Quad IM, Preserv and ABX Free 6 MO-64 YRS (FLUCELVAX) Unknown Completed [facility] SARS-COV-2 COVID-19 PFIZER VACCINE Unknown Completed [facility] Influenza Virus Vaccine Quad IM, Preserv and ABX Free 6 MO-64 YRS (FLUCELVAX) Unknown Completed [facility] SARS-COV-2 COVID-19 PFIZER VACCINE Unknown Completed [facility] Influenza Virus Vaccine Quad IM, Preserv and ABX Free 6 MO-64 YRS (FLUCELVAX) Unknown Completed [facility] Influenza Virus Vaccine Quad IM, Preserv and ABX Free 6 MO-64 YRS (FLUCELVAX) Unknown Completed [facility] SARS-COV-2 COVID-19 PFIZER VACCINE Unknown Completed [facility] Influenza Virus Vaccine Quad IM, Preserv and ABX Free 6 MO-64 YRS (FLUCELVAX) Unknown Completed [facility] TDAP Unknown Completed [facility] SARS-COV-2 COVID-19 PFIZER VACCINE Unknown Completed [facility] SARS-COV-2 COVID-19 PFIZER VACCINE Unknown Completed [facility] Influenza Virus Vaccine Quad IM, Preserv and ABX Free 6 MO-64 YRS (FLUCELVAX) Unknown Completed [facility] TDAP Unknown Completed [facility] SARS-COV-2 COVID-19 PFIZER VACCINE Unknown Completed [facility] Influenza Virus Vaccine Quad IM, Preserv and ABX Free 6 MO-64 YRS (FLUCELVAX) Unknown Completed [facility] TDAP Unknown Completed [facility] SARS-COV-2 COVID-19 PFIZER VACCINE Unknown Completed [facility] Influenza Virus Vaccine Quad IM, Preserv and ABX Free 6 MO-64 YRS (FLUCELVAX) Unknown Completed [facility] TDAP Unknown Completed [facility] SARS-COV-2 COVID-19 PFIZER VACCINE Unknown Completed [facility] Influenza Virus Vaccine Quad IM, Preserv and ABX Free 6 MO-64 YRS (FLUCELVAX) Unknown Completed [facility] TDAP Unknown Completed [facility] SARS-COV-2 COVID-19 PFIZER VACCINE Unknown Completed [facility] Influenza Virus Vaccine Quad IM, Preserv and ABX Free 6 MO-64 YRS (FLUCELVAX) Unknown Completed [facility] TDAP Unknown Completed [facility] Influenza Virus Vaccine Quad IM, Preserv and ABX Free 6 MO-64 YRS (FLUCELVAX) Unknown Completed [facility] TDAP Unknown Completed [facility] SARS-COV-2 COVID-19 PFIZER VACCINE Unknown Completed [facility] SARS-COV-2 COVID-19 PFIZER VACCINE Unknown Completed [facility] Influenza Virus Vaccine Quad IM, Preserv and ABX Free 6 MO-64 YRS (FLUCELVAX) Unknown Completed [facility] TDAP Unknown Completed [facility] SARS-COV-2 COVID-19 PFIZER VACCINE Unknown Completed [facility] Influenza Virus Vaccine Quad IM, Preserv and ABX Free 6 MO-64 YRS (FLUCELVAX) Unknown Completed [facility] TDAP Unknown Completed [facility] SARS-COV-2 COVID-19 PFIZER VACCINE Unknown Completed [facility] Influenza Virus Vaccine Quad IM, Preserv and ABX Free 6 MO-64 YRS (FLUCELVAX) Unknown Completed [facility] TDAP Unknown Completed [facility] SARS-COV-2 COVID-19 PFIZER VACCINE Unknown Completed [facility] Influenza Virus Vaccine Quad IM, Preserv and ABX Free 6 MO-64 YRS (FLUCELVAX) Unknown Completed [facility] TDAP Unknown Completed [facility] SARS-COV-2 COVID-19 PFIZER VACCINE Unknown Completed [facility] Influenza Virus Vaccine Quad IM, Preserv and ABX Free 6 MO-64 YRS (FLUCELVAX) Unknown Completed [facility] TDAP Unknown Completed [facility] SARS-COV-2 COVID-19 PFIZER VACCINE Unknown Completed [facility] Influenza Virus Vaccine Quad IM, Preserv and ABX Free 6 MO-64 YRS (FLUCELVAX) Unknown Completed [facility] TDAP Unknown Completed [facility] SARS-COV-2 COVID-19 PFIZER VACCINE Unknown Completed [facility] Influenza Virus Vaccine Quad IM, Preserv and ABX Free 6 MO-64 YRS (FLUCELVAX) Unknown Completed [facility] TDAP Unknown Completed [facility] SARS-COV-2 COVID-19 PFIZER VACCINE Unknown Completed [facility] Influenza Virus Vaccine Quad IM, Preserv and ABX Free 6 MO-64 YRS (FLUCELVAX) Unknown Completed [facility] TDAP Unknown Completed [facility] Influenza Virus Vaccine Quad IM, Preserv and ABX Free 6 MO-64 YRS (FLUCELVAX) Unknown Completed [facility] TDAP Unknown Completed [facility] SARS-COV-2 COVID-19 PFIZER VACCINE Unknown Completed [facility] SARS-COV-2 COVID-19 PFIZER VACCINE Unknown Completed [facility] Influenza Virus Vaccine Quad IM, Preserv and ABX Free 6 MO-64 YRS (FLUCELVAX) Unknown Completed [facility] TDAP Unknown Completed [facility] SARS-COV-2 COVID-19 PFIZER VACCINE Unknown Completed [facility] Influenza Virus Vaccine Quad IM, Preserv and ABX Free 6 MO-64 YRS (FLUCELVAX) Unknown Completed [facility] TDAP Unknown Completed [facility] SARS-COV-2 COVID-19 PFIZER VACCINE Unknown Completed [facility] Influenza Virus Vaccine Quad IM, Preserv and ABX Free 6 MO-64 YRS (FLUCELVAX) Unknown Completed [facility] TDAP Unknown Completed [facility] SARS-COV-2 COVID-19 PFIZER VACCINE Unknown Completed [facility] Influenza Virus Vaccine Quad IM, Preserv and ABX Free 6 MO-64 YRS (FLUCELVAX) Unknown Completed [facility] TDAP Unknown Completed [facility] SARS-COV-2 COVID-19 PFIZER VACCINE Unknown Completed [facility] Influenza Virus Vaccine Quad IM, Preserv and ABX Free 6 MO-64 YRS (FLUCELVAX) Unknown Completed [facility] TDAP Unknown Completed [facility] Influenza Virus Vaccine Quad IM, Preserv and ABX Free 6 MO-64 YRS (FLUCELVAX) Unknown Completed [facility] TDAP Unknown Completed [facility] SARS-COV-2 COVID-19 PFIZER VACCINE Unknown Completed [facility] SARS-COV-2 COVID-19 PFIZER VACCINE Unknown Completed [facility] Influenza Virus Vaccine Quad IM, Preserv and ABX Free 6 MO-64 YRS (FLUCELVAX) Unknown Completed [facility] TDAP Unknown Completed [facility] SARS-COV-2 COVID-19 PFIZER VACCINE Unknown Completed [facility] Influenza Virus Vaccine Quad IM, Preserv and ABX Free 6 MO-64 YRS (FLUCELVAX) Unknown Completed [facility] TDAP Unknown Completed [facility] SARS-COV-2 COVID-19 PFIZER VACCINE Unknown Completed [facility] Influenza Virus Vaccine Quad IM, Preserv and ABX Free 6 MO-64 YRS (FLUCELVAX) Unknown Completed [facility] TDAP Unknown Completed [facility] Vital Signs Vital Name Observation Time Observation Value Comments S ource Systolic blood pressure 2024-07-28 19:07:00 113 mm[Hg] [facility] Diastolic blood pressure 2024-07-28 19:07:00 70 mm[Hg] [facility] Heart rate 2024-07-28 19:07:00 94 /min [facility] Body temperature 2024-07-28 19:07:00 36.78 Melissa [facility] Respiratory rate 2024-07-28 19:07:00 18 /min [facility] Body height 2024-07-28 19:07:00 165.1 cm [facility] Body weight 2024-07-28 19:07:00 61.054 kg [facility] BMI 2024-07-28 19:07:00 22.40 kg/m2 [facility] Systolic blood pressure 2024-07-04 17:55:00 120 mm[Hg] [facility] Diastolic blood pressure 2024-07-04 17:55:00 73 mm[Hg] [facility] Heart rate 2024-07-04 17:55:00 92 /min [facility] Body temperature 2024-07-04 17:55:00 36.78 Melissa [facility] Respiratory rate 2024-07-04 17:55:00 18 /min [facility] Body height 2024-07-04 17:55:00 165.1 cm [facility] Body weight 2024-07-04 17:55:00 62.143 kg [facility] BMI 2024-07-04 17:55:00 22.80 kg/m2 [facility] Systolic blood pressure 2024-06-02 20:52:00 116 mm[Hg] [facility] Diastolic blood pressure 2024-06-02 20:52:00 71 mm[Hg] [facility] Heart rate 2024-06-02 20:52:00 90 /min [facility] Body temperature 2024-06-02 20:52:00 36.67 Melissa [facility] Respiratory rate 2024-06-02 20:52:00 18 /min [facility] Body height 2024-06-02 20:52:00 165.1 cm [facility] Body weight 2024-06-02 20:52:00 62.506 kg [facility] BMI 2024-06-02 20:52:00 22.93 kg/m2 [facility] Systolic blood pressure 2023-12-20 16:50:00 124 mm[Hg] [facility] Diastolic blood pressure 2023-12-20 16:50:00 86 mm[Hg] [facility] Heart rate 2023-12-20 16:50:00 74 /min [facility] Body temperature 2023-12-20 16:50:00 36.28 Melissa [facility] Body height 2023-12-20 16:50:00 167.6 cm [facility] Body weight 2023-12-20 16:50:00 63.504 kg [facility] BMI 2023-12-20 16:50:00 22.60 kg/m2 [facility] Systolic blood pressure 2023-11-21 14:04:00 144 mm[Hg] [facility] Diastolic blood pressure 2023-11-21 14:04:00 101 mm[Hg] [facility] Heart rate 2023-11-21 14:00:00 89 /min [facility] Respiratory rate 2023-11-21 14:00:00 18 /min [facility] Body height 2023-11-21 14:00:00 167.6 cm [facility] Body weight 2023-11-21 14:00:00 68.493 kg [facility] BMI 2023-11-21 14:00:00 24.37 kg/m2 [facility] Systolic blood pressure 2023-11-19 12:00:00 147 mm[Hg] [facility] Diastolic blood pressure 2023-11-19 12:00:00 85 mm[Hg] [facility] Heart rate 2023-11-19 12:00:00 91 /min [facility] Body temperature 2023-11-19 12:00:00 37.11 Melissa [facility] Respiratory rate 2023-11-19 12:00:00 18 /min [facility] Oxygen saturation in Arterial blood by Pulse oximetry 2023-11-19 12:00:00 100 /min [facility] Body height 2023-11-16 06:22:00 167.6 cm [facility] Body weight 2023-11-16 06:22:00 76.114 kg [facility] BMI 2023-11-16 06:22:00 27.08 kg/m2 [facility] Systolic blood pressure 2023-11-15 14:18:00 118 mm[Hg] [facility] Diastolic blood pressure 2023-11-15 14:18:00 72 mm[Hg] [facility] Heart rate 2023-11-15 14:17:00 122 /min [facility] Body temperature 2023-11-15 14:17:00 36.44 Melissa [facility] Body height 2023-11-15 14:17:00 165.1 cm [facility] Body weight 2023-11-15 14:17:00 74.844 kg [facility] BMI 2023-11-15 14:17:00 27.46 kg/m2 [facility] Systolic blood pressure 2023-11-13 18:00:00 121 mm[Hg] [facility] Diastolic blood pressure 2023-11-13 18:00:00 68 mm[Hg] [facility] Heart rate 2023-11-13 18:00:00 78 /min [facility] Oxygen saturation in Arterial blood by Pulse oximetry 2023-11-13 18:00:00 100 /min [facility] Body temperature 2023-11-13 15:07:00 36.56 Melissa [facility] Respiratory rate 2023-11-13 15:07:00 16 /min [facility] Body height 2023-11-13 15:07:00 165.1 cm [facility] Body weight 2023-11-13 15:07:00 74.844 kg [facility] BMI 2023-11-13 15:07:00 27.46 kg/m2 [facility] Systolic blood pressure 2023-11-13 13:40:00 141 mm[Hg] [facility] Diastolic blood pressure 2023-11-13 13:40:00 93 mm[Hg] [facility] Heart rate 2023-11-13 13:36:00 83 /min [facility] Body temperature 2023-11-13 13:36:00 36.67 Melissa [facility] Respiratory rate 2023-11-13 13:36:00 16 /min [facility] Body height 2023-11-13 13:36:00 165.1 cm [facility] Body weight 2023-11-13 13:36:00 74.98 kg [facility] BMI 2023-11-13 13:36:00 27.51 kg/m2 [facility] Systolic blood pressure 2023-11-11 06:30:00 100 mm[Hg] [facility] Diastolic blood pressure 2023-11-11 06:30:00 52 mm[Hg] [facility] Oxygen saturation in Arterial blood by Pulse oximetry 2023-11-11 06:00:00 99 /min [facility] Heart rate 2023-11-11 04:23:00 72 /min [facility] Body temperature 2023-11-11 04:23:00 36.67 Melissa [facility] Respiratory rate 2023-11-11 04:23:00 16 /min [facility] Body height 2023-11-11 04:23:00 165.1 cm [facility] Body weight 2023-11-11 04:23:00 73.301 kg [facility] BMI 2023-11-11 04:23:00 26.89 kg/m2 [facility] Systolic blood pressure 2023-11-09 16:45:00 128 mm[Hg] [facility] Diastolic blood pressure 2023-11-09 16:45:00 83 mm[Hg] [facility] Heart rate 2023-11-09 16:42:00 101 /min [facility] Respiratory rate 2023-11-09 16:42:00 18 /min [facility] Body height 2023-11-09 16:42:00 165.1 cm [facility] Body weight 2023-11-09 16:42:00 73.029 kg [facility] BMI 2023-11-09 16:42:00 26.79 kg/m2 [facility] Systolic blood pressure 2023-11-07 19:51:00 117 mm[Hg] [facility] Diastolic blood pressure 2023-11-07 19:51:00 64 mm[Hg] [facility] Heart rate 2023-11-07 19:51:00 86 /min [facility] Body temperature 2023-11-07 19:51:00 36.67 Melissa [facility] Respiratory rate 2023-11-07 19:51:00 18 /min [facility] Oxygen saturation in Arterial blood by Pulse oximetry 2023-11-07 18:06:00 99 /min [facility] Body height 2023-11-07 17:40:00 165.1 cm [facility] Body weight 2023-11-07 17:40:00 73.029 kg [facility] BMI 2023-11-07 17:40:00 26.79 kg/m2 [facility] Systolic blood pressure 2023-11-02 13:12:00 130 mm[Hg] [place] [facility] Diastolic blood pressure 2023-11-02 13:12:00 73 mm[Hg] [facility] Heart rate 2023-11-02 13:12:00 103 /min [facility] Body temperature 2023-11-02 13:12:00 36.89 Melissa [facility] Respiratory rate 2023-11-02 13:12:00 16 /min [facility] Body height 2023-11-02 13:12:00 165.1 cm [facility] Body weight 2023-11-02 13:12:00 73.029 kg [facility] BMI 2023-11-02 13:12:00 26.79 kg/m2 [facility] Oxygen saturation in Arterial blood by Pulse oximetry 2023-11-02 13:12:00 97 /min [facility] Systolic blood pressure 2023-10-19 13:11:00 128 mm[Hg] [place] [facility] Diastolic blood pressure 2023-10-19 13:11:00 78 mm[Hg] [facility] Heart rate 2023-10-19 13:09:00 96 /min [facility] Respiratory rate 2023-10-19 13:09:00 18 /min [facility] Body height 2023-10-19 13:09:00 165.1 cm [facility] Body weight 2023-10-19 13:09:00 71.215 kg [facility] BMI 2023-10-19 13:09:00 26.13 kg/m2 [facility] Systolic blood pressure 2023-10-13 02:30:00 128 mm[Hg] [facility] Diastolic blood pressure 2023-10-13 02:30:00 68 mm[Hg] [facility] Heart rate 2023-10-13 02:30:00 84 /min [facility] Oxygen saturation in Arterial blood by Pulse oximetry 2023-10-13 02:30:00 100 /min [facility] Body temperature 2023-10-13 02:00:00 36.5 Melissa [facility] Respiratory rate 2023-10-13 02:00:00 17 /min [facility] Body height 2023-10-13 02:00:00 165.1 cm [facility] Body weight 2023-10-13 02:00:00 69.945 kg [facility] BMI 2023-10-13 02:00:00 25.66 kg/m2 [facility] Systolic blood pressure 2023-10-09 21:06:00 130 mm[Hg] [facility] Diastolic blood pressure 2023-10-09 21:06:00 77 mm[Hg] [facility] Heart rate 2023-10-09 21:06:00 102 /min [facility] 2023-10-09 21:06:00 36.72 Melissa [facility] Body height 2023-10-09 21:06:00 165.1 cm [facility] Body weight 2023-10-09 21:06:00 69.854 kg [facility] BMI 2023-10-09 21:06:00 25.63 kg/m2 [facility] Systolic blood pressure 2023-10-08 21:11:00 127 mm[Hg] [facility] Diastolic blood pressure 2023-10-08 21:11:00 73 mm[Hg] [facility] Heart rate 2023-10-08 21:11:00 73 /min [facility] 2023-10-08 21:11:00 18 /min [facility] Body height 2023-10-08 21:11:00 165.1 cm [facility] 2023-10-08 21:11:00 69.4 kg [facility] BMI 2023-10-08 21:11:00 25.46 kg/m2 [facility] Systolic blood pressure 2023-10-01 12:15:00 125 mm[Hg] [facility] Diastolic blood pressure 2023-10-01 12:15:00 61 mm[Hg] [facility] Heart rate 2023-10-01 12:15:00 98 /min [facility] Body temperature 2023-10-01 12:15:00 36.78 Melissa [facility] Respiratory rate 2023-10-01 12:15:00 18 /min [facility] Oxygen saturation in Arterial blood by Pulse oximetry 2023-10-01 12:15:00 99 /min [facility] Body height 2023-10-01 00:24:00 167.6 cm [facility] Body weight 2023-10-01 00:24:00 66.679 kg [facility] BMI 2023-10-01 00:24:00 23.73 kg/m2 [facility] Systolic blood pressure 2023-09-21 17:03:00 133 mm[Hg] [facility] Diastolic blood pressure 2023-09-21 17:03:00 77 mm[Hg] [facility] Heart rate 2023-09-21 17:01:00 83 /min [facility] 2023-09-21 17:01:00 18 /min [facility] Body height 2023-09-21 17:01:00 167.6 cm [facility] Body weight 2023-09-21 17:01:00 68.04 kg [facility] BMI 2023-09-21 17:01:00 24.21 kg/m2 [facility] Systolic blood pressure 2023-08-24 17:55:00 122 mm[Hg] [facility] Diastolic blood pressure 2023-08-24 17:55:00 82 mm[Hg] [facility] Heart rate 2023-08-24 17:55:00 106 /min [facility] 2023-08-24 17:55:00 18 /min [facility] Body height 2023-08-24 17:55:00 165.1 cm [facility] 2023-08-24 17:55:00 63.05 kg [facility] BMI 2023-08-24 17:55:00 23.13 kg/m2 [facility] Systolic blood pressure 2023-07-27 17:56:00 131 mm[Hg] [facility] Diastolic blood pressure 2023-07-27 17:56:00 78 mm[Hg] [facility] Heart rate 2023-07-27 17:56:00 101 /min [facility] Respiratory rate 2023-07-27 17:56:00 18 /min [facility] Body height 2023-07-27 17:56:00 167.6 cm [facility] Body weight 2023-07-27 17:56:00 58.968 kg [facility] BMI 2023-07-27 17:56:00 20.98 kg/m2 [facility] Systolic blood pressure 2023-06-29 19:34:00 101 mm[Hg] [facility] Diastolic blood pressure 2023-06-29 19:34:00 65 mm[Hg] [facility] Heart rate 2023-06-29 19:34:00 93 /min [facility] Body temperature 2023-06-29 19:34:00 36.78 Melissa [facility] Respiratory rate 2023-06-29 19:34:00 16 /min [facility] Body height 2023-06-29 19:34:00 167.6 cm [facility] 2023-06-29 19:34:00 57.153 kg [facility] BMI 2023-06-29 19:34:00 20.34 kg/m2 [facility] Systolic blood pressure 2023-06-01 18:26:00 114 mm[Hg] [facility] Diastolic blood pressure 2023-06-01 18:26:00 75 mm[Hg] [facility] Heart rate 2023-06-01 18:26:00 91 /min [facility] Body temperature 2023-06-01 18:26:00 36.67 Melissa [facility] Respiratory rate 2023-06-01 18:26:00 16 /min [facility] Body height 2023-06-01 18:26:00 167.6 cm [facility] Body weight 2023-06-01 18:26:00 55.43 kg [facility] BMI 2023-06-01 18:26:00 19.72 kg/m2 [facility] Systolic blood pressure 2023-05-04 20:47:00 102 mm[Hg] [facility] Diastolic blood pressure 2023-05-04 20:47:00 60 mm[Hg] [facility] Heart rate 2023-05-04 20:47:00 102 /min [facility] Body temperature 2023-05-04 20:47:00 36.72 Melissa [facility] Respiratory rate 2023-05-04 20:47:00 16 /min [facility] Body height 2023-05-04 20:47:00 167.6 cm [facility] Body weight 2023-05-04 20:47:00 53.207 kg [facility] BMI 2023-05-04 20:47:00 18.93 kg/m2 [facility] height 2021-07-11 13:00:00 64.5 [in_i] Comm on [facility] weight 2021-07-11 13:00:00 109 [lb_av] [facility] on [facility] temperature 2021-07-11 13:00:00 98.0 [degF] Com mon [facility] bmi 2021-07-11 13:00:00 18.42 kg/m2 [facility] oximetry 2021-07-11 13:00:00 99 % Commo n [facility] respiratory rate 2021-07-11 13:00:00 18 /min [facility] blood pressure systolic 2021-07-11 13:00:00 91 mm[Hg] [facility] blood pressure diastolic 2021-07-11 13:00:00 46 mm[Hg] [facility] height 2020-07-08 13:20:00 64.5 [in_i] Comm on [facility] weight 2020-07-08 13:20:00 104.5 [lb_av] Co mmon [facility] temperature 2020-07-08 13:20:00 97.9 [degF] Com mon [facility] bmi 2020-07-08 13:20:00 17.66 kg/m2 [facility] on [facility] oximetry 2020-07-08 13:20:00 100 % Commo n [facility] respiratory rate 2020-07-08 13:20:00 18 /min [facility] blood pressure systolic 2020-07-08 13:20:00 86 mm[Hg] [facility] blood pressure diastolic 2020-07-08 13:20:00 54 mm[Hg] [facility] Systolic blood pressure 2020-02-03 13:26:00 110 mm[Hg] [facility] Diastolic blood pressure 2020-02-03 13:26:00 62 mm[Hg] [facility] Heart rate 2020-02-03 13:26:00 109 /min [facility] Body temperature 2020-02-03 13:26:00 39.78 Melissa [facility] Respiratory rate 2020-02-03 13:26:00 18 /min [facility] Body height 2020-02-03 13:26:00 165 cm [facility] Body weight 2020-02-03 13:26:00 48.807 kg [facility] BMI 2020-02-03 13:26:00 17.93 kg/m2 [facility] Oxygen saturation in Arterial blood by Pulse oximetry 2020-02-03 13:26:00 98 /min [place] [facility] Procedures Procedure Date / Time Performed Performing Clinician Source POCT URINALYSIS W/O SPECIFIC GRAVITY 2024-07-28 19:14:00 Christine Acosta [facility] <14 WEEKS US LIMITED 2024-07-04 18:15:38 Woody Hood [facility] POCT URINALYSIS W/O SPECIFIC GRAVITY 2024-07-04 18:00:00 Woody Hood [facility] SCANNED LAB RESULTS 2024-07-01 20:07:02 Doctor U [place]ourt[place] [facility] SCANNED LAB RESULTS 2024-07-01 20:07:01 Doctor U [place], [place] [facility] SCANNED LAB RESULTS 2024-06-24 16:49:19 Doctor U nassigned, [place] [facility] SCANNED LAB RESULTS 2024-06-24 16:49:17 Doctor U nassigned, [place] [facility] OB TRANSVAGINAL 2024-06-04 23:29:56 Christine Acosta [facility] FLU VACC ([id number]), 6 MO-64 YRS, .5ML, IM, TIV (FLUCELVAX) 2024-06-02 21:21:42 Christine Acosta [facility] URINE DRUG (IMMUNOASSAY) - COMPREHENSIVE DRUG SCREEN 2024-06-02 21:13:00 Christine Acosta [facility] GC & CHLAMYDIA AMPLIFIED ASSAY 2024-06-02 21:13:00 Christine Acosta [facility] TRICHOMONAS AMPLIFIED ASSAY 2024-06-02 21:13:00 Christine Acosta [facility] POCT TEST 2024-06-02 20:55:00 Christine Acosta [facility] POCT URINALYSIS W/O SPECIFIC GRAVITY 2024-06-02 20:55:00 Christine Acosta [facility] POCT TEST 2023-12-20 00:00:00 AcostaChristine [facility] CBC WITH DIFF 2023-11-18 08:49:[address] [facility] CENTRAL NEURAXIAL BLOCK 2023-11-16 19:08:00 Kirby Junior [facility] CREATININE 2023-11-16 05:26:00 KarlaGarylizzeth Chapa [facility] CBC WITH DIFF 2023-11-16 05:26[facility] 2023-11-16 05:26:00 Acosta [facility] HB INDIRECT ANTIGLOBULIN TEST 2023-11-16 05:26:00 Karla [facility] RHO (D) IMMUNE GLOBULIN 2023-11-16 05:26:00 Karla [facility] ADC OR LIBAN ONLY - RPR 2023-11-16 05:26:00 Karla Garykashmir hernandez [facility] HIV 1/2 AG-AB WITH REFLEX 2023-11-16 05:26:00 Karla Gilbert mary [facility] POCT URINALYSIS W/O SPECIFIC GRAVITY 2023-11-15 00:00:00 Karla Christine [facility] SGOT (ASPARTATE AMINO TRANSFER) 2023-11-13 16:56[facility] 2023-11-13 16:56:00 Christine Acosta [facility] ALANINE AMINO TRANSFERASE(SGPT 2023-11-13 16:56:00 [facility] LACTATE DEHYDROGENASE 2023-11-13 16:56:00 Karla Christine mancini [facility] URIC ACID 2023-11-13 16:56:00 KarlaGarylizzeth Chapa [facility] CBC WITH DIFF 2023-11-13 16:56:00 [facility] PR[facility] CREAT RATIO URINE RANDOM 2023-11-13 16:56:00 Christine Acosta [facility] US PELVIS > 14 WEEKS 2023-11-13 16:39:14 Acosta, Christine Cam [facility] >14 WEEKS US LIMITED 2023-11-09 17:46:15 Christine Acosta [facility] DSU PRE-OP 2023-11-09 17:16:16 Doctor Unass igned, [place] [facility] POCT URINALYSIS W/O SPECIFIC GRAVITY 2023-11-09 00:00:00 Christine Acosta [facility] URINALYSIS 2023-11-07 18:36:00 Christine Acosta [facility] ADC ONLY - FERN TEST 2023-11-07 18:36:00 Christine Acosta [facility] POCT URINALYSIS W/O SPECIFIC GRAVITY 2023-11-02 00:00:00 Christine Acosta [facility] POCT URINALYSIS W/O SPECIFIC GRAVITY 2023-10-19 00:00:00 Christine Acosta [facility] POCT URINALYSIS AUTO 2023-10-09 21:26:00 Andrey Javed [facility] POCT URINALYSIS W/O SPECIFIC GRAVITY 2023-10-08 00:00:00 Woody Hood [facility] NON-STRESS TEST 2023-10-01 12:49:34 Christine Acosta [facility] COMP. METABOLIC PANEL (07372) 2023-10-01 03:57:00 Alexus Meza [facility] CBC WITH DIFF 2023-10-01 03:57:00 Alexus Meza [facility] US RETROPERITONEAL LIMITED 2023-10-01 01:54:45 Alexus Meza [facility] URINALYSIS 2023-10-01 00:52:00 Alexus Meza [facility] TDAP VACCINE, >11 YRS, IM 2023-09-21 17:13:50 Gilbert Acosta [facility] POCT URINALYSIS W/O SPECIFIC GRAVITY 2023-09-21 00:00:00 Christine Acosta [facility] POCT URINALYSIS W/O SPECIFIC GRAVITY 2023-08-24 00:00:00 Christine Acosta [facility] POCT URINALYSIS W/O SPECIFIC GRAVITY 2023-07-27 00:00:00 AcostaChristine Eduard [facility] SECOND AND THIRD TRIMESTER ULTRASOUND 2023-07-23 18:07:00 AcostaChristine [facility] POCT URINALYSIS W/O SPECIFIC GRAVITY 2023-06-29 00:00:00 Christine Acosta [facility] FLU VACC (), 6 MO-64 YRS, .5ML, IM, QUAD (FLUCELVAX) 2023-06-01 18:32:05 Christine Acosta Eduard [facility] POCT URINALYSIS W/O SPECIFIC GRAVITY 2023-06-01 00:00:00 AcostaChristine Eduard [facility] SCANNED LAB RESULTS 2023-05-11 06:01:00 Doctor Nino oconnell, [place] [facility] US OB TRANSVAGINAL 2023-05-04 21:47:12 Kar[facility]Garylizzeth [facility] 2023-05-04 06:01:00 Doc tor Unassigned, [place] [facility] POCT TEST 2023-05-04 00:00:00 Christine Acosta [facility] POCT URINALYSIS W/O SPECIFIC GRAVITY 2023-05-04 00:00:[address] [facility] [address] ABDOMEN PELVIS WO CONTRAST 2023-02-20 13:41:00 Requisition, Paper [facility] NO SHOW OR MISSED APPOINTMENT POLICY ACKNOWLEDGEMENT 2023-02-20 13:30:22 Doctor Unassigned, [place] [facility] PATIENT FINANCIAL POLICY 2023-02-20 13:30:06 Doctor Unassigned, [place] [facility] NOTICE OF PRIVACY PRACTICES 2023-02-20 13:29:50 Doctor Unassigned, [place] [facility] CONSENT/REFUSAL FOR DIAGNOSIS AND TREATMENT 2023-02-20 13:29:33 Doctor Unassigned, [place] [facility] ASSIGNMENT OF BENEFITS 2023-02-20 13:29:18 Docto r Unassigned, [place] [facility] SARS-COV-2 COVID-19 VACCINE,0.3ML,IM (PFIZER) 2021-02-23 16:40:59 Doctor Unassigned, [place] [facility] VACCINATIONS - CONSENTS, ELIGIBILITY, HISTORY 2021-02-02 05:01:00 Doctor Unassigned, [place] [facility] Encounters Start Date/Time End Date/Time Encounter Type Admission Type Attending [facility] Facility Care Department Encounter ID Source 2023-10-01 08:46:05 Outpatient X [facility] NINA [id number] [facility] 2022-07-11 11:58:00 [facility] [id number] [facility] 2022-07-10 08:08:00 [facility] [id number] [facility] 2021-07-20 14:35:15 Outpatient Kelly Wakefield [facility] [id number] [facility] 2021-07-20 12:21:17 Outpatient Kelly Wakefield [facility] [id number] [facility] 2021-07-20 12:20:10 Outpatient [facility] [id number] [facility] 2021-07-20 12:14:27 Outpatient Susana Noel [facility] [id number] [facility] 2021-07-20 11:17:47 Outpatient Susana Noel [facility] [id number] [facility] 2024-08-22 11:00:00 2024-08-22 11:00:[address] [facility] [id number] [facility] 2023-11-09 00:00:00 2024-08-09 07:45:25 Orders Only Doctor Unassigned, [place] Doctor Unassigned, [place] [facility] [place] [facility] 1.2.840.114 350.1.13.10 4.2.7.2.686 [id number] [facility] 2024-06-24 00:00:00 2024-08-09 06:24:27 Orders Only Doctor Unassigned, [place] Doctor Unassigned, [place] [facility] [place] [facility] 1.2.840.114 350.1.13.10 4.2.7.2.686 [id number] [id number] [facility] 2024-06-24 00:00:00 2024-08-09 06:24:20 Orders Only Doctor Unassigned, [place] Doctor Unassigned, [place] [facility] 1.2.840.114 350.1.13.10 4.2.7.2.686 [id number] [facility] 2024-07-01 00:00:00 2024-08-09 06:22:09 Orders Only Doctor Unassigned, [place] Doctor Unassigned, [place] [facility] 1.2.840.114 350.1.13.10 4.2.7.2.686 [id number] [id number] [facility] 2024-07-01 00:00:00 2024-08-09 06:22:07 Orders Only Doctor Unassigned, [place] Doctor Unassigned, [place] [facility] 1.2.840.114 350.1.13.10 4.2.7.2.686 [id number] [facility] 2024-07-28 13:45:00 2024-07-28 14:00:00 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 1.2.840.114 350.1.13.10 4.2.7.2.686 [id number] [facility] 2024-07-28 13:15:00 2024-07-28 13:22:59 Outpatient R CHRISTINE ACOSTA [facility] [id number] [facility] 2024-07-28 13:15:00 2024-07-28 13:22:59 Routine Visit Christine Ac[facility] 1.2.840.114 350.1.13.10 4.2.7.2.686 [id number] 134 [id number] [facility] 2024-06-19 00:00:00 2024-07-26 18:19:28 Patient Secure Msg Doctor Unassigned, [place] Doctor Unassigned, [place] [facility] 1.2.840.114 350.1.13.10 4.2.7.2.686 [id number] 134 [id number] [facility] 2024-06-21 00:00:00 2024-07-26 18:17:37 Patient Secure Msg Doctor Unassigned, [place] Doctor Unassigned, [place] [facility] 1.2.840.114 350.1.13.10 4.2.7.2.686 [id number] 044 [id number] [facility] 2024-06-11 00:00:00 2024-07-12 18:16:57 Patient Secure Msg [facility] 1.2.840.114 350.1.13.10 4.2.7.2.686 [id number] 134 [id number] [facility] 2024-07-04 12:45:00 2024-07-04 12:45:00 Routine Visit Wood[facility] 1.2.840.114 350.1.13.10 4.2.7.2.686 [id number] 134 [id number] [facility] 2024-07-04 12:45:00 2024-07-04 12:13:[address] [facility] [id number] [facility] 2024-07-01 15:00:00 2024-07-01 15:00:[address] [facility] [id number] [facility] 2024-07-01 13:45:00 2024-07-01 13:45:00 Outpatient R WOODY HOOD [facility] [id number] [facility] 2024-06-21 00:00:00 2024-06-24 10:02:06 Patient Secure Msg Christine Acosta [facility] 1.2840.114 350.1.13.10 4.2.7.2.686 [id number] 134 [id number] [facility] 2024-06-23 00:00:00 2024-06-23 13:35:23 Telephone Christine Acosta [facility] 1.2.840.114 350.1.13.10 4.2.7.2.686 [id number] 134 [id number] [facility] 2024-06-21 00:00:00 2024-06-21 12:25:28 Nurse Triage Nallely Gamble Wendy [facility] 1.284.114 350.1.13.10 4.2.7.2.686 [id number] [facility] 2024-06-19 00:00:00 2024-06-19 07:42:40 Case Management Christine Acosta [facility] 1.284.114 350.1.13.10 4.2.7.2.686 [id number] 134 [id number] [facility] 2024-06-15 00:00:00 2024-06-16 11:56:04 Patient Secure Msg Doctor Unassigned, [place] Doctor Unassigned, [place] [facility] 1.2.840.114 350.1.13.10 4.2.7.2.686 [id number] 134 [id number] [facility] 2024-06-16 10:45:00 2024-06-16 11:00:00 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 [id number] [facility] 2024-06-02 14:30:00 2024-06-02 15:22:25 Outpatient R CHRISTINE ACOSTA [facility] [id number] [facility] 2024-06-02 14:30:00 2024-06-02 15:22:25 Initial Visit Christine Acosta [facility] 1.2.840.114 350.1.13.10 4.2.7.2.686 [id number] 134 [id number] [facility] 2024-05-20 00:00:00 2024-05-20 18:00:22 Nurse Triage Tomasa Alvarez Nina R [facility] 1.2.840.114 350.1.13.10 4.2.7.2.686 [id number] [id number] [facility] 2024-05-17 00:00:00 2024-05-20 14:54:10 Telephone Christine Acosta [facility] 1.2.840.114 350.1.13.10 4.2.7.2.686 [id number] 134 [id number] [facility] 2024-05-14 13:30:00 2024-05-14 13:30:00 Outpatient R CHRISTINE ACOSTA [facility] [id number] [facility] 2024-01-29 10:30:00 2024-01-29 10:30:00 Outpatient R CHRISTINE ACOSTA [facility] [id number] [facility] 2024-01-04 14:30:00 2024-01-04 14:30:00 Outpatient R AZRA DSOUZA [facility] [id number] [facility] 2023-12-30 00:00:00 2024-01-01 16:40:37 Refill KarlaChristine [facility] 1.2.840.114 350.1.13.10 4.2.7.2.686 [id number] 134 [id number] [facility] 2023-12-20 11:15:00 2023-12-20 12:24:00 Outpatient R KARLA CHRISTINE ACOSTA [facility] [id number] [facility] 2023-12-20 11:15:00 2023-12-20 11:30:00 Routine Visit Christine Acosta [facility] 1.2.840.114 350.1.13.10 4.2.7.2.686 [id number] 134 [id number] [facility] 2023-11-27 14:00:00 2023-11-27 14:00:[address] [facility] [id number] [facility] 2023-11-23 00:00:00 2023-11-23 16:07:54 Telephone KarlaGaryen [facility] 1.2.840.114 350.1.13.10 4.2.7.2.686 [id number] 134 [id number] [facility] 2023-11-21 09:00:00 2023-11-21 09:39:39 Outpatient R KARLA CHRISTINE DIANE [facility] [id number] [facility] 2023-11-21 09:00:00 2023-11-21 09:39:39 Nurse Visit Nurse, [facility] Karla Christine [facility] 1.2.840.114 350.1.13.10 4.2.7.2.686 [id number] 134 [id number] [facility] 2023-11-15 22:45:00 2023-11-19 10:20:00 Inpatient P CHRISTINE AOCSTA [facility] NINA [id number] [facility] 2023-11-15 22:45:00 2023-11-19 10:20:00 Hospital Encounter Christine Acosta [facility] 1.2.840.114 350.1.13.10 4.2.7.2.686 [id number] [id number] [facility] 2023-11-17 20:01:53 2023-11-17 20:01:53 Anesthesia Event Koby Rucker [facility] 1.2.840.114 350.1.13.10 4.2.7.2.686 [id number] [id number] [facility] 2023-10-11 00:00:00 2023-11-17 18:12:45 Patient Secure Msg Doctor Unassigned, [place] [facility] 1.2.840.114 350.1.13.10 4.2.7.2.686 [id number] [facility] 2023-11-16 14:11:00 2023-11-17 02:57:00 Anesthesia Event Sukhwinder Junior David K [facility] 1.2.840.114 350.1.13.10 4.2.7.2.686 [id number] 083 [id number] [facility] 2023-11-16 11:15:00 2023-11-16 11:15:00 [address] [facility] [id number] [facility] 2023-11-15 09:15:00 2023-11-15 09:50:30 Outpatient R ACOSTA [facility] [id number] [facility] 2023-11-15 09:15:00 2023-11-15 09:50:30 Routine [facility] Christine [facility] 1.2.840.114 350.1.13.10 4.2.7.2.686 [id number] 134 [id number] [facility] 2023-11-13 09:50:00 2023-11-13 14:00:00 Outpatient P CHRISTINE ACOSTA [facility] NINA [id number] [facility] 2023-11-13 09:50:00 2023-11-13 14:00:00 Emergency Christine Acosta [facility] 1.2.840.114 350.1.13.10 4.2.7.2.686 [id number] [id number] [facility] 2023-11-13 08:30:00 2023-11-13 08:48:06 Outpatient R CHRISTINE ACOSTA [facility] [id number] [facility] 2023-11-13 08:30:00 2023-11-13 08:48:06 Nurse Visit Nurse, [facility] Christine Acosta [facility] 1.2.840.114 350.1.13.10 4.2.7.2.686 [id number] 134 [id number] [facility] 2023-11-10 23:11:00 2023-11-11 01:50:00 Outpatient X CHRISTINE ACOSTA [facility] NINA [id number] [facility] 2023-11-10 23:11:00 2023-11-11 01:50:00 Emergency Christine Acosta [facility] 1.2.840.114 350.1.13.10 4.2.7.2.686 [id number] 083 [id number] [facility] 2023-11-09 00:00:00 2023-11-09 17:25:51 Telephone Christine Acosta [facility]ESS[facility] NAL [facility]ILD[facility] 1.2840.114 350.1.13.10 4.2.7.2.686 [id number] 134 [id number] [facility] 2023-11-09 00:00:00 2023-11-09 15:45:45 Telephone Pcp, Patient Does Not Have A [facility]?BEATA 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 1.84.114 350.1.13.10 4.2.7.2.686 [id number] [facility] 2023-11-09 11:30:00 2023-11-09 12:01:21 Outpatient R CHRISTINE ACOSTA [facility] [id number] [facility] 2023-11-09 11:30:00 2023-11-09 12:01:21 Routine Visit Christine Acosta [facility] 1..114 350.1.13.10 4.2.7.2.686 [id number] 134 [id number] [facility] 2023-11-07 12:54:00 2023-11-07 16:15:00 Outpatient P CHRISTINE ACOSTA [facility] NINA [id number] [facility] 2023-11-07 12:54:00 2023-11-07 16:15:00 Hospital Encounter Christine Acosta [facility] 1..114 350.1.13.10 4.2.7.2.686 [id number] [id number] [facility] 2023-11-07 00:00:00 2023-11-07 14:25:03 Telephone Christine Acosta [facility] 1.2.840.114 350.1.13.10 4.2.7.2.686 [id number] 134 [id number] [facility] 2023-11-06 11:30:00 2023-11-06 11:30:00 Outpatient R TEGAN [facility] [id number] [facility] 2023-11-02 00:00:00 2023-11-02 13:00:47 Telephone Tegan [facility] 1.2.840.114 350.1.13.10 4.2.7.2.686 [id number] [facility] 2023-11-02 08:00:00 2023-11-02 08:35:16 [facility] [id number] [facility] 2023-11-02 08:00:00 2023-11-02 08:35:16 Routine Visit Christine Acosta [facility] 1.2.840.114 350.1.13.10 4.2.7.2.686 [id number] 134 [id number] [facility] 2023-10-19 08:00:00 2023-10-19 08:20:55 Outpatient R CHRISTINE ACOSTA [facility] [id number] [facility] 2023-10-19 08:00:00 2023-10-19 08:20:55 Routine Visit Christine Acosta [facility] 1.2.840.114 350.1.13.10 4.2.7.2.686 [id number] 134 [id number] [facility] 2023-10-12 21:03:00 2023-10-12 22:25:00 Outpatient X RICHARD, AZRA DSOUZA, AZRA [facility] NINA [id number] [facility] 2023-10-12 21:03:00 2023-10-12 22:25:00 Emergency Azra Dsouza [facility] 1.2.840.114 350.1.13.10 4.2.7.2.686 [id number] [id number] [facility] 2023-10-09 16:00:00 2023-10-09 16:30:00 Office Visit Wild Javed [facility] 1.2.840.114 350.1.13.10 4.2.7.2.686 [id number] [facility] 2023-10-09 16:00:00 2023-10-09 16:00:00 [facility] [id number] 2023-10-08 16:00:00 2023-10-08 16:26:41 Outpatient R WOODY [facility]OD [facility] [id number] [facility] 2023-10-08 16:00:00 2023-10-08 16:26:41 Routine Visit Seema Woody [facility] 1.840.114 350.1.13.10 4.2.7.2.686 [id number] 134 [id number] [facility] 2023-10-08 10:15:00 2023-10-08 10:15:00 Outpatient R WOODY [facility]OD [facility] [id number] [facility] 2023-09-30 19:27:00 2023-10-01 08:10:00 Outpatient X DEJESUS-ARIADNE S, [place] DEJESUS-ARIADNE S, [place] [facility] NINA [id number] [facility] 2023-09-30 19:27:00 2023-10-01 08:10:00 Emergency VincAlexus coates Nam-Ariadne s, [place] [facility] 1.2.840.114 350.1.13.10 4.2.7.2.686 [id number] [id number] [facility] 2023-10-01 00:00:00 2023-10-01 00:00:00 Case Management [facility] 1.114 350.1.13.10 4.2.7.2.686 [id number] 134 [id number] [facility] 2023-09-23 00:00:00 2023-09-23 00:00:00 Patient Secure Msg Doctor Unassigned, [place] [facility] 1.114 350.1.13.10 4.2.7.2.686 [id number] [id number] [facility] 2023-09-21 12:15:00 2023-09-21 12:19:[address] [facility] [id number] [facility] 2023-09-21 12:15:00 2023-09-21 12:19:16 Routine Visit Karla [facility] 1.0.114 350.1.13.10 4.2.7.2.686 [id number] 134 [id number] [facility] 2023-09-21 00:00:00 2023-09-21 00:00:00 Telephone Christine Acosta [facility] 1..114 350.1.13.10 4.2.7.2.686 [id number] 134 [id number] [facility] 2023-08-27 10:00:00 2023-08-27 12:51:15 Outpatient R ACOSTAGARYLIZZETH ACOSTA [facility] [id number] [facility] 2023-08-27 10:00:00 2023-08-27 10:15:00 Calendering Machine Operator Visit Lab, Geovanny - Kentrell Acosta [facility] JR?[facility] 1.114 350.1.13.10 4.2.7.2.686 [id number] 353 [id number] [facility] 2023-08-24 12:45:00 2023-08-24 13:00:00 Calendering Machine Operator Visit Lab, Geovanny [facility]feiffer [facility] 1.0114 350.1.13.10 4.2.7.2.686 [id number] 353 [id number] [facility] 2023-08-24 12:45:00 2023-08-24 12:45:00 Outpatient R KARLA [facility] [id number] [facility] 2023-08-24 12:15:00 2023-08-24 12:15:00 Routine Visit Christine Acosta [facility] 1..114 350.1.13.10 4.2.7.2.686 [id number] 134 [id number] [facility] 2023-07-27 12:15:00 2023-07-27 12:15:00 Routine Visit Christine Acosta [facility] 1.114 350.1.13.10 4.2.7.2.686 [id number] 134 [id number] [facility] 2023-07-27 12:15:00 2023-07-27 12:04:00 Outpatient R KARLA [facility] [id number] [facility] 2023-07-23 11:00:00 2023-07-23 11:51:15 Outpatient P SEAN [facility]SON 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 SEALER MACHINE [facility] 1.0.114 350.1.13.10 4.2.7.2.686 [id number] [facility] 2023-07-13 00:00:00 2023-07-13 00:00:00 [facility] 1.2840.114 350.1.13.10 4.2.7.2.686 [id number] 134 [id number] [facility] 2023-06-29 13:45:00 2023-06-29 13:45:00 Routine Visit Karla [facility] 1.2.840.114 350.1.13.10 4.2.7.2.686 [id number] 134 [id number] [facility] 2023-06-29 13:45:00 2023-06-29 13:41:17 Outpatient R KARLA [facility] [id number] [facility] 2023-06-29 11:45:00 2023-06-29 12:29:23 Calendering Machine Operator Visit Lab, Ang - Kentrell Kar[facility] 1.2840.114 350.1.13.10 4.2.7.2.686 [id number] [facility] 2023-06-23 00:00:00 2023-06-23 00:00:00 Nurse Triage Ruchi Vick [facility] 1.2.840.114 350.1.13.10 4.2.7.2.686 [id number] [id number] [facility] 2023-06-22 11:00:00 2023-06-22 11:00:[address] [facility] [id number] [facility] 2023-06-14 10:30:00 2023-06-14 10:30:[address] [facility] [id number] [facility] 2023-06-01 12:45:00 2023-06-01 12:45:00 Routine Visit Acosta [facility] 1.20.114 350.1.13.10 4.2.7.2.686 [id number] 134 [id number] [facility] 2023-06-01 12:45:00 2023-06-01 12:35:21 Outpatient R KARLA [facility] [id number] [facility] 2023-05-17 00:00:00 2023-05-17 00:00:00 Telephone Christine Acosta [facility] 1.114 350.1.13.10 4.2.7.2.686 [id number] [facility] 2023-05-11 11:15:00 2023-05-11 13:15:00 Outpatient R KARLA [facility] [id number] [facility] 2023-05-11 11:15:00 2023-05-11 11:30:00 Calendering Machine Operator Visit Lab, [facility] 1.84.114 350.1.13.10 4.2.7.2.686 [id number] [facility] 2023-05-11 00:00:00 2023-05-11 00:00:00 Orders Only Doctor Unassigned, [place] [facility] 1..114 350.1.13.10 4.2.7.2.686 [id number] [facility] 2023-05-04 14:30:00 2023-05-04 15:17:13 Outpatient R CHRISTINE [facility] [id number] [facility] 2023-05-04 14:30:00 2023-05-04 15:17:13 Initial Visit Karla Christine [facility] 1..114 350.1.13.10 4.2.7.2.686 [id number] 134 [id number] [facility] 2023-05-04 00:00:00 2023-05-04 00:00:00 Orders Only Doctor Unassigned, [place] [facility] 1.2840.114 350.1.13.10 4.2.7.2.686 [id number] [facility] 2023-05-04 00:00:00 2023-05-04 00:00:00 Patient Secure Msg Doctor Unassigned, [place] [facility] 1.2840.114 350.1.13.10 4.2.7.2.686 [id number] 134 [id number] [facility] 2023-02-20 08:31:14 2023-02-20 23:59:[address] [facility] [id number] [facility] 2023-02-20 08:31:14 2023-02-20 23:59:00 Hospital Encounter Radiology [facility] 1.2840.114 350.1.13.10 4.2.7.2.686 [id number] [facility] 2023-02-13 08:56:59 2023-02-13 08:56:59 Outpatient [facility] SFA [id number] Amol Price 2023-02-05 14:45:10 2023-02-05 14:45:10 Outpatient [facility] SFA [id number] Amol Price 2022-11-30 17:40:38 2022-11-30 17:40:38 Outpatient [facility] SFA [id number] Amol Price 2022-09-13 10:01:30 2022-09-13 10:01:30 Outpatient SFA SFA [id number] Amol Price 2022-09-08 08:31:55 2022-09-08 08:31:55 Outpatient SFA SFA [id number] Amol Price 2022-08-30 08:02:19 2022-08-30 08:02:19 Outpatient SFA SFA [id number] Amol Price 2022-08-10 11:56:47 2022-08-10 11:56:47 Outpatient SFA SFA [id number] Amol Price 2022-03-31 14:57:16 2022-03-31 14:57:16 Outpatient [facility] [id number] Amol Price 2021-07-11 00:00:00 2021-07-11 00:00:00 PREV VISIT EST AGE 18-39 STLMLC STLMLC [id number] [facility] 2021-02-23 11:50:00 2021-02-23 11:50:[address] [facility] [id number] [facility] 2021-02-23 11:38:41 2021-02-23 11:39:24 Imm/Inj Visit Nurse, Angie Valdez Immunizatio Oliverio Gardner [facility] Building 1..840.114 350.1.13.10 4.2.7.2.686 [id number] [facility] 2021-02-02 13:10:00 2021-02-02 13:10:[address] [facility] [id number] [facility] 2021-02-02 00:00:00 2021-02-02 00:00:00 Orders Only Doctor Unassigned, [place] [facility] 1..840.114 350.1.13.10 4.2.7.2.686 [id number] [facility] 2020-07-08 00:00:00 2020-07-08 00:00:00 PREV VISIT EST AGE 12-17 STLMLC STLMLC [id number] [facility] 2020-02-05 00:00:00 2020-02-05 00:00:00 Letter (Out) Vub1, Acute Care Clinic [facility] Office Building One 1..840.114 350.1.13.10 4.2.7.2.686 [id number] [facility] 2020-02-04 00:00:00 2020-02-04 00:00:00 Telephone So [facility] 1.2.840.114 350.1.13.10 4.2.7.2.686 [id number] [facility] 2020-02-04 00:00:00 2020-02-04 00:00:00 Letter (Out) Krystin France [facility] 1.2.840.114 350.1.13.10 4.2.7.2.686 [id number] [facility] 2020-02-03 08:16:19 2020-02-03 08:36:19 Urgent Care Pob1[facility] 1.2.840.114 350.1.13.10 4.2.7.2.686 [id number] [facility] 2020-02-03 08:00:00 2020-02-03 08:00:00 [address] R RON [address] [facility] [id number] [facility] 2019-06-24 11:00:00 2019-06-24 11:00:00 Outpatient [facility] [id number] [facility] 2019-04-08 10:20:00 2019-04-08 10:20:00 Outpatient [facility] [id number] [facility] 2018-11-07 15:20:00 2018-11-07 15:20:00 Outpatient [facility] [id number] [facility] Results Test Description Test Time Test Comments Results Result Co mments Source [facility] w/o Specific Nyiexpa5489-25-24 18:02:00* Test Item Value Reference Range Interpretation Comme nts POCT PH U (test code = 3254) 5 mg/dl 5-8 POCT U LEUK EST (test code = 3263) TRACE Negative - Negative POCT U NIT (test code = 3262) NEG Negative - Negati ve POCT U PROT (test code = 3259) TRACE Negative - Negat lorraine POCT U GLU (test code = 3256) NEG Negative - Negati ve POCT U KETONE (test code = 3258) NEG Negative - Neg ative POCT U BLD (test code = 3257) NEG Negative - Negati ve [facility] CenterSC[facility] [id number] 20:07:02Ordered by an unspecified provider.[facility]ULTS 2024-07-01 20:07:01Ordered by an unspecified provider.[facility] [id number] 16:49:19Ordered by an unspecified provider.[facility] [id number] 16:49:17Ordered by an unspecified provider.[facility] POCT Urinalysis w/o Specific Mgtvtey3819-74-69 20:55:00* Test Item Value Reference Range Interpretation Comme nts POCT PH U (test code = 3254) na 5-8 POCT U LEUK EST (test code = 3263) na Negative - N egative POCT U NIT (test code = 3262) na Negative - Negati ve POCT U PROT (test code = 3259) trace Negative - Negat lorraine POCT U GLU (test code = 3256) neg Negative - Negati ve POCT U KETONE (test code = 3258) na Negative - Neg ative POCT U BLD (test code = 3257) na Negative - Negati ve [facility] CenterPOCT [id number] 20:55:00* Test Item Value Reference Range Interpretation Comme nts POCT PREG (test code = 1605) Positive On board controls acceptable with C Line (test code = 3574) Yes POCT PREG LOT # (test code = 3575) POCT PREG TEST DATE ( test code = 3576) [facility] CenterPO[facility] [id number] 16:57:00* Test Item Value Reference Range Interpretation Comme nts POCT PREG (test code = 1605) Negative On board controls acceptable with C Line (test code = 3574) Yes POCT PREG LOT # (test code = 3575) POCT PREG TEST DATE ( test code = 3576) [facility] with Ckduskqflmki9119-87-03 09:16:33* Test Item Value Reference Range Interpretation [...] 34.4 g/dL 31.6-35.1 RDW-SD (test code = 18519-3) 38.6 fL 39.0-49.9 L RDW-CV (test code = 788-0) 12.7 % 12.0-15.5 PLT (test code = 777-3) 173 166-358 MPV (test code = 85363-4) 10.3 fL 9.5-12.9 NRBC/100 WBC (test code = 9518557352) 0.0 0.0-10.0 NRBC x10^3 (test code = 1883103351) See_Comment [Automated message] The system which generated this result transmitted reference range: 10*3/?L. The reference range was not used to interpret this result as normal/abnormal. GRAN MAT (NEUT) % (test code = 770-8) 76.2 % IMM GRAN % (test code = 1705937410) 0.70 % LYMPH % (test code = 736-9) 13.8 % MONO % (test code = 5905-5) 7.5 % EOS % (test code = 713-8) 1.4 % BASO % (test code = 706-2) 0.4 % GRAN MAT x10^3(ANC) (test code = 0067962748) 10.31 10*3/uL 1.88-7.09 H IMM GRAN x10^3 (test code = 7086570296) 0.10 10*3/uL 0.00-0.06 H LYMPH x10^3 (test code = 731-0) 1.87 10*3/uL 1.32-3.29 MONO x10^3 (test code = 742-7) 1.02 10*3/uL 0.33-0.92 H EOS x10^3 (test code = 711-2) 0.19 10*3/uL 0.03-0.39 BASO x10^3 (test code = 704-7) 0.05 10*3/uL 0.01-0.07 Lab Interpretation (test code = 10691-1) Abnormal [facility] CenterRHO (D) IMMUNE [id number] 16:09:53* Test Item Value Reference Range Interpretation Comme nts RHIG CANDIDATE? (test code = 5188) No- see comment Patient is not a candidate for RhIg- Patient is Rh Positive.Performed at [facility] Laboratory Services - [facility] Blood [address] [place] [id number] Free: [phone] No. [id number] [facility] OR LIBAN ONLY - [id number] 06:49:38* Test Item Value Reference Range Interpretation Comme nts RPR (Qualitative) (test code = 53460-8) Nonreactive Nonreactive Lab Interpretation (test cod e = 27097-2) Normal [facility] CenterCreatinine2024-05-25 05:14:57* Test Item Value Reference Range Interpretation Comme nts CREATININE (test code = 2160-0) 0.43 mg/dL 0.50-1.04 L eGFR (test code = 73154-1) 143.0 mL/min/1.73m2 CKD-EPI eGFR (2020). Assuming creatinine has been stable day-to-day for at least three months, the eGFR indicates Category G1 (>= 90 mL/min/1.73 m2) Lab Interpretation (test code = 34879-6) Abnormal [facility] CenterCentral Neuraxial Pcqwz4299-73-00 19:08:00 Sukhwinder Junior DO ? ? 11/16/2023 [...] ?Technique: WILI saline ?Guidance with: landmark technique}Epidural/Spinal [place] and/or Catheter: ?Needle Insertion Depth: 6 ?Catheter [...] No H/C/P. Smooth cath adv. No H/C/P. [facility]axial Besma2249-02-01 19:08:00 Sukhwinder Junior DO ? ? 11/16/2023 [...] ?Technique: WILI saline ?Guidance with: landmark technique}Epidural/Spinal [place] and/or Catheter: ?Needle Insertion Depth: 6 ?Catheter [...] No H/C/P. Smooth cath adv. No H/C/P. [facility] CenterHepatitis B Surface Taqzxbp0881-48-88 16:12:58 * Test Item Value Reference Range Interpretation Comme nts HBsAg Semi-Quantitative (maykel t code = 5195-3) 0.09 Negative [facility] CenterHIV 1/2 Ag-Ab with Inwbtq2180-28-12 11:59:15* Test Item Value Reference Range Interpretation Comme nts HIV Semi-quantitative (test code = 59509-2) 0.09 Negative MARK (test code = MARK) Non-reactive for HIV-1 antigen and HIV-1/HIV-2 antibodies. ?No laboratory evidence of HIV infection. ?Repeat in 2-4 weeks if acute HIV infection is suspected. [facility] CenterCBC with Vflhvjxftrkn8280-15-27 08:06:29* Test Item Value Reference Range Interpretation [...] 33.9 g/dL 31.6-35.1 RDW-SD (test code = 71057-6) 38.5 fL 39.0-49.9 L RDW-CV (test code = 788-0) 12.7 % 12.0-15.5 PLT (test code = 777-3) 177 166-358 MPV (test code = 51838-0) 11.2 fL 9.5-12.9 NRBC/100 WBC (test code = 1732158215) 0.0 0.0-10.0 NRBC x10^3 (test code = 5472412964) See_Comment [Automated messa ge] The system which generated this result transmitted reference range: 10*3/?L. The reference range was not used to interpret this result as normal/abnormal. GRAN MAT (NEUT) % (test code = 770-8) 69.8 % IMM GRAN % (test code = 6208997652) 0.60 % LYMPH % (test code = 736-9) 17.1 % MONO % (test code = 5905-5) 11.3 % EOS % (test code = 713-8) 1.0 % BASO % (test code = 706-2) 0.2 % GRAN MAT x10^3(ANC) (test code = 9665106807) 6.59 10*3/uL 1.88-7.09 IMM GRAN x10^3 (test code = 9447331214) 0.06 10*3/uL 0.00-0.06 LYMPH x10^3 (test code = 731-0) 1.62 10*3/uL 1.32-3.29 MONO x10^3 (test code = 742-7) 1.07 10*3/uL 0.33-0.92 H EOS x10^3 (test code = 711-2) 0.09 10*3/uL 0.03-0.39 BASO x10^3 (test code = 704-7) 0.01-0.07 Lab Interpretation (test code = 84207-7) Abnormal [facility] CenterType and Screen - ONCE [id number] 08:03:00 * Test Item Value Reference Range Interpretation Comme nts ABO & RH (test code = 20) AB POSITIVE IAT (test code = 1185) Negative [facility] CenterPOCT Urinalysis w/o Specific Rftgoll8673-05-73 14:31:00* Test Item Value Reference Range Interpretation [...] = 3257) n/a Negative - Negati ve [facility] CenterUric Acid Ynbhr4918-13-63 18:01:15* Test Item Value Reference Range Interpretation Comme nts URIC ACID (test code = 8541460754) 3.2 mg/dL 2.9-6.0 Lab Interpretation (test cod e = 96204-3) Normal [facility] CenterAlanine Amino Transferase (SGPT)2023-11-13 17:46:54* Test Item Value Reference Range Interpretation Comme nts ALTv (test code = 1742-6) 14 U/L 5-35 Lab Interpretation (test cod e = 89345-3) Normal [facility] CenterCreatinine Hddxy3710-62-03 17:46:33* Test Item Value Reference Range Interpretation Comme nts CREATININE (test code = 2160-0) 0.35 mg/dL 0.50-1.04 L eGFR (test code = 39830-0) 150.3 mL/min/1.73m2 CKD-EPI eGFR (2020). Assuming creatinine has been stable day-to-day for at least three months, the eGFR indicates Category G1 (>= 90 mL/min/1.73 m2) Lab Interpretation (test code = 96493-0) Abnormal [facility] CenterSGOT (Asparate Amino Transfer)2023-11-13 17:46:33* Test Item Value Reference Range Interpretation Comme nts AST(SGOT) (test code = 5144384482) 22 U/L 13-40 Lab Interpretation (test cod e = 01282-4) Normal [facility] CenterLactate Uhiuhuobtrfsb7755-82-16 17:45:56* Test Item Value Reference Range Interpretation Comme nts LDH (test code = 2903711968) 168 U/L 120-246 Lab Interpretation (test cod e = 45713-3) Normal [facility] CenterCB with Sjdbvvqqegzs7107-76-78 17:41:29* Test Item Value Reference Range Interpretation [...] 34.6 g/dL 31.6-35.1 RDW-SD (test code = 64635-2) 38.3 fL 39.0-49.9 L RDW-CV (test code = 788-0) 12.6 % 12.0-15.5 PLT (test code = 777-3) 185 166-358 MPV (test code = 02921-2) 10.6 fL 9.5-12.9 NRBC/100 WBC (test code = 8723757319) 0.0 0.0-10.0 NRBC x10^3 (test code = 9131416628) See_Comment [Automated messa ge] The system which generated this result transmitted reference range: 10*3/?L. The reference range was not used to interpret this result as normal/abnormal. GRAN MAT (NEUT) % (test code = 770-8) 73.5 % IMM GRAN % (test code = 5788550139) 0.60 % LYMPH % (test code = 736-9) 15.1 % MONO % (test code = 5905-5) 9.7 % EOS % (test code = 713-8) 0.9 % BASO % (test code = 706-2) 0.2 % GRAN MAT x10^3(ANC) (test code = 3490392213) 5.88 10*3/uL 1.88-7.09 IMM GRAN x10^3 (test code = 3690513704) 0.05 10*3/uL 0.00-0.06 LYMPH x10^3 (test code = 731-0) 1.21 10*3/uL 1.32-3.29 L MONO x10^3 (test code = 742-7) 0.78 10*3/uL 0.33-0.92 EOS x10^3 (test code = 711-2) 0.07 10*3/uL 0.03-0.39 BASO x10^3 (test code = 704-7) 0.01-0.07 Lab Interpretation (test code = 08812-3) Abnormal [facility] CenterUS PELVIS > 14 GKPMY8056-39-41 16:59:34ORDERING PHYSICIAN: ?CHRISTINE ACOSTA HISTORY: elevated bps Scan for Growth and MYCHAL. COMPARISON: None. ? TECHNIQUE: Multiple transverse and longitudinal obstetrical ultrasoundimages were obtained transabdominally. ? FINDINGS: Single intrauterine gestation is identified, in ?cephalic presentation. Fetalheart rate is ?129 beats/min. Placenta is posterior in location. There is no evidence of placentaabruption. The cervix was not imaged. Amniotic fluid volume is within normal limits. ?MCYHAL measures 17.3 ?cm. Biparietal Diameter ?8.62 cm [...] 4 days. Bilateral ovaries are not visualized. [facility] [id number]-[id number] 17:16:16Ordered by an unspecified provider.[facility] Urinalysis w/o Specific Aefvbtm6932-18-77 16:54:00* Test Item Value Reference Range Interpretation [...] = 3257) N/A Negative - Negati ve [facility] Urinalysis w/o Specific Bslhxnb3889-92-10 13:53:00* Test Item Value Reference Range Interpretation [...] = 3257) n/a Negative - Negati ve [facility] Urinalysis w/o Specific Mxadaof5932-05-08 13:59:00* Test Item Value Reference Range Interpretation [...] = 3257) na Negative - Negati ve [facility] Urinalysis, Xbhcdjsjmw0416-52-96 21:27:00 * Test Item Value Reference Range [...] U APPEAR (test code = 3267) clear [facility] Urinalysis, Yetjkunbwp5748-85-76 21:27:00 * Test Item Value Reference Range [...] U APPEAR (test code = 3267) clear [facility] Urinalysis w/o Specific Mndykce8991-79-31 21:11:00* Test Item Value Reference Range Interpretation [...] = 3257) N/A Negative - Negati ve [facility] CenterComp. Metabolic Panel (61418)2023-10-01 04:34:48* Test Item Value Reference Range Interpretation Comme nts NA (test code = 4955749971) 136 mmol/L 135-145 K (test code = 0229993861) 3.7 mmol/L 3.5-5.0 CL (test code = 5346093532) 105 mmol/L 98-108 CO2 TOTAL (test code = 2069110138) 22 mmol/L 23-31 L AGAP (test code = 6187320386) 9 2-16 BUN (test code = 6256320244) 6 mg/dL 7-23 L GLUCOSE (test code = 0609276298) 90 mg/dL 70-110 CREATININE (test code = 2160-0) 0.38 mg/dL 0.50-1.04 L TOTAL BILI (test code = 9125485435) 0.3 mg/dL 0.1-1.1 CALCIUM (test code = 9675574065) 9.0 mg/dL 8.6-10.6 T PROTEIN (test code = 8202931832) 7.4 g/dL 6.3-8.2 ALBUMIN (test code = 8603223156) 3.8 g/dL 3.5-5.0 ALK PHOS (test code = 8160892026) 84 U/L 34-122 ALTv (test code = 1742-6) 17 U/L 5-35 AST(SGOT) (test code = 5095125343) 24 U/L 13-40 eGFR (test code = 38627-9) 147.3 mL/min/1.73m2 CKD-EPI eGFR (2020). Assuming creatinine has been stable day-to-day for at least three months, the eGFR indicates Category G1 (>= 90 mL/min/1.73 m2) Lab Interpretation (test code = 69952-4) Abnormal [facility] with Aome5316-26-52 04:17:04* Test Item Value Reference Range Interpretation [...] 34.1 g/dL 31.6-35.1 RDW-SD (test code = 45430-0) 40.6 fL 39.0-49.9 RDW-CV (test code = 788-0) 12.5 % 12.0-15.5 PLT (test code = 777-3) 224 166-358 MPV (test code = 06342-0) 9.6 fL 9.5-12.9 NRBC/100 WBC (test code = 1704570656) 0.0 0.0-10.0 NRBC x10^3 (test code = 4064026117) See_Comment [Automated messa ge] The system which generated this result transmitted reference range: 10*3/?L. The reference range was not used to interpret this result as normal/abnormal. GRAN MAT (NEUT) % (test code = 770-8) 69.2 % IMM GRAN % (test code = 3296120982) 1.20 % LYMPH % (test code = 736-9) 17.6 % MONO % (test code = 5905-5) 10.1 % EOS % (test code = 713-8) 1.6 % BASO % (test code = 706-2) 0.3 % GRAN MAT x10^3(ANC) (test code = 5029889692) 6.74 10*3/uL 1.88-7.09 IMM GRAN x10^3 (test code = 1568865049) 0.12 10*3/uL 0.00-0.06 H LYMPH x10^3 (test code = 731-0) 1.72 10*3/uL 1.32-3.29 MONO x10^3 (test code = 742-7) 0.98 10*3/uL 0.33-0.92 H EOS x10^3 (test code = 711-2) 0.16 10*3/uL 0.03-0.39 BASO x10^3 (test code = 704-7) 0.03 10*3/uL 0.01-0.07 Lab Interpretation (test code = 04693-7) Abnormal [facility] RETROPERITONEAL [id number] 04:16:40 Exam: Retroperitoneal ultrasound. INDICATION: right flank pain, 30 weeks , r/o renalstone/hydronephrosis COMPARISON:CT of the abdomen and pelvis from 02/20/2023 TECHNIQUE: Multiple longitudinal and transverse grayscale and selectedcolor Doppler ultrasonographic images were obtained of the kidneys andbladder. [employer] Specialist images were obtained for the record. FINDINGS: [...] thickening may be secondary to degree of underdistention.[facility] Urinalysis w/o Specific Kwucqir3514-04-81 17:11:00* Test Item Value Reference Range Interpretation [...] = 3257) Negative Negative - Negati ve [facility] Urinalysis w/o Specific Jiqnqqp6504-95-39 17:11:00* Test Item Value Reference Range Interpretation [...] = 3257) Negative Negative - Negati ve [facility] Urinalysis w/o Specific Upeltkm6396-15-57 17:58:00* Test Item Value Reference Range Interpretation [...] = 3257) N/A Negative - Negati ve [facility] Urinalysis w/o Specific Oddgqmy6384-67-53 17:56:00* Test Item Value Reference Range Interpretation [...] = 3257) N/A Negative - Negati ve [facility] Urinalysis w/o Specific Roylvpv7587-00-88 19:33:00* Test Item Value Reference Range Interpretation [...] = 3257) n/a Negative - Negati ve [facility] URINALYSIS W/O SPECIFIC VQZUFCP6209-47-02 18:23:00* Test Item Value Reference Range Interpretation [...] = 3257) n/a Negative - Negati ve [facility] URINALYSIS W/O SPECIFIC [id number] 18:23:00* Test Item Value Reference Range Interpretation [...] = 3257) n/a Negative - Negati ve [facility] CenterPOFL URINALYSIS W/O SPECIFIC [id number] 20:49:00* Test Item Value Reference Range Interpretation [...] = 3257) n/a Negative - Negati ve [facility] CenterPOCT YBCG5119-51-07 20:49:00* Test Item Value Reference Range Interpretation Comme nts POCT PREG (test code = 1605) Positive On board controls acceptable with C Line (test code = 3574) Yes POCT PREG LOT # (test code = 3575) POCT PREG TEST DATE ( test code = 3576) [facility] CenterVITAMIN D, 25 [id number] 07:56:44* Test Item Value Reference Range Interpretation Comme [facility] VITAMIN D, 25 OH (test code [...] . . . NG/ML 30-100 TSH, THIRD HPXJOEOLFY0274-62-91 07:14:29* Test Item Value Reference Range Interpretation Comme nts TSH, THIRD GENERATION (test code = 2821) 0.468 UIU/ML 0.400-4.100 COMPREHENSIVE METABOLIC ICHDX0335-01-25 03:52:33* Test Item Value Reference Range Interpretation Comme nts GLUCOSE (test code = 2217) 92 MG/DL 70-99 BUN (test code = 2207) 12 MG/DL 6-20 CREATININE (test code = 2213) 0.60 MG/DL 0.50-1.10 eGFR (2020 CKD-EPI) (test code = 65572) 133 ML/MIN/1.73 >60 CALC BUN/CREAT (test code = 2235) 20 RATIO 6-28 SODIUM (test code = 223) 138 MEQ/L 133-146 POTASSIUM (test code = 2228) 3.9 MEQ/L 3.5-5.4 CHLORIDE (test code = 2214) 104 MEQ/L 95-107 CARBON DIOXIDE (test code = 2205) 24 MEQ/L 19-31 CALCIUM (test code = 2209) 9.6 MG/DL 8.5-10.5 PROTEIN, TOTAL (test code = 222) 7.5 G/DL 6.1-8.3 ALBUMIN (test code = 2201) 5.0 G/DL 3.5-5.2 CALC GLOBULIN (test code [...] TESTING PERFORMED AT [facility] [address] [place] [address] ART EDUCATOR: JOHN JONES M.D. CLIA NUMBER [id number] [place]. [id number] CBC W/AUTO DIFF WITH [id number] 03:31:33* Test Item Value Reference Range Interpretation [...] 0.00-0.10 ABS NUCLEATED RBCS (test code = 14340) 0.00 K/UL 0.00-0.11 CT/NG, NAAT, [id number] 00:06:35* Test Item Value Reference Range Interpretation Comme nts CHLAMYDIA, NAAT, URINE (test code = 24027) NEGATIVE NEGATIVE Testing is perfo rmed with Manohar LUIS 6800/8800 systems usingreal-time polymerase chain reaction (PCR) method. Testing is performed with Manohar LUIS 6800/8800 systems usingreal-time polymerase chain reaction (PCR) method. A negative result does not exclude low level infection, specimensampling error, or collection error. GONORRHEA, NAAT, URINE (test code = 45574) NEGATIVE NEGATIVE Testing is perfo rmed with Manohar LUIS 6800/8800 systems usingreal-time polymerase chain reaction (PCR) method. Testing is performed with Manohar LUIS 6800/8800 systems usingreal-time polymerase chain reaction (PCR) method. A negative result does not exclude low level infection, specimensampling error, or collection error. HIV 1/2 4TH GEN, RFLX [id number] 06:06:48* Test Item Value Reference Range Interpretation Comme nts HIV 1/2 4TH GEN, RFLX CONF (test code = 3514) NON-REACTIVE NON-REACTIVE [facility] has impo rtant pathology staff changes effective 08/23/2022. New pathology staff will provide uninterrupted, excellent patient care and clinical consultation. See URL: [email or web address]. UNLESS OTHERWISE INDICATED, ALL TESTING PERFORMED AT [facility] [address] [place] [address] ART EDUCATOR: JOHN JONES M.D. CLIA NUMBER [id number] [facility] [place]. [id number] RPR REFLEX TO T. PALLIDUM - [id number] 05:38:25* Test Item Value Reference Range Interpretation Comme nts RPR (test code = 30477) NON-REACTIVE NON-REACTIVE RPR TITER (test code = 3500) NOT INDIC. TITER NOT INDIC. CULTURE, [id number] 15:48:21SPECIMEN NUMBER: [id number] CULTURE, URINE SPECIMEN NUMBER: [id number] SPECIMEN COMMENT: URINE SOURCE: URINE REPORT STATUS: FINAL ISOLATE NUMBER 1: ORGANISM: 04/01/2022 >100,000 CFU/ML GRAM NEGATIVE BACILLI IDENTIFICATION: 04/02/2022 ESCHERICHIA COLI E. COLI AMOXICILLIN/CA SENSITIVE <=8/4AMPICILLIN SENSITIVE <=8CEFAZOLIN SENSITIVE <=2CEFTRIAXONE SENSITIVE <=1CIPROFLOXACIN SENSITIVE <=1LEVOFLOXACIN SENSITIVE <=2NITROFURANTOIN SENSITIVE <=32PIP/TAZOBAC SENSITIVE <=16TETRACYCLINE SENSITIVE <=4TOBRAMYCIN SENSITIVE <=4TRIMETH/SULFA SENSITIVE <=2/38NOTE: NUMBERS DISPLAYED REPRESENT MINIMUM INHIBITORY CONCENTRATION (ARLETTE) WHICH IS EXPRESSED IN MCG/ML. UNLESS OTHERWISE INDICATED, ALL TESTING PERFORMED [facility] [address] [place] [address] ART EDUCATOR: REANNA DALLAS M.D. [place] NUMBER [id number] [facility] [place]. [id number], NAAT, [id number] 16:51:08* Test Item Value Reference Range Interpretation Comme nts GONORRHEA, NAAT (test code = 66678) NEGATIVE NEGATIVE IMPORTANT NO NADER: SEE ANNOUNCEMENT AT [email or web address] Note: Assay methodology is nucleic acid amplification by clinical product specialist mediated amplification (TMA) utilizing the Aptima Combo 2 Assay. CHLAMYDIA, NAAT (test code = 57358) NEGATIVE NEGATIVE IMPORTANT NO NADER: SEE ANNOUNCEMENT AT [email or web address] Note: Assay methodology is nucleic acid amplification by clinical product specialist mediated amplification (TMA) utilizing the Aptima Combo 2 Assay. [id number] 04:44:32* Test Item Value Reference Range Interpretation Comme nts RPR RESULT (test code = 3501) NON-REACTIVE NON-REACTIVE RPR TITER (test code = 3500) NOT INDIC. TITER NOT INDIC. HIV 1/2 4TH GEN, RFLX [id number] 03:54:06* Test Item Value Reference Range Interpretation Comme nts HIV 1/2 4TH GEN, RFLX CONF ( test code = 3514) NON-REACTIVE NON-REACTIVE HEPATITIS PANEL, [id number] 03:54:06* Test Item Value Reference Range Interpretation Comme nts HEPATITIS A IgM (test code = 74740) NON-REACTIVE NON-REACTIVE HEPATITIS B CORE IgM (test code = 4644) NON-REACTIVE NON-REACTIVE HEPATITIS B SURF AG (test code = 2739) NON-REACTIVE NON-REACTIVE HEPATITIS C ANTIBODY (test code = 4675) NON-REACTIVE NON-REACTIVE INTERPRETATION HEPATITIS A: (test code = 2552) (NOTE) Hepatitis A sero logy shows no evidence of acute hepatitis A. INTERPRETATION HEPATITIS B: (test code = 52257) (NOTE) Hepatitis B sero logy shows no evidence of acute hepatitis B andno indication of exposure to hepatitis B virus in the previous daryl eight months. INTERPRETATION HEPATITIS C: (test code = 03971) (NOTE) Hepatitis C sero logy shows no evidence of exposure to hepatitisC virus at this time. It can take up to 12 months after exposure tothe hepatitis C virus for antibodies to become detectable in the blood in certain patients. UNLESS OTHERWISE INDICATED, ALL TESTING PERFORMED [facility] [employer], [facility]. [address] [place] [address] ART EDUCATOR: REANNA DALLAS M.D. [place] NUMBER [id number] [facility] [place]. [id number] SARS-CoV-2 (COVID-19), RT-PCR/[id number] 10:54:31* Test Item Value Reference Range Interpretation Comments SARS-CoV-2 INTERPRETATION (test code = 48151) NEGATIVE SEE NOTE SARS-CoV-2 R NA NOT [...] prevalence is high. SOURCE (test code = 58469) NASOPHARYNGEAL Note: Methodolog y is Manohar Luis Real-Time RT-PCR. The expected result or reference range is NEGATIVE (Not Detected). For more information regarding COVID-19 testing to include clinicalinformation, methodology detail, intended use, FDA authorization fermin fact sheets for patients or healthcare providers, see [facility] Announcement: SARS-CoV-2 (COVID-19) by NAAT at URL below (note,fact sheets are provided by method given in report:[email or web address] Alternatively, see downloadable PDF fact sheet at:[email or web address]-PCR UNLESS OTHERWISE INDICATED, ALL TESTING PERFORMED [email or web address] [employer] [address] [place] [address] ART EDUCATOR: REANNA DALLAS M.D. [place] NUMBER [id number] [facility] [place]. [id number] History and Physical Notes Date/Time Note Provider Source 2023-11-16 08:13:23 TRIAGE HISTORY & PHYSICAL IDENTIFYING DATA Yadira Hdez is 18 year old, /White, 37w0d, female with BAN 12/07/2023, by Last Menstrual Period. : 2003 Primary Care Physician: PATIENT DOES NOT HAVE A PCP CHIEF COMPLAINT Induction at 37 weeks due to gestational hypertension HISTORY OF PRESENT ILLNESS Yadira Hdez is a 18 year old female @ [...] . Negative screening. ASSESSMENT AND PLAN Yadira Hdez is a 18 year old female @ [...] details Christine Acosta MD 11/16/2023 8:15 AM [facility] 2023-10-01 07:44:52 TRIAGE HISTORY & PHYSICAL IDENTIFYING DATA Yadira Hdez is 18 year old, /White, 30w3d, female with BAN 12/07/2023, by Last Menstrual Period. : 2003 Primary Care Physician: PATIENT DOES NOT HAVE A PCP CHIEF COMPLAINT Right flank pain HISTORY OF PRESENT ILLNESS Yadira Hdez is a 18 year old female @ [...] were obtained of the kidneys and bladder. Duplication Specialist images were obtained for the record. FINDINGS: [...] the above report. ASSESSMENT AND PLAN Yadira Hdez is a 18 year old at 30w3d who presents with right flank pain. Right flank pain - improved - will consult urology outpatient for right moderate to severe hydronephrosis - stable for discharge home PVT of Dr. Acosta, please see OB Summary for more details Christine Acosta MD [facility] Procedure Notes Date/Time Note Provider Source 2023-11-16 [...] WILI saline Guidance with: landmark technique} Epidural/Spinal [place] and/or Catheter: Needle Insertion Depth: 6 Catheter [...] Smooth cath adv. No H/C/P. AN-ANESTHESIOLOGY ANESTHESIOLOGIST [facility] 2023-11-16 08:18:01 Procedure(s): INSERT CERVICAL DILATOR Pre-Procedure Diagnose(s): 37 weeks gestation of ; Gestational hypertension, third trimester Post-Procedure Diagnose(s): 37 weeks gestation of ; Gestational hypertension, third trimester Hirsch bulb inserted in a sterile manner and inflated with 60 cc of normal saline without complications. Patient tolerated the procedure well. Christine Acosta MD #[id number] 11/16/2023 8:18 AM [facility] Notes Date/Time Note Provider Source 2024-07-28 13:45:00 Images from the original note were not included. Venipuncture collection performed by clean technique on the left anticubitus. Total of 1 attempts were made. Slight pressure and a bandage/dressing were applied to the site(s). The patient experienced no complications. The following specimens were processed according to instructions and sent to [facility] laboratories per lab order on 07/28/2024 : LT BLUE SST 1 RED LAV PPT DK GREEN (LiHep) DK GREEN (SodH) LO DK BLUE (K2) DK BLUE (S) ACD Blood Culture NIPT/NTD [facility] 2024-07-28 13:15:00 Age: [age] year old GA: 16w2d - Chest pain: Patient reports pain started last night. Sometimes on the right side and sometimes on the left side. Will start at the upper aspect of the breast radiated down to the lower aspect of the breast. Pain is sharp and lasted for 2 minutes and then resolved on its own. Happened about every 3 hours. Denies trauma or heavy lifting. Patient is a xnrq-ls-[id number] mom. Pain appeared musculoskeletal. Discussed stretching exercises and well-fitting/supportive bras. Continue to monitor -History of anxiety/depression: EPDS 4. Denies SI/HI. MARTIN-7 score 7 -New OB labs within normal limits except for VZV nonimmune -GBS UTI on 06/16/2024: Urine test of cure next visit -Panorami low risk male -Maternal serum AFP ordered -Anatomy scan scheduled for 08/14/2024 -Follow-up in 4 weeks for visit with TEAM COORDINATOR -Follow-up in 8 weeks for visit with Acosta [facility] 2024-07-04 12:45:00 Age: [age] year old GA: 12w6d PLAN 1. GBS (group b Streptococcus) UTI complicating , first trimester - Urine Culture; Future. States she completed medication as prescribed. FRANCO today 2. Normal in first trimester 3. 12 weeks gestation of - POCT Urinalysis w/o Specific Lasara- trace leukocytes and protein - OB Ultrasound Transabdominal, Limited (<14 wks) - CONSULT MATERNAL MEDICINE ULTRASOUND Multiple Gestation: No 4. History of anxiety MARTIN- 7 score 10. States she is just overwhelmed/stressed with . Denies SI/HI Will continue to monitor 5. History of depression EPDS- 5 States she is just overwhelmed/stressed with . Denies SI/HI Will continue to monitor 6. Nausea and vomiting during prior to 22 weeks gestation Improving with Reglan, continue to avoid triggers F/u with Dr. Acosta in 4 weeks or prn Woody Hood DNP, HOTEL ASSOCIATE-BC 07/04/2024 at 12:06 PM [facility] 2024-06-26 16:49:50 Received Horizon results via fax. Stamped and will be scanned/uploaded into pt's chart. STEFANY STEEN RN 06/26/2024 4:50 PM TER HELPER SPRAY Stefany Steen RN [facility] 2024-06-26 16:49:06 Received Panorama results via fax. Stamped and will be scanned/uploaded into pt's chart. Pt viewed Tammy results via website. STEFANY STEEN RN 06/26/2024 4:49 PM [facility] 2024-06-24 10:01:44 Patient spoke with triage nurse after sending Construct[employer] message. Nils Hawkins RN 06/24/2024 10:01 AM TER HELPER SPRAY Nils Hawkins RN [facility] 2024-06-23 13:33:09 Received panorama results. sex not reported. Change authorization form submitted to tammy to add sex. Nils Hawkins RN 06/23/2024 1:33 PM TER HEL[employer]AY Nils Hawkins RN [facility] 2024-06-21 12:09:00 Regarding: Dizzy 11 weeks ----- Message from Patient Escalation Engineer sent at 06/21/2024 12:08 PM PAINTER HELPER SPRAY ----- Yadira Hdez is a 19 year old female Patient is calling and was told if her symptoms of dizziness persisted to call to speak with a nurse and she says she is still feeling dizzy symptom still persists. Gamble RN [facility] 2024-06-21 12:09:00 Triage Assessment Last Clinic Visit: 06/02/24, visit Primary Symptom: dizzy Onset / Duration: today Location / Description: neuro Pain / Severity: -01/01 Associated Symptoms: unsteady gait, movement makes it worse Fever / Method: denies Hydration: eating and drinking, 16oz about today, last void 11ish, denies hematuria or dysuria, has nausea, denies vomiting, has some diarrhea Treatment so far: zofran 4mg 1100 Effect on ADL's: some Gestational Weeks: 11w Rupture Membranes: denies Bleeding / Spotting / Pads per hour: denies Movement: NA Para / : EDC: 01/10/25 Pre-existing condition / Immunocompromised: anxiety, depression Yadira Hdez is a 19 year old female whose calling for advice with dizziness. Pt reports she woke up this morning around 0700 and was dizzy. Pt reports "the room was spinning". Pt reports ate and drinking water and still has dizziness. Pt reports movement makes dizziness worse. Pt reports has to hold on to something to walk. Reports if moves head too fast dizziness gets worse. Pt reports had ISLAS earlier today. Assessment and triage completed per protocol. Patient verbalizes understanding and agrees to follow plan of care. Pt verbalized understanding of need for ER eval and will go to [facility] ADB within 1 hr as advised. Pt had no further questions or concerns. Call back advice given and pt verbalized understanding. Nallely Gamble RN Reason for Disposition SEVERE dizziness (vertigo) (e.g., unable to walk without assistance) Protocols used: Dizziness - Lbapsom-KWMEK-[id number] TER HELPER SPRAY [facility] 2024-06-16 11:55:53 Patient completed 1 hour glucose test. Nils Hawkins RN 06/16/2024 11:56 AM TER HELPER SPRAY Nils Hawkins RN [facility] 2024-06-16 10:45:00 Images from the original note were not included. Venipuncture collection performed by clean technique on the right anticubitus. Total of 1 attempts were made. Slight pressure and a bandage/dressing were applied to the site(s). The patient experienced no complications. The following specimens were processed according to instructions and sent to [facility] laboratories per lab order on 06/16/2024 : LT BLUE SST 4 RED 1 LAV 2 PPT DK GREEN (LiHep) DK GREEN (SodH) LO DK BLUE (K2) DK BLUE (S) ACD Blood Culture NIPT/NTD Patient has been identified by and name and was provided with cup, antiseptic towelette, and clean catch instructions. 1 urine specimen(s) sent. Unpreserved Urine Culture 1 Aptima tube Other urine Tammy kit collected 06/16/24 TER HELPER SPRAY [facility] 2024-06-02 14:30:00 Age: [age] year old GA: 8w2d Nausea/vomiting -Discussed to continue vitamin B6/Unisom -Reglan prescribed -Avoid triggers discussed URI -Reports headache, nasal congestion, rhinorrhea, and cough for 1 week. No other symptoms. -Normal exam today except for edematous nasal turbinates and cobblestoning noted in the posterior pharynx -Antihistamines discussed -ER precautions given History of anxiety/depression -EDPS 5. Denies SI/HI -Will obtain BPS/MARTIN at next visit Intermittent pelvic cramping - Transvaginal USG for FHT: Single live IUP measured 7 5/7 weeks, consistent with LMP. Will date by Patient's last menstrual period was 04/05/2024 (exact date). unless clinically indicated otherwise -Threatened miscarriages warnings reviewed Short interval -Status post in October 2023 New OB labs today. Discussed do's and don'ts of , safe foods, safe medications. Reviewed Zika virus precautions. I discussed the call schedule and that I might not be the physician delivering her. I discussed I deliver my patients at [facility]. Expectations for weight gain this include 25-35 pounds. Encouraged to call if have any additional questions or concerns. Discussed aneuploidy and carrier screening; patient opts for panorama and Horizon. Discussed with patient that she can have HEALTHY support with her during her delivery (which is subject to change depends on the COVID pandemic) Received flu vaccine today Follow-up in 4 weeks for visit with TEAM COORDINATOR Follow-up in 8 weeks for visit with Acosta TER [employer]AY [facility] 2024-05-20 17:10:00 Regardin wks - morning sickness, not able to eat much x 3 days ----- Message from Patient Escalation Engineer sent at 05/20/2024 4:52 PM PAINTER HELPER SPRAY ----- Yadira Hdez is a 19 year old female TER HELPER [employer]AY Tomasa Alvarez RN [facility] 2024-05-20 17:10:00 Triage Assessment Last Clinic Visit: 12/20/23, OB, Primary Symptom: nausea Onset / Duration: Per pt experiencing for "3 days now" Location / Description: GI Pain / Severity: Per pt has menstrual type "cramps" here and there that started 2 days ago. Rates a 2/10 Associated Symptoms: menstrual type cramps, tired Fever / Method: denies Hydration: Pt states "I've been drinking water all day." Per pt has consumed 2-3, 16.9 oz bottles of water today. Tried pizza roll, some Ramen noodles and cereal and milk. Last void "not that long ago to go pee." Denies any urinary symptoms (burning or pain). Treatment so far: "trying to drink as much water as I can" per pt. Effect on ADL's: yes Gestational Weeks: 5w 4d Rupture Membranes: denies Bleeding / Spotting / Pads per hour: Pt reports "old blood" noted only on toilet paper around 7:00 pm yesterday. Denies any since then. Movement: n/a Para / : EDC: 01/16/25, LMP: 04/11/24 Pre-existing condition / Immunocompromised: Past Medical History: Diagnosis Date Anxiety Depression Known health problems: none Nexplanon removed in December or January 2024 Yadira Hdez is a 19 year old female who is calling for advice for morning sickness. Follow up call made to pt. States she has appointment scheduled for 06/02/24 but would like to know what to do about morning sickness. Pt states nausea has been constant, denies any vomiting, headache, abdominal or head injury. Pt states "I haven't loss or gained much" when asked about weight loss. Assessment and triage completed, per protocol. Pt given home care advice. Call back warnings provided. Pt verbalizes all understanding and agrees to follow plan of care. JUAN MANUEL Carr, [facility] Nurse Triage Reason for Disposition MILD-MODERATE vomiting (e.g., 1 - 5 times / day) or nausea Protocols used: - Morning Sickness (Nausea and Vomiting of )-ADULT-AH [facility] 2024-05-19 08:20:51 Attempted to reach pt, no answer, left a Kamilah Dobbins RN 05/19/2024 8:20 AM Dobbins RN [facility] 2024-05-17 12:26:51 Yadira Hdez is a 19 year old female that is calling to ask if the [facility] is still delivering babies. The pt states that she had been told by unknown source that [facility] had shut down the L&D unit. Please advise. Qiu [facility] 2024-01-01 16:37:30 Providers last note on 12/20/23 "Plan: Finish hydrochlorothiazide 25 mg daily as prescribed; follow-up sooner if headache does not improve or resolve " Pt states she is taking rx as prescribed and has 5 pills left, states she is still experiencing headaches. Ruby made with a different provider on Sunday since Dr Acosta is out of office. [facility] 2023-12-30 15:54:54 Summary: Refill request Images from the original note were not included. Noemí Kimbrough [facility] 2023-11-23 16:05:56 Pt c/o ISLAS 8/10 x 2 days. Has been taking pain reliever- not improving. Nausea. Denies vomiting, vision changes, RUQ abd pain or swelling. Unable to check BP at home. Instructed pt to go to ER to be evaluated. Has been taking BP med. Verbalized understanding. STEFANY STEEN RN 11/23/2023 4:07 PM Stefany Steen RN [facility] 2023-11-23 15:58:41 Pt calling says she having a severe headache has not been able to check her bp, gave 11/16 was told to call if this occurs, Leidy Walton [facility] 2023-11-19 10:20:00 Problem: Discharge Planning Goal: Adequate for discharge Outcome: Resolved Goal: Bilirubin within specified parameters Outcome: Resolved Goal: Knowledge of discharge procedure Outcome: Resolved Problem: Body Temperature - Abnormal, Risk of Goal: Body temperature within specified parameters Outcome: Resolved Problem: Infant Feeding Goal: Adequate nutritional intake Outcome: Resolved Problem: Breast-feeding - Ineffective Goal: Effective breast-feeding Outcome: Resolved Problem: Parent-Infant Attachment - Impaired, Risk of Goal: Parent- bonding initiation Outcome: Resolved Problem: Procedure Routine Goal: Absence of post-procedure complications Outcome: Resolved Goal: Knowledge of procedure Outcome: Resolved Problem: Infection, risk to , related to maternal health conditions Goal: Absence of infection Outcome: Resolved Nidia Culver RN [facility] 2023-11-18 21:42:56 Problem: Discharge Planning Goal: Adequate for discharge Outcome: Progressing as expected Goal: Bilirubin within specified parameters Outcome: Progressing as expected Goal: Knowledge of discharge procedure Outcome: Progressing as expected Problem: Body Temperature - Abnormal, Risk of Goal: Body temperature within specified parameters Outcome: Progressing as expected Problem: Infant Feeding Goal: Adequate nutritional intake Outcome: Progressing as expected Problem: Breast-feeding - Ineffective Goal: Effective breast-feeding Outcome: Progressing as expected Problem: Parent-Infant Attachment - Impaired, Risk of Goal: Parent-infant bonding initiation Outcome: Progressing as expected Problem: Procedure Routine Goal: Absence of post-procedure complications Outcome: Progressing as expected Goal: Knowledge of procedure Outcome: Progressing as expected Problem: Infection, risk to infant, related to maternal health conditions Goal: Absence of infection Outcome: Progressing as expected Imani Camejo RN [facility] 2023-11-18 08:00:54 Problem: Discharge Planning Goal: Adequate for discharge Outcome: Progressing as expected Goal: Bilirubin within specified parameters Outcome: Progressing as expected Goal: Knowledge of discharge procedure Outcome: Progressing as expected Problem: Body Temperature - Abnormal, Risk of Goal: Body temperature within specified parameters Outcome: Progressing as expected Problem: Feeding Goal: Adequate nutritional intake Outcome: Progressing as expected Problem: Breast-feeding - Ineffective Goal: Effective breast-feeding Outcome: Progressing as expected Problem: Parent-Infant Attachment - Impaired, Risk of Goal: Parent-infant bonding initiation Outcome: Progressing as expected Problem: Procedure Routine Goal: Absence of post-procedure complications Outcome: Progressing as expected Goal: Knowledge of procedure Outcome: Progressing as expected Problem: Infection, risk to , related to maternal health conditions Goal: Absence of infection Outcome: Progressing as expected T Fransisca Lou RN [facility] 2023-11-17 19:18:24 Problem: Discharge Planning Goal: Adequate for discharge Outcome: Progressing as expected Goal: Bilirubin within specified parameters Outcome: Progressing as expected Goal: Knowledge of discharge procedure Outcome: Progressing as expected Problem: Body Temperature - Abnormal, Risk of Goal: Body temperature within specified parameters Outcome: Progressing as expected Problem: Feeding Goal: Adequate nutritional intake Outcome: Progressing as expected Problem: Breast-feeding - Ineffective Goal: Effective breast-feeding Outcome: Progressing as expected Problem: Parent- Attachment - Impaired, Risk of Goal: Parent-infant bonding initiation Outcome: Progressing as expected Problem: Procedure Routine Goal: Absence of post-procedure complications Outcome: Progressing as expected Goal: Knowledge of procedure Outcome: Progressing as expected Problem: Infection, risk to , related to maternal health conditions Goal: Absence of infection Outcome: Progressing as expected [facility] 2023-11-17 16:24:33 Problem: Discharge Planning Goal: Adequate for discharge Outcome: Progressing as expected Goal: Bilirubin within specified parameters Outcome: Progressing as expected Goal: Knowledge of discharge procedure Outcome: Progressing as expected Goal: Knowledge of care Outcome: Progressing as expected Problem: Body Temperature - Abnormal, Risk of Goal: Body temperature within specified parameters Outcome: Progressing as expected Problem: Infant Feeding Goal: Adequate nutritional intake Outcome: Progressing as expected Problem: Breast-feeding - Ineffective Goal: Effective breast-feeding Outcome: Progressing as expected Problem: Parent-Infant Attachment - Impaired, Risk of Goal: Parent-infant bonding initiation Outcome: Progressing as expected Problem: Procedure Routine Goal: Absence of post-procedure complications Outcome: Progressing as expected Goal: Knowledge of procedure Outcome: Progressing as expected Problem: Infection, risk to , related to maternal health conditions Goal: Absence of infection Outcome: Progressing as expected [facility] 2023-11-17 07:24:54 Problem: Discharge Planning Goal: Adequate for discharge 11/17/2023723 by Alice Mirza RN Outcome: Progressing as expected 11/16/20231916 by Alice Mirza RN Outcome: Progressing as expected Goal: Bilirubin within specified parameters 11/17/2023723 by Alice Mirza RN Outcome: Progressing as expected 11/16/20231916 by Alice Mirza RN Outcome: Progressing as expected Goal: Knowledge of discharge procedure 11/17/2023723 by Alice Mirza RN Outcome: Progressing as expected 11/16/20231916 by Alice Mirza RN Outcome: Progressing as expected Goal: Knowledge of infant care 11/17/2023723 by Alice Mirza RN Outcome: Progressing as expected 11/16/20231916 by Alice Mirza RN Outcome: Progressing as expected Problem: Body Temperature - Abnormal, Risk of Goal: Body temperature within specified parameters 11/17/2023723 by Alice Mirza RN Outcome: Progressing as expected 11/16/20231916 by Alice Mirza RN Outcome: Progressing as expected Problem: Feeding Goal: Adequate nutritional intake 11/17/2023723 by Alice Mirza RN Outcome: Progressing as expected 11/16/20231916 by Alice Mirza RN Outcome: Progressing as expected Problem: Procedure Routine Goal: Absence of post-procedure complications 11/17/2023723 by Alice Mirza RN Outcome: Progressing as expected 11/16/20231916 by Alice Mirza RN Outcome: Progressing as expected Goal: Knowledge of procedure 11/17/2023723 by Alice Mirza RN Outcome: Progressing as expected 11/16/20231916 by Alice Mirza RN Outcome: Progressing as expected Problem: Procedure Routine Goal: Knowledge of procedure 11/17/2023723 by Alice Mirza RN Outcome: Progressing as expected 11/16/20231916 by Alice Mirza RN Outcome: Progressing as expected Problem: Infection, risk to , related to maternal health conditions Goal: Absence of infection 11/17/2023723 by Alice Mirza RN Outcome: Progressing as expected 11/16/20231916 by Alice Mirza RN Outcome: Progressing as expected Alice Mizra RN [facility] 2023-11-17 04:29:38 Patient: Yadira Hdez Procedure Summary Date: 11/16/23 Room / Location: Anesthesia Start: 1410 Anesthesia Stop: 11/17/23256 Procedure: CENTRAL NEURAXIAL BLOCK Diagnosis: Scheduled Providers: Responsible Provider: Javier Morales MD Anesthesia Type: Epidural ASA Status: 2 Anesthesia Type: Epidural Last vitals BP 122/46 (11/17/23410) Temp 37.3 ?C (99.2 ?F) (11/17/23410) Pulse 93 (11/17/23410) Resp SpO2 98 % (11/17/23410) There were no known notable events for this encounter. Anesthesia Post Evaluation Patient location during evaluation: bedside Patient participation: complete - patient participated Level of consciousness: awake and alert Pain score: 0 Pain management: satisfactory to patient Multimodal analgesia pain management approach Airway patency: patent Cardiovascular status: acceptable and blood pressure returned to baseline Respiratory status: acceptable Hydration status: acceptable AN-ANESTHESIOLOGY ANESTHESIOLOGIST [facility] 2023-11-17 00:58:01 Problem: Discharge Planning Goal: Adequate for discharge 11/17/202356 by America Lopez RN Outcome: Progressing as expected 11/16/20231899 by America Lopez RN Outcome: Progressing as expected Goal: Bilirubin within specified parameters 11/17/202356 by America Lopez RN Outcome: Progressing as expected 11/16/20231899 by America Lopez RN Outcome: Progressing as expected Goal: Knowledge of discharge procedure 11/17/202356 by America Lopez RN Outcome: Progressing as expected 11/16/20231899 by America Lopez RN Outcome: Progressing as expected Goal: Knowledge of care 11/17/202356 by America Lopez RN Outcome: Progressing as expected 11/16/2023 190 by America Lopez RN Outcome: Progressing as expected Problem: Body Temperature - Abnormal, Risk of Goal: Body temperature within specified parameters 11/17/202356 by America Lopez RN Outcome: Progressing as expected 11/16/2023 190 by America Lopez RN Outcome: Progressing as expected Problem: Infant Feeding Goal: Adequate nutritional intake 11/17/202356 by America Lopez RN Outcome: Progressing as expected 11/16/20231899 by America Lopez RN Outcome: Progressing as expected Problem: Breast-feeding - Ineffective Goal: Effective breast-feeding 11/17/202356 by America Lopez RN Outcome: Progressing as expected 11/16/20231899 by America Lopez RN Outcome: Progressing as expected Problem: Parent-Infant Attachment - Impaired, Risk of Goal: Parent-infant bonding initiation 11/17/202356 by America Lopez RN Outcome: Progressing as expected 11/16/2023 190 by Ameirca Lopez RN Outcome: Progressing as expected Problem: Procedure Routine Goal: Absence of post-procedure complications 11/17/202356 by America Lopez RN Outcome: Progressing as expected 11/16/2023 190 by America Lopez RN Outcome: Progressing as expected Goal: Knowledge of procedure 11/17/202356 by America Lopez RN Outcome: Progressing as expected 11/16/2023 190 by America Lopez RN Outcome: Progressing as expected Problem: Infection, risk to , related to maternal health conditions Goal: Absence of infection 11/17/202356 by America Lopez RN Outcome: Progressing as expected 11/16/20231899 by America Lopez RN Outcome: Progressing as expected [facility] 2023-11-17 00:36:43 DELIVERY BY SPONTANEOUS VAGINAL DELIVERY Delivery Date: 11/17/2023 Delivery Time: 12:13 AM Delivery Summary Yadira Hdez is a 18 year old female @ 37w1d. Intrapartum course complicated with isolated tachycardia and amp/gent given for suspected chorioamnionitis. The patient was admitted to the Labor & Delivery unit for induction at 37 weeks due to gestational hypertension. Delivery Physician: Christine Acosta MD Intrapartum Anesthesia/Analgesia: Epidural Mode of Delivery: Delivery of vidal fetus with cephalic presentation Fetus Spontaneous vaginal delivery of head with cephalic position, right occipital anterior. As the head crowned and distended the perineum, no episiotomy was performed. A blue towel was used to protect the perineum as the head crowned and delivered. The other hand was used to exert pressure on the occiput to control the delivery of the head. The perineum was pushed with a towel-draped hand as the head and mouth was delivered over the perineum. The head was allowed to rotate externally to achieve natural body posture. Examination of neck revealed nuchal cord, which was Umbilical cord not reducted - body delivered through umbilical cord. The shoulder was delivered by gentle downward traction applied to head and downward traction for the delivery of anterior shoulder. This was followed by upward traction with delivery of posterior shoulder and body. After the delivery of , bulb suction was performed from ororpharynx and nostril with removal of clear amniotic fluid. A normal, male was delivered. The umbilical cord was double clamped, cut and the infant was handed off the field to the circulating nurse Placenta Placenta was delivered spontaneously while the abdominal hand lifted the uterus cephalad and other hand keeping the umbilical cord slightly taut. Laceration: None Laceration Repair: No laceration repair needed. Fourth Stage Fourth stage of labor was managed by uterine massage with abdominal hand and infusion 30 units of pitocin mixed with intravenous fluid. EBL: 100 Complications: None Weight: 2930 g 1 Minute 5 Minute 10 Minute Totals: 8 9 Christine Acosta MD 11/17/2023 12:39 AM [facility] 2023-11-16 19:17:14 Problem: Discharge Planning Goal: Adequate for discharge Outcome: Progressing as expected Goal: Bilirubin within specified parameters Outcome: Progressing as expected Goal: Knowledge of discharge procedure Outcome: Progressing as expected Goal: Knowledge of infant care Outcome: Progressing as expected Problem: Body Temperature - Abnormal, Risk of Goal: Body temperature within specified parameters Outcome: Progressing as expected Problem: Infant Feeding Goal: Adequate nutritional intake Outcome: Progressing as expected Problem: Breast-feeding - Ineffective Goal: Effective breast-feeding Outcome: Progressing as expected Problem: Infection, risk to infant, related to maternal health conditions Goal: Absence of infection Outcome: Progressing as expected [facility] 2023-11-16 19:05:37 Problem: Discharge Planning Goal: Adequate for discharge Outcome: Progressing as expected Goal: Bilirubin within specified parameters Outcome: Progressing as expected Goal: Knowledge of discharge procedure Outcome: Progressing as expected Goal: Knowledge of infant care Outcome: Progressing as expected Problem: Body Temperature - Abnormal, Risk of Goal: Body temperature within specified parameters Outcome: Progressing as expected Problem: Infant Feeding Goal: Adequate nutritional intake Outcome: Progressing as expected Problem: Breast-feeding - Ineffective Goal: Effective breast-feeding Outcome: Progressing as expected Problem: Parent- Attachment - Impaired, Risk of Goal: Parent- bonding initiation Outcome: Progressing as expected Problem: Procedure Routine Goal: Absence of post-procedure complications Outcome: Progressing as expected Goal: Knowledge of procedure Outcome: Progressing as expected Problem: Infection, risk to infant, related to maternal health conditions Goal: Absence of infection Outcome: Progressing as expected [facility] 2023-11-16 14:03:00 Name/ MRN / Age / Gender: Yadira Hdez, [id number] 18 year old female BMI: Estimated body mass index is 27.08 kg/m? as calculated from the following: Height as of this encounter: 1.676 m (5' 6"). Weight as of this encounter: 76.1 kg (167 lb 12.8 oz). Allergies: Patient has no known allergies. Last Vitals: BP Readings from Last 1 Encounters: 11/16/23 138/89 Pulse Readings from Last 1 Encounters: 11/16/23 80 SpO2 Readings from Last 1 Encounters: 11/16/23 100% Date of Surgery: Surgeon: * Surgery not found * Procedure: CENTRAL NEURAXIAL BLOCK OR Location: * No surgery found * Anesthesia Preop Screen (no physical exam) Anesthesia Preop: [id number]-ty-Otgb NPO Status Verified Solid Food/Non-Clear Liquids: > 8 Hours Anesthesia History Anesthesia History Negative per Chart Review Previous Anesthetics/Airways Cardiovascular Negative Cardiac ROS METS: 5-6 Pulmonary Negative Pulmonary ROS Neuro/Musculoskeletal (+) Anxiety GI/Hepatic (+) GERD Hematology Negative Hematology ROS Renal Negative Renal ROS Skin Negative Skin ROS (+) Current IV access Endo/Other Negative 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 Hold on DOS. Phentermine: Alert [facility] anesthesiologist SGLT2 Inhibitors: "gliflozins" to be held for 3 days prior to elective surgeries GLP1 Agonosit: stop 7 days prior to surgery MAC Cases: Continue taking LUH inhibitors and ARBs ASA Classification ASA: 2 Labs: Chemistry 11/09/2023 CBC 11/16/2023 134 (L) 104 5 (L) 94 9.45 10.7 (L) 177 4.0 23 0.35 (L) 31.6 (L) eGFR: 150.3 Date: 11/13/2023 ANC: 6.59 Date: 11/16/2023 LFTs 11/13/2023 Coags AST: 22 AP: 84 Prot: 7.4 Ca: 9.3 PT: - Date: - ALT: 14 T Jesse: 0.3 Alb: 3.8 PTT: - Date: - PO4: - Date: - INR: - Date: - Cardiac Endocrine & other pBNP: - Date: - A1C: - Date: - Trop I: - Date: - POCT A1C: - Date: - CK: - Date: - TSH: - Date: - CKMB: - Date: - FT4: - Date: - LDL: - Date: - Lact: - Date: - Procal: - Date: - Respiratory -|-|-|-|- D-dimer: - ABG Date: - Date: - Miscellaneous Type and Screen: AB POSITIVE Antibody: Negative Date: 11/16/2023 POCT : Positive Date: 05/04/2023 Current Medications: No outpatient medications have been marked as taking for the 11/15/23 encounter (Hospital Encounter). Previous Surgeries: Past Surgical History: Procedure Laterality Date INSERT CERVICAL DILATOR 11/16/2023 Anesthesia Physical Exam General no apparent distress and alert and oriented x 3 patient is not obtunded Neuro/Psych neurological nonfocal Dental no notable dental hx Abdominal GI exam normal (+) gravid Airway Mallampati score:II TM distance:> 5 cm Neck ROM: full Mouth opening:normal (+) Normal facies Extremity Normal extremity Pulmonary pulmonary exam normal Other Cardiovascular cardiovascular exam normalRhythm:regular Rate: normal Anesthesia Plan ASA Status: 2 Plan discussed during pre-op evaluation: General, Epidural and Spinal Anesthetic plan on DOS: Epidural Anesthesia plan discussed with: patient or freight representative Post-Operative Analgesia: routine analgesia & antiemetics Recovery Plan: LDR Additional comments: [facility] 2023-11-16 07:54:33 Name/ MRN / Age / Gender: Yadira Hdez, [id number] 18 year old female BMI: Estimated body mass index is 27.08 kg/m? as calculated from the following: Height as of this encounter: 1.676 m (5' 6"). Weight as of this encounter: 76.1 kg (167 lb 12.8 oz). Allergies: Patient has no known allergies. Last Vitals: BP Readings from Last 1 Encounters: 11/16/23 138/89 Pulse Readings from Last 1 Encounters: 11/16/23 80 SpO2 Readings from Last 1 Encounters: 11/16/23 100% Date of Surgery: Surgeon: * Surgery not found * Procedure: LABOR CONSULT OR Location: * No surgery found * Anesthesia Preop Screen (no physical exam) Anesthesia Preop: [id number] NPO Status Verified Solid Food/Non-Clear Liquids: > 8 Hours Anesthesia History Anesthesia History Negative per Chart Review Previous Anesthetics/Airways Cardiovascular Negative Cardiac ROS Pulmonary Negative Pulmonary ROS Neuro/Musculoskeletal (+) Anxiety GI/Hepatic Negative GI/Hepatic ROS Hematology Negative Hematology ROS Renal Negative Renal ROS Skin Negative Skin ROS (+) Current IV access Endo/Other Negative 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 Hold on DOS. Phentermine: Alert [facility] anesthesiologist SGLT2 Inhibitors: "gliflozins" to be held for 3 days prior to elective surgeries GLP1 Agonosit: stop 7 days prior to surgery MAC Cases: Continue taking LUH inhibitors and ARBs ASA Classification ASA: 2 Labs: Chemistry 11/09/2023 CBC 11/16/2023 134 (L) 104 5 (L) 94 9.45 10.7 (L) 177 4.0 23 0.35 (L) 31.6 (L) eGFR: 150.3 Date: 11/13/2023 ANC: 6.59 Date: 11/16/2023 LFTs 11/13/2023 Coags AST: 22 AP: 84 Prot: 7.4 Ca: 9.3 PT: - Date: - ALT: 14 T Jesse: 0.3 Alb: 3.8 PTT: - Date: - PO4: - Date: - INR: - Date: - Cardiac Endocrine & other pBNP: - Date: - A1C: - Date: - Trop I: - Date: - POCT A1C: - Date: - CK: - Date: - TSH: - Date: - CKMB: - Date: - FT4: - Date: - LDL: - Date: - Lact: - Date: - Procal: - Date: - Respiratory -|-|-|-|- D-dimer: - ABG Date: - Date: - Miscellaneous Type and Screen: AB POSITIVE Antibody: Negative Date: 11/16/2023 POCT : Positive Date: 05/04/2023 Current Medications: No outpatient medications have been marked as taking for the 11/15/23 encounter (Hospital Encounter). Previous Surgeries: No past surgical history on file. Anesthesia Physical Exam General alert and oriented x 3 Neuro/Psych neurological Dental no notable dental hx Abdominal GI exam normal (+) gravid Airway Mallampati score:II TM distance:> 5 cm Neck ROM: full Mouth opening:normal Extremity Normal extremity Pulmonary pulmonary exam normal Other Cardiovascular cardiovascular exam normalRhythm:regular Rate: normal Anesthesia Plan ASA Status: 2 Anesthesia plan discussed with: patient or freight representative Post-Operative Analgesia: routine analgesia & antiemetics Recovery Plan: LDR Additional comments: NACR-NURSE BUSINESS MACHINE MECHANIC,CERTIFIED REGISTERED NURSE BUSINESS MACHINE MECHANIC [facility] 2023-11-16 01:09:07 Problem: Discharge Planning Goal: Adequate for discharge Outcome: Progressing as expected Goal: Bilirubin within specified parameters Outcome: Progressing as expected Goal: Knowledge of discharge procedure Outcome: Progressing as expected Goal: Knowledge of care Outcome: Progressing as expected Problem: Body Temperature - Abnormal, Risk of Goal: Body temperature within specified parameters Outcome: Progressing as expected Problem: Infant Feeding Goal: Adequate nutritional intake Outcome: Progressing as expected Problem: Breast-feeding - Ineffective Goal: Effective breast-feeding Outcome: Progressing as expected Problem: Parent- Attachment - Impaired, Risk of Goal: Parent-infant bonding initiation Outcome: Progressing as expected Problem: Procedure Routine Goal: Absence of post-procedure complications Outcome: Progressing as expected Goal: Knowledge of procedure Outcome: Progressing as expected Problem: Infection, risk to infant, related to maternal health conditions Goal: Absence of infection Outcome: Progressing as expected T [facility] 2023-11-15 09:15:00 Age: [age] year old GA: 36w6d - patient reports that she had midline chest pain last night that lasted for 2 min after she laid down to sleep at 11 pm. None since. - GHTN: diagnosed on 11/13/23. Induction scheduled for tomorrow at 37 wks. Strong PIH precautions given - GBS neg - Labor precautions and daily kick counts given - follow-up in 4-6 wks for PP visit [facility] 2023-11-13 09:46:44 Patient to ED for hypertension. She was at Dr. Acosta's office in and checked her bp and it was high and told patient to go to ER. Patrick Thompson RN [facility] 2023-11-10 23:10:01 Pt states " Contractions started around 9pm and then became 5-6 apart around 10. 36wks 2days Denies discharge or leakage. Still having movement Beatrice Meeks RN [facility] 2023-11-09 17:11:10 RL [employer] report received that pt slipped on drain cover in the rain while at the [facility] for lab collection. Pt is 36 weeks -called pt to assess current state. Pt denies abdominal pain, contractions, vaginal bleeding, lof and reports that she has been feeling normal movement post fall. She was aware she was falling and was able to brace herself with her hands and knees and avoid any contact with her abdomen. Pt given strong labor and delivery warnings and discussed prolonged monitoring post fall. Pt does not feel that she needs prolonged monitoring at this time. Advised to reach out with any concerns she may have. Pt verbalizes understanding. Marilu Wynn RN [facility] 2023-11-09 15:27:58 Received patient in lab at 1421, Patient reports that she fell outside of the clinic and caught herself on her hands and knees. Patient is . Patient states that she feels no pain in abdominal area. She had an area on her right knee with new scrape. Minimal bleeding. Cleaned area with normal Saline, pat dry, and covered with boarded gauze. Pen head sized abrasions on both hands. Cleaned with normal Saline and pat dry. Vitals: B/P 134/87 Pulse 91 O2 99% Patient ambulatory without assistance, gait steady. I advised patient to contact her PACKAGE SEALER MACHINE and make the aware of the fall. Patient voiced understanding. Faviola Mejía RN [facility] 2023-11-09 13:30:00 Images from the original note were not included. Venipuncture collection performed by clean technique on the right anticubitus. Total of 1 attempts were made. Slight pressure and a bandage/dressing were applied to the site(s). The patient experienced no complications. The following specimens were processed according to instructions and sent to [facility] laboratories per lab order on 11/09/2023 : LT BLUE SST 1 RED LAV 1 PPT DK GREEN (LiHep) DK GREEN (SodH) LO DK BLUE (K2) DK BLUE (S) ACD Blood Culture NIPT/NTD [facility] 2023-11-09 11:30:00 Age: [age] year old GA: 36w0d -Doing well -Patient was seen at [facility] labor and delivery on 11/07/2023. Currently on Flagyl for BV. -Induction planned for 39 weeks on 12/04/2023 unless clinically indicated otherwise This reviews what Dr. Acosta talked about at your 36 week talk: 1. Go to Labor and Delivery when your contractions are 5-7 minutes apart and you have been able to time them for an hour. If you live more than 30 minutes from the hospital, then go when they are 10 minutes apart and you have been able to time them for an hour. 2. BUT, there are 4 reasons to go to Labor and Delivery REGARDLESS of what else is happening, whether you are won or not: 1. If your water breaks - - - it may be a gush or a constant trickle. If you are not sure, always come in to be checked. 2. Bleeding like your period. 3. If your baby's movements are less than 10 in an hour. If you are concerned this might be the case, drink a tall glass of cold fluids, lay down on your side on the couch or your bed and see how long it takes to note 10 movements - if less than 10, this needs to be evaluated immediately. 4. Contractions or Pain that is continuous. Normal labor contractions last only 45 seconds - 1 minute. Cephalic presentation GC/CT negative on 11/07/2023 GBS obtained, CBC ordered Zika precautions reviewed Contraception PP: Nexplanon Delivery consent signed today RTC in 1 wk for PN [facility] 2023-11-07 12:39:55 Patient to ED for leaking vaginal fluid since yesterday. Lower abdominal pain with leaking. and reports 35 weeks 5 days. Patrick Thompson RN [facility] 2023-11-07 11:14:34 Spoke with patient, states that yesterday her underwear appeared "soaked" in clear fluid, denies it being pee. Patient stated that she wanted to wait and see if it occurred again. Today had "clear fluid" again, but not as muchas the first time. Denies vaginal bleeding. Good movement. Having sharp pains in abdomen, onset this morning, occurring approximately every 9 mins. Advised patient to go to ER/L&D to get evaluated. Patient verbalized understanding. Zahraa Ortega RN 11/07/2023 2:24 PM [facility] 2023-11-07 10:56:04 Pt calling having some clear fluid since yesterday want to discuss, some sharp pains in abd area. Leidy Walton [facility] 2023-11-02 13:56:33 Keep as scheduled URO-UROLOGY STAFF [facility] 2023-11-02 12:57:49 Images from the original note were not included. Camille Garcia RN [facility] 2023-11-02 11:36:25 Ultrasound and labs are still not completed as of 11/01. F/u is for Sunday 11/05. Does this appointment need to be rescheduled for after orders complete or should patient still be seen. Gerri Murillo [facility] 2023-11-02 08:00:00 Age: [age] year old GA: 35w0d -Doing well -Induction planned for 39 weeks on 12/04/2023 unless clinically indicated otherwise -Daily kick counts -Follow-up in 1 week for visit [facility] 2023-10-19 08:00:00 Age: [age] year old GA: 33w0d -Doing well -Patient was seen at [facility] labor and delivery on 10/12/2023 status post fall. -Right flank pain: Saw urology on 10/09/2023 -Desires induction at 39 weeks. Tentatively plan for 12/04/2023 unless clinically indicated otherwise -Daily kick counts - Follow-up in 2 weeks for [facility] 2023-10-12 20:57:[address] Acosta 32w Fell in shower around 8pm, landed on abdomen. Has felt baby move once or twice in last hour, seeking reassurance of wellbeing. Denies LOF or vaginal bleeding Michelle Whiting RN [facility] 2023-10-08 16:00:00 Age: [age] year old GA: 31w3d PLAN 1. 31 weeks gestation of - POCT Urinalysis w/o Specific Lasara- negative for Glu/protein belt for back support Has appt with urology as recommended to rule out kidney stones Future Appointments Provider Department Dept Phone Center 10/09/2023 4:00 PM Wild Javed MD [facility], [place] [phone] [facility] 10/19/2023 8:00 AM Christine Acosta MD [facility], [place] [phone] [facility] Specialt [facility] 2023-10-01 00:14:00 Report called to Lori in [facility]. Per Alexus pt accepted by Dr. Nam Flower Nidia Hoang RN [facility] 2023-09-30 19:21:16 Pt arrived ambulatory with complaints of right sided back pain x2 weeks. Pt doc told here if it got worse to come to ED for eval. Pt is 30 weeks . Denies any related complaint. Pt needs doctors note for work also. Morenita Alegre RN [facility] 2023-09-30 19:18:00 Images from the original note were not included. [facility] Emergency Department Note Patient Name: Yadira Hdez Date of : 2005 18 year old female Treatment Room: [place] [address] Primary Care Physician: PATIENT DOES NOT HAVE A PCP Patient Escorted by: Family [5] Mode of Arrival: Personal means [1] EMS Treatment Prior to ED Arrival: [facility] NURSE treatment: None Travel and Exposure Screening: Symptoms Does patient have any of these symptoms?: (not recorded) Exposure Screening Has patient had contact with someone with a communicable disease in the last month?: (not recorded) Diseases exposed to:: (not recorded) Is Patient ?: (not recorded) Exposure Date: (not recorded) Chief Complaint: Chief Complaint Patient presents with Back Pain History of Present Illness: 18 y/o female pt presents to ER for evaluation of right sided lower back pain, right flank pain x 2 weeks. Pt is 30 weeks and is a patient of Dr. Acosta. Pt reports she has this pain almost everyday for past 2 weeks. Pain is there at rest, but is worse with walking, standing and movement. Pt denies fever or chills. Pt denies urinary symptoms. Pt denies abdominal pain, nausea or vomiting. Pt reports mild intermittent lower abdominal cramping and her OB MD told her that it is [place] contractions. Pt denies fever or chills. She reports normal movements. No vaginal bleeding or discharge Denies history of renal stone Pt has been taking acetaminophen without much relief of symptoms History provided by: Patient History limited by: none. official court interpreter used: No Past Medical History/Immunizations: Past Medical History: Diagnosis Date Anxiety Depression Known health problems: none Tetanus received in last 5 years: Unknown Allergies: No Known Allergies Past Social History: Tobacco Use Never smoked or used smokeless tobacco. Past Surgical History: No past surgical history on file. Review of Systems: Review of Systems Constitutional: Negative for activity change, appetite change, chills, fatigue and fever. HENT: Negative. Eyes: Negative. Respiratory: Negative. Cardiovascular: Negative. Gastrointestinal: Negative. Genitourinary: Positive for hematuria, flank pain and pelvic pain (intermittent pelvic cramping). Negative for dysuria, urgency, frequency, difficulty urinating and dyspareunia. Musculoskeletal: Positive for back pain and myalgias. Negative for arthralgias, gait problem and joint swelling. Skin: Negative. Neurological: Negative. Psychiatric/Behavioral: Negative for behavioral problems and confusion. Physical Exam: ED Triage Vitals [09/30/23 1924] Weight 66.7 kg (147 lb) Actual or estimated Estimated by patient/family report Height 1.676 m (5' 6") BP 135/77 Pulse 99 Resp 18 Temp 37.3 ?C (99.1 ?F) Temp source Oral SpO2 100 % Measured on Room air Physical Exam Vitals and nursing note reviewed. Constitutional: General: She is awake. She is not in acute distress. Appearance: Normal appearance. She is not ill-appearing or toxic-appearing. HENT: Head: Normocephalic and atraumatic. Right Ear: External ear normal. Left Ear: External ear normal. Nose: Nose normal. Mouth/Throat: Mouth: Mucous membranes are moist. Eyes: General: No scleral icterus. Conjunctiva/sclera: Conjunctivae normal. Cardiovascular: Rate and Rhythm: Normal rate and regular rhythm. Pulmonary: Effort: Pulmonary effort is normal. No respiratory distress. Breath sounds: Normal breath sounds. Chest: Chest wall: No tenderness. Abdominal: General: Abdomen is protuberant. Bowel sounds are normal. Palpations: Abdomen is soft. Tenderness: There is no abdominal tenderness. There is no guarding. Comments: Gravid abdomen Musculoskeletal: General: Tenderness present. Cervical back: Neck supple. Lumbar back: Tenderness present. No swelling or deformity. Back: Right lower leg: No edema. Left lower leg: No edema. Comments: Pain in right sided mild to lower back, and right flank No skin changes or rash on the area of pain Skin: General: Skin is warm. Capillary Refill: Capillary refill takes less than 2 seconds. Neurological: Mental Status: She is alert and oriented to person, place, and time. Psychiatric: Mood and Affect: Mood normal. Behavior: Behavior normal. Behavior is cooperative. Radiology: US RETROPERITONEAL LIMITED Final Result Exam: Retroperitoneal ultrasound. INDICATION: right flank pain, 30 weeks , r/o renal stone/hydronephrosis COMPARISON:CT of the abdomen and pelvis from 02/20/2023 TECHNIQUE: Multiple longitudinal and transverse grayscale and selected color Doppler ultrasonographic images were obtained of the kidneys and bladder. Duplication Specialist images were obtained for the record. FINDINGS: [...] discussed with and acknowledged by Ms Derrick MARITN over the phone on 09/30/2023 at 10:50 PM with readback. Preliminary Report Dictated by Resident: Laurence Hickman I, Gasper Moise MD., have reviewed this study and agree with the above report. Lab Results: Lab Results URINALYSIS - Abnormal Result Value Ref Range APPEARANCE Clear Clear COLOR Yellow Yellow PH 6.0 4.8 - 8.0 SP GRAVITY 1.020 1.003 - 1.030 GLU U QUAL Normal Normal BLOOD Negative Negative KETONES Negative Negative PROTEIN Negative Negative UROBILIN Normal Normal BILIRUBIN Negative Negative NITRITE Negative Negative LEUK TR[place]ON Negative Negative RBC/HPF 2 0 - 3 HPF WBC/HPF 1 0 - 5 HPF BACTERIA Few (*) Negative MUCOUS Moderate (*) Negative LPF SQ EPITH 1 HPF CBC WITH DIFF - Abnormal WBC 9.75 4.30 - 11.10 10*3/?L RBC 3.93 3.93 - 5.25 10*6/?L HGB 11.9 11.6 - 15.0 g/dL HCT 34.9 (*) 35.7 - 45.2 % MCV 88.8 80.6 - 95.5 fL MCH 30.3 25.9 - 32.8 pg MCHC 34.1 31.6 - 35.1 g/dL RDW-SD 40.6 39.0 - 49.9 fL RDW-CV 12.5 12.0 - 15.5 % PLT 224 166 - 358 10*3/?L MPV 9.6 9.5 - 12.9 fL NRBC/100 WBC 0.0 0.0 - 10.0 /100 WBCs NRBC x10 3 <0.01 10*3/?L GRAN MAT (NEUT) % 69.2 % IMM GRAN % 1.20 % LYMPH % 17.6 % MONO % 10.1 % EOS % 1.6 % BASO % 0.3 % GRAN MAT x10 3 (ANC) 6.74 1.88 - 7.09 10*3/uL IMM GRAN x10 3 0.12 (*) 0.00 - 0.06 10*3/uL LYMPH x10 3 1.72 1.32 - 3.29 10*3/uL MONO x10 3 0.98 (*) 0.33 - 0.92 10*3/uL EOS x10 3 0.16 0.03 - 0.39 10*3/uL BASO x10 3 0.03 0.01 - 0.07 10*3/uL COMP. METABOLIC PANEL (75836) - Abnormal NA 136 135 - 145 mmol/L K 3.7 3.5 - 5.0 mmol/L CL 105 98 - 108 mmol/L CO2 TOTAL 22 (*) 23 - 31 mmol/L AGAP 9 2 - 16 BUN 6 (*) 7 - 23 mg/dL GLUCOSE 90 70 - 110 mg/dL CREATININE 0.38 (*) 0.50 - 1.04 mg/dL TOTAL BILI 0.3 0.1 - 1.1 mg/dL CALCIUM 9.0 8.6 - 10.6 mg/dL T PROTEIN 7.4 6.3 - 8.2 g/dL ALBUMIN 3.8 3.5 - 5.0 g/dL ALK PHOS 84 34 - 122 U/L ALTv 17 5 - 35 U/L AST(SGOT) 24 13 - 40 U/L eGFR 147.3 mL/min/1.73m2 EKG: If EKG completed, see Procedure Note. Orders and Treatments: Orders Placed This Encounter Procedures US RETROPERITONEAL LIMITED Urinalysis Cbc with Diff Comp. Metabolic Panel (33673) Orders Placed This Encounter Medications acetaminophen (TYLENOL) tablet 650 mg First Provider Eval: ED Events Date/Time Event User Comments 09/30/231926 Medical Screening Begins ALEXUS SALGADO -- 09/30/231926 First Provider Evaluation ALEXUS SALGADO -- ED COURSE 18 y/o female pt presents to ER for evaluation of symptoms described in HPI. Pt is well appearing, no acute distress Pt is 30 weeks . She denies abdominal pain or contractions. She denies vaginal bleeding or discharge Acetaminophen given for pain UA - shows bacteriuria, otherwise unremarkable US retroperitoneum shows right sided hydronephrosis. No renal stone in renal pelvis. CBC,CMP - wnl, renal function is preserved. heart tone 150/min by hand held doppler Results discussed with the pt. Discussed with Dr. 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 Dr. Kendal flower said they can either admit her here over night, and observe her, and discuss urology consult and transfer tomorrow morning or pt can be sent to [facility] as [facility] has no urology specialist. I discussed this options with the pt and she would like to stay here tonight and decide about urology consult/transfer tomorrow morning after discussing with OB/GYNE specialist. I discussed the pt's decision with Dr. Kendal flower and accepted for admission to L&D Diagnosis/Impression as of 10/01/23 0151 Acute right-sided low back pain without sciatica Right flank pain 30 weeks gestation of Hydronephrosis of right kidney Procedures: Procedures MDM: Medical Decision Making DDX considered includes but not limited to renal stone, UTI, muscle strain, lumbar strain, shingles, round ligament pain, labor Problems Addressed: 30 weeks gestation of : acute illness or injury Acute right-sided low back pain without sciatica: acute illness or injury Hydronephrosis of right kidney: acute illness or injury Right flank pain: acute illness or injury Amount and/or Complexity of Data Reviewed External Data Reviewed: notes. Details: Ob clinic note Labs: ordered. Decision-making details documented in ED Course. Radiology: ordered. Decision-making details documented in ED Course. Discussion of management or test interpretation with external provider(s): Ob/gyne specialist Risk OTC drugs. Decision regarding hospitalization. Flowsheet Documentation: Scoring Tools: No data recorded Disposition/Condition: ED Disposition ED Disposition Transfer - Internal L&D Condition Stable Comment -- Discharge Medications: Current Discharge Medication List CONTINUE these medications which have NOT CHANGED Details doxylamine (UNISOM, DOXYLAMINE,) 25 mg tablet Take 1 tablet by mouth at bedtime as needed for Nausea and Vomiting (N/V). Qty: 30 tablet, Refills: 1 Associated Diagnoses: Nausea and vomiting during prior to 22 weeks gestation PNV no.95/ferrous fum/folic ac ( ORAL) Take by mouth. pyridoxine, VITAMIN B-6, (VITAMIN B-6) 25 mg tablet Take 1 tablet by mouth every 6 (six) hours as needed for Nausea and Vomiting (N/V). Qty: 120 tablet, Refills: 1 Associated Diagnoses: Nausea and vomiting during prior to 22 weeks gestation Follow-up: Electronically signed by: Alexus Meza FNP 10/01/23 0122 Alexus Meza FNP 10/01/23 0151 Associated attestation - David Francis MD - 10/01/2023 4:27 AM CDT " I was personally available for consultation in the Emergency Department during this Patient evaluation/encounter by RUBY Derrick " [facility] 2023-09-26 13:36:59 Spoke with patient, states that pain is about the same. Good movement, no bleeding or loss of fluid. Denies any other symptoms. Declined for sooner PN appt. Patient advised of ER precautions, verbalized understanding. Zahraa Ortega RN 09/26/2023 1:38 PM Zahraa Ortega RN [facility] 2023-09-24 17:13:50 Attempted to contact patient by phone to see if patient would like to come in sooner to see provider per provider for pain she is experiencing, no answer, unable to leave message on voicemail to call back. Zahraa Ortega RN 09/24/2023 5:13 PM [facility] 2023-09-21 14:25:22 Name and verified. Pt wanted to know when she will be induced. I explained to her that pt's will usually be induced around 38-39 weeks unless medically indicated. She will speak with her when she is further along. Pt verbalized understanding. STEFANY STEEN RN 09/21/2023 2:26 PM Stefany Steen RN [facility] 2023-09-21 12:57:16 Patient requesting to discuss induction date. Patient seen by Dr. Acosta today and has 2 wk fu scheduled with Woody (10/07). Noemí Kimbrough [facility] 2023-09-21 12:15:00 Age: [age] year old GA: 29w0d -Doing well -Reports odor with urination only. Denies vaginal discharge or itching. Denies new sexual partner. Patient washes external genitalia with body soap and feminine hygiene products. Not wearing cotton underwear. U dip negative today. Small amount of vaginal discharge noted. GC/CT and vaginal pathogen collected. Feminine hygiene discussed. -28-week labs and serologies within normal limits -Received Tdap vaccine today - 3rd trimester teaching done- reviewed S/S of PTL (contractions, leakage of fluid and Vaginal bleeding) and also Kick Counts. Also dicussed [place], pelvic and lower back pains- expectations and differenced with S/S of PTL She plans to bottle fed BC options reviewed- opted for Nexplanon Surgery Scheduler: Dr. Sewell Encourage patient to bring in wishes if she has any. 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 Venipuncture collection performed by clean technique on the right anticubitus. Total of 1 attempts were made. Slight pressure and a bandage/dressing were applied to the site(s). The patient experienced no complications. The following specimens were processed according to instructions and sent to [facility] laboratories per lab order on 08/27/2023 : LT BLUE SST 2 RED 1 LAV 2 PPT DK GREEN (LiHep) DK GREEN (SodH) LO DK BLUE (K2) DK BLUE (S) ACD Blood Culture NIPT/NTD [facility] 2023-08-24 12:45:00 Pt was not fasting. She ate at 1030. I recommended pt come back tomorrow at the hospital to do glucose. Aide Sánchez 08/24/2023 1:02 PM TER HELPER SPRAY Aide Sánchez [facility] 2023-08-24 12:15:00 Age: [age] year old GA: 25w0d -Doing well without concerns today -History of anxiety/depression: EPDS 0. Denies SI/HI. MARTIN-7 score 0. -28 wk labs and serologies ordered -Follow-up in 4 weeks for visit [facility] 2023-07-27 12:15:00 Age: [age] year old GA: 21w0d -Doing well without concerns today -History of anxiety/depression: EPDS 6. Denies SI/HI. MARTIN-7 score 5. -Maternal serum AFP neg -Anatomy scan on 07/23/23: No obvious abnormalities. EFW 12 ounces, 33 percentile. -Follow-up in 4 weeks for visit TER [employer]AY [facility] 2023-07-13 16:26:40 Stuffy nose. Has had nose bleeds before. I explained to pt that effects of and increase blood flow. Advised pt ways to stop bleeding and if it continues after 30min- needs to go to ER. Verbalized understanding. STEFANY STEEN RN 07/13/2023 4:30 PM TER HEL[employer]AY Stefany Steen RN [facility] 2023-07-13 14:45:39 Pt says she had a severe nose bleed last night want to discuss. TER HELPER SPRAY Leidy Walton [facility] 2023-06-29 13:45:00 Age: [age] year old GA: 17w0d -Doing well without concerns today -History of anxiety/depression: EPDS 6. Denies SI/HI. MARTIN-7 score 7. -Maternal serum AFP done today, result pending -Anatomy scan ordered, awaiting appointment. -Follow-up in 4 weeks for visit [facility] 2023-06-29 11:45:00 Images from the original note were not included. Venipuncture collection performed by clean technique on the right anticubitus. Total of 1 attempts were made. Slight pressure and a bandage/dressing were applied to the site(s). The patient experienced no complications. The following specimens were processed according to instructions and sent to [facility] laboratories per lab order on 06/29/2023 : LT BLUE SST 1 RED LAV PPT DK GREEN (LiHep) DK GREEN (SodH) LO DK BLUE (K2) DK BLUE (S) ACD Blood Culture NIPT/NTD [facility] 2023-06-23 13:45:00 Regardin wks , no movement in 4 days ----- Message from Ese Faustin sent at 06/23/2023 1:42 PM PAINTER HELPER SPRAY ----- Yadira Hdez is a 18 year old female [facility] Ruchi Vick RN [facility] 2023-06-23 13:45:00 Triage Assessment Last Clinic Visit: 06/01/2023 Routine visit Next appointment: 06/29/2022 @ 1345 Primary Symptom: decreased Onset / Duration: 4 days Location / Description: decreased movement Pain / Severity: 0/10 Associated Symptoms: denies Fever / Method: denies Hydration: water 4-5 bottles, maybe one soda; every hours denies burning or discomfort with urination Treatment so far: Notes Effect on ADL's: unsure if she should be worried Gestational Weeks: 16w1d Rupture Membranes: denies Bleeding / Spotting / Pads per hour: denies Movement: not notes in 4 days - notes first movement noted 08/16 - notes "like a big punch from the inside" Para / : EDC: 12/07/2023 Pre-existing condition / Immunocompromised: normal in first trimester; nausea and vomiting during prior to 22 weeks gestation Advice given per Decreased Movement Adult Protocol. RN reviewed normal movement information with patient who voices understanding and will follow up with her provider next week as needed. Reason for Disposition [1] < 20 weeks AND [2] has not felt baby move yet Protocols used: - Decreased [id number] [facility] 2023-06-23 13:45:00 Spoke with patient, states that she though she was having decreased movement a couple days ago. Denies having any vaginal bleeding, loss of fluid. Denies any other symptoms. Informed patient she is still early in 16w,1d currently and might not feel much movement yet. Advised patient to make sure she is staying hydrated and monitor for bleeding, loss of fluid, cramping, etc, if any symptoms arise, call clinic of go to ER. Patient verbalized understanding. Zahraa Ortega RN 06/26/2023 8:33 AM TER HELPER SPRAY Zahraa Ortega RN [facility]
[2024-08-10 13:44] LABS: Absolute Lymphocytes (CBC) 0.4 K/uL (0.7-4.9); Absolute Monocytes 0.3 K/uL (0.1-1.3); Absolute Neutrophil 6.5 K/uL (1.8-8.0); Basophils % 0.1 % (0-1.3); Hematocrit 39.3 % (36.0-45.0); Hemoglobin 13.9 g/dL (12.0-15.0); MCH 30.4 pg (27.0-35.0); MCHC 35.4 g/dL (32.0-36.0); MCV 85.8 fL (80-100); MPV 7.9 fL (7.6-11.3); Monocytes % 3.9 % (3.3-12.3); Platelets 257 thou/uL (152-406); RBC Red Blood Cell Count 4.58 M/uL (3.86-4.86); Red Cell Distribution Width 14.8 % (12.1-15.2)
[2024-08-10 13:45] LABS: Specific Gravity > 1.030 (1.005-1.030); Sqamous Epithelial <5 /HPF (None Seen); Urine Bacteria <20 /HPF (<20); Urine Bilirubin NEGATIVE (Negative); Urine Blood Negative (Negative); Urine Clarity Extremely Turbid (Clear); Urine Color Yellow (Yellow); Urine Culture Reflex Order NOT NEEDED; Urine Glucose NEGATIVE (Negative); Urine Ketones 4+ (Over) (Negative); Urine Microscopic Reflex YN ORDER UMIC; Urine Mucus 3+ /HPF (None Seen); Urine Nitrite NEGATIVE (Negative); Urine Protein 1+ (Negative); Urine RBC <5 /HPF (None Seen); Urine Urobilinogen Normal (Normal); Urine WBC <5 /HPF (<5); Urine WBC Clump Rare /HPF (None Seen); Urine Yeast (Budding) Trace /HPF (None Seen); Urine pH 5.5 (5.0-7.0)
[2024-08-10] MEDS ORDERED: NA CHLORIDE 0.9% 1,000 ML ONE ×2 (13:45→15:13)
[2024-08-10] MEDS ORDERED: PROMETHAZINE INJ 25 MG/ML AMP ONE (13:45)
[2024-08-10 13:59] LABS: Albumin 3.4 g/dL (3.4-5.0); Albumin/Globulin Ratio 0.8 (1.1-1.8); Anion Gap 10.2 mEq/L (5.0-15.0); Bilirubin Total 0.8 mg/dL (0.2-1.0); Globulin 4.5 g/dL (2.3-3.5); Potassium 3.2 mEq/L (3.5-5.1); Protein, Total 7.9 g/dL (6.4-8.2)
[2024-08-10 15:09] LABS: SARS-CoV-2 Antigen CONTROL BLUE LINE VIS/BG OK; SARS-CoV-2 Antigen Rapid Res Negative (Negative)
[2024-08-10] MEDS ORDERED: POTASSIUM CL SA 10 MEQ TAB PO ONE (15:13)
--- NOTE | 2024-08-10 15:36 | EDPHYS ---
Physician Documentation [facility] Megan Name: Keira Hdez Age: 19 yrs Sex: Female : 2005 Arrival Date: 08/10/2024 Time: 11:43 Bed 17 Private MD: ED Physician Uche [place] HPI: 08/10 15:19 This 19 yrs old Female presents to ER via Ambulatory with complaints of Flu Symptoms - kb 18WKS PREG, Cold Symptoms. 15:19 Pt is 19 year old female who presents for nausea, vomiting, bodyaches and fatigue that kb started last night at 2300. Denies abd pain, diarrhea, fever, cough, congestion. . 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 - Infectious Disease History:: Denies. - Social history:: Smoking status: Patient denies any tobacco usage or history of. ROS: 15:18 Constitutional: As per HPI kb Exam: 15:18 Constitutional: This is a well developed, well nourished patient who is awake, alert, kb and in no acute distress. Head/Face: Normocephalic, atraumatic. ENT: Moist Mucous membranes Cardiovascular: Regular rate Respiratory: Respirations even and unlabored. No increased work of breathing. Talking in full sentences Abdomen/GI: Soft, non-tender. No distention Back: No spinal tenderness. No costovertebral tenderness. Full range of motion. Skin: Warm, dry with normal turgor. Normal color. MS/ Extremity: Pulses equal, no cyanosis. Neurovascular intact. Full, normal range of motion. Neuro: Awake and alert, GCS 15, oriented to person, place, time, and situation. Vital Signs: 12:55 BP 112 / 67; Pulse 120; Resp 17; Temp 98.2; Pulse Ox 98% ; Weight 60.78 kg; Height 5 hb ft. 5 in. ; Pain 9/10; 14:08 BP 111 / 61; Pulse 90; Resp 16; Pulse Ox 100% on R/A; mb9 16:25 BP 105 / 72; Pulse 88; Resp 18; Pulse Ox 100% on R/A; mb9 12:55 Body Mass Index 22.30 (60.78 kg, 165.1 cm) hb 12:55 Pain Scale: Adult hb MDM: 11:50 Medical Screening Exam initiated kb 15:18 Data reviewed: vital signs, nurses notes. kb 15:20 Differential diagnosis: flu, covid, dehydration, abnormal electrolytes. kb 15:35 Counseling: I had a detailed discussion with the patient and/or guardian regarding the kb historical points, exam findings, and any diagnostic results supporting the discharge/admit diagnosis, lab results, the need for outpatient follow up, a family practitioner, to return to the emergency department if symptoms worsen or persist or if there are any questions or concerns that arise at home. 15:35 ED course: Pt tolerating po intake after treatment. Will follow up with OB tomorrow. kb 08/10 12:00 Order name: Flu; Complete Time: 15:11 kb 08/10 12:00 Order name: SARS-COV-2 Antigen Rapid; Complete Time: 15:11 kb 08/10 12:00 Order name: CBC with Diff; Complete Time: 14:09 kb 08/10 12:00 Order name: CMP; Complete Time: 14:09 kb 08/10 12:00 Order name: Urinalysis w/ reflexes; Complete Time: 13:51 kb 08/10 12:00 Order name: IV Saline Lock; Complete Time: 13:39 kb 08/10 12:00 Order name: Labs collected and sent; Complete Time: 13:39 kb 08/10 13:45 Order name: FHT's; Complete Time: 14:02 kb Administered Medications: 14:02 Drug: Promethazine IVP 12.5 mg IVP once Route: IVP; Site: right antecubital; mb9 15:16 Follow up: Response: No adverse reaction mb9 14:03 Drug: NS 0.9% IV 1000 ml IV at 1 bolus Per protocol; to be given as a bolus over 60 mb9 minutes Route: IV; Rate: 1 bolus; Site: right antecubital; 15:16 Follow up: Response: No adverse reaction; IV Status: Completed infusion mb9 15:20 Drug: NS 0.9% IV 1000 ml IV at 1000 ml once; to be given as a bolus over 60 minutes mb9 Route: IV; Rate: 1000 ml; Site: right antecubital; 16:26 Follow up: Response: No adverse reaction; IV Status: Completed infusion mb9 15:20 Drug: Potassium Chloride PO 40 mEq PO once Route: PO; mb9 16:26 Follow up: Response: No adverse reaction mb9 Disposition Summary: 08/10/24 15:35 Discharge Ordered Notes: Location: Home kb Condition: Stable kb Diagnosis - Nausea with vomiting, unspecified kb - Dehydration kb Followup: kb - With: Emergency Department - When: As needed - Reason: Worsening of condition Followup: kb - With: Private Physician - When: 2 - 3 days - Reason: Recheck today's complaints, Continuance of care, Re-evaluation by your physician Discharge Instructions: - Discharge Summary Sheet kb - Nausea and Vomiting, Adult, [id number]-[id number] kb Forms: - Medication Reconciliation Form kb - Antibiotic Education kb - Prescription Opioid Use kb - Patient Portal Instructions kb - Leadership Thank You Letter kb - Work release form mb9 Signatures: Dispatcher [employer] EDLelia Arias, [employer]-C [employer]-Lonnyb Sera Munoz, RN RN Dia Lopez RN RN mb9 Corrections: (The following items were deleted from the chart) 12:00 12:00 Influenza Screen (A \T\ B)+BA.LAB.BRZ ordered. EDMS EDMS 12:00 12:00 SARS-COV-2 Antigen Rapid+I.LAB.BRZ ordered. EDMS EDMS 12:00 12:00 CBC+H.LAB.BRZ ordered. EDMS EDMS 12:00 12:00 COMPREHENSIVE METABOLIC PANEL+C.LAB.BRZ ordered. EDMS EDMS 12:00 12:00 Urinalysis+U.LAB.BRZ ordered. EDMS EDMS 15:20 15:19 Pt is 19 year old female who presents for nausea, vomiting, bodyaches. kb kb
--- NOTE | 2024-08-10 15:36 | ER ---
Nurse's Notes [facility] Maria L Name: Keira Hdez Age: 19 yrs Sex: Female : 2005 Arrival Date: 08/10/2024 Time: 11:43 Bed 17 Private MD: Diagnosis: Nausea with vomiting, unspecified;Dehydration Presentation: 08/10 12:55 Chief complaint: Patient states: body aches, n/v/d, ISLAS, fatigue and feeling sob since 11 pm yesterday. 18 weeks . Coronavirus screen: Vaccine status: Patient reports receiving the 2nd dose of the covid vaccine. Ebola Screen: No symptoms or risks identified at this time. Initial Sepsis Screen: Does the patient meet any 2 criteria? HR > 90 bpm. Does the patient have a suspected source of infection?. Risk Assessment: Do you want to hurt yourself or someone else? Patient reports no desire to harm self or others. Onset of symptoms was August 09, 2024 at 23:00. 12:55 Method Of Arrival: Ambulatory 12:55 Acuity: JOVANY 4 hb Triage Assessment: 12:58 General: Appears ill, well groomed, well developed, well nourished, Behavior is calm, hb cooperative, appropriate for age, Reports chills for feeling ill for fatigue for 0-12 hours. Pain: Complains of pain in generalized Pain does not radiate. Pain currently is 9 out of 10 on a pain scale. Quality of pain is described as aching, Pain began 1 day ago. Is continuous. EENT: No signs and/or symptoms were reported regarding the EENT system. Neuro: Level of Consciousness is awake, alert, obeys commands, Oriented to person, place, time, situation, Appropriate for age. Cardiovascular: Patient's skin is warm and dry. Respiratory: Reports shortness of breath. GI: Reports diarrhea, nausea, vomiting. : No signs and/or symptoms were reported regarding the genitourinary system. Derm: Skin is intact, is healthy with good turgor, Skin is pale. Musculoskeletal: No signs and/or symptoms reported regarding the musculoskeletal system. 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 - Infectious Disease History:: Denies. - Social history:: Smoking status: Patient denies any tobacco usage or history of. Screenin:04 [facility] ED Fall Risk Assessment (Adult) History of falling in the last 3 months, mb9 including since admission No falls in past 3 months (0 pts) Confusion or Disorientation No (0 pts) Intoxicated or Sedated No (0 pts) Impaired Gait No (0 pts) Mobility Assist Device Used No (0 pt) Altered Elimination No (0 pt) Score/Fall Risk Level 0 - 2 = Low Risk Oriented to surroundings, Maintained a safe environment, Educated pt \T\ family on fall prevention, incl call for assistance when getting out of bed. Abuse screen: Denies threats or abuse. Nutritional screening: No deficits noted. Tuberculosis screening: No symptoms or risk factors identified. Assessment: 14:03 General: Appears in no apparent distress. Behavior is calm, cooperative. Pain: mb9 Complains of pain in entire body Quality of pain is described as aching. Neuro: Level of Consciousness is awake, alert, obeys commands, Oriented to person, place, time, situation, Appropriate for age. Cardiovascular: Patient's skin is warm and dry. Respiratory: Airway is patent Respiratory effort is even, unlabored, Respiratory pattern is regular, symmetrical. GI: Abdomen is round non-distended, Bowel sounds present X 4 quads. Abd is soft and non tender X 4 quads. Reports nausea, vomiting. : No signs and/or symptoms were reported regarding the genitourinary system. EENT: No signs and/or symptoms were reported regarding the EENT system. Derm: Skin is pink, warm \T\ dry. Musculoskeletal: Range of motion: intact in all extremities. 15:35 Reassessment: D/C pending completion of fluids. mb9 15:52 Reassessment: Patient and/or family updated on plan of care and expected duration. Pain mb9 level reassessed. Patient is alert, oriented x 3, equal unlabored respirations, skin warm/dry/pink. Patient states feeling better. Patient states symptoms have improved. 16:25 Reassessment: No changes from previously documented assessment. Patient and/or family mb9 updated on plan of care and expected duration. Pain level reassessed. Patient is alert, oriented x 3, equal unlabored respirations, skin warm/dry/pink. Vital Signs: 12:55 BP 112 / 67; Pulse 120; Resp 17; Temp 98.2; Pulse Ox 98% ; Weight 60.78 kg; Height 5 hb ft. 5 in. ; Pain 9/10; 14:08 BP 111 / 61; Pulse 90; Resp 16; Pulse Ox 100% on R/A; mb9 16:25 BP 105 / 72; Pulse 88; Resp 18; Pulse Ox 100% on R/A; mb9 12:55 Body Mass Index 22.30 (60.78 kg, 165.1 cm) hb 12:55 Pain Scale: Adult hb Vitals: 14:03 Heart Tones 172. mb9 ED Course: 11:47 Patient arrived in ED. ra3 11:49 Lelia Weaver [facility]NP-C [facility]. kb 11:49 Uche Angeles MD is Attending Physician. kb 12:57 Triage completed. hb 12:57 Arm band placed on Patient placed in waiting room. hb 13:39 CBC with Diff Sent. cc6 13:39 CMP Sent. cc6 13:39 Urinalysis w/ reflexes Sent. cc6 13:40 SARS-COV-2 Antigen Rapid Sent. cc6 13:40 Flu Sent. cc6 13:40 Initial lab(s) drawn, by md, sent to lab. Urine collected: clean catch specimen, clear. cc6 Inserted saline lock: 22 gauge in right antecubital area, using aseptic technique. Blood collected. Flushed with 10 mL NS. 13:48 Dia Lopez, RN is Primary Nurse. mb9 14:04 Bed in low position. Call light in reach. Side rails up X 1. Provided Education on: mb9 press call light if needing anything. Client placed on continuous cardiac and pulse oximetry monitoring. NIBP monitoring applied. 14:08 No provider procedures requiring assistance completed. mb9 16:25 IV discontinued, intact, bleeding controlled, No redness/swelling at site. Pressure mb9 dressing applied. Administered Medications: 14:02 Drug: Promethazine IVP 12.5 mg IVP once Route: IVP; Site: right antecubital; mb9 15:16 Follow up: Response: No adverse reaction mb9 14:03 Drug: NS 0.9% IV 1000 ml IV at 1 bolus Per protocol; to be given as a bolus over 60 mb9 minutes Route: IV; Rate: 1 bolus; Site: right antecubital; 15:16 Follow up: Response: No adverse reaction; IV Status: Completed infusion mb9 15:20 Drug: NS 0.9% IV 1000 ml IV at 1000 ml once; to be given as a bolus over 60 minutes mb9 Route: IV; Rate: 1000 ml; Site: right antecubital; 16:26 Follow up: Response: No adverse reaction; IV Status: Completed infusion mb9 15:20 Drug: Potassium Chloride PO 40 mEq PO once Route: PO; mb9 16:26 Follow up: Response: No adverse reaction mb9 Medication: 14:04 VIS not applicable for this client. mb9 Outcome: 15:35 Discharge ordered by MD. draper 16:25 Discharged to home ambulatory, mb9 16:25 Condition: stable 16:25 Discharge instructions given to patient, Instructed on discharge instructions, follow up and referral plans. Demonstrated understanding of instructions, follow-up care, 16:26 Patient left the ED. mb9 Signatures: Lelia Weaver, PHOTO RETOUCHER-C PHOTO RETOUCHER-Ckb Sera Munoz, RN RN Dia Cook RN RN mb9 Susie Mcdonald ra3 Mecca Trujillo 6
[2024-08-10 16:43] VITALS: TEMP 98.2
[2024-08-10 16:48] VITALS: O2SAT 100
[2024-08-10 16:49] VITALS: BP 105/72
== END 2024-08-10 16:26 | disposition home or self-care (01) ==
LOC: ER 11:43
DX: O99.282 Endocrine, nutritional and metabolic diseases complicating pregnancy, second trimester (principal); E86.0 Dehydration; Z3A.18 18 weeks gestation of pregnancy
CPT/HCPCS: 36415; 80053; 81001; 85025; 87804; 87811; 96361; 96374; 99284; J2550; J7030